=== PATIENT | male | born 1965 | race Caucasian/White ===

== ENCOUNTER 2016-10-22 21:45 | Inpatient (IN) | payer OTHER ==
[~2016-10-22] VITALS: Ht 177.8 cm; Wt 54.7 kg
--- NOTE | 2016-10-22 21:48 | NUR ---
PER SISTER, "HE IS A DIABITIC AND IS MAL NUTRITION AND HAS BOWEL MOVEMENT WITH BLOOD"
--- NOTE | 2016-10-22 21:56 | NUR ---
PT TO ER WITH MULTIPLE COMPLAINTS, PT STATES THAT HE IS AN ALCHOLIC , AND THAT HE HAS BEEN HAVING ABD PAIN FOR ABOUT 2 WEEKS, STATES THAT HE HAS BEEN HAVING BRIGHT RED BLOOD IN HIS STOOL TODAY, ALSO STATES THAT HE TRIPPED AND FELL AND HIT HIS HEAD ON THE FLOOR, PT NOTED WITH ABRASION ABOVE HIS R EYE. DENIES LOC. ALSO STATES THAT HE STOPPED TAKING HIS METFORMIN FOR HIS DIABETES , 3 MONTHS AGO. WANTS DETOX FROM ETOH, DENIES HISTORY OF SEIZURES. LAST DRINK WAS 30 MINUTES AGO, DRINKS BEATRIZ AND BEER.
--- NOTE | 2016-10-22 21:59 | NUR ---
FS 446 AT TRIAGE
--- NOTE | 2016-10-22 22:33 | NUR ---
PER PT CAN GO A WEEK WITHOUT DRINKING AND HAS NO SEIZURES, PT REPORTS " I AM AN ALCOHOLIC" PT REPORTS MULTIPLE CO FROM NAUSEA, DIARRHEA. AND ABD PAIN.
[2016-10-22 22:42] LABS: ABSOLUTE BASOPHIL COUNT 0 /CUMM (0.0-0.2); ABSOLUTE EOSINOPHIL COUNT 0 /CUMM (0.0-0.7); ABSOLUTE GRANULOCYTE CT 3.8 /CUMM (1.4-6.5); ABSOLUTE LYMPH COUNT 1.5 /CUMM (1.2-3.4); ABSOLUTE MONOCYTE COUNT 0.4 /CUMM (0.10-0.60); BASOPHIL % 0.2 % (0.0-2.0); EOSINOPHIL % 0.9 % (0-5); GRANULOCYTE % 66.7 % (42.2-75.2); MEAN CORPUSCULAR HGB 33.5 PG (27.0-31.0); MEAN CORPUSCULAR HGB CONC 33.9 G/DL (33.0-37.0); MEAN PLATELET VOLUME 7.3 FL (7.4-10.4); PLATELET COUNT 298 /CUMM (130-400); RBC DISTRIBUTION WIDTH 13.3 % (11.5-14.5); RED BLOOD CELL CT 3.74 /CUMM (4.70-6.10); WHITE BLOOD CELL COUNT 5.8 /CUMM (4.8-10.8)
[2016-10-22 22:52] LABS: PTT 30 SEC (25-37)
--- NOTE | 2016-10-22 23:26 | ED GENERAL ADULT ---
History of Present Illness General Chief Complaint: Fall Stated Complaint: "JUST HAD A FALL/BLOOD IN BOWEL MOVEMENT/ETOH" Source: patient, family (brother and sister) Exam Limitations: no limitations Triage Note: PT TO ER WITH MULTIPLE COMPLAINTS, PT STATES THAT HE IS AN ALCHOLIC , AND THAT HE HAS BEEN HAVING ABD PAIN FOR ABOUT 2 WEEKS, STATES THAT HE HAS BEEN HAVING BRIGHT RED BLOOD IN HIS STOOL TODAY, ALSO STATES THAT HE TRIPPED AND FELL AND HIT HIS HEAD ON THE FLOOR, PT NOTED WITH ABRASION ABOVE HIS R EYE. DENIES LOC. ALSO STATES THAT HE STOPPED TAKING HIS METFORMIN FOR HIS DIABETES , 3 MONTHS AGO. WANTS DETOX FROM ETOH, DENIES HISTORY OF SEIZURES. LAST DRINK WAS 30 MINUTES AGO, DRINKS BEATRIZ AND BEER. Triage Nurses Notes Reviewed? yes HPI: This patient is a 51-year-old male with a past medical history including diabetes, diabetic neuropathy, alcohol dependence who presented to the emergency department today for multiple complaints. The patient reported that over the last year and a half, he has lost approximately 100 pounds unintentionally. He reported that he used to weigh 230 pounds. The patient reported, "every time I eat, it just comes out as diarrhea." He reported that over the last several months he has been having this diarrhea. The patient reported that today he noticed that he had bright red blood in his stool. He reported that this happened once with a bowel movement today. He reported some mild intermittent abdominal pain which he rates at a 5 out of 10 at its worst and is located in the center of his stomach. It is nonradiating. No provoking or palliative factors. He reported that he chronically feels very tired. He reported he drinks approximately one sixpack a day and is requesting alcohol detox. He denied a history of any alcohol withdrawal seizures. He reported that his last drink was today. The patient reported that he smokes up to a pack of cigarettes daily. He also reported that he has been feeling more depressed over the last several months because he was recently laid off of work. The patient reported that he gets around with a walker because he has very bad diabetic neuropathy. He reported that his feet are numb. He reported that he falls frequently. His last fall was today when he got up out of bed and fell forward hitting his face on a tile floor. He reported that he is having minimal neck pain. He denied any head pain or blurry vision. The patient denied losing consciousness. He denied ever losing consciousness from his falls. The patient reported that he stopped taking his metformin more than 3 months ago, "because I am stubborn." The patient does not check his blood sugar regularly. The patient reported that he does get some intermittent chest pain which he was unable to describe. He denied any fevers, chills, difficulty breathing, jaw pain, arm pain, vomiting, constipation. The patient is currently in the process of moving in with his sister who is currently at the bedside along with his brother. (ARTEM BONNER,ALVINO) Vital Signs & Intake/Output Vital Signs & Intake/Output Vital Signs Date Time Temp Pulse Resp B/P Pulse O2 O2 Flow FiO2 Ox Delivery Rate 10/24 0800 98.7 71 16 118/80 10/24 0800 99 Room Air Room Air 10/24 0800 98.7 71 16 118/80 100 Room Air Room Air 10/24 0600 98.4 70 16 139/83 10/24 0400 98.4 62 18 119/78 10/24 0200 97.0 68 18 138/80 10/24 0000 97.0 67 18 125/79 10/24 0000 97.0 67 18 125/79 92 Room Air 10/23 2200 99.2 66 18 124/77 10/23 2000 99.2 72 18 108/80 10/23 1800 98.9 78 17 117/77 10/23 1600 98.9 85 20 94/68 10/23 1600 98.9 85 20 94/58 98 Room Air Room Air 10/23 1600 98 Room Air Room Air 10/23 1400 99.8 86 17 109/74 ED Intake and Output 10/24 0000 10/23 1200 Intake Total 2254 4088 Output Total 2350 600 Balance -96 3488 Intake, IV 1854 4088 Intake, Oral 400 0 Number 1 0 Bowel Movements Output, Stool 1000 Output, Urine 1350 600 Patient 121 lb Weight Allergies Coded Allergies: No Known Allergies (10/23/16) (RAYMON PEGUERO,TAYLOR Olmos) Past History Travel History Traveled to [place] past 21 day No Medical History Any Pertinent Medical History? see below for history Neurological: NONE EENT: NONE Cardiovascular: NONE Respiratory: NONE Gastrointestinal: NONE Hepatic: NONE Renal: NONE Musculoskeletal: NONE Psychiatric: alcohol dependence Endocrine: diabetes, DIABETIC NEUROPATHY Blood Disorders: NONE Cancer(s): NONE MILL TENDER/Reproductive: NONE Surgical History Surgical History: non-contributory Psychosocial History What is your primary language Guamanian Tobacco Use: Current Daily Use Daily Tobacco Use Amount/Type: => 5 Cigarettes daily ETOH Use: alcoholic Illicit Drug Use: denies illicit drug use Family History Hx Contributory? No (ALVINO MCGILL PA-C) Review of Systems Review of Systems Constitutional: Reports: see HPI. EENTM: Reports: no symptoms. Respiratory: Reports: no symptoms. Cardiovascular: Reports: see HPI. GI: Reports: see HPI. Genitourinary: Reports: no symptoms. Musculoskeletal: Reports: no symptoms. Skin: Reports: no symptoms. Neurological/Psychological: Reports: see HPI. Hematologic/Endocrine: Reports: see HPI. All Other Systems: Reviewed and Negative (ALVINO MCGILL PA-C) Physical Exam Physical Exam General Appearance: no apparent distress, alert, awake, thin Comments: Thin male in no acute distress HEENT: Head normocephalic, no bony deformity/step-offs of the skull, no tenderness to palpation over the scalp, moist mucous membranes PERRLA bilaterally Nose is atraumatic. Neck: Supple, no lymphadenopathy. Full range of motion. Mild midline tenderness to palpation Back: Normal inspection with no bony or muscular deformities. No midline tenderness Cardiovascular: Regular rate and rhythm with no murmurs, rubs, or gallops Respiratory: Chest nontender. No respiratory distress. Breath sounds clear to auscultation bilaterally with no wheezes, rales, or rhonchi Abdomen: Soft, nontender and nondistended. No organomegaly appreciated. Normoactive bowel sounds. No rebound or guarding. No peritoneal signs Rectal examination: No external or internal hemorrhoids noted. No anal fissures appreciated. Bright red blood per rectum with heme positive stool Extremity: No edema, no calf tenderness to palpation, normal and equal pulses. Neuro: Alert oriented x3, cranial nerves II through XII grossly intact. No unilateral weakness Skin: No appreciable rash on exposed skin, skin is warm and dry. Psych: Mood and affect is depressed Core Measures ACS in differential dx? Yes CVA/TIA Diagnosis: No Severe Sepsis Present: No Septic Shock Present: No (ALVINO MCGILL PA-C) Progress Differential Diagnoses I considered the following diagnoses in my evaluation of the patient: [Alcohol intoxication, alcohol withdrawal, drug intoxication, drug overdose, drug withdrawal, generalized anxiety disorder, major depressive disorder, intracranial hemorrhage, skull fracture, facial fracture, cervical spine injury, seizure disorder, ACS, viral syndrome, malignancy, hyperglycemia, diabetic ketoacidosis, perforated viscus, gastroenteritis, diverticulitis, peptic ulcer disease, GERD] Initial ED EKG: normal axis, normal intervals, nonspecific ST T wave chg, 78 bpm Hand-Off Endorsed To: RAYMON PEGUERO,TAYLOR Olmos Endorsed Time: 48 Pending: CT, labs (ARTEM BONNER,ALVINO) Plan of Care: Orders Procedure Date/time Status Nothing by Mouth 10/25 B Active LACTIC ACID 10/24 1200 Active HEPATITIS PANEL 10/24 1200 Active LACTIC ACID 10/24 0500 Complete ICU LAB BUNDLE 10/24 0500 Complete CBC WITHOUT DIFFERENTIAL 10/24 0500 Complete CORTISOL AM 10/24 0415 Complete PT EVAL MOD COMPLEX 30 MIN 10/24 UNK Complete Gait Training 10/24 UNK Complete Lab Add-on Test 10/24 UNK Active Clear Liquid Diet 10/23 D Active CULTURE,STOOL 10/23 1803 Active OVA AND PARASITE ANTIGENS 10/23 1754 Complete C.DIFFICILE 10/23 1753 Complete MISTAKE 10/23 UNK Active Current Medications Sig/Fay Start time Last Medication Dose Stop Time Status Admin Polyethylene Glycol 1 GAL ONCE ONE 10/24 1700 AC (Golytely Liq 4000 10/24 1701 Ml) Polyethylene Glycol 1 GAL ONCE ONE 10/23 1900 CAN (Golytely Liq 4000 10/23 1901 Ml) Acetaminophen 1,000 MG Q6P PRN 10/23 0600 AC (Ofirmev) N/A 1 UNIT (No Carrier) Lorazepam 0 Q1P PRN 10/23 0415 AC (Ativan) Acetaminophen 650 MG Q6P PRN 10/23 0330 AC (Tylenol) Laboratory Tests 10/24/16 0415: Anion Gap 8, Estimated GFR > 60, Glucose 137 H, Lactic Acid 2.2 H, Calcium 8.7 , Phosphorus 3.5, Magnesium 1.6, Total Bilirubin 0.6, AST 25, ALT 32, Albumin 3.1 L, Cortisol AM Sample 8.7, CBC w Diff NO MAN DIFF REQ, RBC 3.49 L, MCV 98.1 H, MCH 33.3 H, RDW 13.8, MPV 8.3, Gran % 72.2, Lymphocytes % 17.6 L, Monocytes % 8.2, Eosinophils % 1.5, Basophils % 0.5, Absolute Granulocytes 4.5, Absolute Lymphocytes 1.1 L, Absolute Monocytes 0.5, Absolute Eosinophils 0.1, Absolute Basophils 0, PUBS MCHC 33.9 10/23/16 1400: Anion Gap 5, Estimated GFR > 60, Glucose 158 H, Calcium 8.6, Phosphorus 3.1, Magnesium 1.7, Total Bilirubin 0.5, AST 35, ALT 32, Albumin 3.5, CBC w Diff NO MAN DIFF REQ, RBC 3.32 L, MCV 97.7 H, MCH 33.7 H, RDW 13.8, MPV 7.7, Gran % 65.1, Lymphocytes % 23.2, Monocytes % 8.4, Eosinophils % 2.9, Basophils % 0.4, Absolute Granulocytes 3.6, Absolute Lymphocytes 1.3, Absolute Monocytes 0.5, Absolute Eosinophils 0.2, Absolute Basophils 0, PUBS MCHC 34.5 Microbiology 10/24 1030 STOOL: Cryptosporidium Antigen - COMP 10/24 103 STOOL: Giardia Antigen (REENA) - COMP 10/23 1899 STOOL: Stool Culture - RES 10/23 1899 STOOL: Clostridium difficile Toxin A & B - COMP Departure Departure Disposition: STILL A PATIENT Condition: Stable Clinical Impression Primary Impression: Bright red blood per rectum Secondary Impressions: Frequent falls Uncontrolled diabetes mellitus Qualifiers: Diabetes mellitus type: type 2 Diabetes mellitus complication status: with unspecified complications 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 insulin use status Qualified Codes: E11.8 - Type 2 diabetes mellitus with unspecified complications; E11.65 - Type 2 diabetes mellitus with hyperglycemia Referrals: BENSON RAMSAY MD (PCP/Family) Departure Forms: Customer Survey General Discharge Information Admission Note Spoke With: MC LU MD Documentation of Exam: Documentation of any treatments & extenuating circumstances including Concerns Regarding Discharge (functional status, medication knowledge or non-compliance, living conditions, etc.) that warrant an admission rather than observation: [ This patient is a 51-year-old male sent to the emergency department today for evaluation of alcohol detox, frequent falls, uncontrolled diabetes, and bright red blood per rectum. On physical examination, this patient does have bright red blood per rectum with heme positive stool. This patient is thin and malnourished. He currently lives at home alone. Based on this patient's history and current clinical status, he is a poor candidate for outpatient treatment. This patient should be admitted to the hospital for gastroenterology consultation, trend labs, PT consultation, endocrinology consultation, regular blood glucose checks, IV fluids, and close monitoring. Premature discharge could prove medically harmful.] (ALVINO MCGILL PA-C) Departure Comments 10/23/16, 4:11am... discussed with devang radiologist.... ct scan showing "iv related" air is a benign finding. No danger to patient. Incidental. Admission Note Documentation of Exam: Documentation of any treatments & extenuating circumstances including Concerns Regarding Discharge (functional status, medication knowledge or non-compliance, living conditions, etc.) that warrant an admission rather than observation: as above. (TAYLOR ENNIS MD) Critical Care Note Critical Care Note Critical Care Time: non-applicable (ALVINO MCGILL PA-C) Critical Care Note Critical Care Time: 30-74 min (TAYLOR ENNIS MD) living conditions, etc.) that warrant an admission rather than observation: [ This patient is a 51-year-old male sent to the emergency department today for evaluation of alcohol detox, frequent falls, uncontrolled diabetes, and bright red blood per rectum. On physical examination, this patient does have bright red blood per rectum with heme positive stool. This patient is thin and malnourished. He currently lives at home alone. Based on this patient's history and current clinical status, he is a poor candidate for outpatient treatment. This patient should be admitted to the hospital for gastroenterology consultation, trend labs, PT consultation, endocrinology consultation, regular blood glucose checks, IV fluids, and close monitoring. Premature discharge could prove medically harmful.] (ALVNIO MCGILL PA-C) Departure Comments 10/23/16, 4:11am... discussed with devang radiologist.... ct scan showing "iv related" air is a benign finding. No danger to patient. Incidental. Admission Note Documentation of Exam: Documentation of any treatments & extenuating circumstances including Concerns Regarding Discharge (functional status, medication knowledge or non-compliance, living conditions, etc.) that warrant an admission rather than observation: as above. (TAYLOR ENNIS MD) Critical Care Note Critical Care Note Critical Care Time: non-applicable (ALVINO MCGILL PA-C) Critical Care Note Critical Care Time: 30-74 min (RAYMON PEGUERO,TAYLOR Olmos)
[2016-10-23] VITALS (11 sets, daily range): BP systolic 89–124; BP diastolic 50–80
--- NOTE | 2016-10-23 00:16 | NUR ---
TO CT AT THIS TIME.
--- NOTE | 2016-10-23 01:00 | CT SCAN REPORT ---
CT HEAD WITHOUT IV CONTRAST CT CERVICAL SPINE WITHOUT IV CONTRAST CT MAXILLOFACIAL WITHOUT IV CONTRAST INDICATION: Fall. COMPARISON: None available. TECHNIQUE: Multidetector CT acquisitions of the head, maxillofacial region, and cervical spine were obtained without IV contrast. Multiplanar reformats were acquired and utilized for image interpretation. FINDINGS: HEAD: There is no intracranial hemorrhage, hydrocephalus, extra-axial surface collection, midline shift, or other herniation pattern. Condon to white matter differentiation is diffusely maintained without evidence of an evolved acute territorial infarct. The basilar cisterns are preserved. There is mild anterior right frontal scalp swelling. No acute osseous abnormality. The paranasal sinuses and the mastoid air cells are well-aerated. Small amount of gas within the left paravertebral soft tissues at C1, within the left dorsal epidural space at C2, and just below the left skull base and within the left gis specialist space that is most likely intravenous gas from intravenous line placement. MAXILLOFACIAL: The mandible, maxilla, pterygoid plates, nasal bones, zygomatic arches, paranasal sinus castro, and bony orbits are intact. No acute osseous abnormality within the maxillofacial region. The paranasal sinuses and mastoid air cells remain well-aerated. No significant soft tissue findings. CERVICAL SPINE: There is anatomic alignment of the vertebral bodies and posterior elements. Moderate to severe disc volume loss with endplate osteophytes at C5-C6. There is no acute fracture and there is no acute subluxation. The craniocervical and atlantoaxial articulations are normal. There is no prevertebral soft tissue swelling. No significant soft tissue abnormality within the neck. The visualized lung apices are clear. IMPRESSION: 1. No acute intracranial abnormality. There is mild anterior right frontal scalp swelling. No fracture. 2. No acute osseous abnormality within the cervical spine. Moderate to severe spondylosis at C5-C6. 3. No acute osseous abnormality within the maxillofacial region. 4. Small amount of gas within the left paravertebral soft tissues at C1, within the left dorsal epidural space at C2, and just below the left skull base and within the left gis specialist space that is most likely intravenous gas from intravenous line placement.
--- NOTE | 2016-10-23 01:14 | CT SCAN REPORT ---
EXAMINATION: CT ABDOMEN AND PELVIS WITH CONTRAST CLINICAL INFORMATION: Rectal bleeding/abdominal pain COMPARISON: None available. TECHNIQUE: Multidetector volumetric imaging was performed of the abdomen and pelvis before and after the IV administration of 95 mL of Omnipaque 300 intravenous contrast. Sagittal and coronal reformatted images were obtained on the technologist's workstation. FINDINGS: The lung bases are clear. A 4 mm subpleural nodule at the lateral right lung base is of doubtful clinical significance. The liver, spleen, adrenal glands, gallbladder, and pancreas are normal. The kidneys exhibit symmetric nephrograms without evidence of hydronephrosis or nephrolithiasis. No focal renal lesions. The large and small bowel are normal in caliber without evidence of mechanical obstruction. No focal inflammatory changes adjacent to the large or the small bowel though assessment is limited by generalized anasarca. There is a partially imaged 0.8 cm round radiodensity along the anterior margin of the anus on image 90 of series 2 that could reflect a fecalith, calcification, or foreign body in this location that can be correlated with direct visual inspection. The appendix is not clearly identified. There is no free air and there is no intra-abdominal free fluid. No mesenteric or retroperitoneal adenopathy. Bladder is markedly distended. No pelvic adenopathy. No free fluid within the pelvis. There are no acute osseous abnormalities. Generalized anasarca. IMPRESSION: - Assessment for an acute bowel process is limited by closely opposed structures and generalized anasarca with no definite acute findings appreciated. If rectal bleeding persists, consider follow-up with colonoscopy. - There is a partially imaged 0.8 cm round radiodensity along the anterior margin of the anus on image 90 of series 2 that could reflect a fecalith, calcification, or foreign body in this location that can be correlated with direct visual inspection. - Generalized anasarca. - Significant bladder distention.
--- NOTE | 2016-10-23 01:58 | NUR ---
AWAKE ALERT MENTATING WELL. NO DIZZYNESS. GAIT STEADY.
--- NOTE | 2016-10-23 02:17 | NUR ---
OK WITH MD TO EAT, PT TO BR NO DIARRHEA NOTED NO ACTIVE BLEEDING.
--- NOTE | 2016-10-23 02:27 | NUR ---
HOUSESTAFF AT BEDSIDE. DR Patricia PARADA AT BEDSIDE.
--- NOTE | 2016-10-23 02:39 | NUR ---
LACTIC ACID NOW RESULTED FROM 2229
--- NOTE | 2016-10-23 02:50 | NUR ---
REPEAT LACTIC SENT GOLD AND LAV ALSO DRAWN HOUSESTAFF IS NOT SURE WHAT TO ORDER, WILL THINK ABOUT IT AND PLACE ADD ON,. REMAINS AWAKE ALERT NO DIZZYNESS NOTED. NO ACTIVE BLEEDING.
--- NOTE | 2016-10-23 03:11 | History & Physical ---
BONITA PEGUERO,[facility] [place] 10/23/16 0311: General Information and HPI MD Statement: I have seen and personally examined DL NGUYỄN and documented this H&P. The patient is a 51 year old M who presented with a patient stated chief complaint of bloody diarrhea. Source of Information: patient, family Exam Limitations: no limitations History of Present Illness: Mr. Nguyễn is a 51 y/o M with PMHx of alcohol abuse, T2DM and peripheral neuropathy who presents with bloody diarrhea and two syncopal episodes. Patient reports that he has been having diarrhea for the past two months with some relief from Imodium and notes four bowel movements on the day of current presentation. He also endorses associated discomfort in his lower abdomen. On the day of current presentation, patient got up to use the bathroom after dinner when he felt weak and his legs felt "wobbly". He subsequently passed out and found himself on the floor. He got up and went to the bathroom and subsequently noted blood in his stool. He passed out a second time after using the bathroom. Of note, patient has been having recurrent falls for the past few months and had to move in with his sister for safety. He also notes nocturia and urgency for the past few months but denies dysuria. Patient was diagnosed with T2DM about a year ago and started on metformin, which he has not been compliant with. He has also lost > 100 pounds over the past year despite no changes in his appetite. He reports that an extensive work-up including HIV test has been negative and attributes his weight loss to his newly diagnosed diabetes. Patient's brother reports that patient has been drinking heavily and eats very little when he drinks. Patient admits to drinking about 6 beers and half a pint of alpa and smoking 1/2 packs of cigarettes per day. He reports depression but denies suicidal or homicidal ideation. He denies cough, chest pain, palpitations, shortness of breath, nausea or vomiting. He has never had a colonoscopy. Allergies/Medications Allergies: Coded Allergies: No Known Allergies (10/23/16) Past History Travel History Traveled to [place] past 21 day No Medical History Neurological: peripheral neuropathy EENT: NONE Cardiovascular: NONE Respiratory: NONE Gastrointestinal: NONE Hepatic: NONE Renal: NONE Musculoskeletal: NONE Psychiatric: alcohol dependence Endocrine: diabetes Blood Disorders: NONE Cancer(s): NONE DEAN OF MEN/Reproductive: NONE Surgical History Surgical History: non-contributory Past Family/Social History Psychosocial History Where do you live? Home Who Do You Live With? sister Primary Language: [place] Citizen Smoking Status: Current Everyday Smoker (1/2 PPD) ETOH Use: alcoholic Illicit Drug Use: denies illicit drug use Review of Systems Review of Systems Constitutional: Reports: weakness, unexplained weight loss. Denies: chills, fever. EENTM: Reports: no symptoms. Cardiovascular: Denies: chest pain, palpitations. Respiratory: Denies: cough, short of breath. GI: Reports: abdominal pain, diarrhea, bloody stool, changes in stool. Denies: constipation, nausea, vomiting. Genitourinary: Reports: nocturia, urgency. Denies: dysuria. Musculoskeletal: Reports: no symptoms. Skin: Reports: no symptoms. Neurological/Psychological: Reports: ataxia, depressed, other (peripheral neuropathy). Hematologic/Endocrine: Reports: no symptoms. Immunologic/Allergic: Reports: no symptoms. Denies: HIV/AIDS. All Other Systems: Reviewed and Negative Colonoscopy Testing Status: Test never done Exam & Diagnostic Data Last 24 Hrs of Vital Signs/I&O Vital Signs Date Time Temp Pulse Resp B/P Pulse O2 O2 Flow FiO2 Ox Delivery Rate 10/23 0800 99.4 96 17 98/50 10/23 0800 98 Room Air Room Air 10/23 0800 99.4 96 17 98/50 98 Room Air Room Air 10/23 0600 98.3 84 10 107/72 10/23 0600 98.3 84 10 107/72 10/23 0600 98 Room Air 10/23 0515 98.3 83 15 94/63 98 Room Air 10/23 0439 96.9 88 20 88/52 98 10/23 0252 89 20 87/55 97 10/23 0237 97.9 82 20 89/57 10/23 0156 89/57 10/22 2151 97.0 96 18 97/66 96 Room Air Intake & Output 10/23 1600 10/23 0800 10/23 0000 Intake Total 4088 Output Total 600 Balance 3488 Intake, IV 4088 Intake, Oral 0 Number 0 Bowel Movements Output, Urine 600 Patient 54.703 kg 54.703 kg 58.967 kg Weight Physical Exam General Appearance Alert, Oriented X3, No Acute Distress, Cachectic Skin No Rashes HEENT Laceration Noted on Right Forehead Neck Supple, No LAD Cardiovascular Regular Rate, Normal S1, Normal S2 Lungs Clear to Auscultation Abdomen Soft, No Tenderness, Nondistended, Positive Bowel Sounds Neurological Normal Speech, Strength at 5/5 X4 Ext, Cranial Nerves 3-12 NL, No Gross Focal Deficits Noted Extremities No Clubbing, No Cyanosis, No Edema Rectal Positive for Blood Last 24 Hrs of Labs/Brad: Laboratory Tests 10/23/16 0440: Anion Gap 15, Estimated GFR > 60, Glucose 141 H, Calcium 7.9 L, Phosphorus 2.7 , Magnesium 1.8, Total Bilirubin 0.4, Direct Bilirubin 0.3, AST 26, ALT 30, Alkaline Phosphatase 52, Total Protein 5.7 L, Albumin 3.3 L, Vitamin B12 477, TSH 0.823, Free T4 1.17, HIV 1&2 Ab Western Blot NONREACTIVE 10/23/16 0417: TSH Cancelled, Free T4 Cancelled 10/23/16 0250: Lactic Acid 4.4 H 10/22/16 2340: Urine Opiates Screen < 100.00, Methadone Screen < 40, Barbiturate Screen < 60, Ur Phencyclidine Scrn < 6.00, Amphetamines Screen < 100, U Benzodiazepines Scrn < 85, Urine Cocaine Screen < 50, Urine Cannabis Screen < 5.00, Urine Color YEL, Urine Clarity CLEAR, Urine pH 6.0, Ur Specific [place] <= 1.005, Urine Protein NEG, Urine Ketones NEG, Urine Nitrite NEG, Urine Bilirubin NEG, Urine Urobilinogen 0.2, Ur Leukocyte Esterase NEG, Ur Microscopic EXAM NOT REQUIRED, Urine Hemoglobin NEG, Urine Glucose >=1000 H 10/22/16 2230: Lactic Acid 4.0 H 10/22/16 2230: Anion Gap 17 H, Estimated GFR > 60, BUN/Creatinine Ratio 16.7, Glucose 404 H, Calcium 9.3, Total Bilirubin 0.6, Direct Bilirubin 0.4, AST 19, ALT 31, Alkaline Phosphatase 65, Troponin I < 0.01, Total Protein 7.0, Albumin 4.3, Globulin 2.7, Albumin/Globulin Ratio 1.6, Amylase 87, Lipase 204, PT 10.0, INR 0.95, APTT 30, CBC w Diff NO MAN DIFF REQ, RBC 3.74 L, MCV 99.0 H, MCH 33.5 H, RDW 13.3, MPV 7.3 L, Gran % 66.7, Lymphocytes % 25.5, Monocytes % 6.7, Eosinophils % 0.9, Basophils % 0.2, Absolute Granulocytes 3.8, Absolute Lymphocytes 1.5, Absolute Monocytes 0.4, Absolute Eosinophils 0, Absolute Basophils 0, PUBS MCHC 33.9, Serum Alcohol 291.0, Acetone Level NEGATIVE Microbiology 10/23 0600 UPPER RESP: Surveillance Culture - RECD Diagnostic Data EKG Results NSR HR [address] HEAD W/O IV CONTRAST: 1. No acute intracranial abnormality. There is mild anterior right frontal scalp swelling. No fracture. CT CERVICAL SPINE W/O IV CONTRAST: No acute osseous abnormality within the cervical spine. Moderate to severe spondylosis at C5-C6. Small amount of gas within the left paravertebral soft tissues at C1, within the left dorsal epidural space at C2, and just below the left skull base and within the left gas pumping station helper space that is most likely intravenous gas from intravenous line placement. CT MAXILLOFACIAL W/O IV CONTRAST: No acute osseous abnormality within the maxillofacial region. Assessment/Plan Assessment: 51 y/o M with PMHx of alcohol abuse, T2DM and peripheral neuropathy who presents with bloody diarrhea and two syncopal episodes. #BRBPR: Presents with bloody diarrhea and two syncopal episodes. Hypotensive in the ED with BP 80/50s despite aggressive fluid resuscitation with NS boluses and elevated lactic acid of 4. Despite hypotension, H/H only borderline low at 12.5/ 37. * Admit to ICU for close hemodynamic monitoring in the setting of hypotension. * GI consult requested. Appreciate their recs. * Type and crossmatch. * Patient ate a sandwich around 4 AM in the ED. Keep NPO afterwards. * Aggressive IVF hydration with NS @ 100 cc/hr. * Protonix 40 mg IV QD started. * Check H/H in 6 hours. #Syncope and recurrent falls: Likely secondary to orthostatic hypotension in the setting of volume contraction 2/2 chronic diarrhea and suspected GI bleed, although peripheral neuropathy and alcohol use are possible contributory factors. Differential also includes arrhythmia and neurocardiogenic syncope. * Continous cardiac monitoring to rule out arrhythmia. * OT/PT eval. * Check vitamin B12 level. #Chronic diarrhea and weight loss: Patient has lost >100 pounds in the past year and reports that extensive work-up including HIV test has been negative. Diarrhea has been ongoing for 2 months. Of unclear etiology. It is possible that metformin could be contributing to the diarrhea. Potential etiologies include infectious, malabsorption, endocrine, malignancy and metabolic secondary to alcohol use. * HIV test ordered. * Check thyroid function tests. * Consider more extensive work-up once patient is medically stable. #Anion gap metabolic acidosis: Anion gap elevated at 17 on initial presentation. Differential includes starvation ketoacidosis in the setting of weight loss, lactic acidosis likely secondary to hypotension and alcoholic ketoacidosis. * Continue to trend lactic acid and BMP. * Aggressive IVF hydration with NS @ 100 cc/hr. #Alcohol abuse: Heavy alcohol use. Drinks 6 beers and half a pint of alpa daily. Serum alcohol level markedly elevated at 291 on admission. * [facility] protocol to monitor for signs/symptoms of alcohol withdrawal. * Ativan PRN per [facility] protocol. * Banana bag with 200 mg of thiamine, MVI and 1 mg of folic acid started. * Administer vitamin B12 1000 mcg IM. #T2DM: Was diagnosed one year ago and started on metformin 1000 mg PO BID but has been noncompliant with medication. * Check HbA1c. * Accu-checks and Novolin Q6H SSI while patient is NPO. #Depression: No suicidal or homicidal ideation at present. * Psych consult placed. Appreciate their recs. Diet: NPO Fluids: NS @ 100 cc/hr Pain: Tylenol 650 mg PO Q6H PRN for mild pain (scale 1-3) DVT PPx: CODE: FULL As Ranked By This Provider Problem List: 1. Bright red blood per rectum 2. Frequent falls 3. 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 T2DM (type 2 diabetes mellitus) 5. Weight loss, unintentional 6. Chronic diarrhea 7. Depression 8. Alcohol abuse 9. Syncope 10. Lactic acidosis 11. Increased anion gap metabolic acidosis Core Measures/Miscellaneous Acute Coronary Syndrome ACS Diagnosis: No Cerebrovascular Accident CVA/TIA Diagnosis: No Congestive Heart Failure CHF Diagnosis: No Venous Thromboembolism VTE Risk Factors: Acute medical illness, Age > 40, Smoking VTE Prophylaxis Ordered Inpt: Mechanical (ALPS/TEDS) No Mech VTE prophylaxis d/t: No contraindications No VTE Pharm Prophylaxis d/t: Active bleeding VTE Diagnosis: No VTE Type: NONE VTE Confirmed by (Test): NONE Severe Sepsis Severe Sepsis Present: No Septic Shock Septic Shock Present: No Miscellaneous Documentation Attending Case Discussed With: MC LU MD Primary Care Physician: BENSON RAMSAY MD Patient sees these Specialists N/A Level of Patient Care: Critical Care (CRI) [facility] 10/23/16 0350: Resident Review Statement Resident Statement: examined this patient, discussed with internet researcher, agreed with internet researcher Other Findings: Patient is a 51-year-old gentleman with past medical history significant for diabetes, treated with diabetic neuropathy, significant weight loss for the past year( from 230 pounds to 130 pounds)presented to the ED with chief complaints of diarrhea for 1 month and syncopal episode yesterday. Patient mentioned that he was diagnosed with diabetes type 1 year ago and was started on metformin, he lost significant weight in the past year without any change in his appetite. He has been worked up for HIV and hepatitis and all tests came negative. About 2 months he's been having loose watery stools without any nausea or vomiting reported some lower abdominal discomfort. He is not very compliant with his medications at home. Yesterday he started having bright red blood per rectum with stools, he passed out twice without any alarming symptoms, both episodes happened on standing up. His symptoms were concerning and he was brought to the ER for further assessment. In the ED patient was found to be hypotensive blood pressure was 87/55, with elevated blood sugar levels 446, he received 10 units of IV insulin twice and his blood sugar levels came down to 192. He received 3 L boluses of normal saline and getting the fourth liter in the ER. Patient has a history of significant alcohol abuse drinks 6 [place] with half pint of alpa a day for a long time now smokes 10-11 cigarettes a day. He seems depressed, denies any suicidal or homicidal ideation. Vitals on admission temperature 90.7, pulse 89, respiratory rate 20, blood pressure 87/55 on room air On examination feneral Appearance: Alert, No Acute Distress, seems thin and cachectic Skin: Grossly normal HEENT: WADE Neck: Supple, No JVD Cardiovascular normal S1 and S2 without any murmurs Lungs: bilateral basal crackles Abdomen: Normal Bowel Sounds, Soft, No Tenderness Neurological: Normal Speech, Strength at 5/5 X4 Ext, Cranial Nerves 3-12 NL, Reflexes 2+ Extremities: No extremity edema Pertinent labs on admission: H&H: 12.5/37.0 with MCV of 99 sodium 134 BUN/creatine tenths as you 0.6 elevated lactic acid: 4, normal urinalysis. Initial fingerstick sugar sticks 446. Urine toxicology normal. Normal head CT scan CT abdomen and pelvis revealed: There is a partially imaged 0.8 cm round radiodensity along the anterior margin of the anus on image 90 of series 2 that could reflect a fecalith, calcification, or foreign body in this location that can be correlated with direct visual inspection.Generalized anasarca.Significant bladder distention. Assessment and plan 1. Acute Bright red blood per rectum with hypotension: * Will keep the patient in observation in ICU for now * Orthostats and negative, patient already received 4 L of normal saline will continue with 100 mL per our for now. * Keep the patient nothing by mouth * IV Protonix * GI consult in the morning * Watch for any hemodynamic instability. 2.History of alcohol abuse: * We'll put the patient on Ativan as per [facility] protocol * Will give 200 of IM thiamine once * Continue with by mouth thiamine, folate and vitamin B12 * Psych consult in the morning. 3. History of type 2 diabetes mellitus: * NPO insulin sliding scale. * Check hemoglobin A1c 4. Significant weight loss(possible underlying malignancy/other pathology): * Will check HIV, hepatitis panel, thyroid function tests 5. DVT prophylaxis Alps 6. Patient is full code MC LU 10/23/16 0634: Attending MD Review Statement Attending Statement Attending MD Statement: examined this patient, discuss w/resident/PA/CORPORATE TRAFFIC MANAGER, agreed w/resident/PA/CORPORATE TRAFFIC MANAGER, discussed with family, reviewed EMR data (avail), reviewed images, amended to note Attending Assessment/Plan: Cc: Bloody diarrhea PMH: DM noncompliant, alcoholism, peripheral neuropathy Patient has multiple complaints primarily brought in ER today with bloody stool, and fall 2 times, patient was unable to get up, he had syncopal episodes. He had been having multiple falls since last few weeks. Extensive alcohol history. No diagnosis of cirrhosis. He also has uncontrolled diabetes noncompliant with this medication, significant waist loss in the last 1 year, chronic diarrhea since last 2 months, peripheral neuropathy, depression. Denies any chest pain, abdominal pain, cough shortness of breath, denies any suicidal or homicidal ideation. Vitals: Afebrile, BP 97/66 in ER dropped to 87/55, saturating well on room air. On examination: A O 3, no agitation, mildly anxious, neck supple, no lymphadenopathy, bruises on for head on Right side, cold extremities, peripheral pulses intact, no focal neurological deficit, CVS: S1-S2, RRR. RS: Clear air entry bilaterally. Abdomen: Soft, NT, ND bowel sounds present. Rectal examination done in ER positive for blood. Obvious inflammation or rashes on the skin. Labs: Hemoglobin 12.5, glucose 404, anion gap 17, INR 0.95, troponin less than 0.01, lipase 204, alcohol 291, lactate 4.0. Imaging: CT CERV SPINE WO IV CONTRAST; CT HEAD WO IV CONTRAST; CT MAXILLOFACIAL W/O CON : No acute intracranial abnormality. There is mild anterior right frontal scalp swelling. No fracture. No acute osseous abnormality within the cervical spine. Moderate to severe spondylosis at C5-C6. No acute osseous abnormality within the maxillofacial region. Small amount of gas within the left paravertebral soft tissues at C1 (???), within the left dorsal epidural space at C2, and just below the left skull base and within the left gas pumping station helper space that is most likely intravenous gas from intravenous line placement. CT ABD & PELVIS W IV CONTRAST: Assessment for an acute bowel process is limited by closely opposed structures and generalized anasarca with no definite acute findings appreciated. If rectal bleeding persists, consider follow-up with colonoscopy. There is a partially imaged 0.8 cm round radiodensity along the anterior margin of the anus on image 90 of series 2 that could reflect a fecalith, calcification, or foreign body in this location that can be correlated with direct visual inspection. Generalized anasarca. Significant bladder distention. A and P #1 GI bleed: Patient was mildly hypotensive in ER , more concern of increased lactate even after hydration. Admit to in ICU for hypotension in the setting of GI bleed. Type and crossmatch, GI consult, nothing by mouth, IV Protonix, continue IV hydration with 75 200 mL per hour, repeat hemoglobin and hematocrit in 6 hours. #2 alcohol abuse: Extensive alcohol history, continue scheduled and when necessary Ativan according to [facility] protocol, replete thiamine and folic acid, significant history of depression consult psych #3 uncontrolled diabetes: Check hemoglobin A1c, start NPO sliding scale insulin #4 anion gap Metabolic acidosis: Starvation ketosis, alcoholism and lactic acidosis, continue hydration #5 fall and syncope: Patient has high alcohol level which may be contributing but patient mentions syncopal episodes his loses consciousness and falls down when unaware of the episode. Probably orthostatic hypotension given his volume contraction, continue hydration, youth nutritional monitor, OT PT evaluation. #6 chronic diarrhea and weight loss : ? Metformin ? Unclear etiology #7 peripheral neuropathy : Check vitamin B12 level, #8 Alps for DVT prophylaxis, adequate pain control #[address] mentions ? fecalith in rectum, ER note does not mention any such examination findings on rectal exam. May repeat rectal exam in a.m.
--- NOTE | 2016-10-23 03:15 | NUR ---
CRITICAL TEST RESULTS [id number] DL NGUYỄN 51 M TESTS AND RESULTS: LACTIC 4.4 Results received and read back by: RAZ RUDOLPH Results received date and time: 10/23/16 0506 The following provider was notified of the results, and read the results back: DR CASEY[AUNDER Notified date and time: 10/23/16 at 0315
--- NOTE | 2016-10-23 03:18 | NUR ---
DR BUTT IN FRONT OF THIS RN AND INFORMED HER OF THE PTS LACTIC 4.4 RESULTS, RESIDENT HAILEY PAGED AND INFORMED AND RESIDENT RESPONDED WITH "OK I WILL LET HOWARD KNOW".....
--- NOTE | 2016-10-23 03:36 | NUR ---
PT'S RM ASSIGNMENT 108 BED 1
--- NOTE | 2016-10-23 04:09 | NUR ---
PT NOW NPO, HOUSESTAFF AWARE PT HAD 2 BOXED LUNCHES AND DIET PEPSI.
--- NOTE | 2016-10-23 04:14 | NUR ---
VOIDING WITHOUT DIFF, AMBULATORY TO BR AD GORDON NO DIZZYNESS NO OVERT BLEEDING NOTED.
--- NOTE | 2016-10-23 04:39 | NUR ---
LABS REDRAWN AND SENT.
--- NOTE | 2016-10-23 04:41 | NUR ---
PER REQUEST OF CALLED WITH MOST RECENT BP. PT REPORTS IN BR X 1 WITH SMALL AMT OF DIAHHEA, PER PT THIS HAPPENS AFTER EATING.
--- NOTE | 2016-10-23 05:05 | NUR ---
REPORT TO [facility].
--- NOTE | 2016-10-23 06:35 | Admission Certification ---
Admission Certification Certification Statement - As attending physician, I certify that at the time of - admission, based on clinical presentation, severity of - symptoms, need for further diagnostic testing and - therapeutic interventions, and risk of adverse outcomes - without in-hospital treatment, in my clinical assessment, - this patient requires an acute hospital stay for a minimum - of two nights or longer. I have also considered psychsocial - factors such as support system, advanced age, financial - issues, cognitive issues, and failed out-patient treatments, - past re-admission history, safety of patient, and lack of - compliance as applicable. Specific rationale supporting this admission is: Recurrent falls, GI bleed, alcohol detox
--- NOTE | 2016-10-23 08:00 | NUR ---
ADMIT ACCEPTANCE: REC'D REPORT FROM LORNE GONZALES IN ER. ARRIVED IN ICU VIA STRETCHER @9810. DX: GIB & ETOH WD. H/H 12.. PMHX: DM, NEUROPATHY, S/P UMBILICAL HERNIA REPAIR. PT IS ANOXIC STATED HE LOST 100LBS FOR THE PAST YEAR. 4AM LABS DRAWN PRIOR TO ICU ADMIT. AMBULATED TO THE BED W/OUT ANY INCIDENT. HOOKED UP ON THE MONITOR, SR W/HR IN 80'S, SBP 90'S & CORRELATING TO BOTH CUFFS. ON RA POX 98%, LS CLEAR DESPITE RECEIVING 4L IVF IN THE ER. ACCUCHECK 171 SEE EMAR FOR SS COVERAGE. PT REMAINS NPO FOR POSSIBLE COLOSCOPY. PT HAD DIARRHEA IN THE ER & WAS GUACIC+VE. HAD A BRIEF & REMOVED IT & HAD SMEAR STOOL W/BRIGHT BLOOD. PERICARE GIVEN. NO ACTIVE BLEED CA. PLACED ANOTHER BRIEF PLACED. ABD SOFT SL DISTENDED. AMBULATED X2 TO TOILET VOIDED WELL IN THE URINAL SEE I/O. HUNG IVF NS @100ML/HR. PT IS A/OX3 SL TREMORS IN THE HANDS WHEN RAISED UP. OTHERWISE NO OTHER SYMPTOMS. NO ATIVAN GIVEN. NO C/O PAIN VOICED. SETTLED BACK TO BED WHEN ADMIT ASSESSMENT/HX DONE. [id number] REPORT GIVEN TO LORNE MOREIRA.
--- NOTE | 2016-10-23 09:15 | PN- Resident CRCU ---
Subjective HPI/CRCU Issues: patient was seen and examined. He is laying on bed looks relaxed and comfortable. No acute events but reported since admission. Patient looks thin. He is not currently on any distress and reports no complaints Objective Vital Signs & I&O Last 8 Hrs of Vitals and I&O: Intake & Output 10/23 1600 Intake Total Output Total Balance Patient 54.703 kg Weight Exam General Appearance: no apparent distress, alert, awake, comfortable, thin Head: atraumatic, normal appearance Respiratory: normal breath sounds, chest non-tender, no respiratory distress, quiet respiration, lungs clear Cardiovascular: regular rate/rhythm, no lower extremity edema bilaterally Gastrointestinal: normal bowel sounds, soft, mild tenderness in the umbilical area Extremities: normal inspection, no edema (LE BL) Skin: pallor Current Medications: Current Medications Sig/Fay Start time Last Medication Dose Route Stop Time Status Admin Acetaminophen 1,000 MG Q6P PRN 10/23 0600 N/A 1 UNIT IV Acetaminophen 650 MG Q6P PRN 10/23 0330 AC PO Cyanocobalamin 1,000 MCG DAILY 10/23 1000 CAN PO Cyanocobalamin 1,000 MCG Q30D 10/23 0900 AC 10/23 IM 1401 Cyanocobalamin/ 1 BAG DAILY 10/23 1000 CAN Thiamine/Pyridoxine IV Dextrose/Water 1,000 ML Folic Acid 1 MG DAILY 10/23 1000 CAN PO Insulin Human Regular 0 Q6 10/23 0600 AC 10/23 SC 1200 Insulin Human Regular 10 UNITS ONCE ONE 10/23 0030 DC IV 10/23 0031 Insulin Human Regular 10 UNITS ONCE ONE 10/22 2300 DC 10/23 IV 10/22 2301 0020 Lorazepam 0 Q1P PRN 10/23 0415 IV Multivitamins 1 DICK DAILY 10/23 1000 AC 10/23 Folic Acid 1 MG IV 1000 Thiamine HCl 200 MG Dextrose/Water 1,000 ML Nicotine 14 MG DAILY 10/23 1102 AC 10/23 TOP 1406 Pantoprazole Sodium 0 .STK-MED ONE 10/23 0451 DC IV Pantoprazole Sodium 40 MG DAILY 10/23 0415 AC 10/23 IV 0452 Sodium Chloride 1,000 ML Q10H 10/23 0415 AC 10/23 IV 0555 Sodium Chloride 1,000 ML BOLUS ONE 10/23 0300 DC 10/23 IV 10/23 0359 0406 Sodium Chloride 1,000 ML BOLUS ONE 10/23 0215 DC 10/23 IV 10/23 0314 0252 Sodium Chloride 1,000 ML BOLUS ONE 10/22 2345 DC 10/23 IV 10/23 0044 0010 Sodium Chloride 1,000 ML BOLUS ONE 10/22 2230 DC 10/22 IV 10/22 2329 2237 Thiamine HCl 100 MG DAILY 10/23 1000 CAN PO Thiamine HCl 200 MG ONCE ONE 10/23 0600 CAN Sodium Chloride 100 ML IV 10/23 0659 Thiamine HCl 200 MG ONCE ONE 10/23 0415 CAN IM 10/23 0416 Impression/Plan Impression/Problem List Impression: Assessment: 51 y/o M with PMHx of alcohol abuse, T2DM and peripheral neuropathy who presents with bloody diarrhea and two syncopal episodes. #Bleeding per rectum Presents with bloody diarrhea and two syncopal episodes. Hypotensive in the ED with BP 80/50s despite aggressive fluid resuscitation with NS boluses and elevated lactic acid of 4. Despite hypotension, H/H only borderline low at 12.5/37. * ICU for close hemodynamic monitoring in the setting of hypotension at presentation. * Type and crossmatch. * Patient will be on IV fluid * Protonix 40 mg IV QD started. * Check H/H every 6 * Patient will be on clear liquids for now and then for a [employer] prep tomorrow , to be prepared for endoscopic exam. #Syncope and recurrent falls: Likely secondary to orthostatic hypotension in the setting of volume contraction 2/2 chronic diarrhea and suspected GI bleed, although peripheral neuropathy and alcohol use are possible contributory factors. Differential also includes arrhythmia and neurocardiogenic syncope. * Continous cardiac monitoring to rule out arrhythmia. * Follow-up CBC to rule out active bleeding and anemia * OT/PT eval. #Chronic diarrhea and weight loss: Patient has lost >100 pounds in the past year and reports that extensive work-up including HIV test has been negative. Diarrhea has been ongoing for 2 months. Of unclear etiology. It is possible that metformin could be contributing to the diarrhea. Potential etiologies include infectious, endocrine, malignancy and metabolic secondary to alcohol use. * HIV test pending. * Thyroid function tests is within normal limits * More workup will be done once patient is stable #Alcohol abuse: Heavy alcohol use. Drinks 6 beers and half a pint of alpa daily. Serum alcohol level markedly elevated at 291 on admission. * [facility] protocol to monitor for signs/symptoms of alcohol withdrawal. * Ativan PRN per [facility] protocol. * Banana bag with 200 mg of thiamine, MVI and 1 mg of folic acid was given. * Administered vitamin B12 1000 mcg IM. #T2DM: Was diagnosed one year ago and started on metformin 1000 mg PO BID but has been noncompliant with medication. * Check HbA1c is pending. * Accu-checks and Novolin Q6H SSI while patient is NPO. #Depression: No suicidal or homicidal ideation at present. * Psych consult placed. Appreciate their recs. Diet: Clear liquid, will start GoLYTELY around 7 PM for possible endoscopy and/ or colonoscopy tomorrow Fluids: NS @ 100 cc/hr Pain: Tylenol 650 mg PO Q6H PRN for mild pain (scale 1-3) DVT PPx: ALPS CODE: FULL Problem List: 1. Lactic acidosis 2. Alcohol abuse 3. Syncope 4. Chronic diarrhea 5. Depression 6. Weight loss, unintentional 7. Uncontrolled diabetes mellitus 8. Bright red blood per rectum Pain Ratin Tomorrow's Labs & Rationales: CBC, ICU bundle, lactic acid Plan DVT/Prophylaxis: mechanical
[2016-10-23 10:20] LABS: ABSOLUTE BASOPHIL COUNT 0 /CUMM (0.0-0.2); ABSOLUTE EOSINOPHIL COUNT 0.1 /CUMM (0.0-0.7); ABSOLUTE LYMPH COUNT 1.3 /CUMM (1.2-3.4); ABSOLUTE MONOCYTE COUNT 0.3 /CUMM (0.10-0.60); MEAN CORPUSCULAR HGB 33.7 PG (27.0-31.0); RBC DISTRIBUTION WIDTH 13.4 % (11.5-14.5)
[2016-10-23 10:28] LABS: ABSOLUTE GRANULOCYTE CT 4.4 /CUMM (1.4-6.5); BASOPHIL % 0.4 % (0.0-2.0); GRANULOCYTE % 71.7 % (42.2-75.2); MEAN CORPUSCULAR HGB CONC 34.2 G/DL (33.0-37.0); MEAN CORPUSCULAR VOLUME 98.6 FL (80.0-94.0); MEAN PLATELET VOLUME 7.8 FL (7.4-10.4); PLATELET COUNT 254 /CUMM (130-400); RED BLOOD CELL CT 3.12 /CUMM (4.70-6.10); WHITE BLOOD CELL COUNT 6.1 /CUMM (4.8-10.8)
[2016-10-23 10:29] LABS: HEMATOCRIT 30.8 % (42-52)
--- NOTE | 2016-10-23 10:30 | PN- Att Addend ---
Attending Addendum Attending Brief Note Patient seen and examined. History of physical reviewed. He is alert and 3. His blood pressure has improved. No further episodes of rectal bleeding reported by nursing staff. He has had no episodes of diarrhea since admission. Denies chest pain or shortness of breath. Denies dizziness. He reports loose stools over the past 12 days. He reports a stools only with meals. Denies abdominal pain. Denies nausea vomiting. He has not sought medical attention for this prior to hospitalization. He reports one episode of bloody stools yesterday prior to admission. Denies straining when having his bowel movements. He has not had a colonoscopy in the past. Denies family history of malignancy. Vital Signs Date Time Temp Pulse Resp B/P Pulse O2 O2 Flow FiO2 Ox Delivery Rate 10/23 799 99.4 96 17 98/50 10/23 0800 98 Room Air Room Air 10/23 08 99.4 96 17 98/50 98 Room Air Room Air 10/23 0600 98.3 84 10 107/72 10/23 0600 98.3 84 10 107/72 10/23 0600 98 Room Air 10/23 0515 98.3 83 15 94/63 98 Room Air 10/23 0439 96.9 88 20 88/52 98 10/23 0252 89 20 87/55 97 10/23 0237 97.9 82 20 89/57 10/23 0156 89/57 10/22 2151 97.0 96 18 97/66 96 Room Air Gen. appearance: Cachectic, not in acute distress Heart: S1-S2 regular Lungs: Fair entry bilaterally, clear to auscultation Abdomen: Soft, nontender with normal bowel sounds Extremities: No pedal edema Skin: Intact with no rashes Neurologic: Alert and oriented 3 Laboratory Tests 10/23/16 0820: Sodium Pending, Potassium Pending, Chloride Pending, Carbon Dioxide Pending, Anion Gap Pending, BUN Pending, Creatinine Pending, Glucose Pending, Lactic Acid Pending, Calcium Pending, Phosphorus Pending, Magnesium Pending, Total Bilirubin Pending, AST Pending, ALT Pending, Albumin Pending, CBC w Diff NO MAN DIFF REQ, RBC 3.12 L, MCV 98.6 H, MCH 33.7 H, RDW 13.4, MPV 7.8, Gran % 71.7, Lymphocytes % 20.6, Monocytes % 5.3, Eosinophils % 2.0, Basophils % 0.4, Absolute Granulocytes 4.4, Absolute Lymphocytes 1.3, Absolute Monocytes 0.3, Absolute Eosinophils 0.1, Absolute Basophils 0, PUBS MCHC 34.2 10/23/16 0500: Sodium Cancelled, Potassium Cancelled, Chloride Cancelled, Carbon Dioxide Cancelled, Anion Gap Cancelled, BUN Cancelled, Creatinine Cancelled, Glucose Cancelled, Calcium Cancelled, Phosphorus Cancelled, Magnesium Cancelled, Total Bilirubin Cancelled, AST Cancelled, ALT Cancelled, Albumin Cancelled 10/23/16 0447: Hemoglobin A1c Cancelled 10/23/16 0440: Hemoglobin A1c Pending 10/23/16 0440: Anion Gap 15, Estimated GFR > 60, Glucose 141 H, Calcium 7.9 L, Phosphorus 2.7 , Magnesium 1.8, Total Bilirubin 0.4, Direct Bilirubin 0.3, AST 26, ALT 30, Alkaline Phosphatase 52, Total Protein 5.7 L, Albumin 3.3 L, Vitamin B12 Pending, TSH 0.823, Free T4 1.17, HIV 1&2 Ab Western Blot NONREACTIVE 10/23/16 0417: TSH Cancelled, Free T4 Cancelled 10/23/16 0250: Lactic Acid 4.4 H 10/22/16 2340: Urine Opiates Screen < 100.00, Methadone Screen < 40, Barbiturate Screen < 60, Ur Phencyclidine Scrn < 6.00, Amphetamines Screen < 100, U Benzodiazepines Scrn < 85, Urine Cocaine Screen < 50, Urine Cannabis Screen < 5.00, Urine Color YEL, Urine Clarity CLEAR, Urine pH 6.0, Ur Specific [place] <= 1.005, Urine Protein NEG, Urine Ketones NEG, Urine Nitrite NEG, Urine Bilirubin NEG, Urine Urobilinogen 0.2, Ur Leukocyte Esterase NEG, Ur Microscopic EXAM NOT REQUIRED, Urine Hemoglobin NEG, Urine Glucose >=1000 H 10/22/160: Lactic Acid 4.0 H 10/22/16 223: Anion Gap 17 H, Estimated GFR > 60, BUN/Creatinine Ratio 16.7, Glucose 404 H, Calcium 9.3, Total Bilirubin 0.6, Direct Bilirubin 0.4, AST 19, ALT 31, Alkaline Phosphatase 65, Troponin I < 0.01, Total Protein 7.0, Albumin 4.3, Globulin 2.7, Albumin/Globulin Ratio 1.6, Amylase 87, Lipase 204, PT 10.0, INR 0.95, APTT 30, CBC w Diff NO MAN DIFF REQ, RBC 3.74 L, MCV 99.0 H, MCH 33.5 H, RDW 13.3, MPV 7.3 L, Gran % 66.7, Lymphocytes % 25.5, Monocytes % 6.7, Eosinophils % 0.9, Basophils % 0.2, Absolute Granulocytes 3.8, Absolute Lymphocytes 1.5, Absolute Monocytes 0.4, Absolute Eosinophils 0, Absolute Basophils 0, PUBS MCHC 33.9, Serum Alcohol 291.0, Acetone Level NEGATIVE Microbiology 10/23 0600 UPPER RESP: Surveillance Culture - RECD Problems: 1. Syncope 2. Hypotension; likely secondary to volume depletion 3. Diarrhea 4. Rectal bleed 5. Unintentional weight loss Plan: -Blood pressure has improved and patient' is current hemodynamically stable. -Check orthostatic vitals. If negative patient may be downgraded to the general medical floor. -Continue hydration with normal saline at 1 25 mL an hour for the next 1 L then decrease to 100 mL an hour. -Recommend echocardiogram to rule out cardiogenic component to his hypotension. Repeat EKG today. -Awaiting GI evaluation for his diarrhea and episode of bloody stools yesterday. -Follow-up CBC levels this morning. Repeat in 12 hrs. -His weight loss is being worked up by his primary care provider as an outpatient. He will require colonoscopy as part of age-appropriate malignancy screening.
--- NOTE | 2016-10-23 13:30 | Cons- Gastroenterology ---
General Information and HPI Consulting Request Date of Consult: 10/23/16 Requested By: MC LU MD Reason for Consult: Lower GI bleed Source of Information: patient, old records Exam Limitations: no limitations History of Present Illness: Patient is a 51-year-old gentleman with known long-standing alcohol excess. This is displaced at approximately 6:30 PM last night when he stood up from the kitchen table he remembers being assisted off the floor. Shortly after that he went to the bathroom and had a bloody bowel movement. He subsequently passed out one more time in the bathroom. After the second episode of syncope he had further bloody bowel movement. She was brought into [facility]. Not had any subsequent bowel movements. During all of this he did not have any nausea vomiting epigastric discomfort abdominal bloating abdominal pain and rectal pain. JUDITH chills rigors. Patient states that he has had excessive alcohol intake most of his adult life. Includes daily at least a sixpack of beer with some additional spirits. In addition he's had significant weight loss over the last 12 months unintentionally. Approximately 5 foot 10 and last year weight 220 pounds and has been gradually losing weight and is currently approximately 140 pounds. He has also had anorexia over the last 2-3 months. Allergies/Medications Allergies: Coded Allergies: No Known Allergies (10/23/16) Current Medications: Current Medications Sig/Fay Start time Last Medication Dose Route Stop Time Status Admin Acetaminophen 1,000 MG Q6P PRN 10/23 0600 AC N/A 1 UNIT IV Acetaminophen 650 MG Q6P PRN 10/23 0330 AC PO Cyanocobalamin 1,000 MCG DAILY 10/23 1000 CAN PO Cyanocobalamin 1,000 MCG Q30D 10/23 0900 AC IM Cyanocobalamin/ 1 BAG DAILY 10/23 1000 CAN Thiamine/Pyridoxine IV Dextrose/Water 1,000 ML Folic Acid 1 MG DAILY 10/23 1000 CAN PO Insulin Human Regular 0 Q6 10/23 0600 AC 10/23 SC 0556 Insulin Human Regular 10 UNITS ONCE ONE 10/23 0030 DC IV 10/23 0031 Insulin Human Regular 10 UNITS ONCE ONE 10/22 2300 DC 10/23 IV 10/22 2301 0020 Lorazepam 0 Q1P PRN 10/23 0415 AC IV Multivitamins 1 DICK DAILY 10/23 1000 AC Folic Acid 1 MG IV Thiamine HCl 200 MG Dextrose/Water 1,000 ML Nicotine 14 MG DAILY 10/23 1102 AC TOP Pantoprazole Sodium 0 .STK-MED ONE 10/23 0451 DC IV Pantoprazole Sodium 40 MG DAILY 10/23 0415 AC 10/23 IV 0452 Sodium Chloride 1,000 ML Q10H 10/23 0415 AC 10/23 IV 0555 Sodium Chloride 1,000 ML BOLUS ONE 10/23 0300 DC 10/23 IV 10/23 0359 0406 Sodium Chloride 1,000 ML BOLUS ONE 10/23 0215 DC 10/23 IV 10/23 0314 0252 Sodium Chloride 1,000 ML BOLUS ONE 10/22 2345 DC 10/23 IV 10/23 0044 0010 Sodium Chloride 1,000 ML BOLUS ONE 10/22 2230 DC 10/22 IV 10/22 2329 2237 Thiamine HCl 100 MG DAILY 10/23 1000 CAN PO Thiamine HCl 200 MG ONCE ONE 10/23 0600 CAN Sodium Chloride 100 ML IV 10/23 0659 Thiamine HCl 200 MG ONCE ONE 10/23 0415 CAN IM 10/23 0416 Past History Travel History Traveled to [place] past 21 day No Medical History Blood Transfusion Hx: No Neurological: peripheral neuropathy EENT: NONE Cardiovascular: NONE Respiratory: NONE Gastrointestinal: NONE Hepatic: NONE Renal: NONE Musculoskeletal: NONE Psychiatric: alcohol dependence Endocrine: diabetes Blood Disorders: NONE Cancer(s): NONE 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 Home Who Do You Live With? sister Services at Home: None Primary Language: Singaporean Smoking Status: Current Everyday Smoker (1/2 PPD) ETOH Use: alcoholic Illicit Drug Use: denies illicit drug use Review of Systems Review of Systems: No anxiety of dictations chest pain shortness of breath abdominal pain diarrhea. Disturbances no headache Exam & Diagnostic Data Vital Signs and I&O Patient was seen in his ICU room. He was lying comfortably in bed. There was a ruse over his he did not have palmar erythema or spider angiomata Dupuytren's contracture asterixis. JVP is not elevated. Abdomen was scaphoid soft nondistended nontender revealed brown stool guaiac positive. Respiratory exam revealed good air entry both lung guzman no wheezing. Heart sounds S1-S2 Vital Signs Date Time Temp Pulse Resp B/P Pulse O2 O2 Flow FiO2 Ox Delivery Rate 10/23 0800 99.4 96 17 98/50 10/23 0800 98 Room Air Room Air 10/23 0800 99.4 96 17 98/50 98 Room Air Room Air 10/23 0600 98.3 84 10 107/72 10/23 0600 98.3 84 10 107/72 10/23 0600 98 Room Air 10/23 0515 98.3 83 15 94/63 98 Room Air 10/23 0439 96.9 88 20 88/52 98 10/23 0252 89 20 87/55 97 10/23 0237 97.9 82 20 89/57 10/23 0156 89/57 10/22 2151 97.0 96 18 97/66 96 Room Air Intake & Output 10/23 1600 10/23 0400 10/22 1600 10/22 0400 10/21 1600 10/21 0400 Intake Total 3088 1000 Output Total 400 200 Balance 2688 800 Intake, IV 3088 1000 Intake, Oral 0 Number 0 Bowel Movements Output, Urine 400 200 Patient 121 lb 130 lb Weight Assessment/Plan Assessment/Recommendations: In summary we have a 51-year-old gentleman with significant weight loss and known alcohol abuse presenting with syncope and anemia. 1. Patient has never had a endoscopic exam. Of painless bright red blood per rectum most consistent with that it has spontaneously improved and is also consistent with a diverticular bleed. Additional possibilities are gastroenteritis or other forms of colitis. That he has not had increased bowel frequency prior to the bleeding episode last night, and subsequently has not had frequent bowel movements argues against this. Please keep on clear liquids for now and then for a [employer] prep tomorrow 2. EtOH intake. He has had significant alcohol intake most of his adult life. Despite that his physical exam and symptoms are remarkably free of alcohol associated pathology. Not have stigmata of chronic liver disease. Evaluation showed normal liver function tests, and normal platelets. Yearly patient needs to decrease his alcohol intake but this will be addressed separately from the GI bleed. 3. Patient does had an excessive amount of unintentional weight loss in the last 12 months.'s not clear that his alcohol consumption in the last 12 months has been much more than he does however note is that his appetite is significantly less. 2 poor setting after the colonoscopy and will be integrated into any plan for alcohol rehabilitation. Consult Acknowledgment - Thank you for your consult request.
[2016-10-23 15:05] LABS: ABSOLUTE BASOPHIL COUNT 0 /CUMM (0.0-0.2); ABSOLUTE EOSINOPHIL COUNT 0.2 /CUMM (0.0-0.7); ABSOLUTE GRANULOCYTE CT 3.6 /CUMM (1.4-6.5); ABSOLUTE LYMPH COUNT 1.3 /CUMM (1.2-3.4); ABSOLUTE MONOCYTE COUNT 0.5 /CUMM (0.10-0.60); BASOPHIL % 0.4 % (0.0-2.0); EOSINOPHIL % 2.9 % (0-5); GRANULOCYTE % 65.1 % (42.2-75.2); HEMATOCRIT 32.4 % (42-52); MEAN CORPUSCULAR HGB 33.7 PG (27.0-31.0); MEAN CORPUSCULAR HGB CONC 34.5 G/DL (33.0-37.0); MEAN CORPUSCULAR VOLUME 97.7 FL (80.0-94.0); MEAN PLATELET VOLUME 7.7 FL (7.4-10.4); PLATELET COUNT 268 /CUMM (130-400); RBC DISTRIBUTION WIDTH 13.8 % (11.5-14.5); RED BLOOD CELL CT 3.32 /CUMM (4.70-6.10); WHITE BLOOD CELL COUNT 5.5 /CUMM (4.8-10.8)
--- NOTE | 2016-10-23 19:42 | Cons- Psychiatry ---
Psychiatric Consult Date of Consult: 10/23/16 Reason for Consult: Patient seen and evaluated. Discussed w/ ICU team. Rec: remeron 7.5mg orally at night time for sleep/depression; AE including sedation, dizziness and weight gain discussed x2 days; then can increase to 15mg at night time if no excess sedation. Agree melatonin 5mg at night time for insomnia. Outpatient substance use program rec - case management or SW consult to arrange. Patient agreeable. Not suicidal, no need for sitter, or inpatient psychiatric care. full consult to follow. 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
--- NOTE | 2016-10-23 21:28 | PN- Psychiatry ---
Assessment/Plan Impression: 51 y/o man w/ hx significant alcohol use d/o, DM, peripheral neuropathy, admitted w/ bloody diarrhea and 2x syncopal episodes. significant weight loss (~ 100lb) in the last year as well, chronic diarrhea. Consult called for evaluation of depression. Reviewed medical chart and ICU progress - labs look reasonable, anemia present; ICU monitoring H/H. GI consult reviewed, relevant imaging and notes reviewed. Patient is pleasant, well related, stated that he is always hungry and that everything goes through me. Stated that his sleep is impaired, that he tosses and turns at night time. In the day time he watches TV, doesn't do much; sometimes walks outside. 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 Stated that he is also , has a 22 and 26 year old children. Has siblings whom he is close with. Minimizing alcohol use - says he can stop whenever and that several weeks ago he had a two week period of sobriety when he was with his sister. His siblings were present for part of eval and agreed that he stated he didn't drink for that period, but agreed that he was under estimating his alcohol use. stated that he drinks a 6 pack of beer and 1/2 pint of liquor daily. Denies any past episodes of shakiness, seizures or other withdrawal sx. Denies any other drug use (apart from 1/2 pack cig per day). He stated he first started drinking around age 17. No tx hx. Denies any past psychiatric treatment, any past suicide attempts, any outpatient or inpatient psychiatric tx - did see marriage counselor prior to his divorce. Denies any thoughts of wanting to . Not in any significant distress, not flat, no psychomotor slowing or other neurovegetative signs of severe depression. Mood is somewhat down but reactive. MSE: cachectic man, eating with good appetite, interacting appropriately w/ his family and myself. No psychomotor slowing or agitation. good eye contact. Speech wnl. Thought process coherent and linear. Thought content neg for any thoughts of wanting to harm himself, anyone else; no delusions or other major thought abnormalities elicited, apart from minimizing alcohol use and impact on health. No hallucinations and no evidence of internal preoccupation. Insight fair, judgment fair. Dx: unspecified depressive d/o vs. adjustment d/o; alcohol use d/o A: 51 y/o man w/ significant weight loss, medical problems, alcohol use d/o, some depressed mood and withdrawal, insomnia and changes in appetite, some lack of interest/reduced motivation. Has some sx of depression but is not acutely suicidal danger to self/others and does not need higher level of psychiatric tx. Has risks associated w/ alcohol use and depressive sx, significant weight loss, which should be mitigated w/ Abstinence, tx of depression, education, alcohol rehab/outpatient program and further medical w/up. Rec: Remeron 7.5mg orally at night time for depressive sx, will also assist in weight gain, sleep. AE including dizziness, increased appetite, and weight gain discussed. x 2 days then increase to 15mg orally if not excessively sedated melatonin 5mg - for insomnia, agree w/primary team. - Would benefit from tx for depressive sx and for alcohol use - he agreed - rec case management or SW consult to discuss his options for outpatient tx prior to discharge. - no indication for further psychiatric intervention at this time; not suicidal, not severely depressed, psychotic or manic. - if unable to tolerate remeron or becomes more depressed/withdrawn, reconsult PRN thank you. Suggestion: see above Subjective Subjective: see above
--- NOTE | 2016-10-23 21:41 | NUR ---
PT A/0 X 3. STANDS TO VOID STEADY ON FEET. TAKING PO W/O N/V. DEMONSTRATES USE OF NURSE CALL LIGHT.
--- NOTE | 2016-10-23 23:55 | NUR ---
ACCUCHECK <50 1 AMP DEXTROSE IVP GIVEN PT DIAPHORETIC, DIZZY RAPIDLY RESPONDED TO DEXTROSE WITH DECREASE IN VERTIGO DR MESA NOTIFIED. REPEAT ACCUCHECK 184, ASYMPTOMACTIC AT THIS TIME.
[2016-10-24] VITALS (10 sets, daily range): BP systolic 97–139; BP diastolic 60–83
[2016-10-24 05:39] LABS: ABSOLUTE BASOPHIL COUNT 0 /CUMM (0.0-0.2); ABSOLUTE EOSINOPHIL COUNT 0.1 /CUMM (0.0-0.7); ABSOLUTE GRANULOCYTE CT 4.5 /CUMM (1.4-6.5); ABSOLUTE LYMPH COUNT 1.1 /CUMM (1.2-3.4); ABSOLUTE MONOCYTE COUNT 0.5 /CUMM (0.10-0.60); BASOPHIL % 0.5 % (0.0-2.0); EOSINOPHIL % 1.5 % (0-5); GRANULOCYTE % 72.2 % (42.2-75.2); HEMATOCRIT 34.3 % (42-52); MEAN CORPUSCULAR HGB 33.3 PG (27.0-31.0); MEAN CORPUSCULAR HGB CONC 33.9 G/DL (33.0-37.0); MEAN CORPUSCULAR VOLUME 98.1 FL (80.0-94.0); MEAN PLATELET VOLUME 8.3 FL (7.4-10.4); PLATELET COUNT 259 /CUMM (130-400); RBC DISTRIBUTION WIDTH 13.8 % (11.5-14.5); RED BLOOD CELL CT 3.49 /CUMM (4.70-6.10); WHITE BLOOD CELL COUNT 6.3 /CUMM (4.8-10.8)
--- NOTE | 2016-10-24 11:11 | PN- Att Addend ---
Attending Addendum Attending Brief Note Patient seen and examined. Resting comfortably not in any acute distress. Yesterday he was found to be significantly orthostatic despite volume replacement. Patient however reports no chest pain, shortness of breath or palpitations. Denies any dizziness. He continues to have frequent loose bowel movements. Stools are guaiac negative. His hemoglobin level has been stable. Psychiatry and gastroenterology evaluation appreciated. Vital Signs Date Time Temp Pulse Resp B/P Pulse O2 O2 Flow FiO2 Ox Delivery Rate 10/24 0800 98.7 71 16 118/80 10/24 0800 99 Room Air Room Air 10/24 0800 98.7 71 16 118/80 100 Room Air Room Air 10/24 0600 98.4 70 16 139/83 10/24 0400 98.4 62 18 119/78 10/24 0200 97.0 68 18 138/80 10/24 0000 97.0 67 18 125/79 10/24 0000 97.0 67 18 125/79 92 Room Air 10/23 2200 99.2 66 18 124/77 10/23 2000 99.2 72 18 108/80 10/23 1800 98.9 78 17 117/77 10/23 1600 98.9 85 20 94/68 10/23 1600 98.9 85 20 94/58 98 Room Air Room Air 10/23 1600 98 Room Air Room Air 10/23 1400 99.8 86 17 109/74 10/23 1200 99.8 98 24 90/50 10/23 1200 94 Room Air Room Air Gen. appearance: Not in acute distress Heart: S1-S2 regular Lungs: Good entry bilaterally, clear to auscultation Abdomen: Soft, nontender with normal bowel sounds Extremities: No pedal edema Skin: Intact with no rashes Laboratory Tests 10/24/16 0415: Anion Gap 8, Estimated GFR > 60, Glucose 137 H, Lactic Acid 2.2 H, Calcium 8.7 , Phosphorus 3.5, Magnesium 1.6, Total Bilirubin 0.6, AST 25, ALT 32, Albumin 3.1 L, Cortisol AM Sample 8.7, CBC w Diff NO MAN DIFF REQ, RBC 3.49 L, MCV 98.1 H, MCH 33.3 H, RDW 13.8, MPV 8.3, Gran % 72.2, Lymphocytes % 17.6 L, Monocytes % 8.2, Eosinophils % 1.5, Basophils % 0.5, Absolute Granulocytes 4.5, Absolute Lymphocytes 1.1 L, Absolute Monocytes 0.5, Absolute Eosinophils 0.1, Absolute Basophils 0, PUBS MCHC 33.9 10/23/16 1400: Anion Gap 5, Estimated GFR > 60, Glucose 158 H, Calcium 8.6, Phosphorus 3.1, Magnesium 1.7, Total Bilirubin 0.5, AST 35, ALT 32, Albumin 3.5, CBC w Diff NO MAN DIFF REQ, RBC 3.32 L, MCV 97.7 H, MCH 33.7 H, RDW 13.8, MPV 7.7, Gran % 65.1, Lymphocytes % 23.2, Monocytes % 8.4, Eosinophils % 2.9, Basophils % 0.4, Absolute Granulocytes 3.6, Absolute Lymphocytes 1.3, Absolute Monocytes 0.5, Absolute Eosinophils 0.2, Absolute Basophils 0, PUBS MCHC 34.5 Microbiology 10/24 1030 STOOL: Cryptosporidium Antigen - RECD 10/24 1030 STOOL: Giardia Antigen (REENA) - RECD 10/23 1899 STOOL: Stool Culture - RES 10/23 1899 STOOL: Clostridium difficile Toxin A & B - RECD Problems: 1. Syncope 2. Hypotension; still with orthostatic blood pressure changes 3. Ongoing diarrhea 4. Episode of rectal bleed 5. Unintentional weight loss 6. Probable depression Plan: -Continue volume repletion with normal saline at 100 mL an hour. -We'll check random cortisol level to rule out adrenal dysfunction -Follow-up echocardiogram. -Patient is to receive bowel prep currently GI recommendation for possible colonoscopy tomorrow. -Follow-up with the GI service regarding starting patient on Imodium if his stool workup was negative for Clostridium difficile and bacteria -Begin patient on Remeron as recommended by the psychiatric service for insomnia. - Dbas consultation. -Downgraded to the general medical service. -Case discussed with ICU residents and nursing staff
--- NOTE | 2016-10-24 14:10 | PN- Gastroenterology ---
Assessment/Plan Assessment/Recommendations: Relatively uneventful night. No gross bleeding. Continues to have diarrhea particularly after any oral intake. No chest pain shortness of breath abdominal pain. Subjective Subjective: No chest pain shortness of breath palpitations. No abdominal pain. No confusion. Objective Vital Signs and I&Os Vital Signs Date Time Temp Pulse Resp B/P Pulse O2 O2 Flow FiO2 Ox Delivery Rate 10/24 799 98.7 71 16 118/80 10/24 0800 99 Room Air Room Air 10/24 0800 98.7 71 16 118/80 100 Room Air Room Air 10/24 0600 98.4 70 16 139/83 10/24 0400 98.4 62 18 119/78 10/24 0200 97.0 68 18 138/80 10/24 0000 97.0 67 18 125/79 10/24 0000 97.0 67 18 125/79 92 Room Air 10/23 2200 99.2 66 18 124/77 10/23 2000 99.2 72 18 108/80 10/23 1800 98.9 78 17 117/77 10/23 1600 98.9 85 20 94/68 10/23 1600 98.9 85 20 94/58 98 Room Air Room Air 10/23 1600 98 Room Air Room Air Intake & Output 10/24 1600 10/24 0400 10/23 1600 10/23 0400 10/22 1600 10/22 0400 Intake Total 1610 1400 3942 1000 Output Total 1800 1600 1150 200 Balance -190 -200 2792 800 Intake, IV 1250 1000 3942 1000 Intake, Oral 360 400 0 Number 1 0 Bowel Movements Output, Stool 1000 Output, Urine 3662 217 1685 200 Patient 121 lb 130 lb Weight Alert and orientated. No asterixis. Abdomen soft nontender nondistended no clinical ascites. No peripheral edema. Heart sounds S1-S2. Normal air entry. In summary we have a 51-year-old gentleman with significant weight loss and known alcohol abuse presenting with syncope and anemia. 1. No further gross bleeding. Relatively uneventful night. Patient is having diarrhea optically after taking any by mouth intake. Hematocrit stable. Plan for GoLYTELY prep today and colonoscopy tomorrow. Please check for C. difficile and stool. 2. EtOH intake. AST ALT and T bili normal and stable from yesterday. No evidence of alcoholic hepatitis. Results Pertinent Lab Results: Laboratory Tests 01/29 01/28 0415 1400 Chemistry Sodium (137 - 145 mmol/L) 137 139 Potassium (3.5 - 5.1 mmol/L) 3.9 4.0 Chloride (98 - 107 mmol/L) 102 105 Carbon Dioxide (22 - 30 mmol/L) 27 29 Anion Gap (5 - 16) 8 5 BUN (9 - 20 mg/dL) 9 8 L Creatinine (0.7 - 1.2 mg/dL) 0.5 L 0.6 L Estimated GFR (>60 ml/min) > 60 > 60 Glucose (65 - 99 mg/dL) 137 H 158 H Lactic Acid (0.7 - 2.1 mmol/L) 2.2 H Calcium (8.4 - 10.2 mg/dL) 8.7 8.6 Phosphorus (2.5 - 4.5 mg/dL) 3.5 3.1 Magnesium (1.6 - 2.3 mg/dL) 1.6 1.7 Total Bilirubin (0.2 - 1.3 mg/dL) 0.6 0.5 AST (17 - 59 U/L) 25 35 ALT (21 - 72 U/L) 32 32 Albumin (3.5 - 5.0 g/dL) 3.1 L 3.5 Cortisol AM Sample (4.46 - 22.7 ug/dL) 8.7 Hematology CBC w Diff NO MAN DIFF REQ NO MAN DIFF REQ WBC (4.8 - 10.8 /CUMM) 6.3 5.5 RBC (4.70 - 6.10 /CUMM) 3.49 L 3.32 L Hgb (14.0 - 18.0 G/DL) 11.6 L 11.2 L Hct (42 - 52 %) 34.3 L 32.4 L MCV (80.0 - 94.0 FL) 98.1 H 97.7 H MCH (27.0 - 31.0 PG) 33.3 H 33.7 H RDW (11.5 - 14.5 %) 13.8 13.8 Plt Count (130 - 400 /CUMM) 259 268 MPV (7.4 - 10.4 FL) 8.3 7.7 Gran % (42.2 - 75.2 %) 72.2 65.1 Lymphocytes % (20.5 - 51.1 %) 17.6 L 23.2 Monocytes % (1.7 - 9.3 %) 8.2 8.4 Eosinophils % (0 - 5 %) 1.5 2.9 Basophils % (0.0 - 2.0 %) 0.5 0.4 Absolute Granulocytes (1.4 - 6.5 /CUMM) 4.5 3.6 Absolute Lymphocytes (1.2 - 3.4 /CUMM) 1.1 L 1.3 Absolute Monocytes (0.10 - 0.60 /CUMM) 0.5 0.5 Absolute Eosinophils (0.0 - 0.7 /CUMM) 0.1 0.2 Absolute Basophils (0.0 - 0.2 /CUMM) 0 0 PUBS MCHC (33.0 - 37.0 G/DL) 33.9 34.5 10/23 10/23 10/23 0820 0500 0447 Chemistry Sodium (137 - 145 mmol/L) 142 Cancelled Potassium (3.5 - 5.1 mmol/L) 3.6 Cancelled Chloride (98 - 107 mmol/L) 108 H Cancelled Carbon Dioxide (22 - 30 mmol/L) 22 Cancelled Anion Gap (5 - 16) 13 Cancelled BUN (9 - 20 mg/dL) 6 L Cancelled Creatinine (0.7 - 1.2 mg/dL) 0.5 L Cancelled Estimated GFR (>60 ml/min) > 60 Glucose (65 - 99 mg/dL) 103 H Cancelled Hemoglobin A1c Cancelled Lactic Acid (0.7 - 2.1 mmol/L) 3.5 H Calcium (8.4 - 10.2 mg/dL) 8.2 L Cancelled Phosphorus (2.5 - 4.5 mg/dL) 2.6 Cancelled Magnesium (1.6 - 2.3 mg/dL) 1.6 Cancelled Total Bilirubin (0.2 - 1.3 mg/dL) 0.3 Cancelled AST (17 - 59 U/L) 24 Cancelled ALT (21 - 72 U/L) 29 Cancelled Albumin (3.5 - 5.0 g/dL) 3.2 L Cancelled Hematology CBC w Diff NO MAN DIFF REQ WBC (4.8 - 10.8 /CUMM) 6.1 RBC (4.70 - 6.10 /CUMM) 3.12 L Hgb (14.0 - 18.0 G/DL) 10.5 L Hct (42 - 52 %) 30.8 L MCV (80.0 - 94.0 FL) 98.6 H MCH (27.0 - 31.0 PG) 33.7 H RDW (11.5 - 14.5 %) 13.4 Plt Count (130 - 400 /CUMM) 254 MPV (7.4 - 10.4 FL) 7.8 Gran % (42.2 - 75.2 %) 71.7 Lymphocytes % (20.5 - 51.1 %) 20.6 Monocytes % (1.7 - 9.3 %) 5.3 Eosinophils % (0 - 5 %) 2.0 Basophils % (0.0 - 2.0 %) 0.4 Absolute Granulocytes (1.4 - 6.5 /CUMM) 4.4 Absolute Lymphocytes (1.2 - 3.4 /CUMM) 1.3 Absolute Monocytes (0.10 - 0.60 /CUMM) 0.3 Absolute Eosinophils (0.0 - 0.7 /CUMM) 0.1 Absolute Basophils (0.0 - 0.2 /CUMM) 0 PUBS MCHC (33.0 - 37.0 G/DL) 34.2 10/23 10/23 10/23 10/23 0440 0440 0417 0250 Chemistry Sodium (137 - 145 mmol/L) 143 Potassium (3.5 - 5.1 mmol/L) 3.9 Chloride (98 - 107 mmol/L) 107 Carbon Dioxide (22 - 30 mmol/L) 21 L Anion Gap (5 - 16) 15 BUN (9 - 20 mg/dL) 7 L Creatinine (0.7 - 1.2 mg/dL) 0.5 L Estimated GFR (>60 ml/min) > 60 Glucose (65 - 99 mg/dL) 141 H Hemoglobin A1c (<5.7) 10.7 H Lactic Acid (0.7 - 2.1 mmol/L) 4.4 H Calcium (8.4 - 10.2 mg/dL) 7.9 L Phosphorus (2.5 - 4.5 mg/dL) 2.7 Magnesium (1.6 - 2.3 mg/dL) 1.8 Total Bilirubin (0.2 - 1.3 mg/dL) 0.4 Direct Bilirubin (< 0.4 mg/dL) 0.3 AST (17 - 59 U/L) 26 ALT (21 - 72 U/L) 30 Alkaline Phosphatase (< 127 U/L) 52 Total Protein (6.3 - 8.2 g/dL) 5.7 L Albumin (3.5 - 5.0 g/dL) 3.3 L Vitamin B12 (239 - 931 pg/mL) 477 TSH (0.270 - 4.200 uIU/mL) 0.823 Cancelled Free T4 (0.64 - 1.79 ng/dL) 1.17 Cancelled Serology HIV 1&2 Ab Western Blot (NONREACTIVE) NONREACTIVE 10/22 10/22 2340 2230 Chemistry Lactic Acid (0.7 - 2.1 mmol/L) 4.0 H Toxicology Urine Opiates Screen (>2000 NG/ML) < 100.00 Methadone Screen (>300 NG/ML) < 40 Barbiturate Screen (>200 NG/ML) < 60 Ur Phencyclidine Scrn (>25 NG/ML) < 6.00 Amphetamines Screen (>1000 NG/ML) < 100 U Benzodiazepines Scrn (>200 NG/ML) < 85 Urine Cocaine Screen (>300 NG/ML) < 50 Urine Cannabis Screen (>50 NG/ML) < 5.00 Urines Urine Color (YEL,AMB,STR) YEL Urine Clarity (CLEAR) CLEAR Urine pH (5.0 - 8.0) 6.0 Ur Specific [place] (1.001 - 1.035) <= 1.005 Urine Protein (NEG,<30 MG/DL) NEG Urine Ketones (NEG) NEG Urine Nitrite (NEG) NEG Urine Bilirubin (NEG) NEG Urine Urobilinogen (0.1 - 1.0 EU/dl) 0.2 Ur Leukocyte Esterase (NEG) NEG Ur Microscopic EXAM NOT REQUIRED Urine Hemoglobin (NEG) NEG Urine Glucose (N MG/DL) >=1000 H 10/22 2229 Chemistry Sodium (137 - 145 mmol/L) 134 L Potassium (3.5 - 5.1 mmol/L) 4.7 Chloride (98 - 107 mmol/L) 92 L Carbon Dioxide (22 - 30 mmol/L) 25 Anion Gap (5 - 16) 17 H BUN (9 - 20 mg/dL) 10 Creatinine (0.7 - 1.2 mg/dL) 0.6 L Estimated GFR (>60 ml/min) > 60 BUN/Creatinine Ratio (7 - 25 %) 16.7 Glucose (65 - 99 mg/dL) 404 H Calcium (8.4 - 10.2 mg/dL) 9.3 Total Bilirubin (0.2 - 1.3 mg/dL) 0.6 Direct Bilirubin (< 0.4 mg/dL) 0.4 AST (17 - 59 U/L) 19 ALT (21 - 72 U/L) 31 Alkaline Phosphatase (< 127 U/L) 65 Troponin I (<0.11 ng/ml) < 0.01 Total Protein (6.3 - 8.2 g/dL) 7.0 Albumin (3.5 - 5.0 g/dL) 4.3 Globulin (1.9 - 4.2 gm/dL) 2.7 Albumin/Globulin Ratio (1.1 - 2.2 %) 1.6 Amylase (30 - 110 U/L) 87 Lipase (23 - 300 U/L) 204 Coagulation PT (9.4 - 12.5 SEC) 10.0 INR (0.90 - 1.17) 0.95 APTT (25 - 37 SEC) 30 Hematology CBC w Diff NO MAN DIFF REQ WBC (4.8 - 10.8 /CUMM) 5.8 RBC (4.70 - 6.10 /CUMM) 3.74 L Hgb (14.0 - 18.0 G/DL) 12.5 L Hct (42 - 52 %) 37.0 L MCV (80.0 - 94.0 FL) 99.0 H MCH (27.0 - 31.0 PG) 33.5 H RDW (11.5 - 14.5 %) 13.3 Plt Count (130 - 400 /CUMM) 298 MPV (7.4 - 10.4 FL) 7.3 L Gran % (42.2 - 75.2 %) 66.7 Lymphocytes % (20.5 - 51.1 %) 25.5 Monocytes % (1.7 - 9.3 %) 6.7 Eosinophils % (0 - 5 %) 0.9 Basophils % (0.0 - 2.0 %) 0.2 Absolute Granulocytes (1.4 - 6.5 /CUMM) 3.8 Absolute Lymphocytes (1.2 - 3.4 /CUMM) 1.5 Absolute Monocytes (0.10 - 0.60 /CUMM) 0.4 Absolute Eosinophils (0.0 - 0.7 /CUMM) 0 Absolute Basophils (0.0 - 0.2 /CUMM) 0 PUBS MCHC (33.0 - 37.0 G/DL) 33.9 Toxicology Serum Alcohol (<10 MG/DL) 291.0 Acetone Level (NEGATIVE) NEGATIVE
--- NOTE | 2016-10-24 18:08 | NUR ---
PT ASYMPTOMATIC WITH BP 80/40 HR 97 FSG READING LESS THAN 50. PT A/O X3, PT AWAKE. NO S/SX HYPOGLYCEMIA. THIS EVENT OCCURENCE AT 1740. AWARE AND AMP OF D50 GIVFEN INADDITION TO 500 ML BOLUS OF NS. AT 15 CHECK POST AMP FSG READING OF 177 AND BP READING OF 84/60. WILL MONITOR
--- NOTE | 2016-10-24 20:46 | PN- Resident CRCU ---
Subjective HPI/CRCU Issues: Patient ICU for: Hypotension Patient's blood pressure was between 87 and 125 systolic overnight. Heart rate between 62 and 102. MAXIMUM TEMPERATURE 99.8. He had an episode of hypoglycemia this AM. Given amp of dextrose and repeat blood sugar was 182. Patient was orthostatic on measurement this AM. Blood pressure lying 108/80 Blood pressure sitting 92/64 Blood pressure standing 86/62 He remains off pressors but is getting aggressive hydration. Pt denies any chest pain, abdominal pain, swelling in lower extremities, shortness of breath, fever, headache, nausea, vomiting. He does endorse diarrhea despite clear liquid diet. Objective Vital Signs & I&O Last 8 Hrs of Vitals and I&O: Intake & Output 10/24 1600 Intake Total 1370 Output Total 825 Balance 545 Intake, IV 770 Intake, Oral 600 Number 2 Bowel Movements Output, Urine 825 Exam General Appearance: well developed/nourished, no apparent distress, alert, awake Head: atraumatic, normal appearance Ears, Nose, Throat: normal pharynx Neck: supple Respiratory: normal breath sounds, chest non-tender Cardiovascular: regular rate/rhythm Gastrointestinal: normal bowel sounds, soft Extremities: normal inspection Cranial Nerves: normal hearing Nutrition Nutrition: P.O. diet Current Medications: Current Medications Sig/Fay Start time Last Medication Dose Route Stop Time Status Admin Acetaminophen 1,000 MG Q6P PRN 10/23 06 N/A 1 UNIT IV Acetaminophen 650 MG Q6P PRN 10/23 0330 AC PO Cyanocobalamin 1,000 MCG Q30D 10/23 0900 AC 10/23 IM 1401 Dextrose 25 GM ONCE ONE 10/24 1800 DC 10/24 IV 10/24 1801 1800 Dextrose 25 GM ONCE ONE 10/23 2330 DC 10/23 IV 10/23 2331 2328 Insulin Human Regular 0 Q6 10/23 0600 AC 10/24 SC 1434 Lorazepam 1 MG Q6 10/24 1800 AC 10/24 PO 1723 Lorazepam 0 Q1P PRN 10/23 0415 AC IV Melatonin 5 MG AT BEDTIME 10/230 AC 10/23 PO 2119 Mirtazapine 7.5 MG AT BEDTIME 10/23 2200 AC 10/23 PO 211 Multivitamins 1 DICK DAILY 10/23 1000 AC 10/24 Folic Acid 1 MG IV 1031 Thiamine HCl 200 MG Dextrose/Water 1,000 ML Nicotine 14 MG DAILY 10/23 1102 AC 10/24 TOP 1032 Pantoprazole Sodium 40 MG DAILY 10/23 0415 AC 10/24 IV 1031 Polyethylene Glycol 1 GAL ONCE ONE 10/24 1700 DC 10/24 PO 10/24 1701 1846 Sodium Chloride 500 ML BOLUS ONE 10/24 1830 DC 10/24 IV 10/24 1929 1903 Sodium Chloride 500 ML BOLUS ONE 10/24 1800 DC 10/24 IV 10/24 1859 1800 Sodium Chloride 1,000 ML Q8H 10/23 2045 AC 10/24 IV 0544 Impression/Plan Impression/Problem List Impression: 51 y/o M with PMHx of alcohol abuse, T2DM and peripheral neuropathy who presents with bloody diarrhea and two syncopal episodes. #Bleeding per rectum Presents with bloody diarrhea and two syncopal episodes. Hypotensive in the ED with BP 80/50s despite aggressive fluid resuscitation with NS boluses and elevated lactic acid of 4. Despite hypotension, H/H only borderline low at 11.6. Patient did not have any repeat episodes of bright red blood per rectum this AM. However he did have diarrhea * Aggressive hydration as tolerated * Protonix 40 mg IV QD started. * Check H/H every 12 * Patient will be on clear liquids during day * GoLYTELY prep tomorrow, to be prepared for endoscopic exam. * Nothing by mouth at midnight #Syncope and recurrent falls: Likely secondary to orthostatic hypotension in the setting of volume contraction 2/2 chronic diarrhea and suspected GI bleed, although peripheral neuropathy and alcohol use are possible contributory factors. * Follow-up CBC to rule out active bleeding and anemia * OT/PT eval. #Chronic diarrhea and weight loss: Patient has lost >100 pounds in the past year and reports that extensive work-up including HIV test has been negative. Diarrhea has been ongoing for 2 months. Of unclear etiology. It is possible that metformin could be contributing to the diarrhea. Potential etiologies include infectious, endocrine, malignancy and metabolic secondary to alcohol use. * Negative HIV * Follow-up hepatitis panel * Patient going for scope tomorrow * Guaiac all stool * Negative a.m. cortisol * Thyroid function tests is within normal limits #Alcohol abuse: Heavy alcohol use. Drinks 6 beers and half a pint of alpa daily. Serum alcohol level markedly elevated at 291 on admission. * [facility] protocol to monitor for signs/symptoms of alcohol withdrawal. * Ativan PRN per [facility] protocol. * Banana bag with 200 mg of thiamine, MVI and 1 mg of folic acid was given. * Administered vitamin B12 1000 mcg IM. #T2DM: Was diagnosed one year ago and started on metformin 1000 mg PO BID but has been noncompliant with medication. Of note, patient has been hypoglycemic 2 in the past 24 hours he required 2 times amp of D50. * Check HbA1c is pending. * Accu-checks and Novolin Q6H SSI while patient is NPO. #Depression: No suicidal or homicidal ideation at present. * Psych consult placed. Appreciate their recs. Diet: Clear liquid, will start GoLYTELY around 7 PM for possible endoscopy and/ or colonoscopy tomorrow Fluids: NS @ 100 cc/hr Pain: Tylenol 650 mg PO Q6H PRN for mild pain (scale 1-3) Problem List: 1. Frequent falls 2. Bright red blood per rectum 3. Uncontrolled diabetes mellitus 4. T2DM (type 2 diabetes mellitus) 5. Weight loss, unintentional 6. Chronic diarrhea 7. Depression 8. Alcohol abuse 9. Syncope 10. Lactic acidosis 11. Increased anion gap metabolic acidosis Pain Ratin Pain Location: none Tomorrow's Labs & Rationales: icu cbc Plan DVT/Prophylaxis: mechanical
[2016-10-25] VITALS (9 sets, daily range): BP systolic 94–131; BP diastolic 59–93
--- NOTE | 2016-10-25 01:05 | NUR ---
2330 ACCUCHECK 68. AWARE. RECHECK IN 30 MINS. 0000 IVF CHANGED TO D5NS AT 125 ML/H. ACCUCHECK 70. ACCOCHECK 89. NSR 70'S, MANUAL BP 110/70. SATURATION 96% ON RA, LUNGS SOUND CLEAR. NPO MAINTAINED, FOR COLONOSCOPY IN AM. VOIDING USING THE URINAL. ATIVAN PO GIVEN PT COOPERATIVE. DENEIS PAIN AT THIS TIME.
[2016-10-25 05:33] LABS: ABSOLUTE BASOPHIL COUNT 0 /CUMM (0.0-0.2); ABSOLUTE EOSINOPHIL COUNT 0.1 /CUMM (0.0-0.7); ABSOLUTE GRANULOCYTE CT 2.5 /CUMM (1.4-6.5); ABSOLUTE LYMPH COUNT 1.3 /CUMM (1.2-3.4); ABSOLUTE MONOCYTE COUNT 0.3 /CUMM (0.10-0.60); BASOPHIL % 0.3 % (0.0-2.0); EOSINOPHIL % 3.4 % (0-5); GRANULOCYTE % 58.6 % (42.2-75.2); HEMATOCRIT 31.6 % (42-52); MEAN CORPUSCULAR HGB 33.5 PG (27.0-31.0); MEAN CORPUSCULAR HGB CONC 34.3 G/DL (33.0-37.0); MEAN CORPUSCULAR VOLUME 97.6 FL (80.0-94.0); MEAN PLATELET VOLUME 7.9 FL (7.4-10.4); PLATELET COUNT 252 /CUMM (130-400); RBC DISTRIBUTION WIDTH 13.3 % (11.5-14.5); RED BLOOD CELL CT 3.24 /CUMM (4.70-6.10); WHITE BLOOD CELL COUNT 4.2 /CUMM (4.8-10.8)
--- NOTE | 2016-10-25 07:59 | PN- Resident CRCU ---
[facility] PEGU[facility] 0759: Subjective HPI/CRCU Issues: She was seen and examined. He is laying on bed looks relaxed and comfortable. No acute overnight events were reported by the patient or his nurse. Patient was on clear fluid since Tuesday, he was nothing by mouth starting midnight and finished all the [employer]. Patient scheduled for colonoscopy at 2 PM today. Patient reported some numbness on his toes that's been going for long time however he never addressed that as an outpatient. He denies any symptoms suggestive of anemia Objective Vital Signs & I&O Last 8 Hrs of Vitals and I&O: Intake & Output 10/25 1600 10/25 0800 10/25 0000 Intake Total 1500 3090 Output Total 1100 3400 Balance 400 -310 Intake, IV 1000 1770 Intake, Oral 500 1320 Output, Stool 1400 Output, Urine 1100 2000 Laboratory Tests 10/25 0430 Chemistry Sodium (137 - 145 mmol/L) 139 Potassium (3.5 - 5.1 mmol/L) 3.6 Chloride (98 - 107 mmol/L) 105 Carbon Dioxide (22 - 30 mmol/L) 29 Anion Gap (5 - 16) 4 L BUN (9 - 20 mg/dL) 5 L Creatinine (0.7 - 1.2 mg/dL) 0.5 L Estimated GFR (>60 ml/min) > 60 Glucose (65 - 99 mg/dL) 84 Calcium (8.4 - 10.2 mg/dL) 8.5 Phosphorus (2.5 - 4.5 mg/dL) 2.9 Magnesium (1.6 - 2.3 mg/dL) 1.5 L Total Bilirubin (0.2 - 1.3 mg/dL) 0.7 AST (17 - 59 U/L) 15 L ALT (21 - 72 U/L) 27 Albumin (3.5 - 5.0 g/dL) 2.6 L Hematology CBC w Diff NO MAN DIFF REQ WBC (4.8 - 10.8 /CUMM) 4.2 L RBC (4.70 - 6.10 /CUMM) 3.24 L Hgb (14.0 - 18.0 G/DL) 10.9 L Hct (42 - 52 %) 31.6 L MCV (80.0 - 94.0 FL) 97.6 H MCH (27.0 - 31.0 PG) 33.5 H RDW (11.5 - 14.5 %) 13.3 Plt Count (130 - 400 /CUMM) 252 MPV (7.4 - 10.4 FL) 7.9 Gran % (42.2 - 75.2 %) 58.6 Lymphocytes % (20.5 - 51.1 %) 29.8 Monocytes % (1.7 - 9.3 %) 7.9 Eosinophils % (0 - 5 %) 3.4 Basophils % (0.0 - 2.0 %) 0.3 Absolute Granulocytes (1.4 - 6.5 /CUMM) 2.5 Absolute Lymphocytes (1.2 - 3.4 /CUMM) 1.3 Absolute Monocytes (0.10 - 0.60 /CUMM) 0.3 Absolute Eosinophils (0.0 - 0.7 /CUMM) 0.1 Absolute Basophils (0.0 - 0.2 /CUMM) 0 PUBS MCHC (33.0 - 37.0 G/DL) 34.3 Exam General Appearance: well developed/nourished, no apparent distress, alert, awake , comfortable Head: atraumatic, normal appearance Respiratory: normal breath sounds, chest non-tender, no respiratory distress, quiet respiration, lungs clear Cardiovascular: regular rate/rhythm Gastrointestinal: soft, non-tender, increased bowel sounds Extremities: no edema (on lower extremity bilaterally) Current Medications: Current Medications Sig/Fay Start time Last Medication Dose Route Stop Time Status Admin Acetaminophen 1,000 MG Q6P PRN 10/23 0600 AC N/A 1 UNIT IV Acetaminophen 650 MG Q6P PRN 10/23 0330 AC PO Cyanocobalamin 1,000 MCG Q30D 10/23 0900 AC 10/23 IM 1401 Dextrose 25 GM ONCE ONE 10/24 1800 DC 10/24 IV 10/24 1801 1800 Dextrose/Sodium 1,000 ML Q8H 10/24 2345 AC 10/25 Chloride IV 0835 Gabapentin 100 MG Q8 10/25 1421 AC PO Insulin Human Regular 0 Q6 10/23 0600 AC 10/24 SC 1434 Lorazepam 1 MG Q6 10/24 1800 AC 10/25 PO 1112 Lorazepam 0 Q1P PRN 10/23 0415 AC IV Magnesium Oxide 400 MG ONE ONE 10/25 0800 CAN PO 10/25 0801 Magnesium Oxide 400 MG ONE ONE 10/25 0615 CAN PO 10/25 0616 Magnesium Sulfate 1 GM ONCE ONE 10/25 0615 DC 10/25 Dextrose/Water 100 ML IV 10/25 1014 1018 Melatonin 5 MG AT BEDTIME 10/23 2200 AC 10/24 PO 2145 Mirtazapine 7.5 MG AT BEDTIME 10/23 2200 AC 10/24 PO 2145 Multivitamins 1 DICK DAILY 10/23 1000 AC 10/25 Folic Acid 1 MG IV 1016 Thiamine HCl 200 MG Dextrose/Water 1,000 ML Nicotine 14 MG DAILY 10/23 1102 AC 10/25 TOP 1017 Pantoprazole Sodium 40 MG DAILY 10/23 0415 AC 10/25 IV 1017 Polyethylene Glycol 1 GAL ONCE ONE 10/24 1700 DC 10/24 PO 10/24 1701 1846 Potassium Chloride 40 MEQ ONCE ONE 10/25 0615 CAN PO 10/25 0616 Potassium Chloride 10 MEQ Q1H 10/25 0615 DC 10/25 IV 10/25 0716 0827 Sodium Chloride 500 ML BOLUS ONE 10/24 1830 DC 10/24 IV 10/24 1929 1903 Sodium Chloride 500 ML BOLUS ONE 10/24 1800 DC 10/24 IV 10/24 1859 1800 Sodium Chloride 1,000 ML Q8H 10/23 2045 DC 10/24 IV 2145 Impression/Plan Impression/Problem List Impression: Assessment: 51 y/o M with PMHx of alcohol abuse, T2DM and peripheral neuropathy who presents with bloody diarrhea and two syncopal episodes. #Bleeding per rectum Presents with bloody diarrhea and two syncopal episodes. Hypotensive in the ED with BP 80/50s despite aggressive fluid resuscitation with NS boluses and elevated lactic acid of 4. Since yesterday his blood pressure and H&H is stable. We had a type and crossmatch just in case he needed a blood transfusion. * Patient will be on IV fluid * We'll continue Protonix 40 mg IV QD * CBC daily * We'll send patient for colonoscopy today #Syncope and recurrent falls: Likely secondary to orthostatic hypotension in the setting of volume contraction 2/2 chronic diarrhea and suspected GI bleed, although peripheral neuropathy and alcohol use are possible contributory factors. Differential also includes arrhythmia and neurocardiogenic syncope. * Continous cardiac monitoring to rule out arrhythmia. * Follow-up CBC to rule out active bleeding and anemia * OT/PT eval. * We'll start patient on gabapentin 100 mg 3 times a day, we will advise him to follow up as an outpatient with his primary care doctor #Chronic diarrhea and weight loss: Patient has lost >100 pounds in the past year and reports that extensive work-up including HIV test has been negative. Diarrhea has been ongoing for 2 months. Of unclear etiology. It is possible that metformin could be contributing to the diarrhea. Potential etiologies include infectious, endocrine, malignancy and metabolic secondary to alcohol use. * HIV and hepatitis A, B, and C are all negative * Thyroid function tests is within normal limits * More workup will be done once patient is stable #Alcohol abuse: Heavy alcohol use. Drinks 6 beers and half a pint of alpa daily. Serum alcohol level markedly elevated at 291 on admission. * [facility] protocol to monitor for signs/symptoms of alcohol withdrawal. * Ativan PRN per [facility] protocol. * Banana bag with 200 mg of thiamine, MVI and 1 mg of folic acid was given. * Administered vitamin B12 1000 mcg IM. #T2DM: Was diagnosed one year ago and started on metformin 1000 mg PO BID but has been noncompliant with medication. * Check HbA1c is pending. * Accu-checks and Novolin Q6H SSI while patient is NPO. #Depression: No suicidal or homicidal ideation at present. * Psych consult placed. Appreciate their recs. Diet: Nothing by mouth only drinking GoLYTELY until he is back from the colonoscopy Pain: Tylenol 650 mg PO Q6H PRN for mild pain (scale 1-3) DVT PPx: ALPS CODE: FULL Problem List: 1. Bright red blood per rectum Pain Ratin Tomorrow's Labs & Rationales: CBC and BEP Plan DVT/Prophylaxis: gorge STEPHENSON MD,HELEN 10/25/16 1313: Attending MD Review Statement Attending Sign Off Attending Cosign Statement: I have: examined this patient, reviewed [facility] EMR data, personally reviewd images, discussd w/resident/PA/C[employer]F, discussed mgmt plan w/pt, agreed w/resident/ PA/C[employer] ME[employer] CHEF, amended to note. Other Findings: Patient seen and examined, currently denies any complaints. Patient is admitted with syncope and found to have a lower GI bleed. Patient is scheduled for colonoscopy today. Vital Signs Date Time Temp Pulse Resp B/P Pulse O2 O2 Flow FiO2 Ox Delivery Rate 10/25 0800 98.1 86 20 98/60 10/25 0800 98 Room Air Room Air 10/25 0800 98.1 86 20 98/60 97 Room Air Room Air 10/25 0600 75 18 102/67 10/25 0400 99.0 78 20 118/70 10/25 0400 96 Room Air 10/25 0200 77 20 94/59 10/25 0000 99.3 76 18 110/70 10/25 0000 96 Room Air 10/25 0000 99.3 76 18 110/70 96 Room Air 10/24 2000 98.1 71 16 104/68 10/24 1600 98.9 83 20 100/60 10/24 1600 98.9 83 20 97/68 99 Room Air 10/24 1400 99.5 80 12 112/74 on exam; aox3, nad. heent; there is a rash on his forehead which is likely secondary to fall. cv; s1,s2, rrr. resp; clear. abd; soft, nt, bs+ ext; no edema. Laboratory Tests 10/25 0430 Chemistry Sodium (137 - 145 mmol/L) 139 Potassium (3.5 - 5.1 mmol/L) 3.6 Chloride (98 - 107 mmol/L) 105 Carbon Dioxide (22 - 30 mmol/L) 29 Anion Gap (5 - 16) 4 L BUN (9 - 20 mg/dL) 5 L Creatinine (0.7 - 1.2 mg/dL) 0.5 L Estimated GFR (>60 ml/min) > 60 Glucose (65 - 99 mg/dL) 84 Calcium (8.4 - 10.2 mg/dL) 8.5 Phosphorus (2.5 - 4.5 mg/dL) 2.9 Magnesium (1.6 - 2.3 mg/dL) 1.5 L Total Bilirubin (0.2 - 1.3 mg/dL) 0.7 AST (17 - 59 U/L) 15 L ALT (21 - 72 U/L) 27 Albumin (3.5 - 5.0 g/dL) 2.6 L Hematology CBC w Diff NO MAN DIFF REQ WBC (4.8 - 10.8 /CUMM) 4.2 L RBC (4.70 - 6.10 /CUMM) 3.24 L Hgb (14.0 - 18.0 G/DL) 10.9 L Hct (42 - 52 %) 31.6 L MCV (80.0 - 94.0 FL) 97.6 H MCH (27.0 - 31.0 PG) 33.5 H RDW (11.5 - 14.5 %) 13.3 Plt Count (130 - 400 /CUMM) 252 MPV (7.4 - 10.4 FL) 7.9 Gran % (42.2 - 75.2 %) 58.6 Lymphocytes % (20.5 - 51.1 %) 29.8 Monocytes % (1.7 - 9.3 %) 7.9 Eosinophils % (0 - 5 %) 3.4 Basophils % (0.0 - 2.0 %) 0.3 Absolute Granulocytes (1.4 - 6.5 /CUMM) 2.5 Absolute Lymphocytes (1.2 - 3.4 /CUMM) 1.3 Absolute Monocytes (0.10 - 0.60 /CUMM) 0.3 Absolute Eosinophils (0.0 - 0.7 /CUMM) 0.1 Absolute Basophils (0.0 - 0.2 /CUMM) 0 PUBS MCHC (33.0 - 37.0 G/DL) 34.3 A/P; 51-year-old male with past medical history significant for alcohol use, type 2 diabetes with peripheral neuropathy who was admitted with bloody diarrhea , lower GI bleed as well as 2 syncopal episodes. Echocardiogram results reviewed and does not reveal any significant abnormality. H&H remained stable, patient did not require any RBC transfusion. Patient is scheduled for colonoscopy this afternoon. Patient was also depressed therefore psych consult was obtained. Remeron has been added. Currently patient on IV PPI. If colonoscopy results do not show any significant amount of bleed or active bleed then patient's diet will be advanced. Can add gabapentin for his peripheral neuropathy. If remained stable and likely can be discharged home tomorrow. Please make sure that patient is ambulating.
--- NOTE | 2016-10-25 08:16 | ECHOCARDIOGRAM REPORT ---
DELMADL Age: 51 : 1965 Gender: M Exam Date: 10/24/2016 11:41 Exam Location: [facility] Ht (in): 70 Wt (lb): 120 BSA: 1.62 BP: 139 / 83 Ordering Physician: DL ROJAS MD Referring Physician: DL ROJAS MD Technologist: Ese Baeza SIDNEY Room Number: [id number] Indications: PRESYNCOPE/SYNCOPE Rhythm: Sinus Technical Quality: good FINDINGS Left Ventricle Normal left ventricular size, wall thickness and systolic function with no obvious regional wall motion abnormalities. Normal left ventricular diastolic filling pattern for age. The ejection fraction is visually estimated at 55%. Right Ventricle The right ventricle is mildly enlarged with normal function. Right Atrium The right atrium is normal in size. Left Atrium The left atrium is normal in size. The interatrial septum is intact. Mitral Valve The mitral valve is normal in structure and function. There is mild mitral regurgitation. Aortic Valve Structurally normal aortic valve without significant sclerosis or stenosis. There is trace aortic regurgitation. Tricuspid Valve The tricuspid valve is normal in structure and function. There is mild tricuspid regurgitation. Pulmonary artery systolic pressure is normal. Pulmonic Valve Structurally normal pulmonic valve. There is no pulmonic regurgitation. Pericardium Normal pericardium without effusion. Left pleural effusion. Great Vessels Normal aortic root dimension. The aortic arch and great vessels are well seen and are normal. CONCLUSIONS 1. Normal EF of 55%. 2. Mild right ventricular enlargement. 3. Mild mitral regurgitation. 4. Mild tricuspid regurgitation. 5. Trace aotic regurgitation. 6. Small left pleural effusion. Jabier Gutiérrez M.D. (Electronically Signed) Final Date: 25 October 2016 08:16 MEASUREMENTS (Male / Female) Normal Values 2D ECHO LV Diastolic Diameter PLAX 4.2 cm 4.2 - 5.9 / 3.9 - 5.3 cm LV Systolic Diameter PLAX 3.0 cm 2.1 - 4.0 cm LV Fractional Shortening PLAX 28.6 % 25 - 46 % LV Ejection Fraction 2D Teich 55.5 % IVS Diastolic Thickness 1.1 cm LVPW Diastolic Thickness 1.1 cm LV Relative Wall Thickness 0.5 RV Internal Dim ED PLAX 3.5 cm 1.9 - 3.8 cm LVOT Diameter 2.1 cm Aortic Root Diameter 3.4 cm LA Systolic Diameter LX 3.7 cm 3.0 - 4.0 / 2.7 - 3.8 cm LA Volume 32.0 cm 18 - 58 / 22 - 52 cm Ascending Aorta Diameter 3.7 cm DOPPLER AV Peak Velocity 84.7 cm/s AV Peak Gradient 2.9 mmHg AV Mean Velocity 63.8 cm/s AV Mean Gradient 2.0 mmHg AV Velocity Time Integral 17.7 cm LVOT Peak Velocity 75.9 cm/s LVOT Peak Gradient 2.3 mmHg LVOT Mean Velocity 50.2 cm/s LVOT Mean Gradient 1.0 mmHg LVOT Velocity Time Integral 14.9 cm LVOT Stroke Volume 51.6 cm AV Area Cont Eq vti 2.9 cm AV Area Cont Eq pk 3.1 cm MV Peak Velocity 80.1 cm/s MV Peak Gradient 2.6 mmHg MV Mean Velocity 49.8 cm/s MV Mean Gradient 1.0 mmHg Mitral E Point Velocity 75.0 cm/s Mitral A Point Velocity 45.9 cm/s Mitral E to A Ratio 1.6 MV PHT Velocity 82.5 cm/s MV Deceleration Lassen 396.0 cm/s MV Pressure Half Time 62.5 ms MV Area PHT 3.5 cm MV Deceleration Time 211.0 ms TR Peak Velocity 217.0 cm/s TR Peak Gradient 18.8 mmHg Right Atrial Pressure 5.0 mmHg Pulmonary Artery Systolic Pressu 23.8 mmHg Right Ventricular Systolic Press 23.8 mmHg PV Peak Velocity 75.3 cm/s PV Peak Gradient 2.3 mmHg PV Mean Velocity 61.2 cm/s PV Mean Gradient 2.0 mmHg PV Velocity Time Integral 16.7 cm LV E' Lateral Velocity 13.4 cm/s Mitral E to LV E' Lateral Ratio 5.6 LV E' Septal Velocity 8.1 cm/s Mitral E to LV E' Septal Ratio 9.3
--- NOTE | 2016-10-25 14:34 | Proc Note Colonoscopy ---
Colonoscopy Procedure Medical History: unchanged (see meditech consult) Mental Status: alert/oriented Heart/Lung Eval Prior to Sedation: within normal limits Candidate for Sedation? Yes Date of Last Colonoscopy: No prior colonoscopy. Procedure Date: 10/25/16 Procedure Type: colonoscopy w/biopsy Senior Software Systems Engineer: Bo Granados MD ASA Classification: III Indications: Rectal bleeding. Instrument (Colonoscope): single channel Meds Received: MAC Patient's Tolerance: good Complications: none Extent Reached: cecum Prep: good Procedure: After getting written informed consent the patient was placed in the left lateral decubitus position with pulse oximetry, cardiac monitoring, and supplemental oxygen was given. IV sedation was given until the desired effect was achieved. A rectal exam was performed which small external hemorrhoids. A high definition variable stiffness Olympus colonoscope was then inserted into the anus and advanced to the cecum with little difficulty. Retroflexed views were obtained and photodocumentation was obtained. Close inspection of the colonic mucosa was performed on insertion and withdrawal of the colonoscope with a withdrawal time that was adequate in length to closely inspect all folds and castro of the colon. Findings: There was a 2 mm sessile polyp at the hepatic flexure and a 4 mm sessile polyp at the hepatic flexure. Both of the polyps were removed with multiple bites of cold biopsy forceps and were sent to pathology for further evaluation. There were mild, patchy erythematous changes in the ascending colon and cecum and the mucosa was friable, but there were no deep ulcers or masses appreciated. Biopsies were obtained from the right colon with cold biopsy forceps and were sent to pathology for further evaluation. The remainder of the colonic mucosa was grossly normal in appearance. There were no large polyps, masses, ulcers, AVMs, or diverticula appreciated. Retroflexed views in the rectum revealed small internal hemorrhoids. In spite of changing the patient's position numerous attempts to intubate the terminal ileum were unsuccessful. There was no active bleeding appreciated. Impression: 1. Nonspecific right-sided colitis status post biopsies. 2. 2 diminutive hepatic flexure colon polyps status post biopsies. 3. Small internal and external hemorrhoids. 4. No active bleeding appreciated. Recommendations: 1. Advance diet as tolerated. 2. Review his CAT scan with radiology to determine if the mesenteric vessels were adequately assessed and if they were not would then recommend obtaining a CT angiogram or MRA to evaluate for possible mesenteric ischemia considering the isolated right-sided inflammation and weight loss. 3. He should follow up the pathology results with me as an outpatient. 4. He should repeat a colonoscopy in 3-5 years time based on the results to pathology. Followup Colonscopy Screen In: pending biopsy result(s)
--- NOTE | 2016-10-25 18:00 | NUR ---
VSS. PT ON RA, SATS> 95%. PT HAD COLONOSCOPY. RESUMED DIET AND NOVOLOG SLIDING SCALE. PT DOWNGRADED TO GENERAL MEDICINE.
[2016-10-26] VITALS (7 sets, daily range): BP systolic 71–110; BP diastolic 41–64
--- NOTE | 2016-10-26 02:41 | NUR ---
NURSE NOTE (LATE ENTRY): PT ARRIVED TO FLOOR AROUND 2119 BY TRANSPORT FROM ICU. PT ORIENTED TO 3, ON RA. IVF RUNNING AT TIME. CALL HANSON IN REACH, BED LOWEST POSITION. PT REFUSED BED ALARM, ALPS ON. VITALS STABLE, NO COMPLAINTS AT THIS TIME. PT STATED WILL CALL IF NEEDED. WILL MONITOR.
--- NOTE | 2016-10-26 06:06 | NUR ---
NURSE NOTE: PATIENT BLOOD SUGAR 332, BAKER BISCUIT PAGED AT THIS TIME
--- NOTE | 2016-10-26 07:31 | Transfer of Care Summary ---
Hospital Course Course Hospital Course: Mr. Sullivan is a 51 y/o M with PMHx of alcohol abuse, T2DM and peripheral neuropathy who presents with bloody diarrhea and two syncopal episodes. Patient was diagnosed with T2DM about a year ago and started on metformin, which he has not been compliant with. He has also lost > 100 pounds over the past year despite no changes in his appetite. He reports that an extensive work-up including HIV test has been negative and attributes his weight loss to his newly diagnosed diabetes. Patient drinks 6 beers and half a pint of alpa and smoking 1/2 packs of cigarettes per day. He reports depression but denies suicidal ideation. He denies chest pain, nausea, shortness of breath, abdominal tenderness, fever, chills, recent travel or sick contact. He has never had a colonoscopy. Issue that was addressed since admission 1.Bright Red Blood Per Rectum: Presents with bloody diarrhea and two syncopal episodes. Pt was hypotensive in the ED with BP 80/50s despite aggressive fluid resuscitation with NS boluses and elevated lactic acid of 4. Despite hypotension, H/H only borderline low at 12.5/ 37. We had a type and crossmatch just in case he needed a blood transfusion. Patient was placed on IV fluids,Protonix and was sent for colonoscopy which showed the following; 1. Nonspecific right-sided colitis status post biopsies. 2. 2 diminutive hepatic flexure colon polyps status post biopsies. 3. Small internal and external hemorrhoids. 4. No active bleeding appreciated. #Recommendation for next team to do * Advance diet as tolerated. * Review his CAT scan with radiology to determine if the mesenteric vessels were adequately assessed and if they were not would then recommend obtaining a CT angiogram or MRA to evaluate for possible mesenteric ischemia considering the isolated right-sided inflammation and weight loss. * He should follow up the pathology results as an outpatient. * He should repeat a colonoscopy in 3-5 years time based on the results to pathology. 2.Syncope and recurrent falls: Likely secondary to orthostatic hypotension in the setting of volume contraction 2/2 chronic diarrhea and suspected GI bleed, although peripheral neuropathy and alcohol use are possible contributory factors. Differential also includes arrhythmia and neurocardiogenic syncope. #Recommendation for next team to do * Continous cardiac monitoring to rule out arrhythmia. * Follow-up CBC to rule out active bleeding and anemia * OT/PT eval. * We have started patient on gabapentin 100 mg 3 times a day. Advance the dose as necessary and asked the patient to follow-up with his primary care doctor to address this issue in more detail. 3.Chronic diarrhea and weight loss: Patient has lost >100 pounds in the past year and reports that extensive work- up including HIV test has been negative. Diarrhea has been ongoing for 2 months. Of unclear etiology. It is possible that metformin could be contributing to the diarrhea. Potential etiologies include infectious, endocrine, malignancy and metabolic secondary to alcohol use. * HIV and hepatitis A, B, and C are all negative * Thyroid function tests is within normal limits * Out-Patient GI follow up after discharge * Anoscopy pathology results follow-up as an outpatient. 4.Alcohol abuse: Heavy alcohol use. Drinks 6 beers and half a pint of alpa daily. Serum alcohol level elevated at 291 on admission. #Recommendation for next team to do * [facility] protocol to monitor for signs/symptoms of alcohol withdrawal. * Ativan PRN per [facility] protocol. * Cont' MVI, folic acid, and B12 4.T2DM: Was diagnosed one year ago and started on metformin 1000 mg PO BID but has been noncompliant with medication. #Recommendation for next team to do * Check HbA1c is pending. * Accu-checks and insuline SS * On diabetic diet 5.Depression: No suicidal or homicidal ideation was present. 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
--- NOTE | 2016-10-26 08:51 | PN- Housestaff ---
REGINA PEGUERO,VERONICA 10/26/16 0851: Subjective Follow-up For: Bleed status post colonoscopy with polyps removed ED which dependence Subjective: Patient today woke up from sleep and I saw him this morning. Denied any complaints. Status post colonoscopy on 10/25/2016 with multiple polyps removed. Denied any bowel movement since then. Reports no change in color of stools or blood in vomitus. Denies chest pain, abdominal pain, nausea, vomiting, diarrhea, difficulty in breathing, fatigue Review of Systems Constitutional: Reports: see HPI. Objective Last 24 Hrs of Vital Signs/I&O Vital Signs Date Time Temp Pulse Resp B/P Pulse O2 O2 Flow FiO2 Ox Delivery Rate 10/26 0806 99.6 98 20 100/62 98 Room Air 10/26 0033 97.7 96 20 110/64 99 Room Air 10/25 2121 96.4 103 20 100/68 100 Room Air 10/25 1600 98.0 72 10 110/74 10/25 1600 97.0 98 20 110/74 99 Room Air 10/25 1200 99.2 95 12 106/72 10/25 1000 99.2 75 18 131/93 Intake & Output 10/26 1600 10/26 0800 10/26 0000 Intake Total 480 490 Output Total 125 400 Balance 355 90 Intake, IV 250 Intake, Oral 480 240 Number 1 2 Bowel Movements Output, Urine 125 400 Physical Exam General Appearance: Alert, Oriented X3, Cooperative, No Acute Distress Skin: wound present on the forehead on the right side HEENT: Atraumatic, PERRLA Cardiovascular: Regular Rate, Normal S1, Normal S2, No Murmurs Lungs: Clear to Auscultation Abdomen: Normal Bowel Sounds, Soft, No Tenderness Extremities: No Clubbing, No Cyanosis, No Edema Current Medications: Current Medications Sig/Fay Start time Last Medication Dose Route Stop Time Status Admin Acetaminophen 1,000 MG Q6P PRN 10/23 0600 AC N/A 1 UNIT IV Acetaminophen 650 MG Q6P PRN 10/23 0330 AC PO Chlorhexidine 1 GM .STK-MED ONE 10/25 1504 DC Gluconate TOP 10/25 1505 Cyanocobalamin 1,000 MCG Q30D 10/23 0900 AC 10/23 IM 1401 Dextrose/Sodium 1,000 ML Q8H 10/24 2345 DC 10/25 Chloride IV 0835 Gabapentin 100 MG Q8 10/25 1421 AC 10/26 PO 0513 Insulin Aspart 0 TIDAC 10/26 0800 DC SC Insulin Aspart 0 TIDAC 10/25 1900 AC 10/25 SC 1903 Insulin Human Regular 0 TIDAC/HS 10/25 2100 CAN SC Insulin Human Regular 0 Q6 10/23 0600 DC 10/24 SC 1434 Lorazepam 1 MG Q6 10/24 1800 AC 10/26 PO 0513 Lorazepam 0 Q1P PRN 10/23 0415 AC 10/26 IV 0721 Magnesium Sulfate 1 GM ONCE ONE 10/25 0615 DC 10/25 Dextrose/Water 100 ML IV 10/25 1014 1018 Melatonin 5 MG AT BEDTIME 10/23 2200 AC 10/25 PO 7 Mirtazapine 7.5 MG AT BEDTIME 10/23 2200 AC 10/25 PO 2127 Multivitamins 1 DICK DAILY 10/23 1000 AC 10/25 Folic Acid 1 MG IV 1016 Thiamine HCl 200 MG Dextrose/Water 1,000 ML Nicotine 14 MG DAILY 10/23 1102 AC 10/25 TOP 1017 Pantoprazole Sodium 40 MG DAILY 10/23 0415 AC 10/25 IV 1017 Assessment/Plan Assessment: 51 y/o M with PMHx of alcohol abuse, T2DM and peripheral neuropathy who presents with bloody diarrhea and two syncopal episodes, status post colonoscopy yesterday which showed nonspecific right-sided colitis status post biopsies on 10/25/2016. There was a concern for mesenteric ischemic colitis. As per house staff in ICU images were reviewed by welding machine operator submerged arc who did not think there was evidence of ischemic colitis in radiology. Today he is feeling fine. Denies any complaints. Background on his alcohol abuse histoy. Patient has been a chronic alcoholic for 24 years. Has history of binge drinking. Has been in the hospital for the similar problem last 2. Has never been to a rehabilitation facility. Assessment and plan 1. GI bleed presented with hypotension: Most likely due to colitis secondary to hypotension. As of infection noted at this time with all studies negative so far. Colonoscopy yesterday demonstrated colitis with multiple polyps. Has not had a bowel movement since scope done as per patient. Per GI recommendation he is to have a repeat colonoscopy in 3-5 years and follow-up with Dr. Granados as an outpatient. His H&H appears to be grossly stable. 2. EtOH intake and patient has been chronic alcoholic over the last 22 years -no stigmata of liver disease. -Liver enzymes has been normal. - farmworker livestock consult obtained who has given information about outpatient rehabilitation. 3. Unintentional weight loss: Patient has lost 140 pounds over the last 1 year with complaints of anorexia for the last 3-4 months. - could be secondary to depression, but Should be evaluated for questionable cancer - Pathology reports pending. - CAT scan of the abdomen and pelvis did not show as patient of malignancy - Will refer him to follow-up as an outpatient for further workup. 4. Anxiety/depression: Was seen by psychiatry during this admission. - Recommended to increase mirtazapine to 15 mg at bedtime if symptoms worsens - Currently patient on 7.5 mg at bedtime. - Mode appears to be stable today. Denies suicidal ideation or homicidal ideation 5. Diabetes mellitus - not on home medications. -Last for the metformin about 5 months ago. -Hemoglobin A1c was 10.7 - He is currently on NovoLog sliding scale. -We can discharge him on 1000 twice a day and will need a repeat hemoglobin A1c in 3 months. - His A1c consistently about 10 he should be on insulin. DVT prophylaxis with Alps secondary to GI bleed Full CODE STATUS Problem List: 1. Bright red blood per rectum 2. Uncontrolled diabetes mellitus 3. Depression 4. Alcohol abuse Pain Ratin Pain Location: No pain Pain Goal: Remain pain free Pain Plan: Tylenol Tomorrow's Labs & Rationales: Not need SEEMA PEGUERO,HELEN 10/26/16 1138: Attending MD Review Statement Attending Statement Attending MD Statement: examined this patient, discuss w/resident/PA/BUILDING CONSTRUCTION TEACHER, agreed w/resident/PA/BUILDING CONSTRUCTION TEACHER, reviewed EMR data (avail), discussed with nursing, reviewed images, amended to note Attending Assessment/Plan: Patient seen and examined, feels overall better. Patient had a colonoscopy done yesterday and it showed an area of colitis. Pathology results are pending. Afterwards patient's diet has been advanced. Currently he is in a regular diet. His Ativan is also being tapered. Vital Signs Date Time Temp Pulse Resp B/P Pulse O2 O2 Flow FiO2 Ox Delivery Rate 10/26 0806 99.6 98 20 100/62 98 Room Air 10/26 0033 97.7 96 20 110/64 99 Room Air 10/251 96.4 103 20 100/68 100 Room Air 10/25 1600 98.0 72 10 110/74 10/25 1600 97.0 98 20 110/74 99 Room Air 10/25 1200 99.2 95 12 106/72 on exam; aox3, nad. cv; s1, s2, rrr. resp; clear. abd; soft, nt, bs+ ext; no edema. no labs. A/P; 51-year-old male with past medical history significant for alcohol use, type 2 diabetes with peripheral neuropathy who was admitted with bloody diarrhea , lower GI bleed as well as 2 syncopal episodes. Status post colonoscopy which showed Nonspecific right-sided colitis status post biopsies. 2 diminutive hepatic flexure colon polyps status post biopsies. Small internal and external hemorrhoids. No active bleeding appreciated. Since then patient has been started on regular diet. He claims that he has diarrhea. Please check stool for C. difficile. Will follow-up on the pathology results. We will continue to taper his scheduled Ativan. Continue multi vitamin, folate and thiamine. Remeron was added per psychiatry. DVt px: ALPS. Patient will follow up with out patient alcohol rehab.
--- NOTE | 2016-10-26 22:04 | Discharge Summary ---
Visit Information Visit Dates Admission Date: 10/22/16 Discharge Date: 10/29/16 Hospital Course Course Attending Physician: HELEN STEPHENSON MD Primary Care Physician: SOBIA PEGUERO,BENSON Downey Hospital Course: Mr. Sullivan is a 51 y/o M with PMHx of alcohol abuse, T2DM and peripheral neuropathy who presents with bloody diarrhea and two syncopal episodes. Patient reports that he has been having diarrhea for the past two months with some relief from Imodium and notes four bowel movements on the day of current presentation. He also endorses associated discomfort in his lower abdomen. On the day of current presentation, patient got up to use the bathroom after dinner when he felt weak and his legs felt "wobbly". He subsequently passed out and found himself on the floor. Patient was diagnosed with T2DM about a year ago and started on metformin, which he has not been compliant with. He has also lost > 100 pounds over the past year despite no changes in his appetite. Vitals and admission blood pressure 97/67, respiration 18, pulse rate 96, temperature 97.0, oxygen saturation 96% on room air. Labs and admission: W BC 5.0, hemoglobin 12.5, hematocrit 37.0, platelets 299, sodium 134, potassium 4.7, BUN 10, creatinine 0.6, troponins less than 0.01, amylase 87, lipase 204, total bilirubin 0.[address] studies on admission CT HEAD W/O IV CONTRAST: 1. No acute intracranial abnormality. There is mild anterior right frontal scalp swelling. No fracture. CT CERVICAL SPINE W/O IV CONTRAST: No acute osseous abnormality within the cervical spine. Moderate to severe spondylosis at C5-C6. Small amount of gas within the left paravertebral soft tissues at C1, within the left dorsal epidural space at C2, and just below the left skull base and within the left catapult and arresting gear officer space that is most likely intravenous gas from intravenous line placement. CT MAXILLOFACIAL W/O IV CONTRAST: No acute osseous abnormality within the maxillofacial region. Hospital course 1. Lower GI bleed: Patient was admitted to ICU for hemodynamic instability and monitoring. He was aggressively fluid resuscitated. Patient was kept nothing by mouth. Was seen by waiter/waitress buffet who recommended obtaining a colonoscopy. CAT scan of the abdomen and pelvis with IV contrast was obtained on admission. There was a concern for ischemic colitis. The images were personally reviewed by the waiter/waitress buffet who did not think there was evidence of ischemic colitis in radiology report.Colonoscopy was done on 2016 which showed nonspecific right-sided colitis biopsies were obtained. Pathology reports were negative. He remained stable postprocedure. Did not have evidence right bleeding per rectum after the procedure. Per GI recommendation he have to follow-up with GI for repeat colonoscopy in 3-5 years. His H&H was stable upon discharge. He did not receive blood transfusions during this hospitilization. 2. EtOH dependence: Patient has been a chronic alcoholic over the last 22 years. He was started on banana bag and later changed to PO vitamin, thiamin, folic acid. Lab studies showed no stigmata for liver disease. LFT's appeared to be normal. He was placed on scheduled and when necessary Ativan per [facility] protocol. He had a smooth withdrawal during the hospital stay. Was seen by adoption social worker and given information for outpatient rehabilitation. 3. Unintentional weight loss: Patient has lost 140 pounds over the last 1 year with complaints of anorexia over the last 3-4 months. Even though this could be attributed to his mood disorder, he should be evaluated for malignancy as an outpatient. We will refer to follow-up with his primary care physician for further workup of weight loss. 4. Anxiety/depression: His mood remained overall well during the hospital stay. At times he attributed that he is depressed, denied suicidal or homicidal ideations. Was seen by psychiatrist during this admission recommended to start him on mirtazapine 7.5 mg which could help his depression as well as improve his appetite. Patient tolerated the medication well. His dose can be increased to 15 mg if necessary which can be done as an outpatient. 5. Diabetes mellitus: Was recently diagnosed with diabetes mellitus and has been noncompliant with his medications. Last metformin taken was about 5 months ago. Hemoglobin A1c checked during this admission was 10.7. He was continued on NovoLog sliding scale during the hospital stay. We started him on 1000 g of metformin twice a day and recommended a repeat hemoglobin A1c in 3 months. 6. Diarrhea 3 days prior to discharge, patient reported loose stools, C. diff was checked which came back positive. He wa started on metronidazole 500 TID with plans to complete the antibiotics for today of 12-4 days. Patient will follow up with outpatient GI and PCP upon discharge. DVT prophylaxis with Alps second to GI bleed Allergies: Coded Allergies: No Known Allergies (10/23/16) Disposition Summary Disposition Principal Diagnosis: 1. Lower GI bleed s/p colonoscopy and biopsy 2. ETOH dependence/withdrawal 3. Unintentional weight loss 4. Anxiety/ Depression 5. DM Additional Diagnosis: Peripheral neuropathy Discharge Disposition: home or self care Discharge Instructions General Discharge Information Code Status: Full Code Patient's Diet: Diabetic diet Patient's Activity: As tolerated Follow-Up Instructions/Appts: 1. Follow up with PCP in a week upon discharge for intentional weight loss and further work up 2. Follow up with Dr. Granadso for disucssion of pathology report and schedule a date for repeat procedure 3. Follow up with psychiatry Medications at Discharge Discharge Medications: Continue taking these medications: Metformin HCl (Glucophage) 1,000 MG TABLET 1 Tablet ORAL TWICE DAILY Days = 30 Comments: NOT GIVEN IN HOSPITAL Multivitamin (Multi-Day Vitamins) 1 EACH TABLET 1 Tablet ORAL DAILY Days = 90 Comments: Last Taken: 10/29/16 Time: 930AM Start taking the following new medications: Gabapentin (Gabapentin) 100 MG CAPSULE 100 Milligram ORAL EVERY 8 HOURS Days = 30 No Refills Comments: Last Taken: 10/29/16 Time: 640AM Mirtazapine (Remeron) 15 MG TABLET 7.5 Milligram ORAL AT BEDTIME Days = 30 No Refills Comments: Last Taken: 10/28/16 Time: 2130PM Thiamine HCl (Vitamin B-1) 100 MG TABLET 100 Milligram ORAL DAILY Days = 30 No Refills Comments: Last Taken: 10/29/16 Time: 930AM Folic Acid (Folic Acid) 1 MG TABLET 1 Milligram ORAL DAILY Days = 30 No Refills Comments: Last Taken: 10/29/16 Time: 930AM Metronidazole (Flagyl) 500 MG TABLET 1 Tablet ORAL THREE TIMES DAILY Days = 8 No Refills Comments: Last Taken: 10/29/16 Time: 930AM Potassium Chloride (Potassium Chloride) 20 MEQ TAB.ER.PRT 1 Tablet ORAL DAILY Days = 5 No Refills Comments: Last Taken: 10/29/16 Time: 930AM Copies To: SOBIA PEGUERO,BENSON Downey
--- NOTE | 2016-10-26 22:04 | Patient Discharge Instructions ---
Acute Coronary Syndrome Inclusion Criteria At DC or during hospital stay patient has or had the following: ACS DIAGNOSIS No Discharge Core Measures Meds if any: Prescribed or Continued at Discharge Meds if any: NOT Prescribed or Continued at Discharge Congestive Heart Failure Inclusion Criteria At DC or during hospital stay patient has or had the following: CHF DIAGNOSIS No Discharge Core Measures Meds if any: Prescribed or Continued at Discharge Meds if any: NOT Prescribed or Continued at Discharge Cerebrovascular accident Inclusion Criteria At DC or during hospital stay patient has or had the following: CVA/TIA Diagnosis No Discharge Core Measures Meds if any: Prescribed or Continued at Discharge Meds if any: NOT Prescribed or Continued at Discharge Venous thromboembolism Inclusion Criteria VTE Diagnosis No VTE Type NONE VTE Confirmed by (Test) NONE Discharge Core Measures - Per Current guidelines, there needs to be overlap - treatment for the first 5 days of Warfarin therapy. - If discharged on Warfarin prior to 5 days of - overlap therapy, the patient will need to be - assessed for post discharge needs including - *Post discharge parental anticoagulation - *Warfarin and/or parental anticoagulation education - *Follow up date to check INR post discharge At least 5 days overlap therapy as Inpatient No Meds if any: Prescribed or Continued at Discharge Note: Overlap Therapy is Warfarin and Anticoagulant Meds if any: NOT Prescribed or Continued at Discharge
[2016-10-27] VITALS: BP 102/60
[2016-10-27 08:10] VITALS: BP 100/61
--- NOTE | 2016-10-27 09:50 | PN- Housestaff ---
MICHAEL LAYNE 10/27/16 0949: Subjective Follow-up For: Diarrhea Lower GI bleed Subjective: Patient is seen and examined this morning. He is still unsteady on his feet. He reported foul smelling diarrhea. His stool C. diff came back positive. Does not report of any abdominal pain, no nauea/vomiting. He is transfered to isolation room. Review of Systems Constitutional: Reports: see HPI. Objective Last 24 Hrs of Vital Signs/I&O Vital Signs Date Time Temp Pulse Resp B/P Pulse O2 O2 Flow FiO2 Ox Delivery Rate 10/27 0810 98.5 94 20 100/61 98 Room Air 10/27 0000 98.0 100 20 102/60 10/26 2238 98.0 100 20 102/60 97 10/26 1655 79 84/60 98 Room Air 10/26 1628 97.3 106 20 71/41 100 10/26 1600 97.3 79 20 84/60 Intake & Output 10/27 1600 10/27 0800 10/27 0000 Intake Total 820 360 850 Output Total 850 300 600 Balance -30 60 250 Intake, IV 20 250 Intake, Oral 800 360 600 Number 5 1 1 Bowel Movements Output, Urine 850 300 600 Physical Exam General Appearance: Alert, Oriented X3, Cooperative, No Acute Distress Skin: No Rashes, No Breakdown HEENT: Atraumatic Neck: Supple Cardiovascular: Normal S1, Normal S2 Lungs: Clear to Auscultation, Normal Air Movement Current Medications: Current Medications Sig/Fay Start time Last Medication Dose Route Stop Time Status Admin Acetaminophen 1,000 MG Q6P PRN 10/23 0600 AC N/A 1 UNIT IV Acetaminophen 650 MG Q6P PRN 10/23 0330 AC PO Cyanocobalamin 1,000 MCG Q30D 10/23 0900 AC 10/23 IM 1401 Folic Acid 1 MG DAILY 10/26 1006 AC 10/27 PO 0748 Gabapentin 100 MG Q8 10/25 1421 AC 10/27 PO 1416 Insulin Aspart 0 TIDAC 10/25 1900 AC 10/27 SC 0841 Lorazepam 0.5 MG 1800,0600 10/27 1800 AC PO 11/02 1759 Lorazepam 1 MG 1800,0600 10/26 1800 DC 10/27 PO 0534 Lorazepam 0 Q1P PRN 10/23 0415 AC 10/26 IV 0721 Melatonin 5 MG AT BEDTIME 10/23 2200 AC 10/26 PO 2140 Metronidazole 500 MG TID 10/27 1345 AC PO Mirtazapine 7.5 MG AT BEDTIME 10/23 2200 AC 10/26 PO 2140 Multivitamins 1 TAB DAILY 10/26 1006 AC 10/27 PO 0748 Nicotine 14 MG DAILY 10/23 1102 AC 10/27 TOP 0748 Thiamine HCl 100 MG DAILY 10/26 1006 AC 10/27 PO 0748 Last 24 Hrs of Lab/Brad Results Last 24 Hrs of Labs/Mics: Microbiology 10/27 0855 STOOL: Clostridium difficile Toxin A & B - COMP CLOSTRIDIUM DIFFICILE Assessment/Plan Assessment: Patient is 51 y/o M with PMHx of alcohol abuse, T2DM and peripheral neuropathy who presents with bloody diarrhea and two syncopal episodes, status post colonoscopy yesterday which showed nonspecific right-sided colitis status post biopsies on 10/25/2016. There was a concern for mesenteric ischemic colitis. As per house staff in ICU images were reviewed by boat assembler who did not think there was evidence of ischemic colitis in radiology. Patient continued to have diarrhea. His stll C diff came back positive Assessment and plan 1. GI bleed and diarrhea now resolved most likely due to colitis secondary to hypotension. Patient continued to report diarrhea. His stool C. diff was checked which came back psitive for C diff. Will start n metronidazole 500 mg TID for total f 7 days. No abdminal pain, will continu to monitor EtOH intake Patient has been chronic alcoholic over the last 22 years no stigmata of liver disease. Liver enzymes normal. heating and ventilating worker consult obtained who has given information about outpatient rehabilitation. Ativan tapered to 0.5 BID today Unintentional weight loss: Patient has lost 140 pounds over the last 1 year with complaints of anorexia for the last 3-4 months. could be secondary to depression, but Should be evaluated for questionable cancer Pathology reports pending. CAT scan of the abdomen and pelvis did not show as patient of malignancy Will refer him to follow-up as an outpatient for further workup. Anxiety/depression: Was seen by psychiatry during this admission. - Recommended to increase mirtazapine to 15 mg at bedtime if symptoms worsens - Currently patient on 7.5 mg at bedtime. - Mode appears to be stable today. Denies suicidal ideation or homicidal ideation Diabetes mellitus - not on home medications. -Hemoglobin A1c was 10.7 - He is currently on NovoLog sliding scale. -We can discharge him on Metoprolol 1000 twice a day and will need a repeat hemoglobin A1c in 3 months. - If his A1c consistently about 10 he should be on insulin. DVT prophylaxis with Alps secondary to GI bleed Full CODE STATUS Problem List: 1. Bright red blood per rectum 2. Chronic diarrhea Pain Ratin Pain Location: generalizd Pain Goal: Pain 4 or less Pain Plan: tylenol Tomorrow's Labs & Rationales: none HELEN STEPHENSON MD 10/27/16 1208: Attending MD Review Statement Attending Statement Attending MD Statement: examined this patient, discuss w/resident/PA/GLOBAL RECRUITER, agreed w/resident/PA/GLOBAL RECRUITER, reviewed EMR data (avail), discussed with nursing, discussed with case mgmt, amended to note Attending Assessment/Plan: Patient seen and examined, still complains of diarrhea after every time he eats. He denies any bright red blood per rectum. His CIWA scores are running low therefore his Ativan has been tapered. Vital Signs Date Time Temp Pulse Resp B/P Pulse O2 O2 Flow FiO2 Ox Delivery Rate 10/27 0810 98.5 94 20 100/61 98 Room Air 10/27 0000 98.0 100 20 102/60 10/26 2238 98.0 100 20 102/60 97 10/26 1655 79 84/60 98 Room Air 10/26 1628 97.3 106 20 71/41 100 10/26 1600 97.3 79 20 84/60 on exam; aox3, nad. cv; s1,s2, rrr. resp; clear. abd; soft, nt, bs+ ext; no edema. no labs. A/P; 51-year-old male with past medical history significant for alcohol use, type 2 diabetes with peripheral neuropathy who was admitted with bloody diarrhea , lower GI bleed as well as 2 syncopal episodes. Colonoscopy showed localized area of colitis. Pathology results are pending. We'll send the stool for C. difficile again. I will discuss with GI about starting imodium prn. Will taper the Ativan on daily basis. Patient to follow-up with outpatient alcohol rehabilitation. Continue other current meds. If stable, possible discharge in am.
--- NOTE | 2016-10-27 14:07 | NUR ---
NURSING NOTE: STOOL SAMPLE FROM TODAY; C DIFF +. PT MOVED TO PRIVATE ROOM ENTERIC PRECAUTIONS IN PLACE. REGULATORY LEAD MICHAEL MADE AWARE
[2016-10-27 15:44] VITALS: BP 90/58
[2016-10-27 23:40] VITALS: BP 93/56
--- NOTE | 2016-10-28 08:09 | PN- Housestaff ---
MICHAEL LAYNE 10/28/16 0808: Subjective Follow-up For: C diff diarrhea GI bleed Subjective: Patient seen and examined. Review of Systems Constitutional: Reports: see HPI. Objective Last 24 Hrs of Vital Signs/I&O Vital Signs Date Time Temp Pulse Resp B/P Pulse O2 O2 Flow FiO2 Ox Delivery Rate 10/28 1342 98.2 90 18 98/66 98 Room Air 10/28 1016 89 100/60 10/28 0853 98.9 88 18 88/56 99 Room Air 10/27 2340 98.2 101 18 93/56 93 Room Air 10/27 1544 97.8 91 18 90/58 99 Intake & Output 10/28 1600 10/28 0800 10/28 0000 Intake Total 480 480 Output Total Balance 480 480 Intake, Oral 480 480 Number 1 2 1 Bowel Movements Physical Exam General Appearance: Alert, Oriented X3, Cooperative Skin: No Rashes, No Breakdown Cardiovascular: Regular Rate, Normal S1, Normal S2 Lungs: Clear to Auscultation, Normal Air Movement Abdomen: Normal Bowel Sounds, Soft, No Tenderness Extremities: No Edema Current Medications: Current Medications Sig/Fay Start time Last Medication Dose Route Stop Time Status Admin Acetaminophen 1,000 MG Q6P PRN 10/23 0600 AC N/A 1 UNIT IV Acetaminophen 650 MG Q6P PRN 10/23 0330 AC PO Cyanocobalamin 1,000 MCG Q30D 10/23 0900 AC 10/23 IM 1401 Folic Acid 1 MG DAILY 10/26 1006 AC 10/28 PO 1013 Gabapentin 100 MG Q8 10/25 1421 AC 10/28 PO 1412 Insulin Aspart 0 TIDAC 10/25 1900 AC 10/27 SC 1800 Lorazepam 0.5 MG 1800,0600 10/27 1800 AC 10/28 PO 11/02 1759 0626 Lorazepam 0 Q1P PRN 10/23 0415 AC 10/26 IV 0721 Melatonin 5 MG AT BEDTIME 10/23 2200 AC 10/27 PO 2145 Metronidazole 500 MG TID 10/27 2200 AC 10/28 PO 1013 Metronidazole 500 MG TID 10/27 1345 DC 10/27 PO 1643 Mirtazapine 7.5 MG AT BEDTIME 10/23 2200 AC 10/27 PO 2145 Multivitamins 1 TAB DAILY 10/26 1006 AC 10/28 PO 1013 Nicotine 14 MG DAILY 10/23 1102 10/28 TOP 1013 Sodium Chloride 1,000 ML Q13H 10/28 0945 AC 10/28 IV 1010 Sodium Chloride 500 ML BOLUS ONE 10/28 0845 DC 10/28 IV 10/28 0944 0856 Thiamine HCl 100 MG DAILY 10/26 1006 AC 10/28 PO 1013 Last 24 Hrs of Lab/Brad Results Last 24 Hrs of Labs/Mics: Laboratory Tests 10/28/16 0705: CBC w Diff NO MAN DIFF REQ, RBC 3.15 L, MCV 98.3 H, MCH 33.8 H, RDW 13.3, MPV 7.9, Gran % 77.6 H, Lymphocytes % 11.5 L, Monocytes % 8.9, Eosinophils % 1.9, Basophils % 0.1, Absolute Granulocytes 6.7 H, Absolute Lymphocytes 1.0 L, Absolute Monocytes 0.8 H, Absolute Eosinophils 0.2, Absolute Basophils 0, PUBS MCHC 34.4 Assessment/Plan Assessment: Patient is 51 y/o M with PMHx of alcohol abuse, T2DM and peripheral neuropathy who presents with bloody diarrhea and two syncopal episodes, status post colonoscopy yesterday which showed nonspecific right-sided colitis status post biopsies on 10/25/2016. There was a concern for mesenteric ischemic colitis. As per house staff in ICU images were reviewed by foley artist who did not think there was evidence of ischemic colitis in radiology. Patient continued to have diarrhea. His stll C diff came back positive Assessment and plan 1. GI bleed and diarrhea now resolved most likely due to colitis secondary to hypotension. Patient continued to report diarrhea. His stool C. diff was checked which came back psitive for C diff. Will continue on metronidazole 500 mg TID for total f 7 days. No abdminal pain, will continu to monitor EtOH intake Patient has been chronic alcoholic over the last 22 years no stigmata of liver disease. Liver enzymes normal. outside maintenance worker consult obtained who has given information about outpatient rehabilitation. Ativan tapered to 0.5 once today Unintentional weight loss: Patient has lost 140 pounds over the last 1 year with complaints of anorexia for the last 3-4 months. could be secondary to depression, but Should be evaluated for questionable cancer Pathology reports pending. CAT scan of the abdomen and pelvis did not show as patient of malignancy Will refer him to follow-up as an outpatient for further workup. Anxiety/depression: Was seen by psychiatry during this admission. - Recommended to increase mirtazapine to 15 mg at bedtime if symptoms worsens - Currently patient on 7.5 mg at bedtime. - Mode appears to be stable today. Denies suicidal ideation or homicidal ideation Diabetes mellitus - not on home medications. -Hemoglobin A1c was 10.7 - He is currently on NovoLog sliding scale. -We can discharge him on [id number] twice a day and will need a repeat hemoglobin A1c in 3 months. - If his A1c consistently about 10 he should be on insulin. Hypotension Patient was hypotensive today to BP of 80/40, she was given 500 cc of bolus, last EF 55%, He is started on maintaiance fluids 75 cc/hr DVT prophylaxis with Alps secondary to GI bleed Full CODE STATUS Problem List: 1. Chronic diarrhea 2. Bright red blood per rectum Pain Ratin Pain Location: none Pain Goal: Pain 4 or less Pain Plan: tylenol prn for pain Tomorrow's Labs & Rationales: none HELEN STEPHENSON MD 10/28/16 1125: Attending MD Review Statement Attending Statement Attending MD Statement: examined this patient, discuss w/resident/PA/VAN HELPER, agreed w/resident/PA/VAN HELPER, reviewed EMR data (avail), discussed with nursing, discussed with case mgmt, amended to note Attending Assessment/Plan: Patient seen and examined, not feeling well this morning. Feeling very tired. His blood pressure was also low and he had 7 BMs yesterday. Vital Signs Date Time Temp Pulse Resp B/P Pulse O2 O2 Flow FiO2 Ox Delivery Rate 10/28 1016 89 100/60 10/28 0853 98.9 88 18 88/56 99 Room Air 10/27 2340 98.2 101 18 93/56 93 Room Air 10/27 1544 97.8 91 18 90/58 99 On exam; was sleeping, woke up, NAD. cv; s1,s2, rrr. resp; clear. abd; soft, nt, bs+ ext; no edema. Laboratory Tests 10/28 704 Hematology CBC w Diff NO MAN DIFF REQ WBC (4.8 - 10.8 /CUMM) 8.6 RBC (4.70 - 6.10 /CUMM) 3.15 L Hgb (14.0 - 18.0 G/DL) 10.7 L Hct (42 - 52 %) 31.0 L MCV (80.0 - 94.0 FL) 98.3 H MCH (27.0 - 31.0 PG) 33.8 H RDW (11.5 - 14.5 %) 13.3 Plt Count (130 - 400 /CUMM) 258 MPV (7.4 - 10.4 FL) 7.9 Gran % (42.2 - 75.2 %) 77.6 H Lymphocytes % (20.5 - 51.1 %) 11.5 L Monocytes % (1.7 - 9.3 %) 8.9 Eosinophils % (0 - 5 %) 1.9 Basophils % (0.0 - 2.0 %) 0.1 Absolute Granulocytes (1.4 - 6.5 /CUMM) 6.7 H Absolute Lymphocytes (1.2 - 3.4 /CUMM) 1.0 L Absolute Monocytes (0.10 - 0.60 /CUMM) 0.8 H Absolute Eosinophils (0.0 - 0.7 /CUMM) 0.2 Absolute Basophils (0.0 - 0.2 /CUMM) 0 PUBS MCHC (33.0 - 37.0 G/DL) 34.4 A/P: 51-year-old male with past medical history significant for alcohol use, type 2 diabetes with peripheral neuropathy who was admitted with bloody diarrhea , lower GI bleed as well as 2 syncopal episodes. Patient had colonoscopy and pathology results are still pending. Patient was having diarrhea therefore C. difficile was checked yesterday and it came out positive. Patient has been started on Flagyl. He was hypotensive this morning therefore was given IV fluids. We encouraged him to walk with physical therapy. If patient's blood pressure improves and diarrhea improves then likely be discharged. Otherwise he will stay for another 24 hours and will be discharged hopefully tomorrow. Continue all other current medications.
[2016-10-28 08:13] LABS: ABSOLUTE BASOPHIL COUNT 0 /CUMM (0.0-0.2); ABSOLUTE EOSINOPHIL COUNT 0.2 /CUMM (0.0-0.7); ABSOLUTE MONOCYTE COUNT 0.8 /CUMM (0.10-0.60)
[2016-10-28 08:38] LABS: ABSOLUTE GRANULOCYTE CT 6.7 /CUMM (1.4-6.5); BASOPHIL % 0.1 % (0.0-2.0); EOSINOPHIL % 1.9 % (0-5); GRANULOCYTE % 77.6 % (42.2-75.2); MEAN CORPUSCULAR HGB 33.8 PG (27.0-31.0); MEAN CORPUSCULAR HGB CONC 34.4 G/DL (33.0-37.0); MEAN CORPUSCULAR VOLUME 98.3 FL (80.0-94.0); MEAN PLATELET VOLUME 7.9 FL (7.4-10.4); PLATELET COUNT 258 /CUMM (130-400); RBC DISTRIBUTION WIDTH 13.3 % (11.5-14.5); RED BLOOD CELL CT 3.15 /CUMM (4.70-6.10)
[2016-10-28 08:43] LABS: WHITE BLOOD CELL COUNT 8.6 /CUMM (4.8-10.8)
--- NOTE | 2016-10-28 08:43 | NUR ---
BP 88/56 MANUALLY; PATIENT SLEEPING AT THIS TIME BUT IS EASILY AROUSABLE; DR AVERY NOTIFIED AND IN ROOM TO ASSESS PATIENT; AWAITING FURTHER ORDERS;
[2016-10-28 08:53] VITALS: BP 88/56
--- NOTE | 2016-10-28 08:58 | NUR ---
500 ML NS BOLUS INFUSING PER ORDER
[2016-10-28 10:16] VITALS: BP 100/60
--- NOTE | 2016-10-28 12:21 | NUR ---
OCCUPATIONAL THERAPY NOTE: ATTEMPTED TO SEE PT IN AM, PER CONVERSATION WITH RN PT HYPOTENSIVE 80/50 IS IN PROCESS TO RECEIVE IV FLUIDS. OT CX TODAY, WILL F/U TOMORROW IF APPROPRIATE.
--- NOTE | 2016-10-28 12:36 | NUR ---
SIZEWISE MATTRESS IN PLACE
[2016-10-28 13:42] VITALS: BP 98/66
[2016-10-28 15:59] VITALS: BP 105/61
[2016-10-29 00:01] VITALS: BP 102/60
--- NOTE | 2016-10-29 07:28 | PN- Housestaff ---
MICHAEL LAYNE 10/29/16 0728: Subjective Follow-up For: Lower GI bleed C. diff diarrhea Subjective: Patient seen and examined. feels well. Was eating his breakfast. Reports of no new sx. ROS negative Had 3 bowel movements last night. BP is improved today. Afebrile, no abdominal pain. Review of Systems Constitutional: Reports: see HPI. Objective Last 24 Hrs of Vital Signs/I&O Vital Signs Date Time Temp Pulse Resp B/P Pulse O2 O2 Flow FiO2 Ox Delivery Rate 10/29 08 98.9 81 18 97/59 99 Room Air 10/29 0001 98.3 80 20 102/60 98 Room Air 10/28 1559 97.7 88 19 105/61 100 10/28 1342 98.2 90 18 98/66 98 Room Air Intake & Output 10/29 1600 10/29 0800 10/29 0000 Intake Total 800 600 950 Output Total 1 300 Balance 799 600 650 Intake, IV 300 600 600 Intake, Oral 500 350 Number 1 4 2 Bowel Movements Output, Urine 1 300 Physical Exam General Appearance: Alert, Oriented X3, Cooperative, No Acute Distress Skin: No Rashes, No Breakdown HEENT: Atraumatic Neck: Supple Cardiovascular: Regular Rate, Normal S1, Normal S2 Lungs: Normal Air Movement Current Medications: Current Medications Sig/Fay Start time Last Medication Dose Route Stop Time Status Admin Acetaminophen 1,000 MG Q6P PRN 10/23 0600 DCD N/A 1 UNIT IV Acetaminophen 650 MG Q6P PRN 10/23 0330 DCD PO Cyanocobalamin 1,000 MCG Q30D 10/23 0900 DCD 10/23 IM 1401 Folic Acid 1 MG DAILY 10/26 1006 DCD 10/29 PO 0928 Gabapentin 100 MG Q8 10/25 1421 DCD 10/29 PO 0643 Insulin Aspart 0 TIDAC 10/25 1900 DCD 10/29 SC 0928 Lorazepam 0.5 MG 1800,0600 10/27 1800 DC 10/29 PO 11/02 1759 0643 Lorazepam 0 Q1P PRN 10/23 0415 DCD 10/26 IV 0721 Melatonin 5 MG AT BEDTIME 10/23 2200 DCD 10/28 PO 2132 Metronidazole 500 MG TID 10/27 2200 DCD 10/29 PO 0928 Mirtazapine 7.5 MG AT BEDTIME 10/23 2200 DCD 10/28 PO 2132 Multivitamins 1 TAB DAILY 10/26 1006 DCD 10/29 PO 0928 Nicotine 14 MG DAILY 10/23 1102 DCD 10/29 TOP 0928 Potassium Chloride 20 MEQ ONCE ONE 10/29 0930 DC 10/29 PO 10/29 0931 0928 Sodium Chloride 1,000 ML Q13H 10/28 0945 DCD 10/28 IV 2350 Thiamine HCl 100 MG DAILY 10/26 1006 DCD 10/29 PO 0928 Assessment/Plan Assessment: Patient is 51 y/o M with PMHx of alcohol abuse, T2DM and peripheral neuropathy who presents with bloody diarrhea and two syncopal episodes, status post colonoscopy yesterday which showed nonspecific right-sided colitis status post biopsies on 10/25/2016. There was a concern for mesenteric ischemic colitis. As per house staff in ICU images were reviewed by seismic survey assistant who did not think there was evidence of ischemic colitis in radiology. Patient continued to have diarrhea. His stll C diff came back positive Assessment and plan 1. GI bleed and diarrhea now resolved most likely due to colitis secondary to hypotension. Patient continued to report diarrhea. His stool C. diff was checked which came back psitive for C diff. Will continue on metronidazole 500 mg TID for total of 10 days. No abdminal pain, will continu to monitor EtOH intake Patient has been chronic alcoholic over the last 22 years no stigmata of liver disease. Liver enzymes normal. contact worker lithography consult obtained who has given information about outpatient rehabilitation. Ativan tapere finished Unintentional weight loss: Patient has lost 140 pounds over the last 1 year with complaints of anorexia for the last 3-4 months. Could be secondary to depression, but Should be evaluated for questionable cancer Pathology reports pending. CAT scan of the abdomen and pelvis did not show as patient of malignancy Will refer him to follow-up as an outpatient for further workup. Anxiety/depression: Was seen by psychiatry during this admission. - Recommended to increase mirtazapine to 15 mg at bedtime if symptoms worsens - Currently patient on 7.5 mg at bedtime. - Mode appears to be stable today. Denies suicidal ideation or homicidal ideation Diabetes mellitus - not on home medications. -Hemoglobin A1c was 10.7 - He is currently on NovoLog sliding scale. -We can discharge him on [id number] twice a day and will need a repeat hemoglobin A1c in 3 months. - If his A1c consistently about 10 he should be on insulin. Hypotension Patient was hypotensive today to BP of 80/40, she was given 500 cc of bolus, last EF 55%, He is started on maintaiance fluids 75 cc/hr DVT prophylaxis with Alps secondary to GI bleed Full CODE STATUS Problem List: 1. Chronic diarrhea Pain Ratin Pain Location: none Pain Goal: Pain 4 or less Pain Plan: tylenol prn for pain Tomorrow's Labs & Rationales: none HELEN STEPHENSON MD 10/29/16 1032: Attending MD Review Statement Attending Statement Attending MD Statement: examined this patient, discuss w/resident/PA/CURB BUILDER, agreed w/resident/PA/CURB BUILDER, reviewed EMR data (avail), discussed with nursing, discussed with case mgmt, amended to note Attending Assessment/Plan: Patient seen and examined, feeling slightly better than yesterday. Has lipid more energy. Still having diarrhea. He is on metronidazole for positive C. difficile. I encouraged him to get up and try to take a walk. His potassium will be repleted. He has outpatient plan for alcohol rehabilitation. His biopsy results are back and they are negative. There is no evidence of any invasive carcinoma or any histopathologic changes. Patient is medically stable for discharge home today.
[2016-10-29 08:19] VITALS: BP 97/59
[2016-10-29] MEDS ORDERED: FLAGYL500 MG PO (09:18)
[2016-10-29] MEDS ORDERED: POTASSIUM CHLO20 ME2 PO (09:18)
[2016-10-29] MEDS ORDERED: GLUCOPHAGE1000 M1 PO (09:24)
[2016-10-29] MEDS ORDERED: MULTI-DAY VITA1 EACH PO (09:25)
[2016-10-29] MEDS ORDERED: VITAMIN B-1100 MG PO (10:50)
[2016-10-29] MEDS ORDERED: FOLIC ACID1 M1 PO (10:50)
[2016-10-29] MEDS ORDERED: REMERON15 M2 PO (10:50)
[2016-10-29] MEDS ORDERED: GABAPENTIN100 M2 PO (10:50)
--- NOTE | 2016-10-29 13:13 | NUR ---
PER PATIENT BEST NUMBER FOR MARK BUSTOS TO CONTACT HIM BY IS [phone]; PER MARK BUSTOS SHE WILL CONTACT HIM AT THIS NUMBER REGARDING OUTPATIENT FOLLOW UP;
--- NOTE | 2016-11-02 10:27 | NUR ---
Late Entry: Aware of patients discharge on 10/29/16. Patient had been admitted on 10/22/16 with a GI Bleed in the setting of an alcohol abuse disorder. I was never in receipt of a formal referral, but was consulted by the attending physician immediately before discharge. I was able to speak with the patient on the phone after discharge and he was agreeable to an intake at our IOP. Intake was scheduled for yesterday morning at 9:30am, and per the IOP this am, he kept his appointment!
== END 2016-10-29 13:11 | DRG 372 ==
LOC: ENRESERVDT → ENRESERVTM → ERH 21:45 → ENPENDDIS 23:05 → ERHI 23:05 → CRI 23:05 → EDBEDREQTM 10-23 03:30 → EDBEDREQ 10-23 03:30 → CRI 10-23 05:21 → 2NB 10-25 21:03
PROVIDERS: Dermatology; Internal Medicine; Internal Medicine Cardiovascular Disease; Physician Assistant; Student in an Organized Health Care Education/Training Program; ADMIT Internal Medicine
PROC: 0DBE8ZX Excision of Large Intestine, Via Natural or Artificial Opening Endoscopic, Diagnostic (ICD-10-PCS; principal; 2016-10-25)
PROC: 0DBK8ZX Excision of Ascending Colon, Via Natural or Artificial Opening Endoscopic, Diagnostic (ICD-10-PCS; principal; 2016-10-25)
DX: A04.7 Enterocolitis due to Clostridium difficile (principal); R64 Cachexia; E11.42 Type 2 diabetes mellitus with diabetic polyneuropathy; E87.2 Acidosis; Z68.1 Body mass index [BMI] 19.9 or less, adult; K52.9 Noninfective gastroenteritis and colitis, unspecified; F17.210 Nicotine dependence, cigarettes, uncomplicated; F10.20 Alcohol dependence, uncomplicated; I95.1 Orthostatic hypotension; Z79.84 Long term (current) use of oral hypoglycemic drugs; F32.9 Major depressive disorder, single episode, unspecified; E11.65 Type 2 diabetes mellitus with hyperglycemia; R21 Rash and other nonspecific skin eruption; D12.2 Benign neoplasm of ascending colon; K64.8 Other hemorrhoids; K64.4 Residual hemorrhoidal skin tags; F41.9 Anxiety disorder, unspecified
CPT/HCPCS: 2NBP; 2NBSP; CCU; ERO; 36415; 74177; 80307; 81003; 82436; 87045; 87328; 87329; 87389; 88305; 93005; 93010; 93306; 96361; 96374; 96376; 97110-GO; 97116-GO; 97162-GP; 97165-GO; 97530-GO; 99291; G0480; J0131; J1815; J3420; J3490; J7040; J7042; J7060

== ENCOUNTER 2016-11-17 15:25 | Emergency (ER) | payer OTHER ==
[~2016-11-17] VITALS: Ht 177.8 cm; Wt 46.3 kg
[~2016-11-17 15:25] MED LIST: FLAGYL500 MG PO; FOLIC ACID1 M1 PO; GABAPENTIN100 M2 PO; GLUCOPHAGE1000 M1 PO; MULTI-DAY VITA1 EACH PO; POTASSIUM CHLO20 ME2 PO; REMERON15 M2 PO; VITAMIN B-1100 MG PO
--- NOTE | 2016-11-17 16:24 | ED GENERAL ADULT ---
History of Present Illness General Chief Complaint: Dizziness Stated Complaint: DIZZINESS Source: patient Exam Limitations: no limitations Vital Signs & Intake/Output Vital Signs & Intake/Output Vital Signs Date Time Temp Pulse Resp B/P Pulse O2 O2 Flow FiO2 Ox Delivery Rate 11/17 1926 96 14 102/69 100 Room Air 11/17 1852 95 14 99/68 100 Room Air 11/17 1735 100 11/17 1717 96.2 82 20 108/73 100 Room Air 11/17 1700 87 14 103/68 100 Room Air 11/17 1530 99.0 104 20 86/57 97 Room Air Allergies Coded Allergies: No Known Allergies (11/17/16) Reconcile Medications Folic Acid 1 MG TABLET 1 MG PO DAILY supplement Gabapentin 100 MG CAPSULE 100 MG PO Q8 mood disorder Metformin HCl (Glucophage) 1,000 MG TABLET 1 TAB PO BID DIABETES (Reported) Metronidazole (Flagyl) 500 MG TABLET 1 TAB PO TID DIARRHEA Mirtazapine (Remeron) 15 MG TABLET 7.5 MG PO AT BEDTIME mood disorder Multivitamin (Multi-Day Vitamins) 1 EACH TABLET 1 TAB PO DAILY SUPPLEMENT ( Reported) Potassium Chloride 20 MEQ TAB.ER.PRT 1 TAB PO DAILY HYPOKALEMIA Thiamine HCl (Vitamin B-1) 100 MG TABLET 100 MG PO DAILY etoh dependence Triage Note: TRIAGE: PT TO ER C/C INTERMITTENT DIZZINESS X COUPLE DAYS. WAS SEEN AT [facility] TODAY AND WAS ADVISED TO COME TO ER FOR EVAL. PER REPORT FROM [facility] PT HAS HAD 20 LB WEIGHT LOSS IN 1 MONTH AND ALSO HAS DIARRHEA. PT STATES "EVERYTHING I EAT JUST GOES RIGHT THROUGH ME". Triage Nurses Notes Reviewed? yes HPI: 51 year old man with past medical history of NIDDM, alcohol abuse, Depression, sent in for evaluation by his PCP for evaluation of lightheadedness, frequent falls, hyperglycemia, persistent diarrhea, and hyperglycemia. Records indicate that patient has had an unintentional weight loss of 140 pounds in the past year. Patient was recently admitted from 10/22/16 - 10/29/16 for evaluation of bloody diarrhea and syncope. Colonoscopy performed at this time obtained several biopsies with negative pathologies. Multiple imaging studyies including CT Head/ Cspine/Maxillofacial were negative for any acute intracranial pathology. Currently patient complaints of persistent lightheadedness, dizzyness, frequent falls with minor trauma, persistent diarrhea, and decreased appetite. He was sent in for evaluation by Dr. Tapia in order to obtain a CT of the chest to rule out any occult parenchymal mass and lymphadenopathy. (MAITE TOLBERT MD) Past History Travel History Traveled to [place] past 21 day No Medical History Any Pertinent Medical History? see below for history Neurological: peripheral neuropathy EENT: NONE Cardiovascular: syncope Respiratory: NONE Gastrointestinal: umbilical hernia Hepatic: NONE Renal: NONE Musculoskeletal: NONE Psychiatric: alcohol dependence Endocrine: diabetes Blood Disorders: NONE Cancer(s): NONE KEEPER HEAD/Reproductive: NONE History of MRSA: No History of VRE: No History of CDIFF: Yes Surgical History Surgical History: hernia repair-umbilical Psychosocial History Who do you live with Patient/Self Services at Home None What is your primary language Andorran Tobacco Use: Current Daily Use Daily Tobacco Use Amount/Type: =< 4 Cigarettes daily ETOH Use: SOBER SINCE 08/2016 Illicit Drug Use: denies illicit drug use Family History Hx Contributory? No (MAITE TOLBERT MD) Review of Systems Review of Systems Constitutional: Reports: see HPI. (MAITE TOLBERT MD) Physical Exam Physical Exam General Appearance: no apparent distress, alert, awake, anxious Comments: General - thin cachetic middle aged man in no acute distress HEENT - NCAT, PERRLA, EOMI, moist mucous membranes, anicteric sclera CVS - S1, S2 w/o m/g/r Resp - CTA bilaterally GI - Soft, nontender, non distended, no masses, normal bowel sounds Neuro - Awake and alert, Oriented to person/place/time, CN II - XII grossly intact Ext - normal pulses, no cyanosis/clubbing/edema Core Measures ACS in differential dx? No CVA/TIA Diagnosis: No Severe Sepsis Present: No Septic Shock Present: No (MAITE TOLBERT MD) Progress Differential Diagnoses I considered the following diagnoses in my evaluation of the patient: malignancy Plan of Care: Orders Procedure Date/time Status Regular Diet 11/17 D Active URINE LYTES, SPOT 11/17 1855 Active URINALYSIS 11/17 185 Active Add-on Test (ER Only) 11/17 1826 Active SERUM OSMOLALITY 11/17 1715 Active MAGNESIUM 11/17 1602 Active COMPREHENSIVE METABOLIC PANEL 11/17 160 Active CBC WITHOUT DIFFERENTIAL 11/17 160 Complete Laboratory Tests 11/17/16 1715: Anion Gap 8, Estimated GFR > 60, BUN/Creatinine Ratio 17.0, Glucose 308 H, Serum Osmolality Pending, Calcium 9.5, Magnesium 1.5 L, Total Bilirubin 0.4, AST 28, ALT 56, Alkaline Phosphatase 73, Total Protein 6.2 L, Albumin 3.5, Globulin 2.7, Albumin/Globulin Ratio 1.3 11/17/16 1636: CBC w Diff NO MAN DIFF REQ, RBC 3.77 L, MCV 95.5 H, MCH 32.7 H, RDW 12.9, MPV 8.4, Gran % 67.2, Lymphocytes % 21.5, Monocytes % 5.8, Eosinophils % 5.0, Basophils % 0.5, Absolute Granulocytes 4.7, Absolute Lymphocytes 1.5, Absolute Monocytes 0.4, Absolute Eosinophils 0.3, Absolute Basophils 0, PUBS MCHC 34.2 Initial ED EKG: none Comments: Patient was sent in by his PCP to obtain a CT scan of his chest and for evaluation of his multiple medical complaints. Given his history of present illness it is highly likely that he has an undiagnosed malignancy given his cachetic appearance. CT Chest with IV contrast (DIDI PEGUERO,MAITE) Diagnostic Imaging: Viewed by Me: CT Scan. Discussed w/RAD: CT Scan. Radiology Impression: PATIENT: DL NGUYỄN PRESENT AGE: 51 PATIENT ACCOUNT NO: [id number] : 64 LOCATION: [facility] ORDERING PHYSICIAN: MAITE TOLBERT MD SERVICE DATE: 11/17/16 EXAM TYPE: CAT - CT CHEST W IV CONTRAST EXAMINATION: CT CHEST WITH CONTRAST CLINICAL INFORMATION: Weight loss and cachexia. Evaluate for malignancy. COMPARISON: None. TECHNIQUE: Multidetector volumetric CT imaging of the chest was obtained after the administration of 94 mL of Optiray 320 intravenous contrast without immediate adverse reactions. Axial MIP volume rendering provided. Sagittal and coronal reformatted images were obtained. DLP: 192 mGy-cm FINDINGS: FINE UNHAIRER: Customer Development Representative image of the chest demonstrates adequate pulmonary expansion. LUNGS: No focal airspace consolidation is identified. There are no suspicious pulmonary nodules or masses. The central airways are patent, without endobronchial obstructing lesions. MEDIASTINUM: Normal heart size, without significant pericardial effusion. Normal three-vessel branching of the aortic arch. No significant mediastinal or hilar adenopathy. The thyroid gland appears unremarkable. PLEURA: No pleural effusions or pneumothoraces. AXILLA: No significant axillary adenopathy. UPPER ABDOMEN: No acute findings within the upper abdomen. OSSEOUS STRUCTURES: No acute osseous abnormality. Normal alignment of the imaged thoracic spine. Mild multilevel degenerative changes of the midthoracic spine. No acute vertebral compression deformities. No visible destructive osseous lesions. IMPRESSION: No evidence of pulmonary malignancy. No suspicious pulmonary nodules or masses are identified. There is no significant thoracic adenopathy. DICTATED BY: HOPE GILL MD DATE/TIME DICTATED:11/17/161921 MACHINE TOOL TECHNICIAN INSTRUCTOR:MARKOS DATE/TIME TRANSCRIBED:11/17/161921 CONFIDENTIAL, DO NOT COPY WITHOUT APPROPRIATE AUTHORIZATION. <Electronically signed in Other Vendor System> SIGNED BY: HOPE GILL MD 11/17/161928 (VARGHESE PEGUERO,OSCAR Bryant) Departure Departure Condition: Stable Referrals: LALA TAPIA MD (PCP/Family) Departure Forms: Customer Survey General Discharge Information (DIDI PEGUERO,MAITE) Departure Disposition: HOME OR SELF CARE Clinical Impression Primary Impression: Weight loss Secondary Impressions: Fatigue Additional Instructions: DR. TAPIA WILL GET THE RESULTS OF THE BLOOD WORK THAT WE DO NOT HAVE BACK YET. FOLLOW UP WITH GASTROENTEROLOGY WELL DR. TAPIA. RETURN NEEDED. Resident Co-Sign Statement Statement: ED Attending supervision documentation- [X] I saw and evaluated the patient. I have also reviewed all the pertinent lab results and diagnostic results. I agree with the findings and the plan of care as documented in the Resident's documentation. [X] I have reviewed the ED Record and agree with the Resident's documentation. [] Additions or exceptions (if any) to the Resident's note and plan are summarized below: [I have personally seen and examined this patient. Patient was recently admitted for extreme weight loss unintentionally. Patient had a workup including colonoscopy with 2 negative biopsies. Patient was instructed to follow-up with his primary care physician for further workup. Patient saw his primary care physician today to complete the workup and his primary care physician sent him to the emergency room for evaluation. Patient states that whenever he eats he immediately has diarrhea. Patient has not noticed any blood in the stool. Patient denies any chest pain or orthopnea. Patient denies abdominal pain. His CAT scan of his chest is negative. CAT scan of his head and his abdomen and pelvis were reviewed from his last admission. There is a question of multiple myeloma given his low anion gap. A SPEP was sent and will be followed up by his primary care physician.] (VARGHESE PEGUERO,OSCAR Bryant) Critical Care Note Critical Care Note Critical Care Time: non-applicable (DIDI PEGUERO,MAITE)
[2016-11-17 16:49] LABS: ABSOLUTE BASOPHIL COUNT 0 /CUMM (0.0-0.2); ABSOLUTE EOSINOPHIL COUNT 0.3 /CUMM (0.0-0.7); ABSOLUTE GRANULOCYTE CT 4.7 /CUMM (1.4-6.5); ABSOLUTE LYMPH COUNT 1.5 /CUMM (1.2-3.4); ABSOLUTE MONOCYTE COUNT 0.4 /CUMM (0.10-0.60); BASOPHIL % 0.5 % (0.0-2.0); GRANULOCYTE % 67.2 % (42.2-75.2); MEAN CORPUSCULAR HGB 32.7 PG (27.0-31.0); MEAN CORPUSCULAR HGB CONC 34.2 G/DL (33.0-37.0); MEAN CORPUSCULAR VOLUME 95.5 FL (80.0-94.0); MEAN PLATELET VOLUME 8.4 FL (7.4-10.4); PLATELET COUNT 479 /CUMM (130-400); RBC DISTRIBUTION WIDTH 12.9 % (11.5-14.5); RED BLOOD CELL CT 3.77 /CUMM (4.70-6.10); WHITE BLOOD CELL COUNT 6.9 /CUMM (4.8-10.8)
[2016-11-17 19:26] VITALS: BP 102/69
--- NOTE | 2016-11-17 19:29 | CT SCAN REPORT ---
EXAMINATION: CT CHEST WITH CONTRAST CLINICAL INFORMATION: Weight loss and cachexia. Evaluate for malignancy. COMPARISON: None. TECHNIQUE: Multidetector volumetric CT imaging of the chest was obtained after the administration of 94 mL of Optiray 320 intravenous contrast without immediate adverse reactions. Axial MIP volume rendering provided. Sagittal and coronal reformatted images were obtained. DLP: 192 mGy-cm FINDINGS: WAX BLENDER: Field Service Engineer image of the chest demonstrates adequate pulmonary expansion. LUNGS: No focal airspace consolidation is identified. There are no suspicious pulmonary nodules or masses. The central airways are patent, without endobronchial obstructing lesions. MEDIASTINUM: Normal heart size, without significant pericardial effusion. Normal three-vessel branching of the aortic arch. No significant mediastinal or hilar adenopathy. The thyroid gland appears unremarkable. PLEURA: No pleural effusions or pneumothoraces. AXILLA: No significant axillary adenopathy. UPPER ABDOMEN: No acute findings within the upper abdomen. OSSEOUS STRUCTURES: No acute osseous abnormality. Normal alignment of the imaged thoracic spine. Mild multilevel degenerative changes of the midthoracic spine. No acute vertebral compression deformities. No visible destructive osseous lesions. IMPRESSION: No evidence of pulmonary malignancy. No suspicious pulmonary nodules or masses are identified. There is no significant thoracic adenopathy.
== END 2016-11-17 20:37 ==
LOC: ERH 15:25
PROVIDERS: Internal Medicine Interventional Cardiology
DX: R63.4 Abnormal weight loss (principal); R53.83 Other fatigue; E11.9 Type 2 diabetes mellitus without complications; F10.10 Alcohol abuse, uncomplicated; R19.7 Diarrhea, unspecified
CPT/HCPCS: 84133; 84300; 82570

== ENCOUNTER 2017-01-31 06:04 | Inpatient (IN) | payer OTHER ==
[~2017-01-31] VITALS: Ht 175.3 cm; Wt 58.3 kg
--- NOTE | 2017-01-31 06:10 | NUR ---
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 DENIES ANY PAIN AT THIS TIME. SLIGHT ACTIVE BLEEDING NOTED. ADMITS TO DAILY ETOH USE.
--- NOTE | 2017-01-31 06:14 | NUR ---
PATIENT TO ROOM 10 BY WHEELCHAIR, AWAITING MD ROY.
--- NOTE | 2017-01-31 06:16 | ED MVC/FALL/TRAUMA COMPLAINT ---
History of Present Illness General Chief Complaint: Fall Stated Complaint: LAC TO RIGHT EYEBROW S/P FALL\\\\\\ Source: patient Exam Limitations: no limitations Vital Signs & Intake/Output Vital Signs & Intake/Output Vital Signs Date Time Temp Pulse Resp B/P B/P Pulse O2 O2 Flow FiO2 Mean Ox Delivery Rate 02/07 0800 Room Air 02/07 0753 99.0 85 18 110/60 98 Room Air 02/07 0041 98.4 79 16 98/64 100 Room Air 02/06 1557 98.7 90 16 91/61 99 Room Air ED Intake and Output 02/07 0000 02/06 1200 Intake Total 2240 1240 Output Total 1200 700 Balance 1040 540 Intake, IV 1500 1000 Intake, Oral 740 240 Number 4 2 Bowel Movements Output, Urine 1200 700 Allergies Coded Allergies: No Known Allergies (01/31/17) Reconcile Medications Gabapentin 100 MG CAPSULE 100 MG PO Q8 mood disorder Metformin HCl (Glucophage) 1,000 MG TABLET 1 TAB PO BID DIABETES (Reported) Mirtazapine (Remeron) 15 MG TABLET 7.5 MG PO AT BEDTIME mood disorder Multivitamin (Multi-Day Vitamins) 1 EACH TABLET 1 TAB PO DAILY SUPPLEMENT ( Reported) Triage Nurses Notes Reviewed? yes Onset: Abrupt Duration: minute(s): Timing: single episode today Severity: moderate Injuries/Fall Location: head Method of Injury: fall Loss of Consciousness: no loss of consciousness Modifying Factors: Worsens With: palpation. Associated Symptoms: RIGHT EYEBROW LACERATION HPI: 51-year-old gentleman history of diabetes, peripheral neuropathy, chronic gi infection "all my food goes right through me," and chronic dizziness presents after a fall. He states that he woke up and had his usual dizziness. He fell. He hit his head and suffered a laceration above his right eyebrow. He may have passed out briefly. He had no chest pain shortness of breath or palpitations. He is otherwise well. He feels well now. The bleeding was self resolved. (RAYMON PEGUERO,TAYLOR Olmos) Past History Travel History Traveled to [place] past 21 day No Medical History Any Pertinent Medical History? see below for history Neurological: peripheral neuropathy EENT: NONE Cardiovascular: syncope Respiratory: NONE Gastrointestinal: umbilical hernia Hepatic: NONE Renal: NONE Musculoskeletal: NONE Psychiatric: alcohol dependence Endocrine: diabetes Blood Disorders: NONE Cancer(s): NONE SYRUPER/Reproductive: NONE History of MRSA: No History of VRE: No History of CDIFF: Yes Surgical History Surgical History: hernia repair-umbilical Psychosocial History Who do you live with Patient/Self Services at Home None What is your primary language Swedish Tobacco Use: Refused to answer Family History Hx Contributory? No (RAYMON PEGUERO,TAYLOR Olmos) Review of Systems Review of Systems Constitutional: Reports: no symptoms. Eyes: Reports: no symptoms. Ears, Nose, Throat, Mouth: Reports: no symptoms. Respiratory: Reports: no symptoms. Cardiovascular: Reports: no symptoms. Gastrointestinal/Abdominal: Reports: no symptoms. Genitourinary: Reports: no symptoms. Musculoskeletal: Reports: no symptoms. Skin: Reports: no symptoms. Neurological/Psychological: Reports: no symptoms. All Other Systems: Reviewed and Negative (TAYLOR HAILE MD) Physical Exam Physical Exam General Appearance: well developed/nourished, mild distress Head: 3 CM LACERATION ALONG THE RIGHT EYEBROW. nO FOCAL BONY TENDERNESS Eyes: Bilateral: normal appearance, PERRL, EOMI. Ears, Nose, Throat, Mouth: hearing grossly normal, moist mucous membrane Neck: normal inspection, supple, full range of motion, normal alignment Respiratory: normal breath sounds, chest non-tender, no respiratory distress, quiet respiration, lungs clear Cardiovascular: regular rate/rhythm Gastrointestinal: normal bowel sounds, soft, non-tender, no organomegaly Back: normal inspection, normal range of motion Extremities: normal range of motion Neurologic/Psych: no motor/sensory deficits, awake, alert, oriented x 3 Skin: intact, normal color, warm/dry Core Measures ACS in differential dx? No Severe Sepsis Present: No Septic Shock Present: No (RAYMON PEGUERO,TAYLOR Olmos) Progress Differential Diagnosis: ICH, FACIAL BONE TRAUMA VERSUS LACERATION VERSUS OTHER. Plan of Care: Orders Procedure Date/time Status MAGNESIUM 02/07 06 Active CBC WITHOUT DIFFERENTIAL 02/07 0600 Active BASIC ELECTROLYTES PLUS BUN&CR 02/07 0600 Active Lab Add-on Test 02/06 1803 Active MAGNESIUM 02/06 0610 Complete Current Medications Sig/Fay Start time Last Medication Dose Stop Time Status Admin Insulin Detemir 10 UNITS DAILY 02/07 1000 AC (Levemir) Melatonin 5 MG AT BEDTIME 02/06 2200 AC 02/06 (Melatonin) 2211 Cholestyramine Resin 1 PAC DAILY 02/06 1838 CAN (Questran Light(W/ Nutrasweet)Pack) Cholestyramine Resin 1 PAC DAILY 02/06 1801 AC 02/06 (Questran Light(W/ 1958 Nutrasweet)Pack) Fludrocortisone 100 MCG DAILY 02/05 1236 AC 02/06 Acetate 0858 (Florinef 100 Mcg Tab) Loperamide HCl 2 MG Q6P PRN 02/03 1930 AC 02/06 (Imodium) 2240 Sodium Chloride 1,000 ML Q8H 02/03 1915 AC 02/07 (Normal Saline 0.9%) 0451 Insulin Aspart 0 TIDAC 02/03 1700 AC 02/06 (NovoLOG) 1251 Ergocalciferol 50,000 IU QTHURS 02/03 1000 AC 02/03 (Drisdol) 1123 Mirtazapine 7.5 MG AT BEDTIME 02/02 2230 AC 02/06 (Remeron) 2211 Multivitamins 1 TAB DAILY 02/01 1000 AC 02/06 (Theragran Vitamins) 0857 Naloxone HCl 0.4 MG DAILY NEEDED PRN 02/01 0630 AC (Narcan) Enoxaparin Sodium 40 MG DAILY 01/31 1011 AC 02/06 (Lovenox) 0857 Laboratory Tests 02/07/17 0630: Sodium Pending, Potassium Pending, Chloride Pending, Carbon Dioxide Pending, Anion Gap Pending, BUN Pending, Creatinine Pending, BUN/Creatinine Ratio Pending , Magnesium Pending, CBC w Diff Pending, WBC Pending, RBC Pending, Hgb Pending, Hct Pending, MCV Pending, MCH Pending, RDW Pending, Plt Count Pending, MPV Pending, PUBS MCHC Pending 01/31/2017 7:25:21 AM Patient signed out to me by Dr. Haile. Pending imaging, lab studies. d/w case management and hospitalist for admission. Will require close glucose monitoring and GI consultation. (PRIYA PEGUERO,SHAYNA) Diagnostic Imaging: Viewed by Me: CT Scan. Discussed w/RAD: CT Scan. Hand-Off Endorsed To: SHAYNA MASTERS MD (RAYMON PEGUERO,TAYLOR Olmos) Diagnostic Imaging: Viewed by Me: CT Scan. Discussed w/RAD: CT Scan. Radiology Impression: PATIENT: DL NGUYỄN PRESENT AGE: 51 PATIENT ACCOUNT NO: [id number] : 64 LOCATION: [facility] ORDERING PHYSICIAN: TAYLOR HAILE MD SERVICE DATE: 01/31/17 EXAM TYPE: CAT - CT HEAD WO IV CONTRAST; CT MAXILLOFACIAL W/O CON EXAMINATION: CT HEAD WITHOUT CONTRAST. CT MAXILLOFACIAL WITHOUT CONTRAST CLINICAL INFORMATION: Status post fall. Right eyebrow injury. COMPARISON: CT head and maxillofacial dated . TECHNIQUE: Multidetector volumetric CT imaging of the head and facial bones is acquired without intravenous contrast administration. Postprocessing is performed at a dedicated workstation. Multiplanar reformatted images are submitted. DLP: 1199.68 mGy-cm. FINDINGS: CT head: No evidence of intracranial hemorrhage, midline shift, mass effect, acute territorial infarction or extra- axial fluid collection. Condon to white matter differentiation is well-preserved. No evidence of hydrocephalus. The osseous calvarium is intact. Visualized paranasal sinuses and mastoid air cells are well-aerated. No significant calvarial soft tissue swelling or hematoma. CT maxillofacial: The mandible, maxilla, pterygoid plates, nasal bones, zygomatic arches, paranasal sinus castro and bony orbits are intact. Right periorbital soft tissue swelling is noted over the anterolateral aspect. The globes are intact. Retrobulbar fat, extraocular muscles and optic nerves are unremarkable. IMPRESSION: 1. No acute intracranial abnormality. 2. Right periorbital soft tissue swelling. 3. No evidence of fracture of the maxillofacial bones or the osseous calvarium. DICTATED BY: RACHEL KENYON MD DATE/TIME DICTATED:01/31/17754 MARKETING REPORTING ANALYST: MARKOS DATE/TIME TRANSCRIBED:01/31/17754 CONFIDENTIAL, DO NOT COPY WITHOUT APPROPRIATE AUTHORIZATION. <Electronically signed in Other Vendor System> SIGNED BY: RACHEL KENYON MD 01/31/17818 CXR Impression: PATIENT: DL NGUYỄN PRESENT AGE: 51 PATIENT ACCOUNT NO: [id number] : 64 LOCATION: [facility] ORDERING PHYSICIAN: TAYLOR HAILE MD SERVICE DATE: 01/31/17 EXAM TYPE: RAD - XRY- PORTABLE CHEST XRAY EXAMINATION: XR PORTABLE CHEST CLINICAL INFORMATION: Syncope COMPARISON: Chest CT 11/17/2016 TECHNIQUE: Portable frontal view of the chest was obtained. FINDINGS: No focal consolidation, pulmonary edema, or pleural effusion. No pneumothorax. Normal cardiomediastinal silhouette. IMPRESSION: Unremarkable examination. DICTATED BY: BROOK STOUT MD DATE/TIME DICTATED :01/31/17739 MARKETING REPORTING ANALYST:MARKOS DATE/TIME TRANSCRIBED:01/31/17739 CONFIDENTIAL, DO NOT COPY WITHOUT APPROPRIATE AUTHORIZATION. < Electronically signed in Other Vendor System> SIGNED BY: BROOK STOUT MD 01/31/17 0745 Initial ED EKG: NSR, mild diffuse st elevation Prior EKG: unchanged (SHAYNA MASTERS MD) Departure Departure Condition: Stable Referrals: LALA TAPIA MD (PCP/Family) Departure Forms: Customer Survey General Discharge Information Comments 01/31/17, 7am... pt with bp in 80's... will check labs, give normal saline bolus, re-evaluate... pt signed out to dr. masters. (TAYLOR HAILE MD) Departure Disposition: STILL A PATIENT Clinical Impression Primary Impression: Syncope and collapse Secondary Impressions: Dehydration, Head injury, Hyponatremia, Laceration of right eyebrow Admission Note Spoke With: MARC HULL MD Documentation of Exam: Documentation of any treatments & extenuating circumstances including Concerns Regarding Discharge (functional status, medication knowledge or non-compliance, living conditions, etc.) that warrant an admission rather than observation: [ TELE EKG, SERIAL EKG/TROPONIN, CLOSE GLUCOSE MONITORING, CONSIDER INHOUSE GI CONSULT] (SHAYNA MASTERS MD) Procedures Laceration/Wound Repair Laceration/Wound Repair: Wound Location: head Wound's Depth, Shape: linear Wound Length (cm): 3 Wound Explored: clean Irrigated w/ Saline (ccs): 200 Betadine Prep? Yes Anesthesia: 1% lidocaine Volume Anesthetic (ccs): 3 Wound Repaired With: sutures Suture Size/Type: 4:0, nylon Number of Sutures: 6 Layer Closure? No Date of Last Tetanus: 01/31/17 Tetanus Status: up to date (TAYLOR HAILE MD) Wound Length (cm): 3 Wound Explored: clean Irrigated w/ Saline (ccs): 200 Betadine Prep? Yes Anesthesia: 1% lidocaine Volume Anesthetic (ccs): 3 Wound Repaired With: sutures Suture Size/Type: 4:0, nylon Number of Sutures: 6 Layer Closure? No Date of Last Tetanus: 01/31/17 Tetanus Status: up to date (RAYMON PEGUERO,TAYLOR Olmos)
--- NOTE | 2017-01-31 06:25 | NUR ---
PATIENT EVALUATED BY MD ENNIS. LAC TRAY BEING SET UP BY ALEXANDRIA HERRERA.
--- NOTE | 2017-01-31 06:50 | NUR ---
PATIENT BP:84/40 MANUALLY. MD ENNIS AWARE AND INFORMING PATIENT THAT HE WILL BE ORDERING LABS. SUTURES PLACED BY .
--- NOTE | 2017-01-31 07:13 | NUR ---
PT MEDICATED WITH TETANUS SHOT PER EMAR BLOOD OBTAINED AND SENT TO LAB -[facility]
--- NOTE | 2017-01-31 07:29 | NUR ---
CXR DONE. IV EST. NS INFUSING.
[2017-01-31 07:35] LABS: ABSOLUTE BASOPHIL COUNT 0 /CUMM (0.0-0.2); ABSOLUTE EOSINOPHIL COUNT 0.1 /CUMM (0.0-0.7); ABSOLUTE LYMPH COUNT 1.4 /CUMM (1.2-3.4); ABSOLUTE MONOCYTE COUNT 0.4 /CUMM (0.10-0.60); BASOPHIL % 0.1 % (0.0-2.0); EOSINOPHIL % 1.6 % (0-5); GRANULOCYTE % 77.9 % (42.2-75.2); HEMATOCRIT 34.3 % (42-52); MEAN CORPUSCULAR HGB 31.3 PG (27.0-31.0); MEAN CORPUSCULAR HGB CONC 33.7 G/DL (33.0-37.0); MEAN CORPUSCULAR VOLUME 92.9 FL (80.0-94.0); MEAN PLATELET VOLUME 9.7 FL (7.4-10.4); PLATELET COUNT 191 /CUMM (130-400)
--- NOTE | 2017-01-31 07:41 | NUR ---
PT TO CAT SCAN.
--- NOTE | 2017-01-31 07:45 | RADIOLOGY REPORT ---
EXAMINATION: XR PORTABLE CHEST CLINICAL INFORMATION: Syncope COMPARISON: Chest CT 11/17/2016 TECHNIQUE: Portable frontal view of the chest was obtained. FINDINGS: No focal consolidation, pulmonary edema, or pleural effusion. No pneumothorax. Normal cardiomediastinal silhouette. IMPRESSION: Unremarkable examination.
--- NOTE | 2017-01-31 07:55 | NUR ---
BACK FROM CAT SCAN.
--- NOTE | 2017-01-31 08:19 | CT SCAN REPORT ---
EXAMINATION: CT HEAD WITHOUT CONTRAST. CT MAXILLOFACIAL WITHOUT CONTRAST CLINICAL INFORMATION: Status post fall. Right eyebrow injury. COMPARISON: CT head and maxillofacial dated 10/22/16. TECHNIQUE: Multidetector volumetric CT imaging of the head and facial bones is acquired without intravenous contrast administration. Postprocessing is performed at a dedicated workstation. Multiplanar reformatted images are submitted. DLP: 1199.68 mGy-cm. FINDINGS: CT head: No evidence of intracranial hemorrhage, midline shift, mass effect, acute territorial infarction or extra-axial fluid collection. Condon to white matter differentiation is well-preserved. No evidence of hydrocephalus. The osseous calvarium is intact. Visualized paranasal sinuses and mastoid air cells are well-aerated. No significant calvarial soft tissue swelling or hematoma. CT maxillofacial: The mandible, maxilla, pterygoid plates, nasal bones, zygomatic arches, paranasal sinus castro and bony orbits are intact. Right periorbital soft tissue swelling is noted over the anterolateral aspect. The globes are intact. Retrobulbar fat, extraocular muscles and optic nerves are unremarkable. IMPRESSION: 1. No acute intracranial abnormality. 2. Right periorbital soft tissue swelling. 3. No evidence of fracture of the maxillofacial bones or the osseous calvarium.
--- NOTE | 2017-01-31 10:23 | NUR ---
HOUSESTAFF IN FOR EVAL.
--- NOTE | 2017-01-31 11:06 | NUR ---
AWAITING BED ASSIGNMENT ON TELE Informed waiting has been performed.
--- NOTE | 2017-01-31 11:32 | NUR ---
pt admitted to room 189-1
--- NOTE | 2017-01-31 11:39 | History & Physical ---
SAMRA CHILDS 01/31/17 1120: General Information and HPI MD Statement: I have seen and personally examined DL FAM and documented this H&P. The patient is a 51 year old M who presented with a patient stated chief complaint of [syncope/fall]. Source of Information: patient, family, old records Exam Limitations: no limitations History of Present Illness: Mr. Fam is a 51 YO male current active smoker, past alcoholism (quit in September 2016), no illicit drug abuse with past medical history of type 2 diabetes mellitus with peripheral neuropathy, chronic diarrhea, previous multiple falls with syncopal episodes, depression came in with chief complain of an episode of mechanical fall nurses aide on the day of admission around 4:30 AM (01/31/2017), after feeling lightheaded and dizzy when he woke up to use the restroom. Patient reports that he has been having diarrhea for past year or so and owrsening for last few months with some relief from Imodium and endorses anywhere from 4 to more than 10 bowel movements/day.He was found to have C difficile positive on last admission in Sep 2016 and was treated with metronidazole. At this admission, he reports that,he got up early in the morning around 4:30 AM to use the bathroom, when he felt weak and his legs felt wobbly, he felt lightheaded and dizzy, and while he was on the commode he fell forward and hit his right eyebrow and passed out for unknown period of time (probably minutes) and noted that he was bleeding when he was aware of surroundings again. He lives with his sister, and he made his siste aware within 15-20 minutes of the event, so the assumption is that he was not on the floor for more than a few minutes. He denied any seizure-like activity, any tongue bite, loss of bowel or bladder control, any chest pain, nausea, vomiting, any recent cold or cough congestion. However he did report that on and off he feels like his heart is racing and after the episode he did feel mild ringing in the ears, he was lightheaded and dizzy prior to the episode, and he felt hot and cold flashes after the episode. Patient was diagnosed with type 2 diabetes mellitus a year ago and was started on metformin thousand twice a day. The patient does not take his medications. He was also started on mirtazapine on last admission September 2016 for depression. He endorses a history of losing more than ??100 pounds ( was 200ish 2 years ago) over the past year despite no changes in his appetite, however he does have this chronic diarrhea which was being worked up by GI, he was found to be positive for c difficile and was treated with metronidazole in sep 2016. He has had a colonoscopy in September 2016 with biopsy negative for any carcinoma. He has a history of chronic alcoholism and drank half pint of alpa since he was 16 years old however he claims to have quit drinking completely since September 2016 after his last admission. His last drink was also in September 2016. He was also started on gabapentin for peripheral neuropathy however after taking the medication he felt for the more lightheaded and dizzy therefore the medication was discontinued by PCP. He endorses depression however denied any suicidal or homicidal ideation, does not take mirtazapine which was prescribed. Due to recurrent falls, he moved in with his sister in June 2016. Allergies/Medications Allergies: Coded Allergies: No Known Allergies (01/31/17) Home Med list Gabapentin 100 MG CAPSULE 100 MG PO Q8 mood disorder Metformin HCl (Glucophage) 1,000 MG TABLET 1 TAB PO BID DIABETES (Reported) Mirtazapine (Remeron) 15 MG TABLET 7.5 MG PO AT BEDTIME mood disorder Multivitamin (Multi-Day Vitamins) 1 EACH TABLET 1 TAB PO DAILY SUPPLEMENT ( Reported) Compliance With Home Meds: POOR Past History Travel History Traveled to [place] past 21 day No Medical History Neurological: peripheral neuropathy EENT: NONE Cardiovascular: syncope Respiratory: NONE Gastrointestinal: umbilical hernia Hepatic: NONE Renal: NONE Musculoskeletal: NONE Psychiatric: alcohol dependence Endocrine: diabetes Blood Disorders: NONE Cancer(s): NONE HUMAN RESOURCES DEPARTMENT SUPERVISOR/Reproductive: NONE History of MRSA: No History of VRE: No History of CDIFF: Yes Tetanus Vaccine: 01/31/17 Tetanus Status: up to date Surgical History Surgical History: hernia repair-umbilical Past Family/Social History Psychosocial History Where do you live? Home Who Do You Live With? sister Services at Home: None Primary Language: Montserratian Smoking Status: Current Everyday Smoker ETOH Use: heavy use quit in sep 2016 Illicit Drug Use: denies illicit drug use Living Will? no Power of Daycare Director/HCP? no Functional Ability ADLs Independent: dressing, eating, toileting, bathing. Ambulation: cane, walker IADLs Independent: shopping, housework, finances, food prep, telephone, transportation , medication admin. 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 Review of Systems Review of Systems Constitutional: Reports: see HPI. EENTM: Reports: see HPI. Cardiovascular: Denies: chest pain, edema, orthopena, palpitations. Respiratory: Denies: cough, hemoptysis, orthopnea, short of breath, sputum production. GI: Reports: diarrhea. Genitourinary: Reports: no symptoms. Musculoskeletal: Reports: no symptoms. Skin: Denies: cysts, change in skin color, change in hair/nails, dryness. Neurological/Psychological: Reports: depressed, numbness, paresthesia, tingling. Denies: anxiety, cognitive dysfunction, confusion, dementia, headache, pre-existing deficit, petit mal seizures, tremors, tonic-clonic seizures. Hematologic/Endocrine: Reports: no symptoms. Immunologic/Allergic: Reports: no symptoms. All Other Systems: Reviewed and Negative Exam & Diagnostic Data Last 24 Hrs of Vital Signs/I&O Vital Signs Date Time Temp Pulse Resp B/P B/P Pulse O2 O2 Flow FiO2 Mean Ox Delivery Rate 01/31 1017 79 20 101/68 100 Room Air 01/31 0907 75 20 93/63 100 Room Air / 0826 98.1 70 20 98/60 97 Room Air /08 0755 70 20 91/60 100 Room Air /08 0650 98.0 76 18 84/40 100 Room Air / 0647 100 Room Air Intake & Output 01/31 1600 /08 0800 05/08 0000 Intake Total 1000 Output Total Balance 1000 Intake, IV 1000 Patient 64.41 kg Weight Weight Reported by Patient Measurement Method Physical Exam General Appearance Alert, Oriented X3, Cooperative, No Acute Distress Skin No Rashes Skin Temp/Moisture Exam: Cool/Dry HEENT Atraumatic, PERRLA, EOMI Neck Supple, No JVD, No thryomegaly Lymphatic no lad Cardiovascular Normal S1, Normal S2, No Murmurs Lungs Clear to Auscultation, Normal Air Movement Abdomen Normal Bowel Sounds, Soft, No Tenderness Neurological Normal Speech, Normal Tone, Sensation Intact, Cranial Nerves 3-12 NL, Reflexes 2+, strength reduced in distal musculature b/l lower leg 4/5 Extremities No Clubbing, No Cyanosis, No Edema, Normal Pulses Vascular Normal Pulses Last 24 Hrs of Labs/Brad: Laboratory Tests 01/31/17 0712: Anion Gap 9, Estimated GFR > 60, BUN/Creatinine Ratio 15.0, Glucose 448 H, Calcium 9.0, Phosphorus 4.2, Magnesium 2.0, Total Bilirubin 0.7, AST 58, ALT 116 H, Alkaline Phosphatase 146 H, Troponin I < 0.01, Total Protein 6.1 L, Albumin 3.4 L, Globulin 2.7, Albumin/Globulin Ratio 1.3, CBC w Diff NO MAN DIFF REQ, RBC 3.70 L, MCV 92.9, MCH 31.3 H, RDW 13.0, MPV 9.7, Gran % 77.9 H, Lymphocytes % 15.7 L, Monocytes % 4.7, Eosinophils % 1.6, Basophils % 0.1, Absolute Granulocytes 7.0 H, Absolute Lymphocytes 1.4, Absolute Monocytes 0.4, Absolute Eosinophils 0.1, Absolute Basophils 0, PUBS MCHC 33.7 Diagnostic Data EKG Results nsr CXR Results SERVICE DATE: 01/31/17 EXAM TYPE: CAT - CT HEAD WO IV CONTRAST; CT MAXILLOFACIAL W/O CON IMPRESSION: 1. No acute intracranial abnormality. 2. Right periorbital soft tissue swelling. 3. No evidence of fracture of the maxillofacial bones or the osseous calvarium. Assessment/Plan Assessment: Mr. Fam is a 51 YO male current active smoker, past alcoholism (quit in September 2016), no illicit drug abuse with past medical history of type 2 diabetes mellitus with peripheral neuropathy, chronic diarrhea, previous multiple falls with syncopal episodes, depression came in with chief complain of an episode of mechanical fall nurses aide on the day of admission around 4:30 AM (01/31/2017), after feeling lightheaded and dizzy when he woke up to use the restroom, with chronic diarrhea. Vitals on presentation temperature of 98.1, pulse of 70, respiratory rate of 20, blood pressure of 98/60, he was saturating 97% on room air. Relevant labs, no white count, H/H stable, platelets of 191 and (baseline). Sodium low at 127, corrected sodium for hyperglycemia noted to be 135. BUN and creatinine 9/0.6. AST 58, ALT 116, alkaline phosphatase 146, mildly elevated, initial serum troponin negative less than 0.01. Total protein of 6.1 and albumin of 3.4 borderline low. EKG showed normal sinus rhythm, mild diffuse ST elevation. patient initial low blood pressure improved after 2 L of normal saline bolus at the emergency department. He was sutured at the ER on the right eyebrow where he suffered the laceration after the fall. Urine toxicology essentially negative, serum alcohol less than 10.0. C. difficile toxin was sent along with stool culture and sensitivity to be followed. Problem List alongwith assesment and plan : #1 syncope status post mechanical fall with a right eyebrow laceration. * continue to monitor vitals every shift, check orthostatic vital signs , continue cardiac telemetry monitoring, NO previous history of arrhythmias, the patient has had chronic diarrhea as, therefore the lightheadedness and dizziness could also be secondary to dehydration. Continue IV fluid supplementation. Previous echo in September 2016 EF noted to be 55-60%. Can be judicious with hydration. Bilateral lower extremity distal limb weakness noted, neurology consult for further investigation. #2 Chronic diarrhea. * Mr fam had chronic diarrhea for last 1-2 years, has had significant weight loss, used to weigh 210 pounds in 2014 and early part of 2015. DR wilson had seen the patient previously, a colonoscopy was done with biopsy which was negative for any carcinoma.She was positive for C diff on previus admission and was treated with metronidazole. * Send C. difficile for stool along with stool cultures. Continue judicious hydration. Continue to monitor electrolytes especially magnesium and potassium and replete as necessary. * If C. difficile is negative, can consider Imodium for symptomatic treatment of diarrhea. * Will start patient on by mouth vancomycin empirically as the patient has significant history of C. difficile diarrhea on previous admission. #3 malnutrition * Significant weight loss noted in last 1-1/2-2 years, so far no obvious count discovered other than chronic malabsorption, continue mirtazapine to improve appetite, continue to motivate by mouth supplementation. Consider nutrition consult. Will check vitamin D levels. Previously B12 and folate were found to be within normal limit. #4 diabetes mellitus hyperglycemia with normal anion gap. * Continue to monitor fingersticks, patient has been noncompliant, was started on metformin thousand milligrams twice a day on previous admission in September 2016 however patient endorses not to be compliant and not taking his medication. * He was also started on gabapentin which was DC'd due to worsening dizziness and lightheadedness. * Continue NovoLog sliding scale along with thyroid at at bedtime fingerstick monitoring. * The patient's insulin requirement was calculated to be 12 units daily. We'll start him on low-dose long-acting Levemir 10 units at bedtime. #5 lactic acidosis * PAtient initially came in with hypotension, however does not have a white count, does not have any fever. Will continue to trend the lactic acid until normalizes. * The only possible source of lactic acidosis could be infective diarrhea. * Other possibility could be ischemia colitis however patient does not complain of any abdominal pain. * We will continue IV hydration, check C. difficile, check stool culture and sensitivity, continue by mouth vancomycin for now. #6 hyponatremia. * Corrected sodium for hyperglycemia found to be 135 which is close to his baseline. * Continue to monitor. * Continue hydration. * Continue better sugar control. Full code. Consistent carbohydrate diet. Pain pathway DVT prophylaxis with Lovenox. As Ranked By This Provider Problem List: 1. Alcohol abuse 2. Depression 3. Hyponatremia 4. Laceration of right eyebrow Core Measures/Miscellaneous Acute Coronary Syndrome ACS Diagnosis: No Cerebrovascular Accident CVA/TIA Diagnosis: No Congestive Heart Failure CHF Diagnosis: No Venous Thromboembolism VTE Risk Factors: Age > 40 No [facility] VTE prophylaxis d/t: No contraindications No VTE Pharm Prophylaxis d/t: No contraindications VTE Diagnosis: No VTE Type: NONE VTE Confirmed by (Test): NONE Severe Sepsis Severe Sepsis Present: No Septic Shock Septic Shock Present: No Miscellaneous Documentation Attending Case Discussed With: LAQUITA CALVO Primary Care Physician: LALA TAPIA MD Patient sees these Specialists gi Level of Patient Care: Telemetry Resident Review Statement Resident Statement: ADMITTED BY RESIDENT LAQUITA CALVO 02/01/17 1437: Attending MD Review Statement Attending Statement Attending MD Statement: examined this patient, discuss w/resident/PA/CERTIFIED RETINAL ANGIOGRAPHER, agreed w/resident/PA/CERTIFIED RETINAL ANGIOGRAPHER, reviewed EMR data (avail), discussed with nursing Attending Assessment/Plan: Agree with the above assessment and plan. Please see my separate attending note for more details.
--- NOTE | 2017-01-31 11:40 | NUR ---
MEDICATED WITH SC INSULIN. PROVIDED LUNCH.
--- NOTE | 2017-01-31 12:04 | NUR ---
REPORT TO SUMI PRADHAN ON [facility].
--- NOTE | 2017-01-31 12:27 | NUR ---
PT TRANSPORTED TO FLOOR VIA STRETCHER WITH THIS RN AND TRANSPORT ON MONITOR. ALL PAPERWORK AND BELONGINGS SENT. CLINICAL STATUS UNCHANGED.
[2017-01-31 12:50] VITALS: BP 65/46
--- NOTE | 2017-01-31 12:58 | NUR ---
RECEIVED PT TO RM 189-1. REPORT FROM ANDREY PRADHAN IN ER. PT BP NOTED AT ADMISSION TO BE 65/46 VIA AUTO CUFF. REPORTED TO PREVIOUSLY BE 91/60. PT STATES FEELS DIZZY AT TIMES. PLACED IN [place] WHILE AWAITING CALL BACK FROM DR CHILDS. NAZ ORDERED 1L NS W/O. PT NSR ON MONITOR. SCHEDULED TROP AND EKG OBTAINED AT THIS TIME. ALL OTHER VITALS STABLE. WILL CONTINUE TO MONITOR BP STATUS AND UPDATE MD.
[2017-01-31 13:06] VITALS: BP 80/53
[2017-01-31 13:14] VITALS: BP 76/54
[2017-01-31 15:30] VITALS: BP 100/58
--- NOTE | 2017-01-31 18:15 | Admission Certification ---
Admission Certification Certification Statement - As attending physician, I certify that at the time of - admission, based on clinical presentation, severity of - symptoms, need for further diagnostic testing and - therapeutic interventions, and risk of adverse outcomes - without in-hospital treatment, in my clinical assessment, - this patient requires an acute hospital stay for a minimum - of two nights or longer. I have also considered psychsocial - factors such as support system, advanced age, financial - issues, cognitive issues, and failed out-patient treatments, - past re-admission history, safety of patient, and lack of - compliance as applicable. Specific rationale supporting this admission is: diarrhea and syncopal episode with hypotension.
--- NOTE | 2017-01-31 18:20 | PN- Att Addend ---
Attending MD Review Statement Attending Statement Attending MD Statement: examined this patient, discuss w/resident/PA/CHAR FILTER OPERATOR, agreed w/resident/PA/CHAR FILTER OPERATOR, reviewed EMR data (avail), discussed w/nursing Attending Assessment/Plan: Laboratory Tests 01/31/17 1430: Lactic Acid 3.5 H 01/31/17 1310: Troponin I < 0.01 01/31/17 0712: Anion Gap 9, Estimated GFR > 60, BUN/Creatinine Ratio 15.0, Glucose 448 H, Calcium 9.0, Phosphorus 4.2, Magnesium 2.0, Total Bilirubin 0.7, AST 58, ALT 116 H, Alkaline Phosphatase 146 H, Troponin I < 0.01, Total Protein 6.1 L, Albumin 3.4 L, Globulin 2.7, Albumin/Globulin Ratio 1.3, 25-OH Vitamin D Total 9.0 L, CBC w Diff NO MAN DIFF REQ, RBC 3.70 L, MCV 92.9, MCH 31.3 H, RDW 13.0 , MPV 9.7, Gran % 77.9 H, Lymphocytes % 15.7 L, Monocytes % 4.7, Eosinophils % 1.6, Basophils % 0.1, Absolute Granulocytes 7.0 H, Absolute Lymphocytes 1.4, Absolute Monocytes 0.4, Absolute Eosinophils 0.1, Absolute Basophils 0, PUBS MCHC 33.7, Serum Alcohol < 10.0 Vital Signs Date Time Temp Pulse Resp B/P B/P Pulse O2 O2 Flow FiO2 Mean Ox Delivery Rate 01/31 1530 96.2 86 16 100/58 99 Room Air 01/31 1314 76/54 /08 1306 80/53 /08 1250 98.0 85 18 65/46 100 Room Air /08 1139 92 20 91/60 100 Room Air /08 1017 79 20 101/68 100 Room Air /08 0907 75 20 93/63 100 Room Air /08 0826 98.1 70 20 98/60 97 Room Air /08 0755 70 20 91/60 100 Room Air 05/08 0650 98.0 76 18 84/40 100 Room Air /08 0647 100 Room Air Patient seen and examined at bedside. Discussed with patient the care plan. 51-year-old male with past medical history of smoking -currently smokes 5 cigarettes a day, EtOH abuse-quit in September 2016, diabetes mellitus type 2 noncompliant with medications who presented with chief complaint of mechanical falls as well as chronic diarrhea and syncopal episode. Patient went to the restroom and fell while getting up and got laceration over the eye which required stitches to be put in the ER. Patient was also found to be hypotensive in the emergency room and also gave history of weight loss of about 60 pounds in one year. His last A1c was more than 10 on prior admission. His lactic acid done this admission as high at 3.5. Given the patient's diarrhea and previous history of C. difficile in October of this year we will treat him as presumed C. difficile infection and will start him on by mouth vancomycin given the severity of the infection and we'll also send stool for ova and parasite. We will continue with aggressive fluid hydration given his hypertension and continue to monitor his vitals closely. We will also start him on low-dose Levemir 10 units daily at bedtime for his diabetes given that his blood sugars are very high.
[2017-01-31 18:42] VITALS: BP 96/60
[2017-02-01] VITALS (7 sets, daily range): BP systolic 92–118; BP diastolic 54–80
--- NOTE | 2017-02-01 01:00 | NUR ---
PT'S BP 92/54, ORTHOSTATICS TAKEN, ORTHOS POSITIVE. PER DR CALZADA GIVE 1 BOLUS NS IV.
--- NOTE | 2017-02-01 06:30 | NUR ---
AT 0600 PT FOUND TO BE UNRESPONSIVE IN BED. UNRESPONSIVE TO VERBAL STIMULI, UNRESPONSIVE TO PAINFUL STIMULI. RAPID RESPONSE CALLED. BS <50, OTHER VSS. SEE RAPID RESPONSE SHEET.
--- NOTE | 2017-02-01 06:55 | Event Note ---
Event Note Event Note: Rapid response was called at 5 AM, patient is unresponsive, vital signs blood pressure 112/60, HR 58, saturating 99% on room air, blood sugar less than 50. Patient examination pupils are pinpoint and nonreactive to light bilateral, cardiac S1-S2 no added sounds, chest clear, abdomen positive bowel sounds no tenderness, no lower limb edema. Patient received 4 doses of Narcan and 25 mg dextrose. Patient opened his eyes and start to respond to simple commands, within 15 minutes he was fully alert, orientedx3 and denied any pain, shortness of breath, palpitation, dizziness. CT head was ordered, EKG, troponin, CBC, BMP. We'll continue to follow.
--- NOTE | 2017-02-01 07:33 | CT SCAN REPORT ---
EXAMINATION: CT HEAD WITHOUT CONTRAST CLINICAL INFORMATION: Unresponsive COMPARISON: 01/31/2017 TECHNIQUE: Contiguous axial imaging was performed from the skull base to vertex without intravenous administration of contrast. DLP: 633.45 mGy-cm FINDINGS: There is no evidence of acute intracranial hemorrhage or territorial infarction. No abnormal mass effect or midline shift is seen. Condon to white matter differentiation is well preserved. No extra-axial fluid collections are identified. The ventricles are normal in size. Mild volume loss is noted. The osseous structures and soft tissues are normal. The mastoid air cells and visualized portions of the paranasal sinuses are well aerated. IMPRESSION: No acute intracranial pathology.
--- NOTE | 2017-02-01 08:43 | NUR ---
REPORT FROM PREVIOUS NURSE. PT DOWN AT CT SCAN FOR RAPID RESPONSE THIS AM. PT ARRIVED BACK TO FLOOR. COMPLAINING OF BEING COLD. UNABLE TO OBTAIN ORAL TEMP BY MST. RECTAL TEMP 94.0. DR KENYON MADE AWARE. PT TO BE TRANSFERRED TO ICU FOR DAVID HUGGER AND TO MONITOR BP CLOSER. REPORT TO JULIO PRADHAN.
--- NOTE | 2017-02-01 09:54 | PN- Housestaff ---
Subjective Follow-up For: syncope C.Diff Subjective: Pt is seen and examined at bedside. He does not appear in any distres,howver, he complains of feeling cold. O/N event of somnolence and unresponsiveness to sternal rub requiring 4 rounds of Narcan admisnistration is noted. Review of Systems Constitutional: Reports: no symptoms. Objective Last 24 Hrs of Vital Signs/I&O Vital Signs Date Time Temp Pulse Resp B/P B/P Pulse O2 O2 Flow FiO2 Mean Ox Delivery Rate 02/02 0000 98.3 98 18 100/50 95 Room Air 02/01 2000 98.3 76 18 118/70 96 Room Air 02/01 1600 96 Room Air 02/01 1600 97.3 82 20 110/80 96 Room Air 02/01 1200 96 Room Air 02/01 0830 92.6 82 16 94/62 95 Room Air 02/01 0823 94.0 76 16 98/62 99 Room Air 02/01 0800 95 Room Air 02/01 0623 98 Room Air 02/01 0600 98.0 70 14 112/60 98 Room Air 02/01 0400 92/58 Intake & Output 02/02 0800 05 0000 02/01 1600 Intake Total 1480 1164 Output Total 1350 950 Balance 130 214 Intake, IV 1000 714 Intake, Oral 480 450 Number 3 2 Bowel Movements Output, Urine 1350 950 Physical Exam General Appearance: Alert, Oriented X3, Cooperative Assessment/Plan Assessment: This is is a 51 YO male current active smoker, past alcoholism (quit in September 2016), no illicit drug abuse with past medical history of type 2 diabetes mellitus with peripheral neuropathy, chronic diarrhea, previous multiple falls with syncopal episodes, depression came in with chief complain of 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 Vitals on presentation temperature of 98.1, pulse of 70, respiratory rate of 20, blood pressure of 98/60, he was saturating 97% on room air. Relevant labs, no white count, H/H stable, platelets of 191 and (baseline). Sodium low at 127, corrected sodium for hyperglycemia noted to be 135. BUN and creatinine 9/0.6. AST 58, ALT 116, alkaline phosphatase 146, mildly elevated, initial serum troponin negative less than 0.01. Total protein of 6.1 and albumin of 3.4 borderline low. EKG showed normal sinus rhythm, mild diffuse ST elevation. patient initial low blood pressure improved after 2 L of normal saline bolus at the emergency department. He was sutured at the ER on the right eyebrow where he suffered the laceration after the fall. Urine toxicology essentially negative, serum alcohol less than 10.0. C. difficile toxin was sent along with stool culture and sensitivity to be followed. Assesment and Plan #Hypothermia Morning temp found to be 94.0, confirmed rectally. Pt was symptomatic with chills.Possibly 2/2 to sepsis. In the setting of hypothermia nad low SBP despite , decision is made to transfer to ICU for bear hugger treatment. #Hypokalemia Unknown etiology, pt did present with metabolic acidosis which can cause hyperkalemia and not hypokalemia. K+ Replenished. Will trend BEP at 12pm noon. #1 syncope status post mechanical fall * continue to monitor vitals every shift, check orthostatic vital signs , continue cardiac telemetry monitoring, NO previous history of arrhythmias, the patient has had chronic diarrhea as, therefore the lightheadedness and dizziness could also be secondary to dehydration. Continue IV fluid supplementation. Previous echo in September 2016 EF noted to be 55-60%. #2 Chronic diarrhea. * Hx of last 1-2 years, has had significant weight loss, used to weigh 210 pounds in 2014 and early part of 2015. GI was following the patient (Dr wilson ), a colonoscopy was done with biopsy which was negative for any carcinoma. Pt was positive for C diff on previus admission and was treated with metronidazole. * Will start patient on by mouth vancomycin empirically (will treat this has recurrence) as the patient has significant history of C. difficile diarrhea on previous admission and has strong clinical suspicion of active C diff. #3 malnutrition * Significant weight loss noted in last 1-1/2-2 years, so far no obvious count discovered other than chronic malabsorption, continue mirtazapine to improve appetite, continue to motivate by mouth supplementation. Consider nutrition consult. Will f/u vitamin D levels. Previously B12 and folate were found to be within normal limit. #4 diabetes mellitus hyperglycemia with normal anion gap. * Continue to monitor fingersticks, patient has been noncompliant, was started on metformin thousand milligrams twice a day on previous admission in September 2016 however patient endorses not to be compliant and not taking his medication. * He was also started on gabapentin which was DC'd due to worsening dizziness and lightheadedness. * Continue NovoLog sliding scale along with thyroid at at bedtime fingerstick monitoring. * The patient's insulin requirement was calculated to be 12 units daily. We'll start him on low-dose long-acting Levemir 10 units at bedtime. #5 lactic acidosis * PAtient initially came in with hypotension, however does not have a white count, does not have any fever. Will continue to trend the lactic acid until normalizes. * The only possible source of lactic acidosis could be infective diarrhea. * Other possibility could be ischemia colitis however patient does not complain of any abdominal pain. * We will continue IV hydration, check C. difficile, check stool culture and sensitivity, continue by mouth vancomycin for now. #6 hyponatremia. * Corrected sodium for hyperglycemia found to be 135 which is close to his baseline. * Continue to monitor. * Continue hydration. * Continue better sugar control. Problem List: 1. Hypokalemia 2. Hypothermia Pain Ratin Pain Location: NONE Pain Goal: Remain pain free Pain Plan: PER PAIN PTHWY Tomorrow's Labs & Rationales: none-transferred to ICU
--- NOTE | 2017-02-01 10:56 | Cons- Infect Disease ---
General Information and HPI Consulting Request Date of Consult: 02/01/17 Requested By: MARC HULL MD Reason for Consult: Rule out C. difficile Source of Information: patient, old records History of Present Illness: This is a 51-year-old man with a history of heavy alcohol abuse, diabetes, with peripheral neuropathy, with an over 100 pound weight loss over the past year and chronic diarrhea for at least the past 6 months, hospitalized over 3 months prior to admission after several syncopal episodes with the acute onset of bloody stools and a 2 month history of diarrhea, with no history of antibiotic use, and for which he was on Imodium, with an initial C. difficile negative and a colonoscopy revealing nonspecific right-sided colitis, with biopsies revealing multiple tubular adenomas, found to have a positive C. difficile on repeat testing, treated with a ten-day course of Flagyl, with no reported improvement, admitted on January 31 after a syncopal episode following an episode of lightheadedness and dizziness, resulting in a laceration above his right eyebrow , and with continued diarrhea despite Imodium with no complaints of nausea, vomiting or abdominal pain. On admission he was afebrile, with a blood pressure of 84/40. Laboratory data revealed a white blood cell count of 9000, glucose 448, BUN/creatinine 9 and 0.6, sodium 127, alkaline phosphatase 146, AST/ALT 58 and 116, lactic acid 3.5, alcohol level less than 10. Chest x-ray negative. CT of the head and maxillofacial area revealed right periorbital soft tissue swelling. He was begun empirically on po Vancomycin for presumed C. difficile. This morning he was noted to be unresponsive, with a blood sugar less than 50, and a rapid response was called. A repeat CT of the head was negative. Upon return from CT he was noted to be hypothermic, with a temperature of 94, and he was transferred to the ICU. At present he is awake and able to provide a history. He feels cold but offers no other complaints at this time. Allergies/Medications Allergies: Coded Allergies: No Known Allergies (01/31/17) Home Med List: Gabapentin 100 MG CAPSULE 100 MG PO Q8 mood disorder Metformin HCl (Glucophage) 1,000 MG TABLET 1 TAB PO BID DIABETES (Reported) Mirtazapine (Remeron) 15 MG TABLET 7.5 MG PO AT BEDTIME mood disorder Multivitamin (Multi-Day Vitamins) 1 EACH TABLET 1 TAB PO DAILY SUPPLEMENT ( Reported) Past History Travel History Traveled to [place] past 21 day No Medical History Neurological: peripheral neuropathy EENT: NONE Cardiovascular: syncope Respiratory: NONE Gastrointestinal: umbilical hernia, CDIFF 10/12 Hepatic: NONE Renal: NONE Musculoskeletal: NONE Psychiatric: alcohol dependence Endocrine: diabetes Blood Disorders: NONE Cancer(s): NONE CARDIOLOGY ASSOCIATE/Reproductive: NONE History of MRSA: No History of VRE: No History of CDIFF: Yes Isolation History: Special Contact (Enteric) Tetanus Vaccine: 01/31/17 Tetanus Status: up to date Surgical History Surgical History: hernia repair-umbilical Psychosocial History Where Do You Live? Home Who Do You Live With? sister Services at Home: None Primary Language: Wallisian Smoking Status: Current Everyday Smoker ETOH Use: heavy use quit in sep 2016 Illicit Drug Use: denies illicit drug use Living Will? no Power of Campaign Advisor/HCP? no Functional Ability ADLs Independent: dressing, eating, toileting, bathing. Ambulation: cane, walker IADLs Independent: shopping, housework, finances, food prep, telephone, transportation , medication admin. 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 Review of Systems Review of Systems Constitutional: Reports: unexplained weight loss. Cardiovascular: Denies: chest pain. Respiratory: Denies: cough, short of breath. GI: Denies: abdominal pain, nausea, bloody stool, vomiting. All Other Systems: Reviewed and Negative Exam & Diagnostic Data Last 24 Hrs of Vital Signs/I&O Vital Signs Date Time Temp Pulse Resp B/P B/P Pulse O2 O2 Flow FiO2 Mean Ox Delivery Rate 02/01 823 94.0 76 16 98/62 99 Room Air 02/01 0623 98 Room Air 02/01 0600 98.0 70 14 112/60 98 Room Air 02/01 0400 92/58 02/01 0102 98.6 85 16 92/54 98 Room Air 01/31 1842 87 96/60 01/31 1530 96.2 86 16 100/58 99 Room Air 01/31 1314 76/54 01/31 1306 80/53 01/31 1250 98.0 85 18 65/46 100 Room Air 01/31 1139 92 20 91/60 100 Room Air Intake & Output 02/01 1600 02/01 0800 02/01 0000 Intake Total 1240 600 Output Total 300 400 450 Balance -300 840 150 Intake, IV 1000 Intake, Oral 240 600 Number 3 2 Bowel Movements Output, Urine 300 400 450 Physical Exam Other Physical Findings: He is awake and alert in no acute distress. Temperature 94.0. Skin reveals no rash. HEENT exam right periorbital laceration sutured, with no inflammation. Neck is supple with no adenopathy. Lungs are clear. Heart regular rhythm with no murmur. Abdomen is mildly distended, mildly tender to palpation diffusely, with no guarding or rebound, with positive bowel sounds. Back no CVA tenderness. Extremities no cyanosis, clubbing or edema. Neuro is without focality. Last 24 Hours of Lab Results: Laboratory Tests 02/01 01/31 01/31 01/31 01/31 0630 2034 193 1935 1430 Chemistry Sodium (137 - 145 mmol/L) 136 L Potassium (3.5 - 5.1 mmol/L) 2.9 *L Chloride (98 - 107 mmol/L) 104 Carbon Dioxide (22 - 30 mmol/L) 25 Anion Gap (5 - 16) 7 BUN (9 - 20 mg/dL) 7 L Creatinine (0.7 - 1.2 mg/dL) 0.5 L Estimated GFR (>60 ml/min) > 60 BUN/Creatinine Ratio (7 - 25 %) 14.0 Lactic Acid (0.7 - 2.1 mmol/L) 2.1 3.5 H Phosphorus (2.5 - 4.5 mg/dL) 2.9 Magnesium (1.6 - 2.3 mg/dL) 1.8 Troponin I (<0.11 ng/ml) < 0.01 Toxicology Urine Opiates Screen (>2000 NG/ML) < 100.00 Methadone Screen (>300 NG/ML) < 40 Barbiturate Screen (>200 NG/ML) < 60 Ur Phencyclidine Scrn (>25 NG/ML) < 6.00 Amphetamines Screen (>1000 NG/ML) < 100 U Benzodiazepines Scrn (>200 NG/ML) < 85 Urine Cocaine Screen (>300 NG/ML) < 50 Urine Cannabis Screen (>50 NG/ML) < 5.00 01/31 1310 Chemistry Troponin I (<0.11 ng/ml) < 0.01 Last 24 Hours of Brad Results: Stool C. difficile January 31 pending Diagnostic Data Recent Imaging Findings: Chest x-ray January 31, personally reviewed, negative CT of the head and maxillofacial area January 31 reveals right periorbital soft tissue swelling with no evidence of fracture CT of the head February 01 negative Assessment/Plan Assessment/Plan Impression: This is a 51-year-old man with a history of diabetes and alcohol abuse, hospitalized 3 months prior to admission after a syncopal episode with chronic diarrhea and weight loss and more acute onset of bloody stools, with colonoscopy revealing right-sided colitis and with a C. difficile test positive, after the initial test was negative, with no prior antibiotics reported, treated with a ten-day course of Flagyl, with no improvement, readmitted on January 31 after another syncopal episode with the complaint of persistent diarrhea (on Imodium), found initially to be afebrile but hypotensive, found this morning to be unresponsive and hypothermic, for which he was transferred to the ICU. His persistent diarrhea may be secondary to a relapse of C. difficile, though with no history of antibiotic use prior to his initial episode and with no apparent response to Flagyl the possibility that the C. difficile represents colonization and not true infection must be considered. His significant weight loss is of concern and suggests another, underlying process. His hypotension appears to be chronic and was noted on his previous hospitalization, even at the time of discharge and may represent autonomic dysfunction. Hypotension in the setting of C. difficile suggests severe/complicated disease, which is typically treated with a combination of high-dose oral Vancomycin and IV Flagyl; however, given that his hypotension appears to be chronic, do not feel this parameter is useful in determining the level of infection. His hypothermic, however, could suggest infection or, again, an autonomic dysfunction. Suggestion: 1. Follow-up stool for C. difficile 2. Would pursue CT of the abdomen and pelvis with IV contrast 3. Consider GI reevaluation 4. Further evaluation of his hypotension per Medicine 5. Continue Vancomycin 125 mg po pending above Consult Acknowledgment - Thank you for your consult request.
--- NOTE | 2017-02-01 13:19 | PN- Att Addend ---
Attending Addendum Attending Brief Note Patient seen and examined, he denies any complaints. This morning he was hypothermic therefore transferred to ICU and now he is requiring warming blanket. Vital Signs Date Time Temp Pulse Resp B/P B/P Pulse O2 O2 Flow FiO2 Mean Ox Delivery Rate 02/01 823 94.0 76 16 98/62 99 Room Air 02/01 0623 98 Room Air 02/01 0600 98.0 70 14 112/60 98 Room Air 02/01 0400 92/58 02/01 0102 98.6 85 16 92/54 98 Room Air 01/31 1842 87 96/60 01/31 1530 96.2 86 16 100/58 99 Room Air 01/31 1314 76/54 on exam; aox3, nad. cv; s1,s2, rrr resp; clear abd; soft, nt, bs+ ext; no edema. Laboratory Tests 02/0130 2034 1935 1935 1430 Chemistry Sodium (137 - 145 mmol/L) 136 L Potassium (3.5 - 5.1 mmol/L) 2.9 *L Chloride (98 - 107 mmol/L) 104 Carbon Dioxide (22 - 30 mmol/L) 25 Anion Gap (5 - 16) 7 BUN (9 - 20 mg/dL) 7 L Creatinine (0.7 - 1.2 mg/dL) 0.5 L Estimated GFR (>60 ml/min) > 60 BUN/Creatinine Ratio (7 - 25 %) 14.0 Lactic Acid (0.7 - 2.1 mmol/L) 2.1 3.5 H Phosphorus (2.5 - 4.5 mg/dL) 2.9 Magnesium (1.6 - 2.3 mg/dL) 1.8 Troponin I (<0.11 ng/ml) < 0.01 Toxicology Urine Opiates Screen (>2000 NG/ML) < 100.00 Methadone Screen (>300 NG/ML) < 40 Barbiturate Screen (>200 NG/ML) < 60 Ur Phencyclidine Scrn (>25 NG/ML) < 6.00 Amphetamines Screen (>1000 NG/ML) < 100 U Benzodiazepines Scrn (>200 NG/ML) < 85 Urine Cocaine Screen (>300 NG/ML) < 50 Urine Cannabis Screen (>50 NG/ML) < 5.00 A/P; 51-year-old male with past medical history significant for diabetes, chronic alcoholism, chronic diarrhea who was admitted with a syncopal episode and a presumed C. difficile colitis. This morning patient was slightly hypotensive and significantly hypothermic therefore transferred to ICU. Patient also had high lactate levels which has improved to normal. Patient also was found to be significantly hypokalemic. Patient will be kept von Bare Hugger until temperature improves. Follow-up on stool for C. difficile studies. Please get a CT abdomen and pelvis as recommended by infectious disease. Pending C. difficile results, CT abdomen and pelvis findings, we will consider getting a GI consult. Continue empiric oral vancomycin. Continue IV fluids. DVT px; Lovenox.
--- NOTE | 2017-02-01 14:29 | Cons- Neurology ---
General Information and HPI Consulting Request Date of Consult: 02/01/17 Requested By: MARC HULL MD Source of Information: patient, old records Exam Limitations: no limitations History of Present Illness: 51-year-old male presents to Hospital after a fall at home. He recalls that he was dizzy and next found himself on the floor of the bathroom. He was bleeding from the right periorbital region. He had a subsequent unresponsive spell in hospital. His immediate past history is marked by persistent diarrhea and significant weight loss over 100 pounds. There was no abdominal upset. He had been found in the past to have C. difficile and was treated He has a history of recurrent falls Allergies/Medications Allergies: Coded Allergies: No Known Allergies (01/31/17) Home Med List: Gabapentin 100 MG CAPSULE 100 MG PO Q8 mood disorder Metformin HCl (Glucophage) 1,000 MG TABLET 1 TAB PO BID DIABETES (Reported) Mirtazapine (Remeron) 15 MG TABLET 7.5 MG PO AT BEDTIME mood disorder Multivitamin (Multi-Day Vitamins) 1 EACH TABLET 1 TAB PO DAILY SUPPLEMENT ( Reported) Current Medications: Current Medications Sig/Fay Start time Last Medication Dose Route Stop Time Status Admin Acetaminophen 650 MG Q6P PRN 01/31 1930 DC PO Dextrose 25 GM .STK-MED ONE 02/01 0607 DC IV 02/01 0608 Enoxaparin Sodium 40 MG DAILY 01/31 1011 AC 02/01 SC 1018 Insulin Aspart 0 TIDAC 01/31 1200 AC 01/31 SC 1722 Insulin Detemir 10 UNITS QPM 01/31 2200 AC 01/31 SC 2151 Mirtazapine 7.5 MG AT BEDTIME 01/31 2200 AC 05/08 PO 2150 Multivitamins 1 TAB DAILY 02/01 1000 AC 02/01 PO 1018 Naloxone HCl 0.4 MG ONCE ONE 02/01 0630 DC 02/01 IV 02/01 0631 0630 Naloxone HCl 0.4 MG ONCE ONE 02/01 0630 DC 02/01 IV 02/01 0631 0630 Naloxone HCl 0.4 MG ONCE ONE 02/01 0630 DC 02/01 IV 02/01 0631 0630 Naloxone HCl 0.4 MG DAILY NEEDED PRN 02/01 0630 AC IV Naloxone HCl 0.4 MG ONCE ONE 02/01 0615 DC 02/01 IV 02/01 0616 0615 Oxycodone HCl 5 MG Q6H 01/31 1930 DC 02/01 PO 0037 Oxycodone/ 2 TAB Q6P PRN 01/31 1930 DC Acetaminophen PO Patient Medication 1 UNIT ONE NR 01/31 1500 DC Teaching ED 01/31 2100 Potassium Chloride 10 MEQ Q1H 02/01 830 DC 02/01 IV 02/01 0931 1134 Potassium Chloride 40 MEQ Q8H 02/01 830 AC 02/01 Sodium Chloride 1,000 ML IV 1000 Potassium Chloride 40 MEQ ONCE ONE 02/02 0830 DC 02/01 PO 02/02 0831 1019 Sodium Chloride 1,000 ML BOLUS ONE 02/01 0115 DC 02/01 IV 02/01 0214 0106 Sodium Chloride 1,000 ML BOLUS ONE 01/31 1415 DC 01/31 IV 01/31 1514 1405 Vancomycin HCl 125 MG Q6 01/31 1447 AC 02/01 PO 1156 Review of Systems Review of Systems: Intermittent headaches, no diplopia, occasional vertigo, no difficulty swallowing or with speech, no chest pain, no shortness of breath, no abdominal pain, no incontinence, no swelling, diffuse weakness, other systems reviewed and negative Past History Travel History Traveled to [place] past 21 day No Medical History Neurological: peripheral neuropathy EENT: NONE Cardiovascular: syncope Respiratory: NONE Gastrointestinal: umbilical hernia, CDIFF 10/12 Hepatic: NONE Renal: NONE Musculoskeletal: NONE Psychiatric: alcohol dependence Endocrine: diabetes Blood Disorders: NONE Cancer(s): NONE 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 Home Who Do You Live With? sister Services at Home: None Primary Language: Tanzanian Smoking Status: Current Everyday Smoker ETOH Use: heavy use quit in sep 2016 Illicit Drug Use: denies illicit drug use Living Will? no Power of Mill Washer/HCP? no Functional Ability ADLs Independent: dressing, eating, toileting, bathing. Ambulation: cane, walker IADLs Independent: shopping, housework, finances, food prep, telephone, transportation , medication admin. 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 Exam & Diagnostic Data Vital Signs and I&O Vital Signs Date Time Temp Pulse Resp B/P B/P Pulse O2 O2 Flow FiO2 Mean Ox Delivery Rate 05/09 0823 94.0 76 16 98/62 99 Room Air 02/01 0623 98 Room Air 02/01 0600 98.0 70 14 112/60 98 Room Air 02/01 0400 92/58 / 0102 98.6 85 16 92/54 98 Room Air 01/31 1842 87 96/60 /08 1530 96.2 86 16 100/58 99 Room Air Intake & Output 02/01 1600 02/01 0800 02/01 0000 Intake Total 1240 600 Output Total 300 400 450 Balance -300 840 150 Intake, IV 1000 Intake, Oral 240 600 Number 3 2 Bowel Movements Output, Urine 300 400 450 Both parents had cardiac disease Alert and oriented' Language functions fund of knowledge attention span intact No dysarthria Heart sounds normal No carotid bruit Distal pulses intact Extraocular movements full, pupils equal and reactive, fundi not adequately visualized, no facial weakness, palate tongue and shoulders intact, hearing grossly intact Normal tone in upper and lower extremities, proximal weakness both upper extremities, proximal and distal weakness both lower extremities Mild sensory loss distally in upper extremities and lower extremities Deep tendon reflexes 1+ bilateral Coordinative functions upper extremities intact Gait deferred since patient walks with assistive device Last 48 Hours of Lab Results: Laboratory Tests 02/01 02/01 01/31 01/31 01/31 0630 0624 2034 1934 193 Chemistry Sodium (137 - 145 mmol/L) 136 L Potassium (3.5 - 5.1 mmol/L) 2.9 *L Chloride (98 - 107 mmol/L) 104 Carbon Dioxide (22 - 30 mmol/L) 25 Anion Gap (5 - 16) 7 BUN (9 - 20 mg/dL) 7 L Creatinine (0.7 - 1.2 mg/dL) 0.5 L Estimated GFR (>60 ml/min) > 60 BUN/Creatinine Ratio (7 - 25 %) 14.0 Lactic Acid (0.7 - 2.1 mmol/L) 2.1 Phosphorus (2.5 - 4.5 mg/dL) 2.9 Magnesium (1.6 - 2.3 mg/dL) 1.8 Troponin I (<0.11 ng/ml) Pending Cancelled < 0.01 Toxicology Urine Opiates Screen (>2000 NG/ML) < 100.00 Methadone Screen (>300 NG/ML) < 40 Barbiturate Screen (>200 NG/ML) < 60 Ur Phencyclidine Scrn (>25 NG/ML) < 6.00 Amphetamines Screen (>1000 NG/ML) < 100 U Benzodiazepines Scrn (>200 NG/ML) < 85 Urine Cocaine Screen (>300 NG/ML) < 50 Urine Cannabis Screen (>50 NG/ML) < 5.00 01/31 01/31 01/31 1430 1310 0712 Chemistry Sodium (137 - 145 mmol/L) 127 L Potassium (3.5 - 5.1 mmol/L) 4.4 Chloride (98 - 107 mmol/L) 92 L Carbon Dioxide (22 - 30 mmol/L) 26 Anion Gap (5 - 16) 9 BUN (9 - 20 mg/dL) 9 Creatinine (0.7 - 1.2 mg/dL) 0.6 L Estimated GFR (>60 ml/min) > 60 BUN/Creatinine Ratio (7 - 25 %) 15.0 Glucose (65 - 99 mg/dL) 448 H Lactic Acid (0.7 - 2.1 mmol/L) 3.5 H Calcium (8.4 - 10.2 mg/dL) 9.0 Phosphorus (2.5 - 4.5 mg/dL) 4.2 Magnesium (1.6 - 2.3 mg/dL) 2.0 Total Bilirubin (0.2 - 1.3 mg/dL) 0.7 AST (17 - 59 U/L) 58 ALT (21 - 72 U/L) 116 H Alkaline Phosphatase (< 127 U/L) 146 H Troponin I (<0.11 ng/ml) < 0.01 < 0.01 Total Protein (6.3 - 8.2 g/dL) 6.1 L Albumin (3.5 - 5.0 g/dL) 3.4 L Globulin (1.9 - 4.2 gm/dL) 2.7 Albumin/Globulin Ratio (1.1 - 2.2 %) 1.3 25-OH Vitamin D Total (30 - 100 ng/ml) 9.0 L Hematology CBC w Diff NO MAN DIFF REQ WBC (4.8 - 10.8 /CUMM) 9.0 RBC (4.70 - 6.10 /CUMM) 3.70 L Hgb (14.0 - 18.0 G/DL) 11.6 L Hct (42 - 52 %) 34.3 L MCV (80.0 - 94.0 FL) 92.9 MCH (27.0 - 31.0 PG) 31.3 H RDW (11.5 - 14.5 %) 13.0 Plt Count (130 - 400 /CUMM) 191 MPV (7.4 - 10.4 FL) 9.7 Gran % (42.2 - 75.2 %) 77.9 H Lymphocytes % (20.5 - 51.1 %) 15.7 L Monocytes % (1.7 - 9.3 %) 4.7 Eosinophils % (0 - 5 %) 1.6 Basophils % (0.0 - 2.0 %) 0.1 Absolute Granulocytes (1.4 - 6.5 /CUMM) 7.0 H Absolute Lymphocytes (1.2 - 3.4 /CUMM) 1.4 Absolute Monocytes (0.10 - 0.60 /CUMM) 0.4 Absolute Eosinophils (0.0 - 0.7 /CUMM) 0.1 Absolute Basophils (0.0 - 0.2 /CUMM) 0 PUBS MCHC (33.0 - 37.0 G/DL) 33.7 Toxicology Serum Alcohol (<10 MG/DL) < 10.0 Imaging/Other Studies: CT brain:IMPRESSION: No acute intracranial pathology. Assessment/Plan Assessment: Diffuse weakness secondary to underlying systemic disease Syncopal episodes likely related to hypotension Recommendations: HIV antibodies evaluation for possible malabsorption Vitamin levels including B12 CK level; cortisol level Consult Acknowledgment - Thank you for your consult request.
[2017-02-01 14:42] LABS: ABSOLUTE BASOPHIL COUNT 0 /CUMM (0.0-0.2); ABSOLUTE EOSINOPHIL COUNT 0.1 /CUMM (0.0-0.7); ABSOLUTE GRANULOCYTE CT 5.8 /CUMM (1.4-6.5); ABSOLUTE LYMPH COUNT 1.1 /CUMM (1.2-3.4); ABSOLUTE MONOCYTE COUNT 0.4 /CUMM (0.10-0.60); BASOPHIL % 0.3 % (0.0-2.0); WHITE BLOOD CELL COUNT 7.4 /CUMM (4.8-10.8)
[2017-02-01 14:50] LABS: EOSINOPHIL % 0.8 % (0-5); GRANULOCYTE % 78.8 % (42.2-75.2); HEMATOCRIT 30.9 % (42-52); MEAN CORPUSCULAR HGB 31.6 PG (27.0-31.0); MEAN CORPUSCULAR HGB CONC 34.2 G/DL (33.0-37.0); MEAN CORPUSCULAR VOLUME 92.4 FL (80.0-94.0); MEAN PLATELET VOLUME 8.2 FL (7.4-10.4); RBC DISTRIBUTION WIDTH 13.5 % (11.5-14.5); RED BLOOD CELL CT 3.35 /CUMM (4.70-6.10)
[2017-02-01 14:56] LABS: PLATELET COUNT 322 /CUMM (130-400)
--- NOTE | 2017-02-01 15:08 | CT SCAN REPORT ---
EXAMINATION: CT ABDOMEN AND PELVIS WITH CONTRAST CLINICAL INFORMATION: Hypotension, hypothermia, complicated C. difficile. C. difficile colitis. COMPARISON: CT scan of the chest dated 11/17/2016 CT scan of the abdomen and pelvis dated 10/22/2016 TECHNIQUE: Multidetector CT volumetric acquisition of the abdomen and pelvis was performed after the administration of 93 mL of intravenous Optiray 320. The data set was reformatted in the sagittal and coronal planes and reviewed on an independent workstation. DLP: 269.30 mGy-cm. FINDINGS: LOWER CHEST: Scattered areas of atelectasis are seen in the lung bases bilaterally. LIVER, GALLBLADDER, BILIARY TREE: Liver normal size and attenuation. No focal cystic or solid mass or intra-or extrahepatic ductal dilatation. Hepatic and portal veins patent. Gallbladder partially distended and within normal limits. PANCREAS: Diffusely mildly atrophic and somewhat suboptimally assessed due to mass effect by a gas distended stomach. No ductal dilatation, mass, or surrounding stranding. SPLEEN: Small in size size and otherwise unremarkable in appearance. Splenic vein patent. ADRENAL GLANDS AND KIDNEYS: Adrenal glands normal. Kidneys bilaterally symmetric in size and function. No focal mass, hydronephrosis, nephrolithiasis or perinephric stranding. URETERS AND BLADDER: Ureters decompressed and poorly visualized. Bladder well distended and within normal limits. PELVIC ORGANS: Unremarkable. GASTROINTESTINAL TRACT: There is marked fluid and gas distention of the stomach with a large air-fluid level seen. Findings may be related to gastroparesis. Similar findings were noted on previous CT scan. Small bowel loops are unremarkable. Large bowel loops are mildly distended and fluid-filled. No definite colonic wall thickening or hyperenhancement is seen for radiologic confirmation of C. Difficile colitis. No evidence of bowel obstruction or perforation is seen. The appendix is not discretely visualized. The previously seen small rounded calcific density adjacent to the anus is again visualized, unchanged. LYMPHOVASCULAR STRUCTURES: Abdominal aorta normal in caliber. Mild atherosclerotic calcifications of the aorta are seen. No periaortic collections. No abdominal or pelvic adenopathy or free fluid collection. BONES: Multilevel mild vertebral spurring is seen in the thoracolumbar spine. No suspicious bone findings. IMPRESSION: 1. Nonspecific mild fluid distention of the colon is seen without abnormal bowel wall thickening or hyperenhancement seen. 2. No evidence of bowel obstruction or perforation. 3. Prominent gaseous and fluid distention of the stomach. This is a nonspecific finding. Please correlate clinically for potential gastroparesis.
--- NOTE | 2017-02-01 16:00 | NUR ---
ASSUMED CARE OF PATIENT. PATIENT ALERT AND ORIENTED, WASTED IN APPEARANCE AND KIKECTIC. ABLE TO STAND TO VOID WITH ONE PERSON ASSIST. LUNGS CLEAR WITH ADEQUATE AIR MOVEMENT, MONITOR NSR, HEART SOUNDS REGULAR. PATIENT DIAGNOSED WITH CDIFF, AND IS INCONTINENT OF LOOSE YELLOW STOOL. PATIENT STATES HE HAS NO SENSATION THAT HE IS DEFECATING. CONTACT ISOLATION MAINTAINED. PATIENT DOES HAVE SENSATION OF NEED TO URINATE. PULSES INTACT. BLOOD SUGAR LESS THAN 50, 1 AMP DEXTROSE GIVEN. PATIENT WAS ASYMPTOMATIC.
--- NOTE | 2017-02-01 21:25 | Cons- Gastroenterology ---
General Information and HPI Consulting Request Date of Consult: 02/01/17 Requested By: MARC HULL MD Reason for Consult: Chronic diarrhea, weight loss Source of Information: patient, old records History of Present Illness: 51-year-old male with several months (approximately 7) of diarrhea, day and night. Worse with eating, described as watery and loose, without blood or mucus. He reports a 130 pound weight loss. He is admitted with syncope. He has had chills but no fever or sweats. He denies nausea, vomiting, abdominal pain, indigestion, skin lesion or rash, kidney disease, heart disease, edema. He has tingling in his feet secondary to neuropathy. There was no antecedent travel. There is no family history of GI diseases such as inflammatory bowel disease or celiac disease. He is heterosexual. 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 He is at alcohol user, and still smokes cigarettes. There is no history of drug use. He has been in the midst of outpatient evaluation by Dr. Granados. Allergies/Medications Allergies: Coded Allergies: No Known Allergies (01/31/17) Home Med List: Cholestyramine/Aspartame (Cholestyramine Light Packet) 4 GRAM POWD.PACK 1 PAC PO DAILY PRN DIARRHEA Cholestyramine/Aspartame (Cholestyramine Light Packet) 4 GRAM POWD.PACK 1 PAC PO DAILY DIARRHEA Diphenoxylate HCl/Atropine (Diphenoxylate-Atrop 2.5-0.025) 2.5 MG-0.025 MG TABLET 2.5 MG PO TID PRN DIARRHEA Ergocalciferol (Vitamin D2) (Vitamin D2) 50,000 UNIT CAPSULE 50,000 IU PO QTHURS LOW VITAMIN D Fludrocortisone Acetate 0.1 MG TABLET 100 MCG PO DAILY ORTHOSTATIC HYPOTENSION Gabapentin 100 MG CAPSULE 100 MG PO Q8 mood disorder Hydrocortisone Sod Succinate (Solu-Cortef) 100 MG VIAL 25 MG IV BID ADRENAL Insulin Aspart (Novolog) 100 UNIT/ML VIAL 0 UNITS SC TIDAC diabetes Less than 80 mg/dl ---- Initiate hypoglycemia protocol Less than 150 mg/dl---- 0 units 151-200 mg/dl 2 units 201-250 mg/dl 3 units 251-300 mg/dl 4 units 301-350 mg/dl 5 units 351-400 mg/dl 6 unit More than 400 mg/dl-------- 7 units Insulin Detemir (Levemir) 100 UNIT/ML VIAL 6 UNITS SC DAILY DIABETES Loperamide HCl (Loperamide) 2 MG CAPSULE 2 MG PO Q6 FOR CHRONIC DIARRHEA scheduled, not prn Melatonin 5 MG TABLET 5 MG PO AT BEDTIME SLEEP Midodrine HCl 2.5 MG TABLET 10 MG PO 0800,1200,1600 ORTHO STATIC HYPOTENSION Mirtazapine (Remeron) 15 MG TABLET 7.5 MG PO AT BEDTIME mood disorder Multivitamin (Multi-Day Vitamins) 1 EACH TABLET 1 TAB PO DAILY SUPPLEMENT ( Reported) Current Medications: Current Medications Sig/Fay Start time Last Medication Dose Route Stop Time Status Admin Acetaminophen 650 MG Q6P PRN 01/31 1930 DC PO Dextrose 25 GM ONCE ONE 02/01 1615 DC 02/01 IV 02/01 161 1615 Dextrose 25 GM .STK-MED ONE 02/01 607 DC IV 02/01 0608 Enoxaparin Sodium 40 MG DAILY 01/31 1011 AC 02/01 SC 1018 Insulin Aspart 0 TIDAC 01/31 1200 AC 01/31 SC 1722 Insulin Detemir 10 UNITS QPM 01/31 220 AC 01/31 SC 2151 Mirtazapine 7.5 MG AT BEDTIME 01/31 2200 AC 01/31 PO 2150 Multivitamins 1 TAB DAILY 02/01 1000 AC 02/01 PO 1018 Naloxone HCl 0.4 MG ONCE ONE 02/01 630 DC 02/01 IV 02/01 631 0630 Naloxone HCl 0.4 MG ONCE ONE 02/01 630 DC 02/01 IV 02/01 631 0630 Naloxone HCl 0.4 MG ONCE ONE 02/01 630 DC 02/01 IV 02/01 631 0630 Naloxone HCl 0.4 MG DAILY NEEDED PRN 02/01 630 AC IV Naloxone HCl 0.4 MG ONCE ONE 02/01 615 DC 02/01 IV 02/02 616 0615 Oxycodone HCl 5 MG Q6H 01/31 1930 DC 02/01 PO 0037 Oxycodone/ 2 TAB Q6P PRN 01/31 1930 DC Acetaminophen PO Potassium Chloride 10 MEQ Q1H 02/01 830 DC 02/01 IV 02/01 0931 1134 Potassium Chloride 40 MEQ Q8H 02/02 0830 AC 02/01 Sodium Chloride 1,000 ML IV 195 Potassium Chloride 40 MEQ ONCE ONE 02/02 0830 DC 02/01 PO 02/02 0831 1019 Sodium Chloride 1,000 ML BOLUS ONE 02/01 0115 DC 02/01 IV 02/01 0214 0106 Vancomycin HCl 125 MG Q6 01/31 1447 DC 02/01 PO 1156 Past History Travel History Traveled to [place] past 21 day No Medical History Neurological: peripheral neuropathy EENT: NONE Cardiovascular: syncope Respiratory: NONE Gastrointestinal: umbilical hernia, CDIFF 10/12 Hepatic: NONE Renal: NONE Musculoskeletal: NONE Psychiatric: alcohol dependence Endocrine: diabetes Blood Disorders: NONE Cancer(s): NONE BUN ICER/Reproductive: NONE Surgical History Surgical History: hernia repair-umbilical Psychosocial History Where Do You Live? Home Who Do You Live With? sister Services at Home: None Primary Language: [place] Verde[place] Smoking Status: Current Everyday Smoker ETOH Use: heavy use quit in sep 2016 Illicit Drug Use: denies illicit drug use Living Will? no Power of [employer] Mechanic/HCP? no Functional Ability ADLs Independent: dressing, eating, toileting, bathing. Ambulation: cane, walker IADLs Independent: shopping, housework, finances, food prep, telephone, transportation , medication admin. 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 Review of Systems Review of Systems Constitutional: Reports: chills, malaise, weakness, unexplained weight loss. Denies: fever. EENTM: Denies: icterus, epistaxis. Cardiovascular: Reports: syncope. Denies: chest pain, edema. Respiratory: Denies: cough, short of breath. GI: Reports: see HPI. Genitourinary: Denies: dysuria, hematuria. Musculoskeletal: Denies: muscle stiffness, neck pain. Skin: Denies: jaundice, lesions. Neurological/Psychological: Reports: tingling. Denies: cognitive dysfunction, headache. Hematologic/Endocrine: Denies: bruising, bleeding, polyuria. Immunologic/Allergic: Denies: HIV/AIDS. Exam & Diagnostic Data Vital Signs and I&O Vital Signs Date Time Temp Pulse Resp B/P B/P Pulse O2 O2 Flow FiO2 Mean Ox Delivery Rate 02/01 1600 96 Room Air 02/01 1600 97.3 82 20 110/80 96 Room Air 02/01 1200 96 Room Air 02/01 0830 92.6 82 16 94/62 95 Room Air 02/01 0823 94.0 76 16 98/62 99 Room Air 02/01 0800 95 Room Air 02/01 0623 98 Room Air 02/01 600 98.0 70 14 112/60 98 Room Air 02/01 0400 92/58 02/01 0102 98.6 85 16 92/54 98 Room Air Intake & Output 02/01 0400 01/31 0400 01/30 040 Intake Total 2404 600 3400 Output Total 1350 450 Balance 8919 362 4228 Intake, IV 1714 3000 Intake, Oral 690 600 400 Number 5 2 3 Bowel Movements Output, Urine 1350 450 Patient 96 lb 15.98 oz Weight Weight Reported by Patient Measurement Method Physical Exam: Well-developed malnourished white male. There is evidence of muscle mass such as thenar/hyperthenar and bitemporal. Skin is with normal turgor. There is no rash, lesion or jaundice. There is no adenopathy. There is a laceration adjacent to the right eyebrow, and periorbital hematoma. Sclera are anicteric. No oropharyngeal lesion. Tongue normal. No thyromegaly or neck mass. Heart regular rhythm. Lungs clear bilaterally. Abdomen is soft and nondistended with normal bowel sounds, and no tenderness, mass or organomegaly. Extremities without clubbing, cyanosis or edema. Pulses are normal. Results Pertinent Lab Results: Laboratory Tests 02/01 02/01 1530 1530 Toxicology Urine Opiates Screen (>2000 NG/ML) 153.00 Methadone Screen (>300 NG/ML) < 40 Barbiturate Screen (>200 NG/ML) < 60 Ur Phencyclidine Scrn (>25 NG/ML) < 6.00 Amphetamines Screen (>1000 NG/ML) < 100 U Benzodiazepines Scrn (>200 NG/ML) < 85 Urine Cocaine Screen (>300 NG/ML) < 50 Urine Cannabis Screen (>50 NG/ML) < 5.00 Urines Urine Color (YEL,AMB,STR) YEL Urine Clarity (CLEAR) CLEAR Urine pH (5.0 - 8.0) 6.0 Ur Specific [place] (1.001 - 1.035) <= 1.005 Urine Protein (NEG,<30 MG/DL) NEG Urine Ketones (NEG) NEG Urine Nitrite (NEG) NEG Urine Bilirubin (NEG) NEG Urine Urobilinogen (0.1 - 1.0 EU/dl) 0.2 Ur Leukocyte Esterase (NEG) NEG Ur Microscopic EXAM NOT REQUIRED Urine Hemoglobin (NEG) NEG Urine Osmolality (300 - 1000 MOSM/KG) 351 Ur Random Creatinine (mg/dL) 21.8 Ur Random Sodium (30 - 90 mmol/L) 86 Ur Random Potassium (mmol/L) 17.3 Fraction Sodium Excret (<1% %) 1.5 H Urine Glucose (N MG/DL) 500 H 02/01 02/01 05 1420 0630 0624 Chemistry Sodium (137 - 145 mmol/L) 132 L 136 L Potassium (3.5 - 5.1 mmol/L) 4.1 2.9 *L Chloride (98 - 107 mmol/L) 100 104 Carbon Dioxide (22 - 30 mmol/L) 25 25 Anion Gap (5 - 16) 7 7 BUN (9 - 20 mg/dL) 6 L 7 L Creatinine (0.7 - 1.2 mg/dL) 0.5 L 0.5 L Estimated GFR (>60 ml/min) > 60 > 60 BUN/Creatinine Ratio (7 - 25 %) 12.0 14.0 Serum Osmolality (285 - 295 MOSM/KG) 282 L Phosphorus (2.5 - 4.5 mg/dL) 2.9 Magnesium (1.6 - 2.3 mg/dL) 1.8 Creatine Kinase (55 - 170 U/L) 121 Troponin I (<0.11 ng/ml) < 0.01 Cancelled Vitamin B12 (239 - 931 pg/mL) 918 Folate (2.76 - 20.0 ng/mL) 11.0 Cortisol PM Sample (1.7 - 14.1) 12.9 Hematology CBC w Diff NO MAN DIFF REQ WBC (4.8 - 10.8 /CUMM) 7.4 RBC (4.70 - 6.10 /CUMM) 3.35 L Hgb (14.0 - 18.0 G/DL) 10.6 L Hct (42 - 52 %) 30.9 L MCV (80.0 - 94.0 FL) 92.4 MCH (27.0 - 31.0 PG) 31.6 H RDW (11.5 - 14.5 %) 13.5 Plt Count (130 - 400 /CUMM) 322 MPV (7.4 - 10.4 FL) 8.2 Gran % (42.2 - 75.2 %) 78.8 H Lymphocytes % (20.5 - 51.1 %) 15.0 L Monocytes % (1.7 - 9.3 %) 5.1 Eosinophils % (0 - 5 %) 0.8 Basophils % (0.0 - 2.0 %) 0.3 Absolute Granulocytes (1.4 - 6.5 /CUMM) 5.8 Absolute Lymphocytes (1.2 - 3.4 /CUMM) 1.1 L Absolute Monocytes (0.10 - 0.60 /CUMM) 0.4 Absolute Eosinophils (0.0 - 0.7 /CUMM) 0.1 Absolute Basophils (0.0 - 0.2 /CUMM) 0 PUBS MCHC (33.0 - 37.0 G/DL) 34.2 01/31 01/31 01/31 01/31 01/31 2035 1935 1935 1430 1310 Chemistry Lactic Acid (0.7 - 2.1 mmol/L) 2.1 3.5 H Troponin I (<0.11 ng/ml) < 0.01 < 0.01 Toxicology Urine Opiates Screen (>2000 NG/ML) < 100.00 Methadone Screen (>300 NG/ML) < 40 Barbiturate Screen (>200 NG/ML) < 60 Ur Phencyclidine Scrn (>25 NG/ML) < 6.00 Amphetamines Screen (>1000 NG/ML) < 100 U Benzodiazepines Scrn (>200 NG/ML) < 85 Urine Cocaine Screen (>300 NG/ML) < 50 Urine Cannabis Screen (>50 NG/ML) < 5.00 01/31 0712 Chemistry Sodium (137 - 145 mmol/L) 127 L Potassium (3.5 - 5.1 mmol/L) 4.4 Chloride (98 - 107 mmol/L) 92 L Carbon Dioxide (22 - 30 mmol/L) 26 Anion Gap (5 - 16) 9 BUN (9 - 20 mg/dL) 9 Creatinine (0.7 - 1.2 mg/dL) 0.6 L Estimated GFR (>60 ml/min) > 60 BUN/Creatinine Ratio (7 - 25 %) 15.0 Glucose (65 - 99 mg/dL) 448 H Calcium (8.4 - 10.2 mg/dL) 9.0 Phosphorus (2.5 - 4.5 mg/dL) 4.2 Magnesium (1.6 - 2.3 mg/dL) 2.0 Total Bilirubin (0.2 - 1.3 mg/dL) 0.7 AST (17 - 59 U/L) 58 ALT (21 - 72 U/L) 116 H Alkaline Phosphatase (< 127 U/L) 146 H Troponin I (<0.11 ng/ml) < 0.01 Total Protein (6.3 - 8.2 g/dL) 6.1 L Albumin (3.5 - 5.0 g/dL) 3.4 L Globulin (1.9 - 4.2 gm/dL) 2.7 Albumin/Globulin Ratio (1.1 - 2.2 %) 1.3 25-OH Vitamin D Total (30 - 100 ng/ml) 9.0 L Hematology CBC w Diff NO MAN DIFF REQ WBC (4.8 - 10.8 /CUMM) 9.0 RBC (4.70 - 6.10 /CUMM) 3.70 L Hgb (14.0 - 18.0 G/DL) 11.6 L Hct (42 - 52 %) 34.3 L MCV (80.0 - 94.0 FL) 92.9 MCH (27.0 - 31.0 PG) 31.3 H RDW (11.5 - 14.5 %) 13.0 Plt Count (130 - 400 /CUMM) 191 MPV (7.4 - 10.4 FL) 9.7 Gran % (42.2 - 75.2 %) 77.9 H Lymphocytes % (20.5 - 51.1 %) 15.7 L Monocytes % (1.7 - 9.3 %) 4.7 Eosinophils % (0 - 5 %) 1.6 Basophils % (0.0 - 2.0 %) 0.1 Absolute Granulocytes (1.4 - 6.5 /CUMM) 7.0 H Absolute Lymphocytes (1.2 - 3.4 /CUMM) 1.4 Absolute Monocytes (0.10 - 0.60 /CUMM) 0.4 Absolute Eosinophils (0.0 - 0.7 /CUMM) 0.1 Absolute Basophils (0.0 - 0.2 /CUMM) 0 PUBS MCHC (33.0 - 37.0 G/DL) 33.7 Toxicology Serum Alcohol (<10 MG/DL) < 10.0 Imaging/Other Studies: Stool for C. difficile toxin negative CT scan of the abdomen and pelvis unrevealing Assessment/Plan Assessment/Recommendations: Chronic diarrhea, significant weight loss, evidence of malnutrition. This may represent a primary GI disease or, very likely, a systemic illness. Outpatient evaluation heretofore negative for colitis, bacterial infection including vibrio , ova and parasites, Giardia, cryptosporidia, chronic pancreatitis, celiac disease. Differential diagnosis remains large and includes malabsorption, autonomic neuropathy, gastrointestinal amyloidosis, neuroendocrine tumor, etc. Recommendations * Check stool for C. difficile PCR, ova and parasites, Yersinia * Check INR * EGD/enteroscopy with biopsies, including for Congo Red stain * Further evaluation as per Dr. Granados, will resume the patient's care tomorrow Consult Acknowledgment - Thank you for your consult request.
[2017-02-02] VITALS: BP 100/50
[2017-02-02 04:00] VITALS: BP 116/78
[2017-02-02 05:08] LABS: ABSOLUTE BASOPHIL COUNT 0 /CUMM (0.0-0.2); ABSOLUTE EOSINOPHIL COUNT 0.2 /CUMM (0.0-0.7); ABSOLUTE GRANULOCYTE CT 4.1 /CUMM (1.4-6.5); ABSOLUTE LYMPH COUNT 1.2 /CUMM (1.2-3.4); ABSOLUTE MONOCYTE COUNT 0.4 /CUMM (0.10-0.60); BASOPHIL % 0.3 % (0.0-2.0); EOSINOPHIL % 3.4 % (0-5); GRANULOCYTE % 68.7 % (42.2-75.2); HEMATOCRIT 29.1 % (42-52); MEAN CORPUSCULAR HGB 31.5 PG (27.0-31.0); MEAN CORPUSCULAR HGB CONC 33.8 G/DL (33.0-37.0); MEAN CORPUSCULAR VOLUME 93.3 FL (80.0-94.0); MEAN PLATELET VOLUME 8.4 FL (7.4-10.4); PLATELET COUNT 290 /CUMM (130-400); RBC DISTRIBUTION WIDTH 13.5 % (11.5-14.5); RED BLOOD CELL CT 3.12 /CUMM (4.70-6.10); WHITE BLOOD CELL COUNT 5.9 /CUMM (4.8-10.8)
[2017-02-02 05:14] LABS: PT 11.4 SEC (9.4-12.5)
--- NOTE | 2017-02-02 07:02 | PN- Resident CRCU ---
See Addendum Subjective HPI/CRCU Issues: Patient transferred to the ICU yesterday morning due to hypothermia (rectal temp close to 94 degrees). Patient initiated on a bear hugger at that time and responded well. Patient was seen and examined at bedside this AM and offered no complaints. He reports he slept well and denies chest pain or shortness of breath. He does admit to occasional dizziness only on position changes. He also has had 2 bowel movements since midnight, noted to be loose but without blood. 24 Hour Events: Patient is currently NPO pending EGD today. Vitla signs in the last 24 hours: T 92.6 increased to 98.3 this AM with Tmax at 100.5 around midnight at which time he had blood and urine cultures drawn. HR 72-98, RR 16-20, BP 87-119/62-78, O2 95-96% on room air. Objective Vital Signs & I&O Last 8 Hrs of Vitals and I&O: Intake & Output 02/02 1600 Intake Total Output Total Balance Patient 96 lb Weight Exam General Appearance: no apparent distress, alert, awake, comfortable, thin Head: normal appearance, Right eyebrow laceration s/p closure with slight brusing Ears, Nose, Throat: normal pharynx, hearing grossly normal Neck: normal inspection, supple Respiratory: normal breath sounds, chest non-tender Cardiovascular: regular rate/rhythm Gastrointestinal: Slightly distended, no tenderness to palpation x 4 quadrants, normal bowel sounds x 4. Extremities: normal inspection, normal capillary refill Cranial Nerves: normal hearing, normal speech, PERRL Skin: normal color, warm/dry Nutrition Nutrition: NPO Current Medications: Current Medications Sig/Fay Start time Last Medication Dose Route Stop Time Status Admin Dextrose 25 GM ONCE ONE 02/01 1615 DC 02/01 IV 02/01 1616 1615 Dextrose/Sodium 1,000 ML Q10H 02/02 0830 AC 02/02 Chloride IV 0840 Enoxaparin Sodium 40 MG DAILY 01/31 1011 AC 02/02 SC 0955 Insulin Aspart 0 TIDAC 01/31 1200 AC 01/31 SC 1722 Insulin Detemir 10 UNITS QPM 01/31 220 AC 01/31 SC 215 Mirtazapine 7.5 MG AT BEDTIME 01/31 220 AC 02/01 PO 211 Multivitamins 1 TAB DAILY 02/01 1000 AC 02/02 PO 0955 Naloxone HCl 0.4 MG DAILY NEEDED PRN 02/01 0630 AC IV Potassium Chloride 40 MEQ Q8H 02/02 0030 DC 02/02 Dextrose/Sodium 1,000 ML IV 0109 Chloride Potassium Chloride 40 MEQ Q8H 02/01 0830 DC 02/01 Sodium Chloride 1,000 ML IV 1955 Vancomycin HCl 125 MG Q6 01/31 1447 DC 02/01 PO 1156 CXR Findings: IMPRESSION: Unremarkable examination. CT Scan Findings: Head CT: IMPRESSION: No acute intracranial pathology. Abd/pelvis CT: IMPRESSION: 1. Nonspecific mild fluid distention of the colon is seen without abnormal bowel wall thickening or hyperenhancement seen. 2. No evidence of bowel obstruction or perforation. 3. Prominent gaseous and fluid distention of the stomach. This is a nonspecific finding. Please correlate clinically for potential gastroparesis. Maxillofacial CT: IMPRESSION: 1. No acute intracranial abnormality. 2. Right periorbital soft tissue swelling. 3. No evidence of fracture of the maxillofacial bones or the osseous calvarium. Impression/Plan Impression/Problem List Impression: Mr. Sullivan is a pleasant 51 year old male with PMH cigarette abuse, alcoholism (quit September 2016), type 2 diabetes mellitus, peripheral neuropathy, chronic diarrhea with over 100 pound weight loss in the last year and history of clostridium difficile infection on prior admission who presents with chief complaint of fall with trauma to his head after experiencing weakness/dizziness along with chronic diarrhea. Vital signs in the ED: T 98.1, HR 70, RR 20, blood pressure of 98/60, O2 sat 97% on room air. Significant labs included: WBC 9, H&H 11.6/34, Plt 191, 127 (corrected was 135 for hyperglycemia), BUN/cre 9/0.6, AST 55, ALT 116, trop <0.01, albumin 3.4. EKG showed normal sinus rhythm, mild diffuse ST elevation. Patient is currently in the ICU and the following is the management: 1. Chronic diarrhea with significant weight loss * First c. diff sent found to be negative (oral vancomycin discontinued), second cdiff pending, follow up results * Consider sending CDiff PCR if second testing negative * Pancultured, follow up results * ID following, appreciate recommendations * Follow off antibiotics * HIV nonreactive, cortisol and TSH WNL * GI consult placed and appreciated * Prior colonoscopy negative for carcinoma * Patient NPO for EGD with Dr. Granados today, follow up biopsy results (including congo red stain and whipples) * F/U ova and parasite/Yersinia 2. Syncope vs mechanical fall * There is noted dizziness prior to fall resulting in right forehead abraison * Patient likely dehydrated secondary to chronic diarrhea and weak secondary to possbile malabsorptive process * Continue IVF for now * Vital signs Q shift * No evidence of arrhythmias on telemetry monitoring * Previous echo in Sep 2016 showed EF 55-60% * Patient stable for tranfer to the general medicine floor as per attending Dr. Greenfield 3. Malnutrition * Continue mirtazapine for appetite stimulation * Continue to encourse appropriate PO intake * Follow up with GI in regards to chronic diarrhea workup * Nutrition consult 4. Diabetes mellitus with hyperglycemia and normal anion gap on admission * Accuchecks TIDAC * Changed to low dose NSS today * Of note, patient has been noncompliant: was started on metformin thousand milligrams twice a day on previous admission in September 2016 however patient endorses that he has not been taking this * Continue levemir 10 U SC QPM 6. Lactic acidosis on admission * Lactic acid now within normal limits, watching patient off antibiotics * No known source of infection at this point in time, though patient is again having a c.diff sent and infectious diarrhea still considered; ischemic colitis on differential * Follow up pancultures * IVF to continue * Monitor CBC for leukocytosis 7. Hyponatremia * Corrected Na 135 which is close to normal * Follow BEP daily and optimize glucose control 8. Hyperkalemia * Stefan previously hypokalemic to 2.9 on 02/01/17 and is s/p repletion * K today slightly elevated to 5.2 * Fluids with KCL discontinued and will place patient on D51/2NS while NPO FULL CODE DVTP: SC Lovenox Diet: NPO pending EGD Problem List: 1. Hypothermia 2. Syncope and collapse 3. Chronic diarrhea 4. Weight loss 5. Fatigue 6. Laceration of right eyebrow 7. Dehydration 8. Lactic acidosis 9. Hyponatremia 10. Hypokalemia Pain Ratin Tomorrow's Labs & Rationales: CBC (monitor dropping H&H) ICU bundle (hyponatremia, hyperkalemia) Plan DVT/Prophylaxis: pharmacological
[2017-02-02 08:00] VITALS: BP 104/70
--- NOTE | 2017-02-02 11:06 | PN- Infect Dx ---
Subjective Subjective: MAXIMUM TEMPERATURE 100.5. He offers no complaints, with no nausea, vomiting or abdominal pain. He continues to have diarrhea, with 8 stools reported yesterday and 2 overnight. Objective Last 24 Hrs of Vital Signs/I&O Vital Signs Date Time Temp Pulse Resp B/P B/P Pulse O2 O2 Flow FiO2 Mean Ox Delivery Rate 02/03 800 99 Room Air Room Air 02/02 0800 98.9 86 20 104/70 99 Room Air Room Air 02/02 0400 98.3 96 18 116/78 96 Room Air 02/02 0000 98.3 98 18 100/50 95 Room Air 02/01 2000 98.3 76 18 118/70 96 Room Air 02/01 1600 96 Room Air 02/01 1600 97.3 82 20 110/80 96 Room Air 02/01 1200 96 Room Air Intake & Output 02/02 1600 02/02 0800 05 0000 Intake Total 1000 1480 Output Total 1800 1350 Balance -800 130 Intake, IV 1000 1000 Intake, Oral 0 480 Number 2 3 Bowel Movements Output, Urine 1800 1350 Patient 96 lb Weight Physical Exam Other Physical Findings: He appears comfortable in no acute distress Lungs are clear Heart regular rhythm with no murmur Abdomen is mildly distended, nontender, with positive bowel sounds Extremities no cyanosis, clubbing or edema Results Last 24 Hours of Lab Results: Laboratory Tests 02/02 02/01 0445 1530 Chemistry Sodium (137 - 145 mmol/L) 132 L Potassium (3.5 - 5.1 mmol/L) 5.2 H Chloride (98 - 107 mmol/L) 103 Carbon Dioxide (22 - 30 mmol/L) 25 Anion Gap (5 - 16) 5 BUN (9 - 20 mg/dL) 4 L Creatinine (0.7 - 1.2 mg/dL) 0.5 L Estimated GFR (>60 ml/min) > 60 Glucose (65 - 99 mg/dL) 167 H Calcium (8.4 - 10.2 mg/dL) 8.5 Phosphorus (2.5 - 4.5 mg/dL) 2.9 Magnesium (1.6 - 2.3 mg/dL) 1.8 Total Bilirubin (0.2 - 1.3 mg/dL) 0.4 AST (17 - 59 U/L) 40 ALT (21 - 72 U/L) 77 H Albumin (3.5 - 5.0 g/dL) 2.6 L TSH (0.270 - 4.200 uIU/mL) 1.100 Coagulation PT (9.4 - 12.5 SEC) 11.4 INR (0.90 - 1.17) 1.09 Hematology CBC w Diff NO MAN DIFF REQ WBC (4.8 - 10.8 /CUMM) 5.9 RBC (4.70 - 6.10 /CUMM) 3.12 L Hgb (14.0 - 18.0 G/DL) 9.8 L Hct (42 - 52 %) 29.1 L MCV (80.0 - 94.0 FL) 93.3 MCH (27.0 - 31.0 PG) 31.5 H RDW (11.5 - 14.5 %) 13.5 Plt Count (130 - 400 /CUMM) 290 MPV (7.4 - 10.4 FL) 8.4 Gran % (42.2 - 75.2 %) 68.7 Lymphocytes % (20.5 - 51.1 %) 20.6 Monocytes % (1.7 - 9.3 %) 7.0 Eosinophils % (0 - 5 %) 3.4 Basophils % (0.0 - 2.0 %) 0.3 Absolute Granulocytes (1.4 - 6.5 /CUMM) 4.1 Absolute Lymphocytes (1.2 - 3.4 /CUMM) 1.2 Absolute Monocytes (0.10 - 0.60 /CUMM) 0.4 Absolute Eosinophils (0.0 - 0.7 /CUMM) 0.2 Absolute Basophils (0.0 - 0.2 /CUMM) 0 PUBS MCHC (33.0 - 37.0 G/DL) 33.8 Serology HIV 1&2 Ab Western Blot (NONREACTIVE) NONREACTIVE Urines Urine Color (YEL,AMB,STR) YEL Urine Clarity (CLEAR) CLEAR Urine pH (5.0 - 8.0) 6.0 Ur Specific [place] (1.001 - 1.035) <= 1.005 Urine Protein (NEG,<30 MG/DL) NEG Urine Ketones (NEG) NEG Urine Nitrite (NEG) NEG Urine Bilirubin (NEG) NEG Urine Urobilinogen (0.1 - 1.0 EU/dl) 0.2 Ur Leukocyte Esterase (NEG) NEG Ur Microscopic EXAM NOT REQUIRED Urine Hemoglobin (NEG) NEG Urine Glucose (N MG/DL) 500 H 0509 05 1530 1420 Chemistry Sodium (137 - 145 mmol/L) 132 L Potassium (3.5 - 5.1 mmol/L) 4.1 Chloride (98 - 107 mmol/L) 100 Carbon Dioxide (22 - 30 mmol/L) 25 Anion Gap (5 - 16) 7 BUN (9 - 20 mg/dL) 6 L Creatinine (0.7 - 1.2 mg/dL) 0.5 L Estimated GFR (>60 ml/min) > 60 BUN/Creatinine Ratio (7 - 25 %) 12.0 Serum Osmolality (285 - 295 MOSM/KG) 282 L Creatine Kinase (55 - 170 U/L) 121 Vitamin B12 (239 - 931 pg/mL) 918 Folate (2.76 - 20.0 ng/mL) 11.0 Cortisol PM Sample (1.7 - 14.1) 12.9 Hematology CBC w Diff NO MAN DIFF REQ WBC (4.8 - 10.8 /CUMM) 7.4 RBC (4.70 - 6.10 /CUMM) 3.35 L Hgb (14.0 - 18.0 G/DL) 10.6 L Hct (42 - 52 %) 30.9 L MCV (80.0 - 94.0 FL) 92.4 MCH (27.0 - 31.0 PG) 31.6 H RDW (11.5 - 14.5 %) 13.5 Plt Count (130 - 400 /CUMM) 322 MPV (7.4 - 10.4 FL) 8.2 Gran % (42.2 - 75.2 %) 78.8 H Lymphocytes % (20.5 - 51.1 %) 15.0 L Monocytes % (1.7 - 9.3 %) 5.1 Eosinophils % (0 - 5 %) 0.8 Basophils % (0.0 - 2.0 %) 0.3 Absolute Granulocytes (1.4 - 6.5 /CUMM) 5.8 Absolute Lymphocytes (1.2 - 3.4 /CUMM) 1.1 L Absolute Monocytes (0.10 - 0.60 /CUMM) 0.4 Absolute Eosinophils (0.0 - 0.7 /CUMM) 0.1 Absolute Basophils (0.0 - 0.2 /CUMM) 0 PUBS MCHC (33.0 - 37.0 G/DL) 34.2 Toxicology Urine Opiates Screen (>2000 NG/ML) 153.00 Methadone Screen (>300 NG/ML) < 40 Barbiturate Screen (>200 NG/ML) < 60 Ur Phencyclidine Scrn (>25 NG/ML) < 6.00 Amphetamines Screen (>1000 NG/ML) < 100 U Benzodiazepines Scrn (>200 NG/ML) < 85 Urine Cocaine Screen (>300 NG/ML) < 50 Urine Cannabis Screen (>50 NG/ML) < 5.00 Urines Urine Osmolality (300 - 1000 MOSM/KG) 351 Ur Random Creatinine (mg/dL) 21.8 Ur Random Sodium (30 - 90 mmol/L) 86 Ur Random Potassium (mmol/L) 17.3 Fraction Sodium Excret (<1% %) 1.5 H Last 24 Hours of Brad Results: Blood cultures 2 February 01 negative Stool C. difficile January 31 negative Recent Imaging Studies: CT of the abdomen and pelvis with IV contrast February 01 reveals marked fluid and gas distention of the stomach with a large air-fluid level seen, similar to his previous CT scan findings, and felt to be consistent with gastroparesis; no definite colonic wall thickening or hyperenhancement and no evidence of bowel obstruction or perforation Assessment/Plan Impression: Stable off antibiotics with hypothermia resolved, and actually with a low-grade fever overnight, with white blood cell count remaining normal. His C. difficile toxin test was negative and the CT scan did not reveal any evidence for colitis; therefore C. difficile seems less likely and the empiric treatment with Vancomycin was discontinued.. The etiology of his chronic diarrhea and weight loss remains unclear and he is scheduled for an upper endoscopy later today. Suggestion: 1. Repeat stool for C. difficile 2. Send stool for PCR for C. difficile if above test is negative and diarrhea persists 3. Await upper endoscopy later today 4. Continue to follow off antibiotics pending above
--- NOTE | 2017-02-02 12:20 | Proc Note Endoscopy ---
Endoscopy Procedure Medical History: unchanged (see meditech consult) Mental Status: alert/oriented Heart/Lung Eval Prior to Sedation: within normal limits Candidate for Sedation? Yes Procedure Date: 02/02/17 Procedure Type: EGD w/biopsy Cold Storage Worker: Bo Granados MD ASA Classification: III Indications: Unexplained weight loss. Anemia. Instrument: diagnostic gastroscope Meds Received: MAC Patient's Tolerance: good Complications: none Extent Reached: second part of duodenum Procedure: After getting written informed consent the patient was placed in the left lateral decubitus position with pulse oximetry, cardiac monitoring, and supplemental oxygen given. A bite block was inserted and IV sedation was given until the desired effect was achieved. A high definition upper Olympus endoscope was then inserted into the mouth and advanced to the second portion of the duodenum with little difficulty. Retroflexed views and photodocumentation was obtained. Findings: Esophagus: The esophageal mucosa was grossly normal in appearance and there was a normal-appearing Z line at 44 cm from the incisors. There were no esophageal strictures, ulcers, masses or erosions appreciated. Stomach: The gastric mucosa was diffusely atrophic in appearance, but there were no ulcers, erosions, or masses appreciated. Distention was normal, but there was a moderate amount of leftover liquid and solid food and peristalsis appeared decreased. The pylorus was patent and easily traversable by the upper endoscope. Retroflexed views revealed some leftover food, but no significant hiatal hernia. Random biopsies were obtained from the antrum and body of the stomach with cold biopsy forceps and were sent to pathology further evaluation. Duodenum: The duodenal bulb, sweep, and folds were grossly normal in appearance. Random biopsies were obtained from the second portion of the duodenum and were sent to pathology for further evaluation. Impression: 1. Atrophic gastritis and suggestion of gastroparesis status post gastric biopsies. 2. Grossly normal small bowel folds status post random biopsies. Recommendations: 1. His diet should be advanced as tolerated. 2. He should follow up the pathology results with me as an outpatient. 3. Further recommendations will made pending the results of the pathology and his clinical course. CC: REGINA PEGUERO,LALA
--- NOTE | 2017-02-02 13:37 | NUR ---
PT BROUGHT TO THE GI SUITE VIA STRETCHER AT 1130 FOR AN EGD. RETURNED AT 1330 AND TRANSFERRED SELF TO BED W/O INCIDENT. OFFERS NO C/O.
[2017-02-02 16:00] VITALS: BP 110/64
[2017-02-02 18:47] VITALS: BP 112/60
[2017-02-02 22:35] VITALS: BP 82/62
[2017-02-03] VITALS (8 sets, daily range): BP systolic 59–111; BP diastolic 42–66
--- NOTE | 2017-02-03 07:59 | NUR ---
0730 PT BP 76/45 AND ASYMPTOMATIC. PT PUT IN TRENDELENBERG POSITION WITH FEET ELEVATED. 0740 CELL LEAD KRUNAL AWARE AND WILL RECHECK BP IN 20 MIN. 0800 PT BP WITH AUTO PEDI CUFF WAS 75/49. PER MD HECTOR TO BOLUS PT WITH 500ML NS AND RECHECK BP. WILL CONTINUE TO MONITOR PT.
[2017-02-03 08:09] LABS: ABSOLUTE BASOPHIL COUNT 0 /CUMM (0.0-0.2); ABSOLUTE EOSINOPHIL COUNT 0.3 /CUMM (0.0-0.7); ABSOLUTE GRANULOCYTE CT 2.5 /CUMM (1.4-6.5); ABSOLUTE LYMPH COUNT 1.4 /CUMM (1.2-3.4); ABSOLUTE MONOCYTE COUNT 0.4 /CUMM (0.10-0.60); BASOPHIL % 0.7 % (0.0-2.0); EOSINOPHIL % 5.9 % (0-5); GRANULOCYTE % 53.7 % (42.2-75.2); HEMATOCRIT 28.2 % (42-52); MEAN CORPUSCULAR HGB 31.3 PG (27.0-31.0); MEAN CORPUSCULAR HGB CONC 33.8 G/DL (33.0-37.0); MEAN CORPUSCULAR VOLUME 92.7 FL (80.0-94.0); MEAN PLATELET VOLUME 8.3 FL (7.4-10.4); PLATELET COUNT 310 /CUMM (130-400); RBC DISTRIBUTION WIDTH 13.4 % (11.5-14.5); RED BLOOD CELL CT 3.05 /CUMM (4.70-6.10); WHITE BLOOD CELL COUNT 4.7 /CUMM (4.8-10.8)
--- NOTE | 2017-02-03 08:58 | PN- Housestaff ---
CLEMENT PEGUERO,KRUNAL 02/03/17 0857: Subjective Follow-up For: Syncope/fall Diarrhea Subjective: Patient is seen and examined at bedside. Patient was transferred from ICU overnight and downgraded to [facility]. Patient still reports about 3-4 loose bowel movements during overnight, he denies any blood in stool. He also endorses some tingling in his upper and lower extremities which he states is not new(chronic). Overnight event of hypotension with systolic blood pressure of 82 requiring 500 mils of normal saline bolus and an increment of his maintenance fluid. Review of Systems Constitutional: Reports: no symptoms. Objective Last 24 Hrs of Vital Signs/I&O Vital Signs Date Time Temp Pulse Resp B/P B/P Pulse O2 O2 Flow FiO2 Mean Ox Delivery Rate 02/03 0813 99.3 85 20 76/46 98 Room Air 02/03 0000 Room Air 02/02 2235 98.7 97 20 82/62 100 Room Air 02/02 1847 97.1 97 16 112/60 100 Room Air 02/02 1600 97 Room Air Room Air 02/02 1600 96.0 84 18 110/64 97 Room Air Room Air Intake & Output 02/03 1600 02/03 0800 02/03 0000 Intake Total 945 500 Output Total 700 1 Balance 245 499 Intake, IV 725 300 Intake, Oral 220 200 Output, Urine 700 1 Physical Exam General Appearance: Alert, Oriented X3, Cooperative Skin: No Rashes, No Breakdown Cardiovascular: Regular Rate, Normal S1, Normal S2 Lungs: Clear to Auscultation, Normal Air Movement Abdomen: Normal Bowel Sounds, Soft, No Tenderness Neurological: Normal Speech, Sensation Intact Assessment/Plan Assessment: This is is a 51 YO male current active smoker, past alcoholism (quit in September 2016), no illicit drug abuse with past medical history of type 2 diabetes mellitus with peripheral neuropathy, chronic diarrhea, previous multiple falls with syncopal episodes, depression came in with chief complain of an 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 Vitals on presentation temperature of 98.1, pulse of 70, respiratory rate of 20, blood pressure of 98/60, he was saturating 97% on room air. Relevant labs, no white count, H/H stable, platelets of 191 and (baseline). Sodium low at 127, corrected sodium for hyperglycemia noted to be 135. BUN and creatinine 9/0.6. AST 58, ALT 116, alkaline phosphatase 146, mildly elevated, initial serum troponin negative less than 0.01. Total protein of 6.1 and albumin of 3.4 borderline low. EKG showed normal sinus rhythm, mild diffuse ST elevation. patient initial low blood pressure improved after 2 L of normal saline bolus at the emergency department. He was sutured at the ER on the right eyebrow where he suffered the laceration after the fall. Urine toxicology essentially negative, serum alcohol less than 10.0. C. difficile toxin was sent along with stool culture and sensitivity to be followed. Impression/Plan 1.Hypotension Patient BP was WNL earlier yesterday and was downgraded from ICU to gen med. Pt become hypotensive around 10 pm with SBP of 82 requiring 500 mls bolus. Possible etiology includes hypovolemia 2/2 to persistent diarrhea. He is also noted to have significant orthostatic hypotension. Less likely this is from cardiac etiology as no arythmias were noted in telemetry monitoring and patient does not have any underlying cardiac abnmnormalities.It is very possible that patient has autonomic dysfunction (chronic diarrhea and hypotension in a diabetic patient). s/p 500 ML NS bolus X2, Will switch fluid to NS at 125ml/hr, and may consider midrodine if hypotension persitent. 2. Chronic diarrhea with significant weight loss Initial C. difficile stool toxin negative awaiting second one. Still negative and patient continues to have persistent diarrhea we'll send PCR. Stool ova and parasite and Yersinia pending. HIV screen negative, cryptosporidum less likely. For now we'll continue to manage without antibiotics and will continue to follow ID recommendations (appreciated). The hypotensive episodes in the setting of continous loose stool bowels is concernig, We will also consult with ID regarding considering loperamide use. 3. Malnutrition Severe protein calorie malnutrition as evidenced by a very low BMI of 14, and a weight loss of 50% of body weight with an albumin of 2.6. * Continue mirtazapine for appetite stimulation * Continue to encourse appropriate PO intake including Glucerna 3 times a day and monitor scale twice a week per nutrition recommendation (appreciated) * Follow up with GI in regards to chronic diarrhea workup 4. Diabetes mellitus with hyperglycemia and normal anion gap on admission * Accuchecks TIDAC * Changed to very low dose NSS today * Stop Levemir in setting of repeated episodes of hypoglycemia Problem List: 1. Weight loss, unintentional 2. Uncontrolled diabetes mellitus Pain Ratin Pain Location: none Pain Goal: Pain 4 or less Pain Plan: per pain pathway Tomorrow's Labs & Rationales: BEP CBC SEEMA PEGUERO,HELEN 02/03/17 1203: Attending MD Review Statement Attending Statement Attending MD Statement: examined this patient, discuss w/resident/PA/MOTEL FRONT DESK ATTENDANT, agreed w/resident/PA/MOTEL FRONT DESK ATTENDANT, reviewed EMR data (avail), discussed with nursing, discussed with case mgmt, reviewed images, amended to note Attending Assessment/Plan: Patient seen and examined, he had a rapid response earlier today. He became hypoglycemic and hypotensive. After receiving IV fluids as well as an amp of D50, blood sugars came up and blood pressure came up. He was confused secondary to hypoglycemia initially but then later on regained his state of mind. Vital Signs Date Time Temp Pulse Resp B/P B/P Pulse O2 O2 Flow FiO2 Mean Ox Delivery Rate 02/03 1102 111/66 02/03 0920 80/54 02/03 0900 59/42 02/03 0813 99.3 85 20 76/46 98 Room Air 02/03 0000 Room Air 02/02 2235 98.7 97 20 82/62 100 Room Air 02/02 1847 97.1 97 16 112/60 100 Room Air 02/02 1600 97 Room Air Room Air 02/02 1600 96.0 84 18 110/64 97 Room Air Room Air on exam; aox3, nad. cv; s1,s2, rrr resp; clear abd; soft, nt, bs+ ext; no edema. Laboratory Tests 02/03 0736 Chemistry Sodium (137 - 145 mmol/L) 137 Potassium (3.5 - 5.1 mmol/L) 4.0 Chloride (98 - 107 mmol/L) 105 Carbon Dioxide (22 - 30 mmol/L) 26 Anion Gap (5 - 16) 6 BUN (9 - 20 mg/dL) 3 L Creatinine (0.7 - 1.2 mg/dL) 0.5 L Estimated GFR (>60 ml/min) > 60 Glucose (65 - 99 mg/dL) 93 Calcium (8.4 - 10.2 mg/dL) 8.8 Phosphorus (2.5 - 4.5 mg/dL) 3.3 Magnesium (1.6 - 2.3 mg/dL) 1.6 Total Bilirubin (0.2 - 1.3 mg/dL) 0.4 AST (17 - 59 U/L) 50 ALT (21 - 72 U/L) 79 H Albumin (3.5 - 5.0 g/dL) 2.5 L Hematology CBC w Diff NO MAN DIFF REQ WBC (4.8 - 10.8 /CUMM) 4.7 L RBC (4.70 - 6.10 /CUMM) 3.05 L Hgb (14.0 - 18.0 G/DL) 9.5 L Hct (42 - 52 %) 28.2 L MCV (80.0 - 94.0 FL) 92.7 MCH (27.0 - 31.0 PG) 31.3 H RDW (11.5 - 14.5 %) 13.4 Plt Count (130 - 400 /CUMM) 310 MPV (7.4 - 10.4 FL) 8.3 Gran % (42.2 - 75.2 %) 53.7 Lymphocytes % (20.5 - 51.1 %) 30.4 Monocytes % (1.7 - 9.3 %) 9.3 Eosinophils % (0 - 5 %) 5.9 H Basophils % (0.0 - 2.0 %) 0.7 Absolute Granulocytes (1.4 - 6.5 /CUMM) 2.5 Absolute Lymphocytes (1.2 - 3.4 /CUMM) 1.4 Absolute Monocytes (0.10 - 0.60 /CUMM) 0.4 Absolute Eosinophils (0.0 - 0.7 /CUMM) 0.3 Absolute Basophils (0.0 - 0.2 /CUMM) 0 PUBS MCHC (33.0 - 37.0 G/DL) 33.8 A/P; 51-year-old male with past medical history significant for diabetes, chronic alcoholism, chronic diarrhea who was admitted with a syncopal episode, acute and chronic diarrhea. So far stool C. difficile result is negative. Patient continues to get hypoglycemic as well as hypotensive. Partially this could be happening secondary to Levemir as well as the oral hypoglycemics. Patient also has protein calorie malnutrition. At this point we have consulted cardiology who did not recommend starting anything unless the patient has endocrinology evaluation. And apparently consult has been obtained and we will follow their recommendations. Please discuss ID and GI about starting the patient on antidiarrheals if his repeat stool for C. difficile is negative. DVT px; Lovenox.
--- NOTE | 2017-02-03 10:43 | Cons- Cardiology ---
General Information and HPI Consulting Request Date of Consult: 02/03/17 Requested By: HELEN STEPHENSON MD Reason for Consult: Hypotension Source of Information: patient, old records Exam Limitations: poor historian History of Present Illness: History of Present Illness: Mr. 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 Patient reports that he has been having diarrhea for past year or so and owrsening for last few months with some relief from Imodium and endorses anywhere from 4 to more than 10 bowel movements/day.He was found to have C difficile positive on last admission in Sep 2016 and was treated with metronidazole. At this admission, he reports that,he got up early in the morning around 4:30 AM to use the bathroom, when he felt weak and his legs felt wobbly, he felt lightheaded and dizzy, and while he was on the commode he fell forward and hit his right eyebrow and passed out for unknown period of time (probably minutes) and noted that he was bleeding when he was aware of surroundings again. He lives with his sister, and he made his siste aware within 15-20 minutes of the event, so the assumption is that he was not on the floor for more than a few minutes. He denied any seizure-like activity, any tongue bite, loss of bowel or bladder control, any chest pain, nausea, vomiting, any recent cold or cough congestion. However he did report that on and off he feels like his heart is racing and after the episode he did feel mild ringing in the ears, he was lightheaded and dizzy prior to the episode, and he felt hot and cold flashes after the episode. Patient was diagnosed with type 2 diabetes mellitus a year ago and was started on metformin thousand twice a day. The patient does not take his medications. He was also started on mirtazapine on last admission September 2016 for depression. He endorses a history of losing more than ??100 pounds ( was 200ish 2 years ago) over the past year despite no changes in his appetite, however he does have this chronic diarrhea which was being worked up by GI, he was found to be positive for c difficile and was treated with metronidazole in sep 2016. He has had a colonoscopy in September 2016 with biopsy negative for any carcinoma. He has a history of chronic alcoholism and drank half pint of alpa since he was 16 years old however he claims to have quit drinking completely since September 2016 after his last admission. His last drink was also in September 2016. He was also started on gabapentin for peripheral neuropathy however after taking the medication he felt for the more lightheaded and dizzy therefore the medication was discontinued by PCP. He endorses depression however denied any suicidal or homicidal ideation, does not take mirtazapine which was prescribed. Due to recurrent falls, he moved in with his sister in June 2016. The above HPI was obtained by the resident. Mr. Gen hathaway endorses the above history of present illness. He has seen Dr. Robi Pineda from [place] the last visit was about a year ago. He admits that he has not sought medical care. He has been very limited and ambulation because of chronic diarrhea for the past year or so, with resultant weight loss of nearly 100 pounds. He has not sought medical care for this. However he denies any specific cardiac symptoms of chest pains or unusual shortness of breath although his limited activity precludes accurate assessment of cardiovascular status. He has been treated only recently for diabetes. Consultation was called to evaluate cardiac reason for orthostatic hypotension and and hypotension. Allergies/Medications Allergies: Coded Allergies: No Known Allergies (01/31/17) Home Med List: Gabapentin 100 MG CAPSULE 100 MG PO Q8 mood disorder Metformin HCl (Glucophage) 1,000 MG TABLET 1 TAB PO BID DIABETES (Reported) Mirtazapine (Remeron) 15 MG TABLET 7.5 MG PO AT BEDTIME mood disorder Multivitamin (Multi-Day Vitamins) 1 EACH TABLET 1 TAB PO DAILY SUPPLEMENT ( Reported) Current Medications: Current Medications Sig/Fay Start time Last Medication Dose Route Stop Time Status Admin Chlorhexidine 1 GM .STK-MED ONE 02/02 1338 DC Gluconate TOP 02/02 1339 Dextrose/Sodium 1,000 ML Q10H 02/02 0830 DC 02/03 Chloride IV 0300 Enoxaparin Sodium 40 MG DAILY 01/31 1011 AC 02/02 SC 0955 Ergocalciferol 50,000 IU QTHURS 02/03 1000 AC PO Insulin Aspart 0 TIDAC 01/31 1200 AC 02/02 SC 1631 Insulin Detemir 10 UNITS QPM 01/31 2200 AC 02/02 SC 2200 Mirtazapine 7.5 MG AT BEDTIME 02/02 2230 AC 02/02 PO 2200 Mirtazapine 7.5 MG AT BEDTIME 01/31 2200 DC 02/01 PO 2115 Multivitamins 1 TAB DAILY 02/01 1000 AC 02/02 PO 0955 Naloxone HCl 0.4 MG DAILY NEEDED PRN 02/01 0630 AC IV Sodium Chloride 1,000 ML Q8H 02/03 0900 AC 02/03 IV 0920 Sodium Chloride 500 ML BOLUS ONE 02/03 0815 DC 02/03 IV 02/03 0914 0814 Sodium Chloride 500 ML BOLUS ONE 02/02 2300 DC 02/02 IV 02/02 2359 2303 Review of Systems Review of Systems Constitutional: Reports: see HPI. EENTM: Denies: no symptoms. Cardiovascular: Denies: no symptoms. Respiratory: Denies: no symptoms. GI: Reports: see HPI. Genitourinary: Denies: no symptoms. Musculoskeletal: Denies: no symptoms. Skin: Denies: no symptoms. Neurological/Psychological: Reports: see HPI. Hematologic/Endocrine: Denies: no symptoms. Immunologic/Allergic: Denies: no symptoms. 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 Home Who Do You Live With? sister Services at Home: None Primary Language: Cypriot Smoking Status: Current Everyday Smoker ETOH Use: heavy use quit in sep 2016 Illicit Drug Use: denies illicit drug use Living Will? no Power of Supervisor [employer] Former/HCP? no Functional Ability ADLs Independent: dressing, eating, toileting, bathing. Ambulation: cane, walker IADLs Independent: shopping, housework, finances, food prep, telephone, transportation , medication admin. 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 ECHO Results (as available) EF% 55 Report: Normal left radical systolic function. No significant valvular abnormalities noted. Exam & Diagnostic Data Vital Signs and I&O Vital Signs Date Time Temp Pulse Resp B/P B/P Pulse O2 O2 Flow FiO2 Mean Ox Delivery Rate 02/03 0900 59/42 02/03 0813 99.3 85 20 76/46 98 Room Air 02/03 0000 Room Air 02/02 2235 98.7 97 20 82/62 100 Room Air 02/02 1847 97.1 97 16 112/60 100 Room Air 02/02 1600 97 Room Air Room Air 02/02 1600 96.0 84 18 110/64 97 Room Air Room Air Intake & Output 02/03 0802/03 0000 02/02 1600 02/02 0802/02 0000 Intake Total 090 636 6983 1000 1480 Output Total 700 1 1300 1800 1350 Balance 245 499 -60 -800 130 Intake, IV 239 615 2526 1000 1000 Intake, Oral 220 200 100 0 480 Number 2 3 Bowel Movements Output, Urine 700 1 1300 1800 1350 Patient 96 lb Weight Physical Exam: On general exam the patient deployed appeared cachectic Head normocephalic/atraumatic. Right supraorbital suture noted Eyes sclera anicteric conjunctiva showed mild pallor extraocular muscles were normal Neck no jugular venous distention no thyroid masses no palpable nodes Chest lungs were clear bilaterally next and heart regular rhythm with a 1/6 systolic murmur Abdomen soft scaphoid bowel sounds normal no organomegaly nontender Extremities no clubbing cyanosis or edema Neurological no gross motor or sensory deficits Labs/Brad Results: Laboratory Tests 02/03 02/02 0736 0445 Chemistry Sodium (137 - 145 mmol/L) 137 132 L Potassium (3.5 - 5.1 mmol/L) 4.0 5.2 H Chloride (98 - 107 mmol/L) 105 103 Carbon Dioxide (22 - 30 mmol/L) 26 25 Anion Gap (5 - 16) 6 5 BUN (9 - 20 mg/dL) 3 L 4 L Creatinine (0.7 - 1.2 mg/dL) 0.5 L 0.5 L Estimated GFR (>60 ml/min) > 60 > 60 Glucose (65 - 99 mg/dL) 93 167 H Calcium (8.4 - 10.2 mg/dL) 8.8 8.5 Phosphorus (2.5 - 4.5 mg/dL) 3.3 2.9 Magnesium (1.6 - 2.3 mg/dL) 1.6 1.8 Total Bilirubin (0.2 - 1.3 mg/dL) 0.4 0.4 AST (17 - 59 U/L) 50 40 ALT (21 - 72 U/L) 79 H 77 H Albumin (3.5 - 5.0 g/dL) 2.5 L 2.6 L TSH (0.270 - 4.200 uIU/mL) 1.100 Coagulation PT (9.4 - 12.5 SEC) 11.4 INR (0.90 - 1.17) 1.09 Hematology CBC w Diff NO MAN DIFF REQ NO MAN DIFF REQ WBC (4.8 - 10.8 /CUMM) 4.7 L 5.9 RBC (4.70 - 6.10 /CUMM) 3.05 L 3.12 L Hgb (14.0 - 18.0 G/DL) 9.5 L 9.8 L Hct (42 - 52 %) 28.2 L 29.1 L MCV (80.0 - 94.0 FL) 92.7 93.3 MCH (27.0 - 31.0 PG) 31.3 H 31.5 H RDW (11.5 - 14.5 %) 13.4 13.5 Plt Count (130 - 400 /CUMM) 310 290 MPV (7.4 - 10.4 FL) 8.3 8.4 Gran % (42.2 - 75.2 %) 53.7 68.7 Lymphocytes % (20.5 - 51.1 %) 30.4 20.6 Monocytes % (1.7 - 9.3 %) 9.3 7.0 Eosinophils % (0 - 5 %) 5.9 H 3.4 Basophils % (0.0 - 2.0 %) 0.7 0.3 Absolute Granulocytes (1.4 - 6.5 /CUMM) 2.5 4.1 Absolute Lymphocytes (1.2 - 3.4 /CUMM) 1.4 1.2 Absolute Monocytes (0.10 - 0.60 /CUMM) 0.4 0.4 Absolute Eosinophils (0.0 - 0.7 /CUMM) 0.3 0.2 Absolute Basophils (0.0 - 0.2 /CUMM) 0 0 PUBS MCHC (33.0 - 37.0 G/DL) 33.8 33.8 Serology HIV 1&2 Ab Western Blot (NONREACTIVE) NONREACTIVE 02/01 02/01 1530 1530 Toxicology Urine Opiates Screen (>2000 NG/ML) 153.00 Methadone Screen (>300 NG/ML) < 40 Barbiturate Screen (>200 NG/ML) < 60 Ur Phencyclidine Scrn (>25 NG/ML) < 6.00 Amphetamines Screen (>1000 NG/ML) < 100 U Benzodiazepines Scrn (>200 NG/ML) < 85 Urine Cocaine Screen (>300 NG/ML) < 50 Urine Cannabis Screen (>50 NG/ML) < 5.00 Urines Urine Color (YEL,AMB,STR) YEL Urine Clarity (CLEAR) CLEAR Urine pH (5.0 - 8.0) 6.0 Ur Specific [place] (1.001 - 1.035) <= 1.005 Urine Protein (NEG,<30 MG/DL) NEG Urine Ketones (NEG) NEG Urine Nitrite (NEG) NEG Urine Bilirubin (NEG) NEG Urine Urobilinogen (0.1 - 1.0 EU/dl) 0.2 Ur Leukocyte Esterase (NEG) NEG Ur Microscopic EXAM NOT REQUIRED Urine Hemoglobin (NEG) NEG Urine Osmolality (300 - 1000 MOSM/KG) 351 Ur Random Creatinine (mg/dL) 21.8 Ur Random Sodium (30 - 90 mmol/L) 86 Ur Random Potassium (mmol/L) 17.3 Fraction Sodium Excret (<1% %) 1.5 H Urine Glucose (N MG/DL) 500 H 02/01 1420 Chemistry Sodium (137 - 145 mmol/L) 132 L Potassium (3.5 - 5.1 mmol/L) 4.1 Chloride (98 - 107 mmol/L) 100 Carbon Dioxide (22 - 30 mmol/L) 25 Anion Gap (5 - 16) 7 BUN (9 - 20 mg/dL) 6 L Creatinine (0.7 - 1.2 mg/dL) 0.5 L Estimated GFR (>60 ml/min) > 60 BUN/Creatinine Ratio (7 - 25 %) 12.0 Serum Osmolality (285 - 295 MOSM/KG) 282 L Creatine Kinase (55 - 170 U/L) 121 Vitamin B12 (239 - 931 pg/mL) 918 Folate (2.76 - 20.0 ng/mL) 11.0 Cortisol PM Sample (1.7 - 14.1) 12.9 Hematology CBC w Diff NO MAN DIFF REQ WBC (4.8 - 10.8 /CUMM) 7.4 RBC (4.70 - 6.10 /CUMM) 3.35 L Hgb (14.0 - 18.0 G/DL) 10.6 L Hct (42 - 52 %) 30.9 L MCV (80.0 - 94.0 FL) 92.4 MCH (27.0 - 31.0 PG) 31.6 H RDW (11.5 - 14.5 %) 13.5 Plt Count (130 - 400 /CUMM) 322 MPV (7.4 - 10.4 FL) 8.2 Gran % (42.2 - 75.2 %) 78.8 H Lymphocytes % (20.5 - 51.1 %) 15.0 L Monocytes % (1.7 - 9.3 %) 5.1 Eosinophils % (0 - 5 %) 0.8 Basophils % (0.0 - 2.0 %) 0.3 Absolute Granulocytes (1.4 - 6.5 /CUMM) 5.8 Absolute Lymphocytes (1.2 - 3.4 /CUMM) 1.1 L Absolute Monocytes (0.10 - 0.60 /CUMM) 0.4 Absolute Eosinophils (0.0 - 0.7 /CUMM) 0.1 Absolute Basophils (0.0 - 0.2 /CUMM) 0 PUBS MCHC (33.0 - 37.0 G/DL) 34.2 Diagnostic Data EKG Results Sinus within normal limits CXR Results ClearIMPRESSION: Unremarkable examination. Other Results CT scan of the abdomen1. Nonspecific mild fluid distention of the colon is seen without abnormal bowel wall thickening or hyperenhancement seen. 2. No evidence of bowel obstruction or perforation. 3. Prominent gaseous and fluid distention of the stomach. This is a nonspecific finding. Please correlate clinically for potential gastroparesis. CT scan of the headNo acute intracranial pathology. Assessment/Plan Assessment/Plan In summary this 51-year-old gentleman was admitted with the following problems #1. Chronic diarrhea. This has resulted in a weight loss of nearly 100 pounds. He appears cachectic from probable malabsorption. Etiology of diarrhea is being worked up. Enteropathy, malabsorption and occult malignancy is being considered. Suggest up to a labs for HIV. #2. Diabetes mellitus. The onset of treatment for diabetes. Has been rather recent. This. Appears to be quite short to develop neuropathy. Unless he has had diabetes for extended period of time with the went undetected. Suggest endocrinology consult. #3 Cachectic appearance and marked weight loss. PM cortisol level was apparently normal. Endocrinology suggestion still considering regarding Valentín 's disease. Chronic anemia is noted. Malabsorption is being worked up. #4 Hypotension probably orthostatic. There does not appear to be any significant cardiac etiology. The patient has a normal resting electrocardiogram, no evidence of arrhythmia and normal left ventricular and right ventricle systolic function with no valvular abnormalities. I suspect his chronic diarrhea is causing volume depletion although this is not seen in his in any prerenal lab values. Vigorous hydration and perhaps salt tablets might be suggested. Autonomic neuropathy would be a less likely cause considering the duration of his diabetes. But I would defer this to endocrinology. Summary this 51-year-old gentleman has a chronic underlying condition the etiology of which is still undetermined that is caused weight loss and diarrhea. I do not see any cardiac etiology from his EKG echocardiogram or telemetry recording to account for hypotension. Autonomic neuropathy is a possibility and compression stockings is suggested. However chronic volume depletion might be more the underlying etiology. Deferred to endocrinology for the moment. Midodrine may also be considered at a later stage. Consult Acknowledgment - Thank you for your consult request.
--- NOTE | 2017-02-03 11:04 | PN- Infect Dx ---
Subjective Subjective: Afebrile. He complains of continued sweats. He also reports continued diarrhea , with 2 loose bowel movements reported yesterday. He also notes nausea, with no vomiting. Objective Last 24 Hrs of Vital Signs/I&O Vital Signs Date Time Temp Pulse Resp B/P B/P Pulse O2 O2 Flow FiO2 Mean Ox Delivery Rate 02/03 0900 59/42 02/03 0813 99.3 85 20 76/46 98 Room Air 02/03 0000 Room Air 02/02 2235 98.7 97 20 82/62 100 Room Air 02/02 1847 97.1 97 16 112/60 100 Room Air 02/02 1600 97 Room Air Room Air 02/02 1600 96.0 84 18 110/64 97 Room Air Room Air Intake & Output 02/03 1600 02/03 0800 02/03 0000 Intake Total 945 500 Output Total 700 1 Balance 245 499 Intake, IV 725 300 Intake, Oral 220 200 Output, Urine 700 1 Physical Exam Other Physical Findings: He appears comfortable in no acute distress Lungs are clear Heart regular rhythm with no murmur Abdomen is soft, minimally tender to palpation, positive bowel sounds Results Last 24 Hours of Lab Results: Laboratory Tests 02/03 07 Chemistry Sodium (137 - 145 mmol/L) 137 Potassium (3.5 - 5.1 mmol/L) 4.0 Chloride (98 - 107 mmol/L) 105 Carbon Dioxide (22 - 30 mmol/L) 26 Anion Gap (5 - 16) 6 BUN (9 - 20 mg/dL) 3 L Creatinine (0.7 - 1.2 mg/dL) 0.5 L Estimated GFR (>60 ml/min) > 60 Glucose (65 - 99 mg/dL) 93 Calcium (8.4 - 10.2 mg/dL) 8.8 Phosphorus (2.5 - 4.5 mg/dL) 3.3 Magnesium (1.6 - 2.3 mg/dL) 1.6 Total Bilirubin (0.2 - 1.3 mg/dL) 0.4 AST (17 - 59 U/L) 50 ALT (21 - 72 U/L) 79 H Albumin (3.5 - 5.0 g/dL) 2.5 L Hematology CBC w Diff NO MAN DIFF REQ WBC (4.8 - 10.8 /CUMM) 4.7 L RBC (4.70 - 6.10 /CUMM) 3.05 L Hgb (14.0 - 18.0 G/DL) 9.5 L Hct (42 - 52 %) 28.2 L MCV (80.0 - 94.0 FL) 92.7 MCH (27.0 - 31.0 PG) 31.3 H RDW (11.5 - 14.5 %) 13.4 Plt Count (130 - 400 /CUMM) 310 MPV (7.4 - 10.4 FL) 8.3 Gran % (42.2 - 75.2 %) 53.7 Lymphocytes % (20.5 - 51.1 %) 30.4 Monocytes % (1.7 - 9.3 %) 9.3 Eosinophils % (0 - 5 %) 5.9 H Basophils % (0.0 - 2.0 %) 0.7 Absolute Granulocytes (1.4 - 6.5 /CUMM) 2.5 Absolute Lymphocytes (1.2 - 3.4 /CUMM) 1.4 Absolute Monocytes (0.10 - 0.60 /CUMM) 0.4 Absolute Eosinophils (0.0 - 0.7 /CUMM) 0.3 Absolute Basophils (0.0 - 0.2 /CUMM) 0 PUBS MCHC (33.0 - 37.0 G/DL) 33.8 Last 24 Hours of Brad Results: Stool for C. difficile pending Stool for O&P pending Urine culture February 02 negative Blood cultures February 01 negative Stool culture January 31 mixed jovita Assessment/Plan Impression: Stable off antibiotics with temperatures and white blood cell count remaining normal. He underwent upper endoscopy yesterday with findings of atrophic gastritis, with gastric and small bowel biopsies obtained. His diarrhea persists with his initial C. difficile negative and with a repeat C. difficile pending. His CT scan did not reveal any evidence for colitis; nevertheless, given his positive C. difficile on his previous admission and persistent diarrhea, a PCR for C. difficile can be obtained if toxin test is negative. His hypotension persists of unclear etiology. Suggestion: 1. Follow-up stool for C. difficile 2. Send stool for PCR for C. difficile if above test is negative 3. Follow-up biopsies from his recent upper endoscopy 4. Further evaluation of his hypotension per Medicine 5. Continue to follow off antibiotics pending above
--- NOTE | 2017-02-03 11:30 | NUR ---
1038 PT FOUND IN BED DIAPHORETIC AND INCOHERENT. RAPID RESPONSE CALLED. PT BP WAS 59/42 WITH AUTO CUFF, BLOOD SUGAR WAS <50. DOCTORS AT BEDSIDE TO ASSESS PT. AN AMP OF D50 WAS GIVEN AND STAT EKG DONE. PT RECEIVED A 1000ML BOLUS OF NS AND THEN STARTED ON D5NS @ 125ML/HR. 1100-PT BLOOD SUGAR CAME UP TO 230. PT NOW A&O X3, BP 111/66 WITH AUTO CUFF AND PT PLACED BACK ON THE TELE MONITOR. WILL CONTINUE TO MONITOR PT.
--- NOTE | 2017-02-03 11:54 | Event Note ---
Event Note Event Note: Situation: Rapid response was activated as patient was found by nursing staff to be diaphoretic, with altered mental status, and minimially responsive to verbal commands. Brief Assesment: VS: BP 59/42 PE: General: Awake, and alert, but not oriented, very diaphoretic. Remaining physical exam was unremarkable. Labs: Blood glucose <50mg/dl. Assesment and Plan Hypoglycemic encephalopathy as evident by altered mental status,diaphoresis and BG level below 50mg/dl. Rcvd Dextrose amp 25 gram and repeat BG after was 230mg/ dl. Switched fluids from NS to dextrose NS at 125ml/hr. Stopped Levemir and Novolog SSC. Consulted endo and will await reccomendations.
--- NOTE | 2017-02-03 11:58 | NUR ---
PT BLOOD SUGAR IS 66. GAVE PATIENT 240ML OF OJ. DIRECTOR OF VITAL STATISTICS KRUNAL AWARE. WILL CONTINUE TO MONITOR PT.
--- NOTE | 2017-02-03 14:53 | PN- Gastroenterology ---
Assessment/Plan Assessment/Recommendations: Assessment: Mr. Sullivan is a 51 year old male with a history of etoh abuse and a recent hospitalization for c diff colitis who was re-admitted with hypothermia and hypotension and continued diarrhea with weight loss of uncertain etiology. He underwent an EGD yesterday which didn't show any obvious pathology, but path is still pending and that may give an answer (ie. will look for amyloid and whipples disease). If that is negative though further investigation should be sought in an effort to make a diagnosis which can explain his weight loss and diarrhea as his work up to date has been unrevealing. Recommendations: 1. Advance diet as tolerated 2. Use nutritional supplements and would obtain a nutritions consult 3. Follow up pathology results from the EGD 4. As stool studies negative for infectious causes of diarrhea would use imodium as needed 5. Will await small bowel biopsy before determining if celiac serologies should be ordered 6. Would start a 24 hour urine collection to look for 5-HIAA levels to deterine if he may have carcinoid syndrome and would also check a chromogranin A level 7. Follow electrolytes and treat as needed. I will continue to follow this patient and make further recommendations based on his clinical course and results of the biopsies Subjective Subjective: Pt s/p EGD yesterday which showed gastroparesis, but was otherwise unremarkable. he continues to have non-bloody diarrhea without signficant abdominal pain. he had a rapid response for unresponsiveness this morning secondary to hypoglycemia , which responded to IV dextrose. Objective Vital Signs and I&Os Vital Signs Date Time Temp Pulse Resp B/P B/P Pulse O2 O2 Flow FiO2 Mean Ox Delivery Rate 02/03 1102 111/66 02/03 0920 80/54 02/03 0900 59/42 02/03 0813 99.3 85 20 76/46 98 Room Air 02/03 0800 Room Air 02/03 0000 Room Air 02/02 2235 98.7 97 20 82/62 100 Room Air 02/02 1847 97.1 97 16 112/60 100 Room Air 02/02 1600 97 Room Air Room Air 02/02 1600 96.0 84 18 110/64 97 Room Air Room Air Intake & Output 02/03 1600 02/03 0400 02/02 1600 02/02 0400 02/01 1600 02/01 0400 Intake Total 3990 500 2240 1480 2404 600 Output Total 700 1 3100 1350 1350 450 Balance 3290 499 -662 685 1897 150 Intake, IV 2525 300 2140 1000 1714 Intake, Oral 1465 200 100 480 690 600 Number 2 2 3 5 2 Bowel Movements Output, Urine 700 1 3100 1350 1350 450 Patient 96 lb Weight Physical Exam General Appearance: no apparent distress, cachetic Head: evidence of injury Ears, Nose, Throat: normal pharynx, normal ENT inspection Neck: normal inspection, supple Respiratory: normal breath sounds, chest non-tender Cardiovascular: regular rate/rhythm Abdomen: normal bowel sounds, soft, non-tender, no organomegaly Extremities: normal inspection, no edema Skin: intact, normal color, warm/dry Current Medications: Current Medications Sig/Fay Start time Last Medication Dose Route Stop Time Status Admin Dextrose 25 GM ONCE ONE 02/03 1100 DC 02/03 IV 02/03 1101 1123 Dextrose/Sodium 1,000 ML Q8H 02/03 1115 AC 02/03 Chloride IV 1125 Dextrose/Sodium 1,000 ML Q10H 02/02 0830 MT 02/03 Chloride IV 0300 Enoxaparin Sodium 40 MG DAILY 01/31 1011 AC 02/03 SC 1123 Ergocalciferol 50,000 IU QTHURS 02/03 1000 AC 02/03 PO 1123 Insulin Aspart 0 TIDAC 01/31 1200 MT 02/02 SC 1631 Insulin Detemir 10 UNITS QPM 01/31 2200 MT 02/02 SC 2200 Mirtazapine 7.5 MG AT BEDTIME 02/02 2230 AC 02/02 PO 2200 Mirtazapine 7.5 MG AT BEDTIME 01/31 2200 MT 02/01 PO 2115 Multivitamins 1 TAB DAILY 02/01 1000 AC 02/03 PO 1123 Naloxone HCl 0.4 MG DAILY NEEDED PRN 02/01 0630 AC IV Patient Medication 1 ED ONE ONE 02/03 1400 DC Teaching ED 02/03 1401 Sodium Chloride 1,000 ML BOLUS ONE 02/03 1100 DC 02/03 IV 02/03 1159 1123 Sodium Chloride 1,000 ML Q8H 02/03 0900 DC 02/03 IV 0920 Sodium Chloride 500 ML BOLUS ONE 02/03 0815 DC 02/03 IV 02/03 0914 0814 Sodium Chloride 500 ML BOLUS ONE 02/02 2300 DC 02/02 IV 02/02 7098 2963 Results Pertinent Lab Results: Laboratory Tests 02/03 02/02 8104 4427 Chemistry Sodium (137 - 145 mmol/L) 137 132 L Potassium (3.5 - 5.1 mmol/L) 4.0 5.2 H Chloride (98 - 107 mmol/L) 105 103 Carbon Dioxide (22 - 30 mmol/L) 26 25 Anion Gap (5 - 16) 6 5 BUN (9 - 20 mg/dL) 3 L 4 L Creatinine (0.7 - 1.2 mg/dL) 0.5 L 0.5 L Estimated GFR (>60 ml/min) > 60 > 60 Glucose (65 - 99 mg/dL) 93 167 H Calcium (8.4 - 10.2 mg/dL) 8.8 8.5 Phosphorus (2.5 - 4.5 mg/dL) 3.3 2.9 Magnesium (1.6 - 2.3 mg/dL) 1.6 1.8 Total Bilirubin (0.2 - 1.3 mg/dL) 0.4 0.4 AST (17 - 59 U/L) 50 40 ALT (21 - 72 U/L) 79 H 77 H Albumin (3.5 - 5.0 g/dL) 2.5 L 2.6 L TSH (0.270 - 4.200 uIU/mL) 1.100 Coagulation PT (9.4 - 12.5 SEC) 11.4 INR (0.90 - 1.17) 1.09 Hematology CBC w Diff NO MAN DIFF REQ NO MAN DIFF REQ WBC (4.8 - 10.8 /CUMM) 4.7 L 5.9 RBC (4.70 - 6.10 /CUMM) 3.05 L 3.12 L Hgb (14.0 - 18.0 G/DL) 9.5 L 9.8 L Hct (42 - 52 %) 28.2 L 29.1 L MCV (80.0 - 94.0 FL) 92.7 93.3 MCH (27.0 - 31.0 PG) 31.3 H 31.5 H RDW (11.5 - 14.5 %) 13.4 13.5 Plt Count (130 - 400 /CUMM) 310 290 MPV (7.4 - 10.4 FL) 8.3 8.4 Gran % (42.2 - 75.2 %) 53.7 68.7 Lymphocytes % (20.5 - 51.1 %) 30.4 20.6 Monocytes % (1.7 - 9.3 %) 9.3 7.0 Eosinophils % (0 - 5 %) 5.9 H 3.4 Basophils % (0.0 - 2.0 %) 0.7 0.3 Absolute Granulocytes (1.4 - 6.5 /CUMM) 2.5 4.1 Absolute Lymphocytes (1.2 - 3.4 /CUMM) 1.4 1.2 Absolute Monocytes (0.10 - 0.60 /CUMM) 0.4 0.4 Absolute Eosinophils (0.0 - 0.7 /CUMM) 0.3 0.2 Absolute Basophils (0.0 - 0.2 /CUMM) 0 0 PUBS MCHC (33.0 - 37.0 G/DL) 33.8 33.8 Serology HIV 1&2 Ab Western Blot (NONREACTIVE) NONREACTIVE 02/01 02/01 1530 1530 Toxicology Urine Opiates Screen (>2000 NG/ML) 153.00 Methadone Screen (>300 NG/ML) < 40 Barbiturate Screen (>200 NG/ML) < 60 Ur Phencyclidine Scrn (>25 NG/ML) < 6.00 Amphetamines Screen (>1000 NG/ML) < 100 U Benzodiazepines Scrn (>200 NG/ML) < 85 Urine Cocaine Screen (>300 NG/ML) < 50 Urine Cannabis Screen (>50 NG/ML) < 5.00 Urines Urine Color (YEL,AMB,STR) YEL Urine Clarity (CLEAR) CLEAR Urine pH (5.0 - 8.0) 6.0 Ur Specific [place] (1.001 - 1.035) <= 1.005 Urine Protein (NEG,<30 MG/DL) NEG Urine Ketones (NEG) NEG Urine Nitrite (NEG) NEG Urine Bilirubin (NEG) NEG Urine Urobilinogen (0.1 - 1.0 EU/dl) 0.2 Ur Leukocyte Esterase (NEG) NEG Ur Microscopic EXAM NOT REQUIRED Urine Hemoglobin (NEG) NEG Urine Osmolality (300 - 1000 MOSM/KG) 351 Ur Random Creatinine (mg/dL) 21.8 Ur Random Sodium (30 - 90 mmol/L) 86 Ur Random Potassium (mmol/L) 17.3 Fraction Sodium Excret (<1% %) 1.5 H Urine Glucose (N MG/DL) 500 H 02/01 02/01 02/01 1420 0630 0624 Chemistry Sodium (137 - 145 mmol/L) 132 L 136 L Potassium (3.5 - 5.1 mmol/L) 4.1 2.9 *L Chloride (98 - 107 mmol/L) 100 104 Carbon Dioxide (22 - 30 mmol/L) 25 25 Anion Gap (5 - 16) 7 7 BUN (9 - 20 mg/dL) 6 L 7 L Creatinine (0.7 - 1.2 mg/dL) 0.5 L 0.5 L Estimated GFR (>60 ml/min) > 60 > 60 BUN/Creatinine Ratio (7 - 25 %) 12.0 14.0 Serum Osmolality (285 - 295 MOSM/KG) 282 L Phosphorus (2.5 - 4.5 mg/dL) 2.9 Magnesium (1.6 - 2.3 mg/dL) 1.8 Creatine Kinase (55 - 170 U/L) 121 Troponin I (<0.11 ng/ml) < 0.01 Cancelled Vitamin B12 (239 - 931 pg/mL) 918 Folate (2.76 - 20.0 ng/mL) 11.0 Cortisol PM Sample (1.7 - 14.1) 12.9 Hematology CBC w Diff NO MAN DIFF REQ WBC (4.8 - 10.8 /CUMM) 7.4 RBC (4.70 - 6.10 /CUMM) 3.35 L Hgb (14.0 - 18.0 G/DL) 10.6 L Hct (42 - 52 %) 30.9 L MCV (80.0 - 94.0 FL) 92.4 MCH (27.0 - 31.0 PG) 31.6 H RDW (11.5 - 14.5 %) 13.5 Plt Count (130 - 400 /CUMM) 322 MPV (7.4 - 10.4 FL) 8.2 Gran % (42.2 - 75.2 %) 78.8 H Lymphocytes % (20.5 - 51.1 %) 15.0 L Monocytes % (1.7 - 9.3 %) 5.1 Eosinophils % (0 - 5 %) 0.8 Basophils % (0.0 - 2.0 %) 0.3 Absolute Granulocytes (1.4 - 6.5 /CUMM) 5.8 Absolute Lymphocytes (1.2 - 3.4 /CUMM) 1.1 L Absolute Monocytes (0.10 - 0.60 /CUMM) 0.4 Absolute Eosinophils (0.0 - 0.7 /CUMM) 0.1 Absolute Basophils (0.0 - 0.2 /CUMM) 0 PUBS MCHC (33.0 - 37.0 G/DL) 34.2 01/31 Chemistry Lactic Acid (0.7 - 2.1 mmol/L) 2.1 Troponin I (<0.11 ng/ml) < 0.01 Toxicology Urine Opiates Screen (>2000 NG/ML) < 100.00 Methadone Screen (>300 NG/ML) < 40 Barbiturate Screen (>200 NG/ML) < 60 Ur Phencyclidine Scrn (>25 NG/ML) < 6.00 Amphetamines Screen (>1000 NG/ML) < 100 U Benzodiazepines Scrn (>200 NG/ML) < 85 Urine Cocaine Screen (>300 NG/ML) < 50 Urine Cannabis Screen (>50 NG/ML) < 5.00 > C. DIFFICILE TOXIN A & B EIA Final 02/03/17-1307 NEGATIVE FOR CLOSTRIDIUM DIFFICILE TOXINS A & B BY EIA > GIARDIA ANTIGEN Final 02/03/17 GIARDIA ANTIGEN NEGATIVE:IF TRAVEL OR OTHER RISK, CALL MICRO [phone] FOR O&P > CRYPTOSPORIDIUM ANTIGEN Final 02/03/17 CRYPTOSPORIDIUM ANTIGEN NEGATIVE:IF TRAVEL OR OTHER RISK, CALL MICRO [phone] FOR O&P
--- NOTE | 2017-02-03 16:10 | Cons- Endocrinology ---
See Addendum General Information and HPI Consulting Request Date of Consult: 02/03/17 Requested By: medical team Reason for Consult: evaluation and management of hypoglycemia Source of Information: patient, old records Exam Limitations: no limitations History of Present Illness: 51 Y/O male with past hx of alcoholism (quit in September 2016), diabetes mellitus type 2 with peripheral neuropathy on metformin 1000 mg twice a day, chronic diarrhea with more than 100 pounds weight loss, multiple falls with syncopal episodes, was admitted to hospital after an episode of mechanical fall, feeling lightheaded and dizzy when he woke up to use the restroom. In hospital, he was put on Levemir 10 units daily at bedtime and Novolog coverage before meals when his FSG is more than 150. Patient had an episode of hypoglycemia this morning with glucose level in the 50s and SBP in the 60s. He was put on D5NS at 125 ml/hour. Allergies/Medications Allergies: Coded Allergies: No Known Allergies (01/31/17) Home Med List: Gabapentin 100 MG CAPSULE 100 MG PO Q8 mood disorder Metformin HCl (Glucophage) 1,000 MG TABLET 1 TAB PO BID DIABETES (Reported) Mirtazapine (Remeron) 15 MG TABLET 7.5 MG PO AT BEDTIME mood disorder Multivitamin (Multi-Day Vitamins) 1 EACH TABLET 1 TAB PO DAILY SUPPLEMENT ( Reported) Review of Systems Review of Systems Constitutional: Reports: see HPI, malaise, weakness, unexplained weight loss. Cardiovascular: Denies: chest pain. Respiratory: Denies: short of breath. GI: Reports: diarrhea. Musculoskeletal: Denies: muscle pain. Neurological/Psychological: Reports: see HPI. 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 Home Who Do You Live With? sister Services at Home: None Primary Language: Liberian Smoking Status: Current Everyday Smoker ETOH Use: heavy use quit in sep 2016 Illicit Drug Use: denies illicit drug use Living Will? no Power of Regulatory Scientist/HCP? no Functional Ability ADLs Independent: dressing, eating, toileting, bathing. Ambulation: cane, walker IADLs Independent: shopping, housework, finances, food prep, telephone, transportation , medication admin. 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 ECHO Results (as available) EF% 55 Exam & Diagnostic Data Last 24 Hrs of Vital Signs/I&O Vital Signs Date Time Temp Pulse Resp B/P B/P Pulse O2 O2 Flow FiO2 Mean Ox Delivery Rate 02/03 1924 110 99/51 02/03 1716 86/60 02/03 1558 96.5 83 20 82/52 99 Room Air 02/03 1520 82/50 02/03 1102 111/66 02/03 0920 80/54 02/03 0900 59/42 02/03 0813 99.3 85 20 76/46 98 Room Air 02/03 0800 Room Air 02/03 0000 Room Air 02/02 2235 98.7 97 20 82/62 100 Room Air Intake & Output 02/03 1600 02/03 0800 02/03 0000 Intake Total 3045 945 500 Output Total 700 1 Balance 3045 245 499 Intake, IV 1800 725 300 Intake, Oral 1245 220 200 Number 2 Bowel Movements Output, Urine 700 1 Physical Exam General Appearance: cachetic Neck: normal inspection Respiratory: lungs clear Cardiovascular: regular rate/rhythm Gastrointestinal: soft Extremities: no edema Assessment/Plan Assessment/Plan 51 Y/O male with past hx of alcoholism (quit in September 2016), diabetes mellitus type 2 with peripheral neuropathy on metformin 1000 mg twice a day, chronic diarrhea with more than 100 pounds weight loss, multiple falls with syncopal episodes, was admitted to hospital after an episode of mechanical fall, feeling lightheaded and dizzy. He had an episode of hypoglycemia along with hypotension today. 1. stop Levemir; 2. continue D5NS at 125 ml/hour; dextrose in IVF can be discontinued after FSG is > 150 x 2 times. 3. monitor FSGs. 4. start Novolog coverage before meals FSG < 200, no coverage; 200-250, 2 units 251-300, 3 units 301-350, 4 units 351-400, 5 units >400, 6 units. 5. check am cortisol, ACTH, TSH, free T4, thyroid antibody panel, and am testosterone in the morning. 6. check HbA1c. 7. metformin will be discontinued due to hx of chronic diarrhea. will follow Consult Acknowledgment - Thank you for your consult request.
[2017-02-04] VITALS: BP 96/61
--- NOTE | 2017-02-04 06:14 | NUR ---
AT 0200, PT INC BM LARGE AMOUNTS, SEEDY AND LIQUID PEREZ IN COLOR. ALSO NOTED WAS PINK COLORED OUTPUT, UNKNOWN IF URINE OR DIARRHEA. GIUIAC POSITIVE. MD MAK PAGED AND INFORMED. NO FURTHER INTERVENTIONS ORDERED AT THIS TIME. PT IS AT BASELINE, DIZZY UPON STANDING AND WEAK.
[2017-02-04 08:11] LABS: ABSOLUTE BASOPHIL COUNT 0 /CUMM (0.0-0.2); ABSOLUTE EOSINOPHIL COUNT 0.3 /CUMM (0.0-0.7); ABSOLUTE GRANULOCYTE CT 3.4 /CUMM (1.4-6.5); ABSOLUTE LYMPH COUNT 1.3 /CUMM (1.2-3.4); ABSOLUTE MONOCYTE COUNT 0.5 /CUMM (0.10-0.60); BASOPHIL % 0.6 % (0.0-2.0); EOSINOPHIL % 5.4 % (0-5); GRANULOCYTE % 62.2 % (42.2-75.2); HEMATOCRIT 27.8 % (42-52); MEAN CORPUSCULAR HGB 31.8 PG (27.0-31.0); MEAN CORPUSCULAR HGB CONC 33.9 G/DL (33.0-37.0); MEAN CORPUSCULAR VOLUME 93.8 FL (80.0-94.0); MEAN PLATELET VOLUME 8.2 FL (7.4-10.4); PLATELET COUNT 307 /CUMM (130-400); RBC DISTRIBUTION WIDTH 13.4 % (11.5-14.5); RED BLOOD CELL CT 2.96 /CUMM (4.70-6.10); WHITE BLOOD CELL COUNT 5.4 /CUMM (4.8-10.8)
[2017-02-04 08:36] VITALS: BP 73/50
--- NOTE | 2017-02-04 09:21 | PN- Diabetes ---
Assessment/Plan Assessment: 51 Y/O male with past hx of alcoholism (quit in September 2016), diabetes mellitus type 2 with peripheral neuropathy on metformin 1000 mg twice a day, chronic diarrhea with more than 100 pounds weight loss, multiple falls with syncopal episodes, was admitted to hospital after an episode of mechanical fall, feeling lightheaded and dizzy. He had an episode of hypoglycemia along with hypotension on 02/03/2017. Levemir was discontinued. He was on D5NS at 125 ml/hour for several hours; dextrose in IVF was discontinued last night. He is on NS at 125 ml/hour and his BP has been improving. Repeat Am cortisol 8.6, ACTH pending, TSH 1.48, free T4 1.26 and am testosterone 654. HbA1c is still pending. He has severe vitamin D deficiency and has been on vitamin D2 50,000 units once a week. Currently he is on Novolog coverage before meals only when his FSG is > 200. His FSGs were 66, 100, 159, 171, 233, 110 and 81. Plan: continue the current Novolog coverage before meals for now; monitor FSGs. will follow. Subjective Subjective: He still has diarrhea. Objective Last 24 Hrs of Vital Signs/I&O Vital Signs Date Time Temp Pulse Resp B/P B/P Pulse O2 O2 Flow FiO2 Mean Ox Delivery Rate 02/04 0836 989.1 112 20 73/50 99 02/04 0000 98.2 97 20 96/61 96 Room Air 02/03 1924 110 99/51 02/03 1716 86/60 02/03 1558 96.5 83 20 82/52 99 Room Air 02/03 1520 82/50 02/03 1102 111/66 Intake & Output 02/04 1600 02/04 0800 02/04 0000 Intake Total 1480 1475 Output Total 700 575 Balance 780 900 Intake, IV 1000 875 Intake, Oral 480 600 Number 3 2 Bowel Movements Output, Urine 700 575 Findings Pertinent Lab/Brad Results: Laboratory Tests 02/04 0643 Chemistry Sodium (137 - 145 mmol/L) 136 L Potassium (3.5 - 5.1 mmol/L) 4.2 Chloride (98 - 107 mmol/L) 107 Carbon Dioxide (22 - 30 mmol/L) 24 Anion Gap (5 - 16) 5 BUN (9 - 20 mg/dL) 6 L Creatinine (0.7 - 1.2 mg/dL) 0.5 L Estimated GFR (>60 ml/min) > 60 BUN/Creatinine Ratio (7 - 25 %) 12.0 Hemoglobin A1c (4.2 - 5.8 %) Pending TSH (0.270 - 4.200 uIU/mL) 1.480 Free T4 (0.64 - 1.79 ng/dL) 1.26 Total Testosterone (71.8 - 623 ng/dL) 654.0 H Cortisol AM Sample (4.46 - 22.7 ug/dL) 8.6 Hematology CBC w Diff NO MAN DIFF REQ WBC (4.8 - 10.8 /CUMM) 5.4 RBC (4.70 - 6.10 /CUMM) 2.96 L Hgb (14.0 - 18.0 G/DL) 9.4 L Hct (42 - 52 %) 27.8 L MCV (80.0 - 94.0 FL) 93.8 MCH (27.0 - 31.0 PG) 31.8 H RDW (11.5 - 14.5 %) 13.4 Plt Count (130 - 400 /CUMM) 307 MPV (7.4 - 10.4 FL) 8.2 Gran % (42.2 - 75.2 %) 62.2 Lymphocytes % (20.5 - 51.1 %) 23.5 Monocytes % (1.7 - 9.3 %) 8.3 Eosinophils % (0 - 5 %) 5.4 H Basophils % (0.0 - 2.0 %) 0.6 Absolute Granulocytes (1.4 - 6.5 /CUMM) 3.4 Absolute Lymphocytes (1.2 - 3.4 /CUMM) 1.3 Absolute Monocytes (0.10 - 0.60 /CUMM) 0.5 Absolute Eosinophils (0.0 - 0.7 /CUMM) 0.3 Absolute Basophils (0.0 - 0.2 /CUMM) 0 PUBS MCHC (33.0 - 37.0 G/DL) 33.9
--- NOTE | 2017-02-04 09:58 | PN- Housestaff ---
CLEMNET PEGUERO,KRUNAL 02/04/17 0958: Subjective Follow-up For: FALL CHRONIC DIARRHEA Subjective: Seen and examined at [facility]. Reports feeling better wirh improvement in diarrhea episodes Review of Systems Constitutional: Reports: no symptoms. Objective Last 24 Hrs of Vital Signs/I&O Vital Signs Date Time Temp Pulse Resp B/P B/P Pulse O2 O2 Flow FiO2 Mean Ox Delivery Rate 02/04 1643 98.6 79 16 99/60 95 02/04 1149 88/54 02/04 0836 989.1 112 20 73/50 99 02/04 0000 98.2 97 20 96/61 96 Room Air Intake & Output 02/04 1600 02/04 0800 02/04 0000 Intake Total 1000 1480 1475 Output Total 600 700 575 Balance 400 780 900 Intake, IV 1000 1000 875 Intake, Oral 480 600 Number 3 2 Bowel Movements Output, Urine 600 700 575 Physical Exam General Appearance: Alert, Oriented X3, Cooperative, cachetic Skin: No Significant Lesion Cardiovascular: Regular Rate, Normal S1, Normal S2, No Murmurs Lungs: Clear to Auscultation, Normal Air Movement Abdomen: Normal Bowel Sounds, Soft, No Tenderness Neurological: Normal Speech, Normal Tone, Sensation Intact, Cranial Nerves 3-12 NL, Reflexes 2+ Extremities: No Edema, No Tenderness/Swelling Vascular: Normal Pulses, Pulses Symmetrical Assessment/Plan Assessment: This is is a 51 YO male current active smoker, past alcoholism (quit in September 2016), no illicit drug abuse with past medical history of type 2 diabetes mellitus with peripheral neuropathy, chronic diarrhea, previous multiple falls with syncopal episodes, depression came in with chief complain of an episode of mechanical fall 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 Vitals on presentation temperature of 98.1, pulse of 70, respiratory rate of 20, blood pressure of 98/60, he was saturating 97% on room air. Relevant labs, no white count, H/H stable, platelets of 191 and (baseline). Sodium low at 127, corrected sodium for hyperglycemia noted to be 135. BUN and creatinine 9/0.6. AST 58, ALT 116, alkaline phosphatase 146, mildly elevated, initial serum troponin negative less than 0.01. Total protein of 6.1 and albumin of 3.4 borderline low. EKG showed normal sinus rhythm, mild diffuse ST elevation. patient initial low blood pressure improved after 2 L of normal saline bolus at the emergency department. He was sutured at the ER on the right eyebrow where he suffered the laceration after the fall. Urine toxicology essentially negative, serum alcohol less than 10.0. C. difficile toxin was sent along with stool culture and sensitivity to be followed. Impression/Plan 1.Hypotension Improving with todays SBP averaging above 96. Etiology is still unclear, differentials include autonomic dysfunction and adrenal insufficency. Cosyntropin stimulation test will be done today, if unremarkable will consider midodrine or florinef (per cardiology reccomendations). Will continue NS 125 ml/ hr for now and oleg stockings. 2. Chronic diarrhea with significant weight loss Unclear etiology.Decrease in lose stool 2/2 to loperamide use. Due to previous hx of biopsy c.diff, Stool PCR reordered today (2 stool toxins negative). With non elevated WBC count, absence of fevr/chills, C diff is becoming less likely. Stool ova and parasite and Yersinia negative. HIV screen negative, cryptosporidum less likely. Biopsy of small bowel unremarkable for malignancy. Celiac serology pending, Pancraetic elastase, carcinoid workup (5-HIAA and chromagin), fecal stool fat are all pending. Will continue to follow Gi reccomendation. 3. Malnutrition Severe protein calorie malnutrition as evidenced by a very low BMI of 14, and a weight loss of 50% of body weight with an albumin of 2.6. * Continue mirtazapine for appetite stimulation * Continue to encourse appropriate PO intake including Glucerna 3 times a day and monitor scale twice a week per nutrition recommendation (appreciated) * Follow up with GI in regards to chronic diarrhea workup 4. Diabetes mellitus Better glucose control with no noted hypoglycemic event o/n. Will continue customized low coverage SSC novolog and accucheck tid/hs with no bedtime coverage. Problem List: 1. Severe protein-calorie malnutrition 2. Uncontrolled diabetes mellitus 3. Hypotension Pain Ratin Pain Location: none Pain Goal: Remain pain free Pain Plan: per pain pathway Tomorrow's Labs & Rationales: BEP-Diarrhea HELEN STEPHENSON MD 02/04/17 1140: Attending MD Review Statement Attending Statement Attending MD Statement: examined this patient, discuss w/resident/PA/TERMITE TECHNICIAN, agreed w/resident/PA/TERMITE TECHNICIAN, reviewed EMR data (avail), discussed with nursing, discussed with case mgmt, reviewed images, amended to note Attending Assessment/Plan: Patient seen and examined, feeling slightly better this morning. Yesterday he had an episode of hypoglycemia, hypotension. This morning although blood pressure is still low, it's better than yesterday. Blood sugars are also running in acceptable range. Vital Signs Date Time Temp Pulse Resp B/P B/P Pulse O2 O2 Flow FiO2 Mean Ox Delivery Rate 02/04 0836 989.1 112 20 73/50 99 02/04 0000 98.2 97 20 96/61 96 Room Air 02/03 1924 110 99/51 02/03 1716 86/60 02/03 1558 96.5 83 20 82/52 99 Room Air 02/03 1520 82/50 on exam; aox3, nad. cv; s1,s2, rrr resp; clear abd; sofdt, nt, bs+ ext; no edema Laboratory Tests 02/04 02/04 0643 0600 Chemistry Sodium (137 - 145 mmol/L) 136 L Potassium (3.5 - 5.1 mmol/L) 4.2 Chloride (98 - 107 mmol/L) 107 Carbon Dioxide (22 - 30 mmol/L) 24 Anion Gap (5 - 16) 5 BUN (9 - 20 mg/dL) 6 L Creatinine (0.7 - 1.2 mg/dL) 0.5 L Estimated GFR (>60 ml/min) > 60 BUN/Creatinine Ratio (7 - 25 %) 12.0 Hemoglobin A1c (4.2 - 5.8 %) 12.7 H TSH (0.270 - 4.200 uIU/mL) 1.480 Free T4 (0.64 - 1.79 ng/dL) 1.26 Total Testosterone (71.8 - 623 ng/dL) 654.0 H Cortisol AM Sample (4.46 - 22.7 ug/dL) 8.6 Hematology CBC w Diff NO MAN DIFF REQ WBC (4.8 - 10.8 /CUMM) 5.4 RBC (4.70 - 6.10 /CUMM) 2.96 L Hgb (14.0 - 18.0 G/DL) 9.4 L Hct (42 - 52 %) 27.8 L MCV (80.0 - 94.0 FL) 93.8 MCH (27.0 - 31.0 PG) 31.8 H RDW (11.5 - 14.5 %) 13.4 Plt Count (130 - 400 /CUMM) 307 MPV (7.4 - 10.4 FL) 8.2 Gran % (42.2 - 75.2 %) 62.2 Lymphocytes % (20.5 - 51.1 %) 23.5 Monocytes % (1.7 - 9.3 %) 8.3 Eosinophils % (0 - 5 %) 5.4 H Basophils % (0.0 - 2.0 %) 0.6 Absolute Granulocytes (1.4 - 6.5 /CUMM) 3.4 Absolute Lymphocytes (1.2 - 3.4 /CUMM) 1.3 Absolute Monocytes (0.10 - 0.60 /CUMM) 0.5 Absolute Eosinophils (0.0 - 0.7 /CUMM) 0.3 Absolute Basophils (0.0 - 0.2 /CUMM) 0 PUBS MCHC (33.0 - 37.0 G/DL) 33.9 Immunology IgA Pending Tiss Transglutamin IgG Pending Tiss Transglutamin IgA Pending Anti-Gliadin IgG Ab Pending Anti-Gliadin IgA Ab Pending A/P; 51-year-old male with past medical history significant for diabetes, chronic alcoholism, chronic diarrhea who was admitted with a syncopal episode, acute and chronic diarrhea. So far stool C. difficile result is negative. Patient got hypoglycemic as well as hypotensive. He has severe protein calorie malnutrition. Gastric and small biopsy results came back nonspecific and showed only chronic inflammation. Cortisol level low normal range. Testosterone as well as thyroid numbers are normal. At this point celiac serologies will be ordered. Chromogranin levels are ordered as well as urine 5-HIAA to look for carcinoid syndrome. Patient claims that Imodium helped. As mentioned, currently patient only on sliding scale insulin and blood sugars are running in acceptable range. Nutrition consult was obtained and they recommended the an sure. Patient will be encouraged to ambulate. Will follow-up with cardiology for further recommendations about consistent hypotension. He has been getting hydrated with IV fluids aggressively. DVT px; Lovenox.
[2017-02-04 11:49] VITALS: BP 88/54
--- NOTE | 2017-02-04 12:01 | PN- Infect Dx ---
Subjective Subjective: Afebrile. He continues to complain of diarrhea, with 4 bowel movements reported yesterday and 3 overnight. He notes minimal abdominal discomfort. Objective Last 24 Hrs of Vital Signs/I&O Vital Signs Date Time Temp Pulse Resp B/P B/P Pulse O2 O2 Flow FiO2 Mean Ox Delivery Rate 02/04 1149 88/54 02/04 0836 989.1 112 20 73/50 99 02/04 0000 98.2 97 20 96/61 96 Room Air 02/03 1924 110 99/51 02/03 1716 86/60 02/03 1558 96.5 83 20 82/52 99 Room Air 02/03 1520 82/50 Intake & Output 02/04 1600 02/04 0800 02/04 0000 Intake Total 1480 1475 Output Total 700 575 Balance 780 900 Intake, IV 1000 875 Intake, Oral 480 600 Number 3 2 Bowel Movements Output, Urine 700 575 Physical Exam Other Physical Findings: He appears comfortable in no acute distress. He remains markedly hypotensive. Lungs are clear Abdomen is soft, mildly tender on palpation diffusely, with no guarding or rebound, positive bowel sounds Extremities no cyanosis, clubbing or edema Results Last 24 Hours of Lab Results: Laboratory Tests 02/04 02/04 0643 0600 Chemistry Sodium (137 - 145 mmol/L) 136 L Potassium (3.5 - 5.1 mmol/L) 4.2 Chloride (98 - 107 mmol/L) 107 Carbon Dioxide (22 - 30 mmol/L) 24 Anion Gap (5 - 16) 5 BUN (9 - 20 mg/dL) 6 L Creatinine (0.7 - 1.2 mg/dL) 0.5 L Estimated GFR (>60 ml/min) > 60 BUN/Creatinine Ratio (7 - 25 %) 12.0 Hemoglobin A1c (4.2 - 5.8 %) 12.7 H TSH (0.270 - 4.200 uIU/mL) 1.480 Free T4 (0.64 - 1.79 ng/dL) 1.26 Total Testosterone (71.8 - 623 ng/dL) 654.0 H Cortisol AM Sample (4.46 - 22.7 ug/dL) 8.6 Hematology CBC w Diff NO MAN DIFF REQ WBC (4.8 - 10.8 /CUMM) 5.4 RBC (4.70 - 6.10 /CUMM) 2.96 L Hgb (14.0 - 18.0 G/DL) 9.4 L Hct (42 - 52 %) 27.8 L MCV (80.0 - 94.0 FL) 93.8 MCH (27.0 - 31.0 PG) 31.8 H RDW (11.5 - 14.5 %) 13.4 Plt Count (130 - 400 /CUMM) 307 MPV (7.4 - 10.4 FL) 8.2 Gran % (42.2 - 75.2 %) 62.2 Lymphocytes % (20.5 - 51.1 %) 23.5 Monocytes % (1.7 - 9.3 %) 8.3 Eosinophils % (0 - 5 %) 5.4 H Basophils % (0.0 - 2.0 %) 0.6 Absolute Granulocytes (1.4 - 6.5 /CUMM) 3.4 Absolute Lymphocytes (1.2 - 3.4 /CUMM) 1.3 Absolute Monocytes (0.10 - 0.60 /CUMM) 0.5 Absolute Eosinophils (0.0 - 0.7 /CUMM) 0.3 Absolute Basophils (0.0 - 0.2 /CUMM) 0 PUBS MCHC (33.0 - 37.0 G/DL) 33.9 Immunology IgA Pending Tiss Transglutamin IgG Pending Tiss Transglutamin IgA Pending Anti-Gliadin IgG Ab Pending Anti-Gliadin IgA Ab Pending Small bowel biopsy revealed mild congestion with no evidence of malignancy Gastric antrum biopsy mild to moderate chronic inflammation with no evidence of malignancy Gastric body biopsy mild to moderate chronic inflammation with no evidence of malignancy Last 24 Hours of Brad Results: Stool C. difficile #2 February 02 negative Urine culture February 02 negative Blood cultures February 01 negative Assessment/Plan Impression: Stable off antibiotics with temperatures and white blood cell count remaining normal. He continues to have diarrhea, with the second C. difficile negative, and, with the CT scan negative for any evidence of colitis, do not suspect C. difficile. He underwent upper endoscopy 2 days ago with findings of atrophic gastritis on examination, but with biopsies essentially negative. Suggestion: 1. Send stool for PCR for C. difficile 2. Further evaluation of his diarrhea/weight loss per GI 3. Further evaluation of his hypotension per Medicine 4. Continue to follow off antibiotics pending above
--- NOTE | 2017-02-04 16:03 | PN- Cardiology ---
Subjective Subjective: Still with frequent bowel movements. Still has some dizziness. No chest pain or dyspnea. Objective Vital Signs and I&Os Vital Signs Date Time Temp Pulse Resp B/P B/P Pulse O2 O2 Flow FiO2 Mean Ox Delivery Rate 02/04 1149 88/54 02/04 0836 989.1 112 20 73/50 99 02/04 0000 98.2 97 20 96/61 96 Room Air 02/03 1924 110 99/51 02/03 1716 86/60 02/03 1558 96.5 83 20 82/52 99 Room Air Intake & Output 02/04 1600 02/04 0800 02/04 0000 02/03 1600 02/03 0800 02/03 0000 Intake Total 1000 1480 1475 3045 945 500 Output Total 600 700 575 700 1 Balance 400 467 309 2789 245 499 Intake, IV 1000 2359 228 8991 725 300 Intake, Oral 603 860 5554 220 200 Number 3 2 2 Bowel Movements Output, Urine 600 700 575 700 1 Physical Exam: General: no apparent distress. Alert. Eyes: No obvious scleral icterus. HEENT: No jugular venous distention or abnormal jugular venous pulsations. Cardiovascular: Normal intensity S1/S2. Regular.. Respiratory: Lungs clear to auscultation bilaterally. Abdomen: Soft, nontender with no guarding or rebound tenderness. Musculoskeletal: No clubbing or cyanosis noted Skin: warm Current Medications: Current Medications Sig/Fay Start time Last Medication Dose Route Stop Time Status Admin Cosyntropin 0.25 MG ONE ONE 02/04 1345 DC 02/04 IV 02/04 1346 1457 Dextrose/Sodium 1,000 ML Q8H 02/03 1115 DC 02/03 Chloride IV 1125 Enoxaparin Sodium 40 MG DAILY 01/31 1011 AC 02/04 SC 1028 Ergocalciferol 50,000 IU QTHURS 02/03 1000 AC 02/03 PO 1123 Insulin Aspart 0 TIDAC 02/03 1700 AC SC Loperamide HCl 2 MG Q6P PRN 02/03 1930 AC 02/04 PO 1029 Mirtazapine 7.5 MG AT BEDTIME 02/02 2230 AC 02/03 PO 2115 Multivitamins 1 TAB DAILY 02/01 1000 AC 02/04 PO 1029 Naloxone HCl 0.4 MG DAILY NEEDED PRN 02/01 0630 AC IV Sodium Chloride 1,000 ML Q8H 02/03 1915 AC 02/04 IV 1029 Results Last 48 Hrs of Labs/Mics: Laboratory Tests 02/04/17 1530: Cortisol PM Sample Cancelled 02/04/17 0643: Anion Gap 5, Estimated GFR > 60, BUN/Creatinine Ratio 12.0, Hemoglobin A1c 12.7 H, TSH 1.480, Free T4 1.26, Total Testosterone 654.0 H, Cortisol AM Sample 8.6, CBC w Diff NO MAN DIFF REQ, RBC 2.96 L, MCV 93.8, MCH 31.8 H, RDW 13.4, MPV 8.2, Gran % 62.2, Lymphocytes % 23.5, Monocytes % 8.3, Eosinophils % 5.4 H, Basophils % 0.6, Absolute Granulocytes 3.4, Absolute Lymphocytes 1.3, Absolute Monocytes 0.5, Absolute Eosinophils 0.3, Absolute Basophils 0, PUBS MCHC 33.9 02/04/17 0600: IgA Pending, Tiss Transglutamin IgG Pending, Tiss Transglutamin IgA Pending, Anti-Gliadin IgG Ab Pending, Anti-Gliadin IgA Ab Pending 02/03/17 0736: Anion Gap 6, Estimated GFR > 60, Glucose 93, Calcium 8.8, Phosphorus 3.3, Magnesium 1.6, Total Bilirubin 0.4, AST 50, ALT 79 H, Albumin 2.5 L, CBC w Diff NO MAN DIFF REQ, RBC 3.05 L, MCV 92.7, MCH 31.3 H, RDW 13.4, MPV 8.3, Gran % 53.7, Lymphocytes % 30.4, Monocytes % 9.3, Eosinophils % 5.9 H, Basophils % 0.7, Absolute Granulocytes 2.5, Absolute Lymphocytes 1.4, Absolute Monocytes 0.4, Absolute Eosinophils 0.3, Absolute Basophils 0, PUBS MCHC 33.8 02/03/17 0500: Ref Lab Test Result Pending Recent Imaging Studies: Telemetry tracings were personally reviewed and shows sinus rhythm Assessment/Plan Assessment/Plan 1. Diarrhea of unclear etiology 2. Diabetes mellitus 3. Unintentional weight loss 4. Hypotension of unclear etiology 5. History of alcohol abuse now in remission Patient continues to have the frequent bowel movements. No evidence of sepsis at this time. Results of ACTH stim test pending. Previous echocardiogram did show normal ejection fraction in September but given the persistent hypotension I would recommend obtaining a repeat echocardiogram to ensure there has been no major change. Autonomic dysfunction could be playing a role and if the blood pressure continues to be low with associated dizziness we could consider a trial of Florinef or midodrine. He has received fluid resuscitation. Yair Jo MD [facility] Continue telemetry? No
[2017-02-04 16:43] VITALS: BP 99/60
[2017-02-05 01:19] VITALS: BP 132/70
[2017-02-05 08:23] VITALS: BP 103/68
--- NOTE | 2017-02-05 08:38 | PN- Housestaff ---
MAU PEGUERO,KAYCEE 02/05/17 0838: Subjective Follow-up For: Fall Chronic diarrhea Tele-Events Since Last Visit: SR with HR 80-88 ST of 130s @ 0200 Subjective: Patient seen and examined at bedside. [facility] He continues to have explosive diarrhea, 3 episodes overnight. Reports a good appetite though. Continues to feel dizzy and ringing in the ears when he moves his head. Denies any dyspnea, chest pain, palpitations, lightheadedness, dizziness, abdominal pain, n/v. No acute events reported overnight. Review of Systems Constitutional: Reports: see HPI. Objective Last 24 Hrs of Vital Signs/I&O Vital Signs Date Time Temp Pulse Resp B/P B/P Pulse O2 O2 Flow FiO2 Mean Ox Delivery Rate 02/05 0823 98.1 82 16 103/68 99 Room Air 02/05 0119 97.8 83 18 132/70 99 Room Air 02/04 1643 98.6 79 16 99/60 95 02/04 1149 88/54 Intake & Output 02/05 1600 02/05 0800 02/05 0000 Intake Total 875 Output Total 900 Balance -25 Intake, IV 875 Number 3 1 Bowel Movements Output, Urine 900 Physical Exam General Appearance: Alert, Cooperative, No Acute Distress Other Physical Findings: Skin: No Significant Lesion Cardiovascular: Regular Rate, Normal S1, Normal S2, No Murmurs Lungs: Clear to Auscultation, Normal Air Movement Abdomen: Normal Bowel Sounds, Soft, No Tenderness Neurological: Normal Speech, Normal Tone, Sensation Intact, Cranial Nerves 3-12 NL, Reflexes 2+ Extremities: No Edema, No Tenderness/Swelling Vascular: Normal Pulses, Pulses Symmetrical Current Medications: Current Medications Sig/Fay Start time Last Medication Dose Route Stop Time Status Admin Cosyntropin 0.25 MG ONE ONE 02/04 1345 DC 02/04 IV 02/04 1346 1457 Enoxaparin Sodium 40 MG DAILY 01/31 1011 AC 02/04 SC 1028 Ergocalciferol 50,000 IU QTHURS 02/03 1000 AC 02/03 PO 1123 Insulin Aspart 0 TIDAC 02/03 1700 AC 02/05 SC 0804 Loperamide HCl 2 MG Q6P PRN 02/03 1930 AC 02/04 PO 2200 Mirtazapine 7.5 MG AT BEDTIME 02/02 2230 AC 02/04 PO 2159 Multivitamins 1 TAB DAILY 02/01 1000 AC 02/04 PO 1029 Naloxone HCl 0.4 MG DAILY NEEDED PRN 02/01 0630 AC IV Sodium Chloride 1,000 ML Q8H 02/03 191 AC 02/05 IV 0404 Last 24 Hrs of Lab/Brad Results Last 24 Hrs of Labs/Mics: Laboratory Tests 02/04/175: Stool Fat, Qual Pending 02/04/17 1600: Cortisol PM Sample 19.3 H 02/04/17 1600: Cortisol PM Sample Cancelled 02/04/17 1530: Cortisol PM Sample 15.8 H 02/04/17 1530: Cortisol PM Sample Cancelled Assessment/Plan Assessment: This is is a 51 YO male current active smoker, past alcoholism (quit in September 2016), no illicit drug abuse with past medical history of type 2 diabetes mellitus with peripheral neuropathy, chronic diarrhea, previous multiple falls with syncopal episodes, depression came in with chief complain of an 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 1.Hypotension Improving SBP averaging close to 100. Etiology is still unclear, differentials include autonomic dysfunction and adrenal insufficency. PM Cortisol level from last night noted to be elevated at 15.8 and 19.3. If okay with endo, we will consider midodrine or florinef (per cardiology reccomendations). Continue NS 125 ml/hr for now and oleg stockings. Begin Florinef 0.1 mg daily as per endo 2. Chronic diarrhea with significant weight loss Unclear etiology. Improvement in lose stool 2/2 to loperamide use. Due to previous hx of biopsy c.diff, Stool PCR reordered today (2 stool toxins negative ). With non elevated WBC count, absence of fevr/chills, C diff is less likely and negative on test. Stool ova and parasite, Yersinia, HIV, cryptosporidum all negative. Biopsy of small bowel unremarkable for malignancy. Celiac serology pending, Pancraetic elastase, carcinoid workup (5-HIAA and chromagin), fecal stool fat are all pending. Will continue to follow Gi reccomendation. 3. Malnutrition Severe protein calorie malnutrition as evidenced by a very low BMI of 14, and a weight loss of 50% of body weight with an albumin of 2.6. * Continue mirtazapine for appetite stimulation * Continue to encourse appropriate PO intake including Glucerna 3 times a day and monitor scale twice a week per nutrition recommendation (appreciated) * Follow up with GI in regards to chronic diarrhea workup 4. Diabetes mellitus Better glucose control with no noted hypoglycemic event o/n. Will continue customized low coverage SSC novolog and accucheck tid/hs with no bedtime coverage. Resume Levemir 5U QAM Problem List: 1. Syncope and collapse 2. Dehydration 3. Severe protein-calorie malnutrition 4. Hypotension 5. Hyponatremia 6. Hypokalemia Pain Ratin Pain Location: 0 Pain Goal: Remain pain free Pain Plan: Mild path Tomorrow's Labs & Rationales: BEP - diarrhea SEEMA PEGUERO,[facility] 02/05/17 1257: Attending MD Review Statement Attending Statement Attending MD Statement: examined this patient, discuss w/resident/PA/RIPRAP MAN, agreed w/resident/PA/RIPRAP MAN, reviewed EMR data (avail), discussed with nursing, reviewed images, amended to note Attending Assessment/Plan: Patient seen and examined, slightly better today. Blood sugars are now running in the high side. BP is better. Vital Signs Date Time Temp Pulse Resp B/P B/P Pulse O2 O2 Flow FiO2 Mean Ox Delivery Rate 02/05 0823 98.1 82 16 103/68 99 Room Air 02/05 0800 Room Air 02/05 0119 97.8 83 18 132/70 99 Room Air 02/04 1643 98.6 79 16 99/60 95 on exam; aox3, nad. cv; s1,s2, rrr resp; clear abd; soft, nt, bs+ ext; no edema. Laboratory Tests 02/04 02/04 02/04 02/04 02/04 2035 1600 1600 1530 1530 Chemistry Cortisol PM Sample (1.7 - 14.1) 19.3 H Cancelled 15.8 H Cancelled Other Body Source Stool Fat, Qual Pending A/P; 51-year-old male with past medical history significant for diabetes, chronic alcoholism, chronic diarrhea who was admitted with a syncopal episode, acute and chronic diarrhea. So far stool C. difficile result is negative. He has severe protein calorie malnutrition. Gastric and small biopsy results came back nonspecific and showed only chronic inflammation. Blood pressure slightly better and blood sugars are now running in the high range. Most likely his hypotension could be related to autonomic and peripheral neuropathy from diabetes and alcoholism. By endocrinology, will start him on Florinef. Stool C. difficile was negative but PCR pending. Celexa neurology's, chromogranin, stool elastase and stool fat are still pending. We are trying to look for other causes of his chronic diarrhea including carcinoid syndrome, possible amyloidosis, exocrine pancreatic insufficiency, Patient also has severe protein calorie malnutrition and ensure was recommended by nutrition. He is also started on Imodium when necessary for diarrhea. DVT px: Lovenox. If blood pressure improves after starting Florinef, and noted events, will consider discontinuing the telemetry in the next 24 hours.
--- NOTE | 2017-02-05 10:41 | PN- Diabetes ---
Assessment/Plan Assessment: 51 Y/O male with past hx of alcoholism (quit in September 2016), diabetes mellitus type 2 with peripheral neuropathy on metformin 1000 mg twice a day, chronic diarrhea with more than 100 pounds weight loss, multiple falls with syncopal episodes, was admitted to hospital after an episode of mechanical fall, feeling lightheaded and dizzy. He had an episode of hypoglycemia along with hypotension on 02/03/2017. The patients sugar is high this AM. He is on coverage before meals only. Cortrosyn stimulation test reveals cortisol one hour after stimulation of 19.3. A value above 18 is considered normal. The patient still gets dizzy when he stands up. As numbness and tingling of his fingers and toes. Plan: The patient is suffering from peripheral neuropathy and autonomic neuropathy with postural hypotension. The autonomic neuropathy may have also affected his bowel. Etiology of the neuropathy could be due to chronic alcoholism and also his diabetes. Suggest begin Florinef 0.1 mg daily to treat his autonomic neuropathy and postural hypotension. He should also wear elastic stockings and drink a lot of fluids. Because his blood sugars are high I would resume Levemir but at a dose of only 5 units each a.m. the first dose this morning. Continue NovoLog before meals. Continue to check his sugar 4 times a day before each meal and bedtime. Subjective Subjective: Feels about the same Review of Systems Constitutional: Denies: chills, fever. Cardiovascular: Denies: chest pain. Respiratory: Denies: short of breath. Gastrointestinal: Reports: diarrhea. Denies: abdominal pain. Skin: Reports: no symptoms. Objective Last 24 Hrs of Vital Signs/I&O Vital Signs Date Time Temp Pulse Resp B/P B/P Pulse O2 O2 Flow FiO2 Mean Ox Delivery Rate 02/05 0823 98.1 82 16 103/68 99 Room Air 02/05 0800 Room Air 02/05 0119 97.8 83 18 132/70 99 Room Air 02/04 1643 98.6 79 16 99/60 95 02/04 1149 88/54 Intake & Output 02/05 1600 02/05 0800 02/05 0000 Intake Total 875 Output Total 900 Balance -25 Intake, IV 875 Number 3 1 Bowel Movements Output, Urine 900 Physical Exam General Appearance: alert, awake, comfortable Head: normal appearance Neck: normal inspection Respiratory: normal breath sounds Cardiovascular: regular rate/rhythm Abdomen: normal bowel sounds, soft Extremities: no edema Current Medications: Current Medications Sig/Fay Start time Last Medication Dose Route Stop Time Status Admin Enoxaparin Sodium 40 MG DAILY 01/31 1011 AC 02/05 SC 1000 Ergocalciferol 50,000 IU QTHURS 02/03 1000 AC 02/03 PO 1123 Fludrocortisone 100 MCG DAILY 02/05 1236 AC 02/05 Acetate PO 1322 Insulin Aspart 0 TIDAC 02/03 1700 AC 02/05 SC 1254 Insulin Detemir 5 UNITS DAILY 02/05 1237 AC 02/05 SC 1255 Loperamide HCl 2 MG Q6P PRN 02/03 1930 AC 02/04 PO 2200 Mirtazapine 7.5 MG AT BEDTIME 02/02 2230 AC 02/04 PO 2159 Multivitamins 1 TAB DAILY 02/01 1000 AC 02/05 PO 1000 Naloxone HCl 0.4 MG DAILY NEEDED PRN 02/01 0630 AC IV Sodium Chloride 1,000 ML Q8H 02/03 1915 AC 02/05 IV 1200 Findings Pertinent Lab/Brad Results: Laboratory Tests 02/04 2035 Other Body Source Stool Fat, Qual Pending
--- NOTE | 2017-02-05 13:37 | PN- Gastroenterology ---
Assessment/Plan Assessment/Recommendations: Assessment: Mr. Sullivan is a 51 year old male with a history of etoh abuse and a recent hospitalization for c diff colitis who was re-admitted with hypothermia and hypotension and continued diarrhea with weight loss of uncertain etiology. He underwent an EGD 2 days ago which didn't show any obvious pathology, but path is still pending and that may give an answer (ie. will look for amyloid and whipples disease). If that is negative though further investigation should be sought in an effort to make a diagnosis which can explain his weight loss and diarrhea as his work up to date has been unrevealing. Recommendations: 1. Advance diet as tolerated 2. Use nutritional supplements and would obtain a nutritions consult 3. Celiac serology, pancraetic elastase, carcinoid workup (5-HIAA and chromagin ), fecal stool fat are all pending. I will continue to follow this patient and make further recommendations based on his clinical course and results of the biopsies Subjective Subjective: a Objective Vital Signs and I&Os Vital Signs Date Time Temp Pulse Resp B/P B/P Pulse O2 O2 Flow FiO2 Mean Ox Delivery Rate 02/05 0823 98.1 82 16 103/68 99 Room Air 02/05 0800 Room Air 02/05 0119 97.8 83 18 132/70 99 Room Air 02/04 1643 98.6 79 16 99/60 95 Intake & Output 02/05 0400 02/04 1600 02/04 0400 02/03 0400 Intake Total 875 2480 1475 3990 500 Output Total 900 1300 575 700 1 Balance -25 7523 319 3330 499 Intake, IV 875 2000 875 2525 300 Intake, Oral 943 466 2074 200 Number 3 1 3 2 2 Bowel Movements Output, Urine 900 1300 575 700 1 Results Pertinent Lab Results: Laboratory Tests 02/04 02/04 02/04 02/04 02/04 2035 1600 1600 1530 1530 Chemistry Cortisol PM Sample (1.7 - 14.1) 19.3 H Cancelled 15.8 H Cancelled Other Body Source Stool Fat, Qual Pending 02/04 02/04 02/03 0643 0600 2035 Chemistry Sodium (137 - 145 mmol/L) 136 L Potassium (3.5 - 5.1 mmol/L) 4.2 Chloride (98 - 107 mmol/L) 107 Carbon Dioxide (22 - 30 mmol/L) 24 Anion Gap (5 - 16) 5 BUN (9 - 20 mg/dL) 6 L Creatinine (0.7 - 1.2 mg/dL) 0.5 L Estimated GFR (>60 ml/min) > 60 BUN/Creatinine Ratio (7 - 25 %) 12.0 Hemoglobin A1c (4.2 - 5.8 %) 12.7 H TSH (0.270 - 4.200 uIU/mL) 1.480 Free T4 (0.64 - 1.79 ng/dL) 1.26 Total Testosterone (71.8 - 623 ng/dL) 654.0 H Cortisol AM Sample (4.46 - 22.7 ug/dL) 8.6 Hematology CBC w Diff NO MAN DIFF REQ WBC (4.8 - 10.8 /CUMM) 5.4 RBC (4.70 - 6.10 /CUMM) 2.96 L Hgb (14.0 - 18.0 G/DL) 9.4 L Hct (42 - 52 %) 27.8 L MCV (80.0 - 94.0 FL) 93.8 MCH (27.0 - 31.0 PG) 31.8 H RDW (11.5 - 14.5 %) 13.4 Plt Count (130 - 400 /CUMM) 307 MPV (7.4 - 10.4 FL) 8.2 Gran % (42.2 - 75.2 %) 62.2 Lymphocytes % (20.5 - 51.1 %) 23.5 Monocytes % (1.7 - 9.3 %) 8.3 Eosinophils % (0 - 5 %) 5.4 H Basophils % (0.0 - 2.0 %) 0.6 Absolute Granulocytes (1.4 - 6.5 /CUMM) 3.4 Absolute Lymphocytes (1.2 - 3.4 /CUMM) 1.3 Absolute Monocytes (0.10 - 0.60 /CUMM) 0.5 Absolute Eosinophils (0.0 - 0.7 /CUMM) 0.3 Absolute Basophils (0.0 - 0.2 /CUMM) 0 PUBS MCHC (33.0 - 37.0 G/DL) 33.9 Immunology IgA Pending Tiss Transglutamin IgG Pending Tiss Transglutamin IgA Pending Anti-Gliadin IgG Ab Pending Anti-Gliadin IgA Ab Pending Other Body Source Stl Pancreat Elastase 1 Pending Serology C. difficile Tox B Gene Pending 02/03 02/03 02/03 1700 0736 0500 Chemistry Sodium (137 - 145 mmol/L) 137 Potassium (3.5 - 5.1 mmol/L) 4.0 Chloride (98 - 107 mmol/L) 105 Carbon Dioxide (22 - 30 mmol/L) 26 Anion Gap (5 - 16) 6 BUN (9 - 20 mg/dL) 3 L Creatinine (0.7 - 1.2 mg/dL) 0.5 L Estimated GFR (>60 ml/min) > 60 Glucose (65 - 99 mg/dL) 93 Calcium (8.4 - 10.2 mg/dL) 8.8 Phosphorus (2.5 - 4.5 mg/dL) 3.3 Magnesium (1.6 - 2.3 mg/dL) 1.6 Total Bilirubin (0.2 - 1.3 mg/dL) 0.4 AST (17 - 59 U/L) 50 ALT (21 - 72 U/L) 79 H Albumin (3.5 - 5.0 g/dL) 2.5 L Hematology CBC w Diff NO MAN DIFF REQ WBC (4.8 - 10.8 /CUMM) 4.7 L RBC (4.70 - 6.10 /CUMM) 3.05 L Hgb (14.0 - 18.0 G/DL) 9.5 L Hct (42 - 52 %) 28.2 L MCV (80.0 - 94.0 FL) 92.7 MCH (27.0 - 31.0 PG) 31.3 H RDW (11.5 - 14.5 %) 13.4 Plt Count (130 - 400 /CUMM) 310 MPV (7.4 - 10.4 FL) 8.3 Gran % (42.2 - 75.2 %) 53.7 Lymphocytes % (20.5 - 51.1 %) 30.4 Monocytes % (1.7 - 9.3 %) 9.3 Eosinophils % (0 - 5 %) 5.9 H Basophils % (0.0 - 2.0 %) 0.7 Absolute Granulocytes (1.4 - 6.5 /CUMM) 2.5 Absolute Lymphocytes (1.2 - 3.4 /CUMM) 1.4 Absolute Monocytes (0.10 - 0.60 /CUMM) 0.4 Absolute Eosinophils (0.0 - 0.7 /CUMM) 0.3 Absolute Basophils (0.0 - 0.2 /CUMM) 0 PUBS MCHC (33.0 - 37.0 G/DL) 33.8 Miscellaneous Ref Lab Test Result Pending Urines Urine Total Volume Pending Urine 5-HIAA 24 Hour Pending
--- NOTE | 2017-02-05 14:43 | PN- Cardiology ---
Subjective Subjective: The patient is still complaining of dizziness. He is also still having diarrhea. His blood pressure is normal today. He has been started on Florinef. He is still on IV fluids. He is about 9 L positive on I's and O's. There have been no arrhythmias. Objective Vital Signs and I&Os Vital Signs Date Time Temp Pulse Resp B/P B/P Pulse O2 O2 Flow FiO2 Mean Ox Delivery Rate 02/05 823 98.1 82 16 103/68 99 Room Air 02/05 0800 Room Air 02/05 0119 97.8 83 18 132/70 99 Room Air 02/04 1643 98.6 79 16 99/60 95 Intake & Output 02/05 1600 02/05 0800 02/05 0000 02/04 1600 02/04 0800 02/04 0000 Intake Total 8553 113 7302 1480 1475 Output Total 1450 900 600 700 575 Balance 270 -25 400 780 900 Intake, IV 7491 458 1400 1000 875 Intake, Oral 720 480 600 Number 2 3 1 3 2 Bowel Movements Output, Urine 1450 900 600 700 575 Physical Exam: He is a thin middle-aged male in no distress HEENT exam is normal Chest is clear Heart reveals regular rhythm and no murmurs Extremities reveal no edema Current Medications: Current Medications Sig/Fay Start time Last Medication Dose Route Stop Time Status Admin Enoxaparin Sodium 40 MG DAILY 01/31 1011 AC 02/05 SC 1000 Ergocalciferol 50,000 IU QTHURS 02/03 1000 AC 02/03 PO 1123 Fludrocortisone 100 MCG DAILY 02/05 1236 AC 02/05 Acetate PO 1322 Insulin Aspart 0 TIDAC 02/03 1700 AC 02/05 SC 1254 Insulin Detemir 5 UNITS DAILY 02/05 1237 AC 02/05 SC 1255 Loperamide HCl 2 MG Q6P PRN 02/03 1930 AC 02/04 PO 2200 Mirtazapine 7.5 MG AT BEDTIME 02/02 2230 AC 02/04 PO 2159 Multivitamins 1 TAB DAILY 02/01 1000 AC 02/05 PO 1000 Naloxone HCl 0.4 MG DAILY NEEDED PRN 02/01 0630 AC IV Sodium Chloride 1,000 ML Q8H 02/03 1915 AC 02/05 IV 1200 Results Last 48 Hrs of Labs/Mics: Laboratory Tests 02/04/172034: Stool Fat, Qual Pending 02/04/17 1600: Cortisol PM Sample 19.3 H 02/04/17 1600: Cortisol PM Sample Cancelled 02/04/17 1530: Cortisol PM Sample 15.8 H 02/04/17 1530: Cortisol PM Sample Cancelled 02/04/17 0643: Anion Gap 5, Estimated GFR > 60, BUN/Creatinine Ratio 12.0, Hemoglobin A1c 12.7 H, TSH 1.480, Free T4 1.26, Total Testosterone 654.0 H, Cortisol AM Sample 8.6, CBC w Diff NO MAN DIFF REQ, RBC 2.96 L, MCV 93.8, MCH 31.8 H, RDW 13.4, MPV 8.2, Gran % 62.2, Lymphocytes % 23.5, Monocytes % 8.3, Eosinophils % 5.4 H, Basophils % 0.6, Absolute Granulocytes 3.4, Absolute Lymphocytes 1.3, Absolute Monocytes 0.5, Absolute Eosinophils 0.3, Absolute Basophils 0, PUBS MCHC 33.9 02/04/17 0600: IgA Pending, Tiss Transglutamin IgG Pending, Tiss Transglutamin IgA Pending, Anti-Gliadin IgG Ab Pending, Anti-Gliadin IgA Ab Pending 02/03/172034: Stl Pancreat Elastase 1 Pending, C. difficile Tox B Gene Pending 02/03/17 1700: Urine Total Volume Pending, Urine 5-HIAA 24 Hour Pending Assessment/Plan Assessment/Plan The patient's blood pressure is normal. He has been started on Florinef. He is still on IV fluids. There have been no cardiac events or arrhythmias. I recommend telemetry can be discontinued. I would consider discontinuing IV fluids to avoid fluid overload. Postural vital signs should be continued and monitored while on Florinef. Gastroenterology has recommendations regarding further treatment and evaluation which should be followed. Continue telemetry? No
[2017-02-05 16:05] VITALS: BP 100/64
[2017-02-05 22:43] VITALS: BP 98/60
[2017-02-06 08:02] LABS: ABSOLUTE BASOPHIL COUNT 0 /CUMM (0.0-0.2); ABSOLUTE EOSINOPHIL COUNT 0.3 /CUMM (0.0-0.7); ABSOLUTE GRANULOCYTE CT 2.8 /CUMM (1.4-6.5); ABSOLUTE LYMPH COUNT 1.5 /CUMM (1.2-3.4); ABSOLUTE MONOCYTE COUNT 0.3 /CUMM (0.10-0.60); BASOPHIL % 0.6 % (0.0-2.0); EOSINOPHIL % 6.6 % (0-5); GRANULOCYTE % 55.8 % (42.2-75.2); HEMATOCRIT 26.6 % (42-52); MEAN CORPUSCULAR HGB 31.4 PG (27.0-31.0); MEAN CORPUSCULAR HGB CONC 33.5 G/DL (33.0-37.0); MEAN CORPUSCULAR VOLUME 93.9 FL (80.0-94.0); PLATELET COUNT 324 /CUMM (130-400); RBC DISTRIBUTION WIDTH 13.8 % (11.5-14.5); RED BLOOD CELL CT 2.83 /CUMM (4.70-6.10); WHITE BLOOD CELL COUNT 5.1 /CUMM (4.8-10.8)
[2017-02-06 08:20] VITALS: BP 111/69
--- NOTE | 2017-02-06 09:14 | PN- Housestaff ---
CLEMENT [facility]GU[facility] 02/06/17 0914: Subjective Follow-up For: FALL DIARRHEA Subjective: Seen and examined at bedside. Still endorses >5 diarrhea episodes per day, denies any blood in stool. No fever/chills/nausea/vomiting/cp/sob/abdominal pain /dysuria. No acute o/n event reported. MAP reported to be >65. Review of Systems Constitutional: Reports: see HPI. Objective Last 24 Hrs of Vital Signs/I&O Vital Signs Date Time Temp Pulse Resp B/P B/P Pulse O2 O2 Flow FiO2 Mean Ox Delivery Rate 02/07 0041 98.4 79 16 98/64 100 Room Air 02/06 1557 98.7 90 16 91/61 99 Room Air 02/06 0820 97.9 83 15 111/69 98 Room Air Intake & Output 02/07 0800 02/07 0000 02/06 1600 Intake Total 620 1620 Output Total 400 800 Balance 220 820 Intake, IV 500 1000 Intake, Oral 120 620 Number 4 Bowel Movements Output, Urine 400 800 Physical Exam General Appearance: Alert, Oriented X3, Cooperative, cachetic Skin: stitches intact on right eye laceration (from 7 days ago on admission) Cardiovascular: Regular Rate, Normal S1, Normal S2, No Murmurs, Gallops, Rubs Lungs: Clear to Auscultation, Normal Air Movement Abdomen: Normal Bowel Sounds, Soft, No Tenderness Neurological: Normal Speech, Strength at 5/5 X4 Ext, Sensation Intact Assessment/Plan Assessment: This is is a 51 YO male current active smoker, past alcoholism (quit in September 2016), no illicit drug abuse with past medical history of type 2 diabetes mellitus with peripheral neuropathy, chronic diarrhea, previous multiple falls with syncopal episodes, depression came in with chief complain of an episode of mechanical fall test eng on the day of admission around 4:30 AM (01/31/2017 ), after feeling lightheaded and dizzy when he woke up to use the restroom, with chronic diarrhea. 1.Hypotension Improving SBP>90. Still profound orthostatic hypotension. Given patients type diabetes, and diarrhea with some numbness of feet and hand, this could be cardiovascular autonomic neuropathy as patient has severe drop in BP during postural changes. Currently on fludricortisone 100 mcgwith minimal effect, will consider raising fludricortisone dose to 200 mc (max 400mcg). 2. Chronic diarrhea with significant weight loss Unclear etiology. Mimimal Improvement in lose stool from loperamide use. PCR stool pending (first 2 stool toxin negative), Stool ova and parasite, Yersinia, HIV, cryptosporidum all negative, fecal stool fat is WNL. Biopsy of small bowel unremarkable for malignancy. Celiac serology pending, Pancraetic elastase, carcinoid workup (5-HIAA and chromagin), are all pending. Diabetic enteropathy is still very possible as patient also has profound orthostatic hypotension, and intermittent episodes of numbness and tingling of extremities. These findings can be suggestive of secondary autonomic dsyfunction from diabetes. Even though patient reports recent diagnosis of Type 2 diabetes (within 1 year), unlike type 1, Type 2 autonomic neuropathy can happen more acutely. Will continue to follow Gi reccomendation. 3. Malnutrition Severe protein calorie malnutrition as evidenced by a very low BMI of 14, and a weight loss of 50% of body weight with an albumin of 2.6. * Continue mirtazapine for appetite stimulation * Continue to encourse appropriate PO intake including Glucerna 3 times a day and monitor scale twice a week per nutrition recommendation (appreciated) * Follow up with GI in regards to chronic diarrhea workup 4. Diabetes mellitus Better glucose control with no noted hypoglycemic event o/n. Will continue customized low coverage SSC novolog and accucheck tid/hs with no bedtime coverage. Resumed Levemir 5U QAM Problem List: 1. Uncontrolled diabetes mellitus 2. Weight loss, unintentional 3. Severe protein-calorie malnutrition Pain Ratin Pain Location: none Pain Goal: Remain pain free Pain Plan: per pain pathwy Tomorrow's Labs & Rationales: CBC bep HELEN STEPHENSON MD 02/06/17 1239: Attending MD Review Statement Attending Statement Attending MD Statement: examined this patient, discuss w/resident/PA/WRAP TURNER, agreed w/resident/PA/WRAP TURNER, reviewed EMR data (avail), discussed with nursing, reviewed images, amended to note Attending Assessment/Plan: Patient seen and examined, still claims that he feels dizzy whenever he gets up. Dad is still going on. Blood sugars are running high therefore Levemir dose was suggested to be increased by endocrinology. Patient was started on fludrocortisone yesterday. We'll check orthostatics. I checked with his nurse, unfortunately secondary to having small size lower extremities, TEDS stockings have been ordered because we do not have that small tight TEDS available. Can try Colace timing as recommended by endocrinology for diarrhea. Continue Imodium. Likely need to stop the IV fluids as it has been outlined the patient is getting IV fluids. Blood pressure now improved. DVT px: Lovenox.
--- NOTE | 2017-02-06 09:47 | PN- Diabetes ---
Assessment/Plan Assessment: 51 Y/O male with past hx of alcoholism (quit in September 2016), diabetes mellitus type 2 with peripheral neuropathy on metformin 1000 mg twice a day, chronic diarrhea with more than 100 pounds weight loss, multiple falls with syncopal episodes, was admitted to hospital after an episode of mechanical fall, feeling lightheaded and dizzy. He had an episode of hypoglycemia along with hypotension on 02/03/2017. Cortrosyn stimulation test reveals cortisol one hour after stimulation of 19.3. A value above 18 is considered normal. Today we begin the patient on Florinef 0.1 mg daily for postural hypotension. The patient was also begun on 5 units of Levemir daily. He is on sliding scale NovoLog but it does not begin until a sugar above 200. . Plan: Suggest that we checked the patient's postural blood pressures today which will be the second day on Florinef. Continue Florinef. In addition we should adjust his sliding scale NovoLog before meals. Sliding- scale NovoLog before meals should be less than 125 give no insulin, 126-200 give 2 units NovoLog, 201-250 give 3 units NovoLog, 251 300 give 4 units NovoLog, 301 -350 give 5 units NovoLog, 351-400 give 6 units NovoLog. We can increase the Levemir to 8 units each a.m. Continue to monitor his sugars 4 times a day. With regard to the patient's diarrhea which may also be on the basis of autonomic neuropathy, I would begin the patient on cholestyramine 1 scoop full daily. Subjective Subjective: Feels about the same Review of Systems Constitutional: Denies: chills, fever. Cardiovascular: Denies: chest pain. Respiratory: Denies: short of breath. Gastrointestinal: Denies: abdominal pain. Skin: Reports: no symptoms. Objective Last 24 Hrs of Vital Signs/I&O Vital Signs Date Time Temp Pulse Resp B/P B/P Pulse O2 O2 Flow FiO2 Mean Ox Delivery Rate 02/06 0820 97.9 83 15 111/69 98 Room Air 02/05 2243 98.3 95 18 98/60 99 Room Air 02/05 1605 98.1 74 16 100/64 99 Room Air Intake & Output 02/06 1600 02/06 0800 02/06 0000 Intake Total 1240 1260 Output Total 700 1350 Balance 540 -90 Intake, IV 1000 300 Intake, Oral 240 960 Number 2 2 Bowel Movements Output, Urine 700 1350 Vital Signs Date Time Temp Pulse Resp B/P B/P Pulse O2 O2 Flow FiO2 Mean Ox Delivery Rate 02/06 0820 97.9 83 15 111/69 98 Room Air 02/05 2243 98.3 95 18 98/60 99 Room Air 02/05 1605 98.1 74 16 100/64 99 Room Air Intake & Output 02/06 1600 02/06 0800 02/06 0000 Intake Total 1240 1260 Output Total 700 1350 Balance 540 -90 Intake, IV 1000 300 Intake, Oral 240 960 Number 2 2 Bowel Movements Output, Urine 700 1350 Physical Exam General Appearance: alert, awake, comfortable Neck: normal inspection Respiratory: normal breath sounds, no respiratory distress Cardiovascular: regular rate/rhythm Abdomen: normal bowel sounds, soft Extremities: normal inspection Current Medications: Current Medications Sig/Fay Start time Last Medication Dose Route Stop Time Status Admin Enoxaparin Sodium 40 MG DAILY 01/31 1011 AC 02/06 SC 0857 Ergocalciferol 50,000 IU QTHURS 02/03 1000 AC 02/03 PO 1123 Fludrocortisone 100 MCG DAILY 02/05 1236 AC 02/06 Acetate PO 0858 Insulin Aspart 0 TIDAC 02/03 1700 AC 02/06 SC 0857 Insulin Detemir 5 UNITS DAILY 02/05 1237 AC 02/06 SC 0858 Loperamide HCl 2 MG Q6P PRN 02/03 1930 AC 02/06 PO 0857 Mirtazapine 7.5 MG AT BEDTIME 02/02 2230 AC 02/05 PO 205 Multivitamins 1 TAB DAILY 02/01 1000 AC 02/06 PO 0857 Naloxone HCl 0.4 MG DAILY NEEDED PRN 02/01 0630 AC IV Sodium Chloride 1,000 ML Q8H 02/03 1915 AC 02/06 IV 0444 Findings Pertinent Lab/Brad Results: Laboratory Tests 02/06 06 Chemistry Sodium (137 - 145 mmol/L) 134 L Potassium (3.5 - 5.1 mmol/L) 4.1 Chloride (98 - 107 mmol/L) 105 Carbon Dioxide (22 - 30 mmol/L) 24 Anion Gap (5 - 16) 5 BUN (9 - 20 mg/dL) 12 Creatinine (0.7 - 1.2 mg/dL) 0.5 L Estimated GFR (>60 ml/min) > 60 BUN/Creatinine Ratio (7 - 25 %) 24.0 Hematology CBC w Diff NO MAN DIFF REQ WBC (4.8 - 10.8 /CUMM) 5.1 RBC (4.70 - 6.10 /CUMM) 2.83 L Hgb (14.0 - 18.0 G/DL) 8.9 L Hct (42 - 52 %) 26.6 L MCV (80.0 - 94.0 FL) 93.9 MCH (27.0 - 31.0 PG) 31.4 H RDW (11.5 - 14.5 %) 13.8 Plt Count (130 - 400 /CUMM) 324 MPV (7.4 - 10.4 FL) 8.0 Gran % (42.2 - 75.2 %) 55.8 Lymphocytes % (20.5 - 51.1 %) 30.4 Monocytes % (1.7 - 9.3 %) 6.6 Eosinophils % (0 - 5 %) 6.6 H Basophils % (0.0 - 2.0 %) 0.6 Absolute Granulocytes (1.4 - 6.5 /CUMM) 2.8 Absolute Lymphocytes (1.2 - 3.4 /CUMM) 1.5 Absolute Monocytes (0.10 - 0.60 /CUMM) 0.3 Absolute Eosinophils (0.0 - 0.7 /CUMM) 0.3 Absolute Basophils (0.0 - 0.2 /CUMM) 0 PUBS MCHC (33.0 - 37.0 G/DL) 33.5
--- NOTE | 2017-02-06 14:51 | PN- Gastroenterology ---
Assessment/Plan Assessment/Recommendations: Assessment: Mr. Sullivan is a 51 year old male with a history of etoh abuse and a recent hospitalization for c diff colitis who was re-admitted with hypothermia and hypotension and continued diarrhea with weight loss of uncertain etiology. He underwent an EGD 2 days ago which didn't show any obvious pathology, but path is still pending and that may give an answer (ie. will look for amyloid and whipples disease). If that is negative further investigation should be sought in an effort to make a diagnosis which can explain his weight loss and diarrhea as his work up to date has been unrevealing. 8 BMs yesterday, 2 BMs today [3 PM]. Recommendations: 1. Advance diet as tolerated 2. Use nutritional supplements and would obtain a nutritions consult 3. Celiac serology, pancraetic elastase, carcinoid workup (5-HIAA and chromagin ), fecal stool fat are all pending. I will continue to follow this patient and make further recommendations based on his clinical course and results of the biopsies Subjective Subjective: z Objective Vital Signs and I&Os Vital Signs Date Time Temp Pulse Resp B/P B/P Pulse O2 O2 Flow FiO2 Mean Ox Delivery Rate 02/07 820 97.9 83 15 111/69 98 Room Air 02/05 2243 98.3 95 18 98/60 99 Room Air 02/05 1605 98.1 74 16 100/64 99 Room Air Intake & Output 02/06 0400 02/05 0400 02/04 1600 02/04 0400 Intake Total 1240 1260 2595 2480 1475 Output Total 700 1350 2350 1300 575 Balance 540 -90 245 1180 900 Intake, IV 6167 278 6889 2000 875 Intake, Oral 240 960 720 480 600 Number 2 2 5 1 3 2 Bowel Movements Output, Urine 700 1350 2350 1300 575 Results Pertinent Lab Results: Laboratory Tests 02/06 02/04 02/04 0610 2034 1600 Chemistry Sodium (137 - 145 mmol/L) 134 L Potassium (3.5 - 5.1 mmol/L) 4.1 Chloride (98 - 107 mmol/L) 105 Carbon Dioxide (22 - 30 mmol/L) 24 Anion Gap (5 - 16) 5 BUN (9 - 20 mg/dL) 12 Creatinine (0.7 - 1.2 mg/dL) 0.5 L Estimated GFR (>60 ml/min) > 60 BUN/Creatinine Ratio (7 - 25 %) 24.0 Cortisol PM Sample (1.7 - 14.1) 19.3 H Hematology CBC w Diff NO MAN DIFF REQ WBC (4.8 - 10.8 /CUMM) 5.1 RBC (4.70 - 6.10 /CUMM) 2.83 L Hgb (14.0 - 18.0 G/DL) 8.9 L Hct (42 - 52 %) 26.6 L MCV (80.0 - 94.0 FL) 93.9 MCH (27.0 - 31.0 PG) 31.4 H RDW (11.5 - 14.5 %) 13.8 Plt Count (130 - 400 /CUMM) 324 MPV (7.4 - 10.4 FL) 8.0 Gran % (42.2 - 75.2 %) 55.8 Lymphocytes % (20.5 - 51.1 %) 30.4 Monocytes % (1.7 - 9.3 %) 6.6 Eosinophils % (0 - 5 %) 6.6 H Basophils % (0.0 - 2.0 %) 0.6 Absolute Granulocytes (1.4 - 6.5 /CUMM) 2.8 Absolute Lymphocytes (1.2 - 3.4 /CUMM) 1.5 Absolute Monocytes (0.10 - 0.60 /CUMM) 0.3 Absolute Eosinophils (0.0 - 0.7 /CUMM) 0.3 Absolute Basophils (0.0 - 0.2 /CUMM) 0 PUBS MCHC (33.0 - 37.0 G/DL) 33.5 Other Body Source Stool Fat, Qual NORMAL 02/04 02/04 02/04 1600 1530 1530 Chemistry Cortisol PM Sample (1.7 - 14.1) Cancelled 15.8 H Cancelled 02/04 02/04 02/03 0643 0600 2035 Chemistry Sodium (137 - 145 mmol/L) 136 L Potassium (3.5 - 5.1 mmol/L) 4.2 Chloride (98 - 107 mmol/L) 107 Carbon Dioxide (22 - 30 mmol/L) 24 Anion Gap (5 - 16) 5 BUN (9 - 20 mg/dL) 6 L Creatinine (0.7 - 1.2 mg/dL) 0.5 L Estimated GFR (>60 ml/min) > 60 BUN/Creatinine Ratio (7 - 25 %) 12.0 Hemoglobin A1c (4.2 - 5.8 %) 12.7 H TSH (0.270 - 4.200 uIU/mL) 1.480 Free T4 (0.64 - 1.79 ng/dL) 1.26 Total Testosterone (71.8 - 623 ng/dL) 654.0 H Cortisol AM Sample (4.46 - 22.7 ug/dL) 8.6 Hematology CBC w Diff NO MAN DIFF REQ WBC (4.8 - 10.8 /CUMM) 5.4 RBC (4.70 - 6.10 /CUMM) 2.96 L Hgb (14.0 - 18.0 G/DL) 9.4 L Hct (42 - 52 %) 27.8 L MCV (80.0 - 94.0 FL) 93.8 MCH (27.0 - 31.0 PG) 31.8 H RDW (11.5 - 14.5 %) 13.4 Plt Count (130 - 400 /CUMM) 307 MPV (7.4 - 10.4 FL) 8.2 Gran % (42.2 - 75.2 %) 62.2 Lymphocytes % (20.5 - 51.1 %) 23.5 Monocytes % (1.7 - 9.3 %) 8.3 Eosinophils % (0 - 5 %) 5.4 H Basophils % (0.0 - 2.0 %) 0.6 Absolute Granulocytes (1.4 - 6.5 /CUMM) 3.4 Absolute Lymphocytes (1.2 - 3.4 /CUMM) 1.3 Absolute Monocytes (0.10 - 0.60 /CUMM) 0.5 Absolute Eosinophils (0.0 - 0.7 /CUMM) 0.3 Absolute Basophils (0.0 - 0.2 /CUMM) 0 PUBS MCHC (33.0 - 37.0 G/DL) 33.9 Immunology IgA Pending Tiss Transglutamin IgG Pending Tiss Transglutamin IgA Pending Anti-Gliadin IgG Ab Pending Anti-Gliadin IgA Ab Pending Other Body Source Stl Pancreat Elastase 1 Pending Serology C. difficile Tox B Gene Pending 02/03 1700 Urines Urine Total Volume Pending Urine 5-HIAA 24 Hour Pending
[2017-02-06 15:57] VITALS: BP 91/61
--- NOTE | 2017-02-06 21:15 | ECHOCARDIOGRAM REPORT ---
DL NGUYỄN Age: 51 : 1965 Gender: M Exam Date: 02/06/2017 11:26 Exam Location: [facility] Ht (in): 69 Wt (lb): 96 BSA: 1.43 BP: 98 / 60 Ordering Physician: KRUNAL VAUGHAN MD Referring Physician: Aston Jo M.D. Technologist: Ese Baeza RDCS Room Number: [id number] Indications: HYPOTENSION Rhythm: Sinus Technical Quality: Fair FINDINGS Left Ventricle Normal global left ventricular size, wall thickness, systolic function with no obvious regional wall motion abnormalities. Normal left ventricular ejection fraction estimated at 60-65%. Right Ventricle Normal right ventricular size and function. Right Atrium Normal right atrial size. Left Atrium Normal left atrial size. Mitral Valve Mitral valve normal in structure and function. Mild mitral regurgitation. Aortic Valve Aortic valve is normal in structure and function. Trace aortic regurgitation. Tricuspid Valve Tricuspid valve is normal in structure and function. Mild tricuspid regurgitation. Right ventricular systolic pressure estimated to be within the normal range at 28 mmHg. Pulmonic Valve Pulmonic valve not well visualized, grossly normal. Pericardium No pericardial effusion. Great Vessels Normal size aortic root. CONCLUSIONS Normal left and right ventricular systolic function. No significant valvular abnormalities noted. Twin Wiley M.D. (Electronically Signed) Final Date: 06 Feb 2017 21:14 MEASUREMENTS (Male / Female) Normal Values 2D ECHO LV Diastolic Diameter PLAX 4.1 cm 4.2 - 5.9 / 3.9 - 5.3 cm LV Systolic Diameter PLAX 2.5 cm 2.1 - 4.0 cm LV Fractional Shortening PLAX 39.0 % 25 - 46 % LV Ejection Fraction 2D Teich 69.9 % IVS Diastolic Thickness 1.0 cm LVPW Diastolic Thickness 1.1 cm LV Relative Wall Thickness 0.5 RV Internal Dim ED PLAX 3.1 cm 1.9 - 3.8 cm LVOT Diameter 2.3 cm Aortic Root Diameter 3.5 cm LA Systolic Diameter LX 3.3 cm 3.0 - 4.0 / 2.7 - 3.8 cm LA Volume 33.0 cm 18 - 58 / 22 - 52 cm Ascending Aorta Diameter 3.2 cm DOPPLER AV Peak Velocity 100.0 cm/s AV Peak Gradient 4.0 mmHg AV Mean Velocity 69.1 cm/s AV Mean Gradient 2.0 mmHg AV Velocity Time Integral 19.2 cm LVOT Peak Velocity 81.2 cm/s LVOT Peak Gradient 2.6 mmHg LVOT Mean Velocity 52.0 cm/s LVOT Mean Gradient 1.0 mmHg LVOT Velocity Time Integral 17.8 cm LVOT Stroke Volume 74.0 cm AV Area Cont Eq vti 3.9 cm AV Area Cont Eq pk 3.4 cm MV Peak Velocity 82.8 cm/s MV Peak Gradient 2.7 mmHg MV Mean Velocity 55.1 cm/s MV Mean Gradient 1.0 mmHg Mitral E Point Velocity 75.0 cm/s Mitral A Point Velocity 53.8 cm/s Mitral E to A Ratio 1.4 MV PHT Velocity 84.5 cm/s MV Deceleration [place] 405.0 cm/s MV Pressure Half Time 62.6 ms MV Area PHT 3.5 cm MV Deceleration Time 211.0 ms TR Peak Velocity 243.0 cm/s TR Peak Gradient 23.6 mmHg Right Atrial Pressure 5.0 mmHg Pulmonary Artery Systolic Pressu 28.6 mmHg Right Ventricular Systolic Press 28.6 mmHg PV Peak Velocity 96.5 cm/s PV Peak Gradient 3.7 mmHg PV Mean Velocity 69.9 cm/s PV Mean Gradient 2.0 mmHg PV Velocity Time Integral 20.1 cm LV E' Lateral Velocity 16.4 cm/s Mitral E to LV E' Lateral Ratio 4.6 LV E' Septal Velocity 8.0 cm/s Mitral E to LV E' Septal Ratio 9.4
[2017-02-07 00:41] VITALS: BP 98/64
[2017-02-07 07:53] VITALS: BP 110/60
--- NOTE | 2017-02-07 08:05 | PN- Housestaff ---
CLEMENT PEGUERO,KRUNAL 02/07/17 0805: Subjective Follow-up For: fall Subjective: Seen and examined at bedside. Still endorsing persitent diarrhea despite adding choleystaramine and loperamide. Denies CP,pallpitation,sob,fever/chills,nausea, vomiting,abdominal pain. O/N BP still to be stabilized. No other acute overnight event reported by nursing staff. Review of Systems Constitutional: Reports: see HPI. Objective Last 24 Hrs of Vital Signs/I&O Vital Signs Date Time Temp Pulse Resp B/P B/P Pulse O2 O2 Flow FiO2 Mean Ox Delivery Rate 02/07 1659 98.9 86 20 88/50 99 Room Air 02/07 1553 Room Air Room Air 02/07 0800 Room Air 02/07 0753 99.0 85 18 110/60 98 Room Air 02/07 0041 98.4 79 16 98/64 100 Room Air Intake & Output 02/07 1600 02/07 0800 02/07 0000 Intake Total 1720 1000 620 Output Total 1100 1000 400 Balance 620 0 220 Intake, IV 1000 1000 500 Intake, Oral 720 120 Number 3 4 Bowel Movements Output, Urine 1100 1000 400 Physical Exam General Appearance: Alert, Oriented X3, Cooperative Other Physical Findings: Skin: stitches intact on right eye laceration (from 8 days ago on admission) Cardiovascular: Regular Rate, Normal S1, Normal S2, No Murmurs, Gallops, Rubs Lungs: Clear to Auscultation, Normal Air Movement Abdomen: Normal Bowel Sounds, Soft, No Tenderness Neurological: Normal Speech, Strength at 5/5 X4 Ext, Sensation Intact Current Medications: Current Medications Sig/Fay Start time Last Medication Dose Route Stop Time Status Admin Cholestyramine Resin 1 PAC DAILY 02/06 1801 AC 02/07 PO 0909 Diphenoxylate HCl/ 2.5 MG TID 02/07 1000 AC 02/07 Atropine PO 1750 Enoxaparin Sodium 40 MG DAILY 01/31 1011 AC 02/07 SC 0909 Ergocalciferol 50,000 IU QTHURS 02/03 1000 AC 02/03 PO 1123 Fludrocortisone 100 MCG DAILY 02/05 1236 AC 02/07 Acetate PO 0909 Insulin Aspart 0 TIDAC 02/03 1700 AC 02/07 SC 1750 Insulin Detemir 8 UNITS DAILY 02/07 1000 DC SC Insulin Detemir 10 UNITS DAILY 02/07 1000 AC 02/07 SC 0908 Loperamide HCl 2 MG Q6P PRN 02/03 1930 AC 02/06 PO 2240 Melatonin 5 MG AT BEDTIME 02/06 2200 AC 02/06 PO 2211 Mirtazapine 7.5 MG AT BEDTIME 02/02 2230 AC 02/06 PO 2211 Multivitamins 1 TAB DAILY 02/01 1000 AC 02/07 PO 0909 Naloxone HCl 0.4 MG DAILY NEEDED PRN 02/01 0630 AC IV Sodium Bicarbonate 1,000 MG BID 02/07 1000 CAN PO Sodium Chloride 1,000 ML Q8H 02/07 1615 AC IV Sodium Chloride 1,000 MG BID 02/07 1000 AC 02/07 PO 1119 Sodium Chloride 1,000 ML Q8H 02/03 1915 DC 02/07 IV 1247 Last 24 Hrs of Lab/Brad Results Last 24 Hrs of Labs/Mics: Laboratory Tests 02/07/17 0630: Anion Gap 6, Estimated GFR > 60, BUN/Creatinine Ratio 20.0, Magnesium 1.8, CBC w Diff NO MAN DIFF REQ, RBC 2.86 L, MCV 93.1, MCH 31.4 H, RDW 13.3, MPV 7.9, Gran % 56.4, Lymphocytes % 29.0, Monocytes % 7.3, Eosinophils % 6.6 H, Basophils % 0.7, Absolute Granulocytes 2.7, Absolute Lymphocytes 1.4, Absolute Monocytes 0.3, Absolute Eosinophils 0.3, Absolute Basophils 0, PUBS MCHC 33.7 Assessment/Plan Assessment: This is is a 51 YO male current active smoker, past alcoholism (quit in September 2016), no illicit drug abuse with past medical history of type 2 diabetes mellitus with peripheral neuropathy, chronic diarrhea, previous multiple falls with syncopal episodes, depression came in with chief complain of an 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 1.Hypotension Improving SBP>90. Still profound orthostatic hypotension. Given patients type 2 diabetes, and diarrhea with some numbness of feet and hand, this could be cardiovascular autonomic neuropathy as patient has severe drop in BP during postural changes. Will add sodium tabs in addition to fludricortisone 100 mcgwith minimal effect, will consider raising fludricortisone dose to 200 mc ( max 400mcg). 2. Chronic diarrhea with significant weight loss Unclear etiology. Mimimal Improvement in lose stool from loperamide use. PCR stool pending (first 2 stool toxin negative), Stool ova and parasite, Yersinia, HIV, cryptosporidum all negative, fecal stool fat is WNL. Biopsy of small bowel unremarkable for malignancy. Celiac serology pending, Pancraetic elastase, carcinoid workup (5-HIAA and chromagin), are all pending. Diabetic enteropathy is still very possible as patient also has profound orthostatic hypotension, and intermittent episodes of numbness and tingling of extremities. These findings can be suggestive of secondary autonomic dsyfunction from diabetes. Even though patient reports recent diagnosis of Type 2 diabetes (within 1 year), unlike type 1, Type 2 autonomic neuropathy can happen more acutely. Will continue to follow Gi reccomendation. 3. Malnutrition Severe protein calorie malnutrition as evidenced by a very low BMI of 14, and a weight loss of 50% of body weight with an albumin of 2.6. * Continue mirtazapine for appetite stimulation * Continue to encourse appropriate PO intake including Glucerna 3 times a day and monitor scale twice a week per nutrition recommendation (appreciated) * Follow up with GI in regards to chronic diarrhea workup 4. Diabetes mellitus Better glucose control with no noted hypoglycemic event o/n. Will continue customized low coverage SSC novolog and accucheck tid/hs with no bedtime coverage. Resumed Levemir 5U QAM Problem List: 1. Severe protein-calorie malnutrition 2. Orthostatic hypertension Pain Ratin Pain Location: none Pain Goal: Remain pain free Pain Plan: per pain pathway Tomorrow's Labs & Rationales: BEP-STARTED ON SALT TABS SEEMA PEGUERO,HELEN 02/07/17 1218: Attending MD Review Statement Attending Statement Attending MD Statement: examined this patient, discuss w/resident/PA/BODY WIRER, agreed w/resident/PA/BODY WIRER, reviewed EMR data (avail), discussed with nursing, discussed with case mgmt, amended to note Attending Assessment/Plan: Patient seen and examined, blood pressure was slightly better over the weekend but this morning it was again in 90s. Patient still feels dizzy when he gets up. Unfortunately TEDS stockings were never ordered. I then to the rn unit manager personally myself and I made sure that the order was put in as he needs really small TEDS 2/2 to having very thin legs. Stool Elastase, Cdiff PCR, Celiac w/u is still pending. Vital Signs Date Time Temp Pulse Resp B/P B/P Pulse O2 O2 Flow FiO2 Mean Ox Delivery Rate 02/07 0800 Room Air 02/07 0753 99.0 85 18 110/60 98 Room Air 02/07 0041 98.4 79 16 98/64 100 Room Air 02/06 1557 98.7 90 16 91/61 99 Room Air on exam; aox3 nad. cv; s1,s2, rrr resp; clear abd; soft, nt, bs+ ext; no edema. Laboratory Tests 02/07 0630 Chemistry Sodium (137 - 145 mmol/L) 135 L Potassium (3.5 - 5.1 mmol/L) 4.2 Chloride (98 - 107 mmol/L) 105 Carbon Dioxide (22 - 30 mmol/L) 24 Anion Gap (5 - 16) 6 BUN (9 - 20 mg/dL) 10 Creatinine (0.7 - 1.2 mg/dL) 0.5 L Estimated GFR (>60 ml/min) > 60 BUN/Creatinine Ratio (7 - 25 %) 20.0 Magnesium (1.6 - 2.3 mg/dL) 1.8 Hematology CBC w Diff NO MAN DIFF REQ WBC (4.8 - 10.8 /CUMM) 4.7 L RBC (4.70 - 6.10 /CUMM) 2.86 L Hgb (14.0 - 18.0 G/DL) 9.0 L Hct (42 - 52 %) 26.6 L MCV (80.0 - 94.0 FL) 93.1 MCH (27.0 - 31.0 PG) 31.4 H RDW (11.5 - 14.5 %) 13.3 Plt Count (130 - 400 /CUMM) 349 MPV (7.4 - 10.4 FL) 7.9 Gran % (42.2 - 75.2 %) 56.4 Lymphocytes % (20.5 - 51.1 %) 29.0 Monocytes % (1.7 - 9.3 %) 7.3 Eosinophils % (0 - 5 %) 6.6 H Basophils % (0.0 - 2.0 %) 0.7 Absolute Granulocytes (1.4 - 6.5 /CUMM) 2.7 Absolute Lymphocytes (1.2 - 3.4 /CUMM) 1.4 Absolute Monocytes (0.10 - 0.60 /CUMM) 0.3 Absolute Eosinophils (0.0 - 0.7 /CUMM) 0.3 Absolute Basophils (0.0 - 0.2 /CUMM) 0 PUBS MCHC (33.0 - 37.0 G/DL) 33.7 A/P; 52-year-old male with history of alcohol use, diabetes who was originally admitted with hypotension, had been having episodes of hypoglycemia and hypotension with orthostasis. Hypoglycemia is improved and outpatient hyperglycemic. Has been started on insulin and dose has been adjusted by endocrinology. Patient also has this chronic diarrhea with C. difficile negative 2, PCR pending. Workup for diarrhea is in progress. Celiac serologies, carcinoid syndrome workup is still pending. Stool fat normal but last days is pending and this was ordered to rule out any endocrine pancreatic insufficiency. 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 We have started him on fludrocortisone, we have also added some salt tabs this morning. Even encourage patient to drink plenty of fluids as his blood pressure was still low this morning. We have also started the patient on Imodium and Cholestyramine but continued to have diarrhea. We have added Lomotil this morning. Patient continues to feel dizzy when he stands up and he needs tight TEDS stockings. Those are ordered. In the meantime he can try using some tight Edy wrap. Once that is applied, I would encourage patient to get up and try to walk physical therapy. Can DC telemetry. Continue the rest of the medications. Follow-up on the workup. DVT Px; Lovenox.
[2017-02-07 08:48] LABS: ABSOLUTE BASOPHIL COUNT 0 /CUMM (0.0-0.2); ABSOLUTE EOSINOPHIL COUNT 0.3 /CUMM (0.0-0.7); ABSOLUTE GRANULOCYTE CT 2.7 /CUMM (1.4-6.5); ABSOLUTE LYMPH COUNT 1.4 /CUMM (1.2-3.4); ABSOLUTE MONOCYTE COUNT 0.3 /CUMM (0.10-0.60); BASOPHIL % 0.7 % (0.0-2.0); EOSINOPHIL % 6.6 % (0-5); GRANULOCYTE % 56.4 % (42.2-75.2); HEMATOCRIT 26.6 % (42-52); MEAN CORPUSCULAR HGB 31.4 PG (27.0-31.0); MEAN CORPUSCULAR HGB CONC 33.7 G/DL (33.0-37.0); MEAN CORPUSCULAR VOLUME 93.1 FL (80.0-94.0); MEAN PLATELET VOLUME 7.9 FL (7.4-10.4); PLATELET COUNT 349 /CUMM (130-400); RBC DISTRIBUTION WIDTH 13.3 % (11.5-14.5); RED BLOOD CELL CT 2.86 /CUMM (4.70-6.10); WHITE BLOOD CELL COUNT 4.7 /CUMM (4.8-10.8)
--- NOTE | 2017-02-07 10:08 | PN- Cardiology ---
Subjective Subjective: The patient is awake, alert States continued lightheadedness, especially with movement and standing The events of the last 24 hours as well as telemetry were reviewed. Review of Systems: The review of systems is negative for chest pains, palpitations. The remainder of the 14 point review of systems is noncontributory with the exception of above. Objective Vital Signs and I&Os Vital Signs Date Time Temp Pulse Resp B/P B/P Pulse O2 O2 Flow FiO2 Mean Ox Delivery Rate 02/07 0800 Room Air 02/07 0753 99.0 85 18 110/60 98 Room Air 02/07 0041 98.4 79 16 98/64 100 Room Air 02/06 1557 98.7 90 16 91/61 99 Room Air Intake & Output 02/07 1600 02/07 0800 02/07 0000 02/06 1600 02/06 0800 02/06 0000 Intake Total 3505 437 6389 1240 1260 Output Total 1000 400 918 672 6846 Balance 0 220 820 540 -90 Intake, IV 5704 277 4278 1000 300 Intake, Oral 120 620 240 960 Number 3 4 2 2 Bowel Movements Output, Urine 1000 400 312 668 7867 Physical Exam: General: Nontoxic, no apparent distress. HEENT: Sclera and conjunctiva within normal limits, without xanthelasmas. Neck: Carotids 2+ without bruits. Respiratory: Clear to auscultation, air movement is good, without accessory respiratory muscle use. Heart: Regular rate and rhythm, without murmurs, without JVD. Abdomen: Soft, nontender, no masses, normoactive bowel sounds. Extremities: Without clubbing, cyanosis, without edema. Neuro: Nonfocal exam, strength, 5 out of 5 Skin: Within normal limits without lesions. Psych: Mood and affect: Normal Current Medications: Current Medications Sig/Fay Start time Last Medication Dose Route Stop Time Status Admin Cholestyramine Resin 1 PAC DAILY 02/06 1838 CAN PO Cholestyramine Resin 1 PAC DAILY 02/06 1801 AC 02/07 PO 0909 Diphenoxylate HCl/ 2.5 MG TID 02/07 1000 AC Atropine PO Enoxaparin Sodium 40 MG DAILY 01/31 1011 AC 02/07 SC 0909 Ergocalciferol 50,000 IU QTHURS 02/03 1000 AC 02/03 PO 1123 Fludrocortisone 100 MCG DAILY 02/05 1236 AC 02/07 Acetate PO 0909 Insulin Aspart 0 TIDAC 02/03 1700 AC 02/07 SC 0908 Insulin Detemir 8 UNITS DAILY 02/07 1000 DC SC Insulin Detemir 10 UNITS DAILY 02/07 1000 AC 02/07 SC 0908 Insulin Detemir 5 UNITS DAILY 02/05 1237 DC 02/06 SC 0858 Loperamide HCl 2 MG Q6P PRN 02/03 1930 AC 02/06 PO 2240 Melatonin 5 MG AT BEDTIME 02/06 2200 AC 02/06 PO 2211 Mirtazapine 7.5 MG AT BEDTIME 02/02 2230 AC 02/06 PO 2211 Multivitamins 1 TAB DAILY 02/01 1000 AC 02/07 PO 0909 Naloxone HCl 0.4 MG DAILY NEEDED PRN 02/01 0630 AC IV Sodium Bicarbonate 1,000 MG BID 02/07 1000 CAN PO Sodium Chloride 1,000 MG BID 02/07 1000 AC PO Sodium Chloride 1,000 ML Q8H 02/03 1915 AC 02/07 IV 0451 Results Last 48 Hrs of Labs/Mics: Laboratory Tests 02/07/17 0630: Anion Gap 6, Estimated GFR > 60, BUN/Creatinine Ratio 20.0, Magnesium 1.8, CBC w Diff NO MAN DIFF REQ, RBC 2.86 L, MCV 93.1, MCH 31.4 H, RDW 13.3, MPV 7.9, Gran % 56.4, Lymphocytes % 29.0, Monocytes % 7.3, Eosinophils % 6.6 H, Basophils % 0.7, Absolute Granulocytes 2.7, Absolute Lymphocytes 1.4, Absolute Monocytes 0.3, Absolute Eosinophils 0.3, Absolute Basophils 0, PUBS MCHC 33.7 02/06/17 0610: Anion Gap 5, Estimated GFR > 60, BUN/Creatinine Ratio 24.0, Magnesium 1.9, CBC w Diff NO MAN DIFF REQ, RBC 2.83 L, MCV 93.9, MCH 31.4 H, RDW 13.8, MPV 8.0, Gran % 55.8, Lymphocytes % 30.4, Monocytes % 6.6, Eosinophils % 6.6 H, Basophils % 0.6, Absolute Granulocytes 2.8, Absolute Lymphocytes 1.5, Absolute Monocytes 0.3, Absolute Eosinophils 0.3, Absolute Basophils 0, PUBS MCHC 33.5 Assessment/Plan Assessment/Plan The patient presents with chronic diarrhea, weight loss as well as hypotension and a fall. The etiology of his weight loss and chronic diarrhea is unclear, and results of testing are pending. Hypotension: The patient has been initiated on Florinef and has had a significant fluid positive balance since admission. I would continue checking orthostatic blood pressure changes. The dose of fludrocortisone may be increased if needed as well as addition of midodine. A review of the echocardiogram does not suggest a primary cardiac etiology to his symptoms. Continue telemetry? No
--- NOTE | 2017-02-07 10:15 | PN- Infect Dx ---
Subjective Subjective: Afebrile without complaints. He continues to report diarrhea which has not changed, with 6 bowel movements reported yesterday and 3 overnight. His blood pressure has improved with Florinef. Objective Last 24 Hrs of Vital Signs/I&O Vital Signs Date Time Temp Pulse Resp B/P B/P Pulse O2 O2 Flow FiO2 Mean Ox Delivery Rate 02/07 0800 Room Air 02/07 0753 99.0 85 18 110/60 98 Room Air 02/07 0041 98.4 79 16 98/64 100 Room Air 02/06 1557 98.7 90 16 91/61 99 Room Air Intake & Output 02/07 1600 02/07 0800 02/07 0000 Intake Total 1000 620 Output Total 1000 400 Balance 0 220 Intake, IV 1000 500 Intake, Oral 120 Number 3 4 Bowel Movements Output, Urine 1000 400 Physical Exam Other Physical Findings: He appears comfortable in no acute distress. Blood pressure 110/60 Lungs are clear Heart regular rhythm with no murmur Abdomen is soft, nontender with positive bowel sounds Results Last 24 Hours of Lab Results: Laboratory Tests 02/07 0630 Chemistry Sodium (137 - 145 mmol/L) 135 L Potassium (3.5 - 5.1 mmol/L) 4.2 Chloride (98 - 107 mmol/L) 105 Carbon Dioxide (22 - 30 mmol/L) 24 Anion Gap (5 - 16) 6 BUN (9 - 20 mg/dL) 10 Creatinine (0.7 - 1.2 mg/dL) 0.5 L Estimated GFR (>60 ml/min) > 60 BUN/Creatinine Ratio (7 - 25 %) 20.0 Magnesium (1.6 - 2.3 mg/dL) 1.8 Hematology CBC w Diff NO MAN DIFF REQ WBC (4.8 - 10.8 /CUMM) 4.7 L RBC (4.70 - 6.10 /CUMM) 2.86 L Hgb (14.0 - 18.0 G/DL) 9.0 L Hct (42 - 52 %) 26.6 L MCV (80.0 - 94.0 FL) 93.1 MCH (27.0 - 31.0 PG) 31.4 H RDW (11.5 - 14.5 %) 13.3 Plt Count (130 - 400 /CUMM) 349 MPV (7.4 - 10.4 FL) 7.9 Gran % (42.2 - 75.2 %) 56.4 Lymphocytes % (20.5 - 51.1 %) 29.0 Monocytes % (1.7 - 9.3 %) 7.3 Eosinophils % (0 - 5 %) 6.6 H Basophils % (0.0 - 2.0 %) 0.7 Absolute Granulocytes (1.4 - 6.5 /CUMM) 2.7 Absolute Lymphocytes (1.2 - 3.4 /CUMM) 1.4 Absolute Monocytes (0.10 - 0.60 /CUMM) 0.3 Absolute Eosinophils (0.0 - 0.7 /CUMM) 0.3 Absolute Basophils (0.0 - 0.2 /CUMM) 0 PUBS MCHC (33.0 - 37.0 G/DL) 33.7 Last 24 Hours of Brad Results: Stool C. difficile PCR negative Assessment/Plan Impression: Stable off antibiotics with temperatures and white blood cell count remaining normal. He continues to have diarrhea, with the second C. difficile negative and with PCR also negative. He underwent upper endoscopy 5 days ago with findings of atrophic gastritis on examination, but with biopsies essentially negative. Further evaluation, including serologies for celiac, are pending. His blood pressure has improved on Florinef. Suggestion: 1. Further evaluation of his diarrhea/weight loss per GI 2. Continue to follow off antibiotics Will no longer follow at this time, but please call with any questions
--- NOTE | 2017-02-07 11:09 | PN- Diabetes ---
Assessment/Plan Assessment: 51 Y/O male with past hx of alcoholism (quit in September 2016), diabetes mellitus type 2 with peripheral neuropathy on metformin 1000 mg twice a day, chronic diarrhea with more than 100 pounds weight loss, multiple falls with syncopal episodes, was admitted to hospital after an episode of mechanical fall, feeling lightheaded and dizzy. He had an episode of hypoglycemia along with hypotension on 02/03/2017. Cortrosyn stimulation test reveals cortisol one hour after stimulation of 19.3. A value above 18 is considered normal. Patient was put on Florinef 0.1 mg daily for postural hypotension. The patient was also put on 8 units of Levemir daily. He is on sliding scale NovoLog before meals. His FSGs were 271, 262, 136, 350, 379. Plan: 1. continue Florinef; 2. increase Levemir to 10 units daily; 3. adjust Novolog coverage before meals-- detail see the inpatient DM order; 4. monitor FSGS. will follow. Inpatient Diabetes Orders Before Each Meal: Bolus Insulin: Novolog < 80 mg/dl: no coverage 80-100 mg/dl: no coverage 101-120 mg/dl: no coverage 121-150 mg/dl: 3 units 151-200 mg/dl: 3 units 201-250 mg/dl: 4 units 251-300 mg/dl: 5 units 301-350 mg/dl: 6 units 351-400 mg/dl: 7 units > 400 mg/dl: 8 units Subjective Subjective: He still has diarrhea. Objective Last 24 Hrs of Vital Signs/I&O Vital Signs Date Time Temp Pulse Resp B/P B/P Pulse O2 O2 Flow FiO2 Mean Ox Delivery Rate 02/07 08 Room Air 02/07 0753 99.0 85 18 110/60 98 Room Air 02/07 0041 98.4 79 16 98/64 100 Room Air 02/06 1557 98.7 90 16 91/61 99 Room Air Intake & Output 02/07 1600 02/07 0800 02/07 0000 Intake Total 1000 620 Output Total 1000 400 Balance 0 220 Intake, IV 1000 500 Intake, Oral 120 Number 3 4 Bowel Movements Output, Urine 1000 400 Findings Pertinent Lab/Brad Results: Laboratory Tests 02/07 0630 Chemistry Sodium (137 - 145 mmol/L) 135 L Potassium (3.5 - 5.1 mmol/L) 4.2 Chloride (98 - 107 mmol/L) 105 Carbon Dioxide (22 - 30 mmol/L) 24 Anion Gap (5 - 16) 6 BUN (9 - 20 mg/dL) 10 Creatinine (0.7 - 1.2 mg/dL) 0.5 L Estimated GFR (>60 ml/min) > 60 BUN/Creatinine Ratio (7 - 25 %) 20.0 Magnesium (1.6 - 2.3 mg/dL) 1.8 Hematology CBC w Diff NO MAN DIFF REQ WBC (4.8 - 10.8 /CUMM) 4.7 L RBC (4.70 - 6.10 /CUMM) 2.86 L Hgb (14.0 - 18.0 G/DL) 9.0 L Hct (42 - 52 %) 26.6 L MCV (80.0 - 94.0 FL) 93.1 MCH (27.0 - 31.0 PG) 31.4 H RDW (11.5 - 14.5 %) 13.3 Plt Count (130 - 400 /CUMM) 349 MPV (7.4 - 10.4 FL) 7.9 Gran % (42.2 - 75.2 %) 56.4 Lymphocytes % (20.5 - 51.1 %) 29.0 Monocytes % (1.7 - 9.3 %) 7.3 Eosinophils % (0 - 5 %) 6.6 H Basophils % (0.0 - 2.0 %) 0.7 Absolute Granulocytes (1.4 - 6.5 /CUMM) 2.7 Absolute Lymphocytes (1.2 - 3.4 /CUMM) 1.4 Absolute Monocytes (0.10 - 0.60 /CUMM) 0.3 Absolute Eosinophils (0.0 - 0.7 /CUMM) 0.3 Absolute Basophils (0.0 - 0.2 /CUMM) 0 PUBS MCHC (33.0 - 37.0 G/DL) 33.7
--- NOTE | 2017-02-07 16:08 | Discharge Summary ---
See Addendum Visit Information Visit Dates Admission Date: 01/31/17 Discharge Date: 02/10/2017 Hospital Course Course Attending Physician: HELEN STEPHENSON MD Primary Care Physician: LALA TAPIA MD Consulting Request: Consulting Specialty: Gastroenterology Hospital Course: Mr. 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 Vitals on presentation temperature of 98.1, pulse of 70, respiratory rate of 20, blood pressure of 98/60, he was saturating 97% on room air. Relevant labs, no white count, H/H stable, platelets of 191 and (baseline). Sodium low at 127, corrected sodium for hyperglycemia noted to be 135. BUN and creatinine 9/0.6. AST 58, ALT 116, alkaline phosphatase 146, mildly elevated, initial serum troponin negative less than 0.01. Total protein of 6.1 and albumin of 3.4. EKG showed normal sinus rhythm, mild diffuse ST elevation. patient initial low blood pressure improved after 2 L of normal saline bolus at the emergency department. He was sutured at the ER on the right eyebrow laceration after the fall. Urine toxicology essentially negative, serum alcohol less than 10.0. CT of the head and maxillofacial area revealed right periorbital soft tissue swelling. Chest x-ray negative. He was admitted on general medicine floor for following problems. 1. Syncopal episode/history of recurrent falls/postural hypotension For his syncopal episode and history of recurrent falls he was seen by a neurologist. It was thought that syncopal episodes likely related to hypotension and his diffuse weakness is secondary to underlying systemic disease. He was orthostatics positive. Multiple rapid responses were called because of hypotension. He was also seen by manager small business. He thought that it does not appear to be any significant cardiac etiology. The patient had a normal resting electrocardiogram, no evidence of arrhythmia on telemetry and echo showed normal left ventricular and right ventricle systolic function with no valvular abnormalities. Autonomic neuropathy was a possibility and compression stockings were suggested. He was continuously on IV fluids. He was encouraged to increase his by mouth intake. He was also started on salt tablets. Ward Supervisor was on board and it was recommended to check his cortisol levels to rule out Valentín's disease. His a.m. cortisol was in the low -normal range. ACTH stimulation test was also done that revealed cortisol one hour after stimulation was 19.3 (A value above 18 is considered normal). He was also started on fludrocortisone. His blood pressure was still on lower side and later on fludrocortisone dose was increased. Midodrine was also added in his regimen. His systolic blood pressure sustained in the range of 90-100. Because of persistent hypertension his midodrine dose was increased from 2.5-5 mg and sodium chloride tablets were discontinued. He was also seen by neurologist, Dr. sullivan for persistent hypotension who recommended to continue same treatment and if fails to work would recommend Northera (Droxydopa). He also recommeneded outpatient EMG to rule out other potential neuromuscular disease. His blood pressure was stable on discharge and he also walked with PT without signs of Orthostatic hypotension. 2. Chronic diarrhea/significant weight loss and evidence of malnutrition For his diarrhea it was presumed that he might have relapse of C. difficile and he was begun on by mouth vancomycin. Infectious disease specialist, Dr. Martinez was on board. CT abdomen and pelvis with IV contrast was done that showed nonspecific mild fluid distention of the colon is seen without abnormal bowel wall thickening or hyperenhancement seen. No evidence of bowel obstruction or perforation. Gastroenterology was also on board. They recommended to do stool studies and EGD/enteroscopy with biopsies, including for Congo Red stain. Later on his C. difficile was negative 2 and the empiric treatment with Vancomycin was discontinued. Stool was sent for C. difficile PCR. Stool studies were negative for Giardia, cryptosporidium, Shigella and yersinia. 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 EGD w/biopsy was done on 02/02/17. Impression: 1. Atrophic gastritis and suggestion of gastroparesis status post gastric biopsies. 2. Grossly normal small bowel folds status post random biopsies. It was also requested to admit Congo red stain to gastric and intestinal biopsies to rule out amyloidosis. There was also a thought of pancreatic insufficiency in the setting of alcohol abuse and diabetes. He was also deficient in vitamin D although coags were normal. Other workup including celiac antibody panel, stool fat, pancreatic elastase was ordered. Patient was found to be HIV negative. He was still having diarrhea and started on Imodium and Lomotil. Later on his celiac antibody panel, chromogranin A and tests for amyloidosis were negative. C. difficile PCR was also negative. He was also started on Cholestyramine but consistently having diarrhea. Pancreatic Elastase was still pending. Patient had really good appetite. He was also seen by mailing manager and was started on Glucerna. 3. Diabetes mellitus Patient had multiple rapid responses because of hypoglycemia requiring IV Dextrose. Endocrinology was on board. His insulin regimen was adjusted accordingly. His home medication metformin was discontinued and he was discharged on insulin. Hemoglobin A1c in hospital was 12.7. 4. Lactic acidosis On admission his lactic acid was 3.5 and repeat lactic acid was found to be 2.1. Complications: Hypotension Hypothermia Hypoglycemia Allergies: Coded Allergies: No Known Allergies (01/31/17) Significant Procedures: EGD with biopsy Disposition Summary Disposition Principal Diagnosis: Chronic diarrhea most likely secondary to malabsorption and alcoholic/diabetic peripheral and autonomic neuropathy Additional Diagnosis: none Discharge Disposition: STR Discharge Instructions General Discharge Information Code Status: Full Code Patient's Diet: Diabetic diet, High salt diet Patient's Activity: With assistance Follow-Up Instructions/Appts: 1. Please follow up with her primary care provider next week after discharge 2. Please follow-up with mash processing operator, Dr. Granados next week after discharge 3. Please follow-up with tuyere fitter, after discharge Medications at Discharge Discharge Medications: Stop taking the following medications: Metformin HCl (Glucophage) 1,000 MG TABLET ORAL TWICE DAILY Days = 30 Continue taking these medications: Multivitamin (Multi-Day Vitamins) 1 EACH TABLET 1 Tablet ORAL DAILY Days = 90 Comments: Last Taken: 02/15/17 Time: 9AM Gabapentin (Gabapentin) 100 MG CAPSULE 100 Milligram ORAL EVERY 8 HOURS Days = 30 Comments: NOT GIVEN IN HOSPITAL Mirtazapine (Remeron) 15 MG TABLET 7.5 Milligram ORAL AT BEDTIME Days = 30 Comments: Last Taken: 02/14/17 Time: 2130PM 10PM Cholestyramine/Aspartame (Cholestyramine Light Packet) 4 GRAM POWD.PACK 1 Packet ORAL DAILY Qty = 30 Comments: Last Taken: 02/15/17 Time: 9AM This prescription has been renewed Start taking the following new medications: Insulin Aspart (Novolog) 100 UNIT/ML VIAL 0 Units Inject into fatty tissue 3 TIMES DAILY BEFORE MEALS Qty = 30 No Refills Instructions: Less than 80 mg/dl ---- Initiate hypoglycemia protocol Less than 150 mg/dl---- 0 units 151-200 mg/dl 2 units 201-250 mg/dl 3 units 251-300 mg/dl 4 units 301-350 mg/dl 5 units 351-400 mg/dl 6 unit More than 400 mg/dl-------- 7 units Comments: Last Taken: 02/15/17 Time: 12:30PM Cholestyramine/Aspartame (Cholestyramine Light Packet) 4 GRAM POWD.PACK 1 Packet ORAL DAILY as needed for DIARRHEA Days = 30 No Refills Ergocalciferol (Vitamin D2) (Vitamin D2) 50,000 UNIT CAPSULE 50,000 International Unit ORAL EVERY TUESDAY Qty = 4 No Refills Comments: NOT GIVEN IN HOSPITAL Melatonin (Melatonin) 5 MG TABLET 5 Milligram ORAL AT BEDTIME Qty = 30 No Refills Comments: Last Taken: 02/14/17 Time: 10PM Diphenoxylate HCl/Atropine (Diphenoxylate-Atrop 2.5-0.025) 2.5 MG-0.025 MG TABLET 2.5 Milligram ORAL THREE TIMES DAILY as needed for DIARRHEA Qty = 90 No Refills Loperamide HCl (Loperamide) 2 MG CAPSULE 2 Milligram ORAL EVERY SIX HOURS Qty = 120 No Refills Instructions: scheduled, not prn Midodrine HCl (Midodrine HCl) 2.5 MG TABLET 10 Milligram ORAL 0800,1200,1600 Qty = 360 No Refills Comments: Last Taken: 02/15/17 Time: 12PM Fludrocortisone Acetate (Fludrocortisone Acetate) 0.1 MG TABLET 100 Microgram ORAL DAILY Qty = 30 No Refills Comments: Last Taken: 02/15/17 Time: 9AM Insulin Detemir (Levemir) 100 UNIT/ML VIAL 6 Units Inject into fatty tissue DAILY Qty = 10 No Refills Comments: Last Taken: 02/15/17 Time: 9AM Hydrocortisone Sod Succinate (Solu-Cortef) 100 MG VIAL 25 Milligram INTRAVEN TWICE DAILY Qty = 30 No Refills Copies To: REGINA PEGUERO,LALA; TYRA PEGUERO,BAILEY; MONTEZ PEGUERO,SIGRID Attending MD Review Statement Other Findings: Accepting physician at [facility] is Dr. Franklyn Jacques.
[2017-02-07 16:59] VITALS: BP 88/50
[2017-02-07 23:54] VITALS: BP 94/60
--- NOTE | 2017-02-08 07:54 | PN- Housestaff ---
CLEMENT PEGUERO,KRUNAL 02/08/17 0753: Subjective Follow-up For: Fall/dizziness Chronic Diarrhea Subjective: Pt seen and examined at bedside. Does not endorse any complaints. No acute o/n event reported by nursing staff. BP still bordeline low. Lunchtime Accu-Chek reading was remarkable for hypoglycemia with a glucose levels of low 50s, patient was examined during this period he was alert oriented and stated that he feels funny. Patient sugars were able to normalize after orange juice and dextrose amp. Review of Systems Constitutional: Reports: no symptoms. Objective Last 24 Hrs of Vital Signs/I&O Vital Signs Date Time Temp Pulse Resp B/P B/P Pulse O2 O2 Flow FiO2 Mean Ox Delivery Rate 02/08 1615 96.7 87 18 98/60 99 02/08 1200 20 90/52 02/08 0812 98.9 89 20 108/58 97 Room Air 02/08 0800 Room Air 02/07 2354 98.7 90 20 94/60 98 Room Air Intake & Output 02/08 1600 02/08 0800 02/08 0000 Intake Total 2115 1480 2400 Output Total 1280 450 350 Balance 835 1030 2050 Intake, IV 1035 1000 1500 Intake, Oral 1080 480 900 Number 2 0 Bowel Movements Output, Urine 1280 450 350 Physical Exam General Appearance: Alert, Oriented X3, Cooperative, CACHETIC Cardiovascular: Regular Rate, Normal S1, Normal S2, No Murmurs, Gallops, Rubs Lungs: Clear to Auscultation, Normal Air Movement Abdomen: Normal Bowel Sounds, Soft, No Tenderness Neurological: sensation intact b/l in U/LE Extremities: No Clubbing, No Cyanosis Vascular: Normal Pulses, Pulses Symmetrical Assessment/Plan Assessment: This is is a 51 YO male current active smoker, past alcoholism (quit in September 2016), no illicit drug abuse with past medical history of type 2 diabetes mellitus with peripheral neuropathy, chronic diarrhea, previous multiple falls with syncopal episodes, depression came in with chief complain of an 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 1. Hypoglycemic event Patient had an hypoglycemic event of sugars around 53 stated that he feels funny. Given the multiple episodes of hypoglycemic events since admission requiring tapering off his insulin regimen, patient will require close monitoring of Accu-Cheks and his oral intake to avoid any further hypoglycemia events. He seems to have profound episodes with altered mental status. Therefore, he is not stable for short-term rehabilitation discharged today. We' ll closely monitor Accu-Cheks and reassess tomorrow morning. 1.Hypotension Still profound orthostatic hypotension. Given patients type 2 diabetes, and diarrhea with some numbness of feet and hand, this could be cardiovascular autonomic neuropathy as patient has severe drop in BP during postural changes. Added midodrine and increased fludrocortisone dose to 200 g in addition to the sodium tablet. SHAYY stockings utilization has been complicated by the cachectic presentation of the patient was his lower extremities are too small for even the smallest standardize stockings. For now we'll continue with edy wraps. 2. Chronic diarrhea with significant weight loss Unclear etiology. Mimimal Improvement in lose stool from loperamide use. PCR stool pending (first 2 stool toxin negative), Stool ova and parasite, Yersinia, HIV, cryptosporidum all negative, fecal stool fat is WNL. Biopsy of small bowel unremarkable for malignancy. Celiac serology pending, Pancraetic elastase, carcinoid workup (5-HIAA and chromagin), are all pending. Diabetic enteropathy is still very possible as patient also has profound orthostatic hypotension, and intermittent episodes of numbness and tingling of extremities. These findings can be suggestive of secondary autonomic dsyfunction from diabetes. Even though patient reports recent diagnosis of Type 2 diabetes (within 1 year), unlike type 1, Type 2 autonomic neuropathy can happen more acutely. Will continue to follow Gi reccomendation. 3. Malnutrition Severe protein calorie malnutrition as evidenced by a very low BMI of 14, and a weight loss of 50% of body weight with an albumin of 2.6. * Continue mirtazapine for appetite stimulation * Continue to encourse appropriate PO intake including Glucerna 3 times a day and monitor scale twice a week per nutrition recommendation (appreciated) * Follow up with GI in regards to chronic diarrhea workup Problem List: 1. Orthostatic hypertension 2. Severe protein-calorie malnutrition Pain Ratin Pain Location: NONE Pain Goal: Remain pain free Pain Plan: PER PAIN PATHWAY Tomorrow's Labs & Rationales: NONE-DISCHARGE Consulting Request: Consulting Specialty: Gastroenterology SEEMAHELEN TIPTON MD 02/08/17 1236: Attending MD Review Statement Attending Statement Attending MD Statement: examined this patient, discuss w/resident/PA/HUMAN RESOURCES REPRESENTATIVE, agreed w/resident/PA/HUMAN RESOURCES REPRESENTATIVE, reviewed EMR data (avail), discussed with nursing, discussed with case mgmt, amended to note Attending Assessment/Plan: Patient seen and examined, this morning he was doing okay but now his blood sugars are now again going down. He has received Levemir 10 units this morning. Vital Signs Date Time Temp Pulse Resp B/P B/P Pulse O2 O2 Flow FiO2 Mean Ox Delivery Rate 02/08 1200 20 90/52 02/08 0812 98.9 89 20 108/58 97 Room Air 02/08 0800 Room Air 02/07 2354 98.7 90 20 94/60 98 Room Air 02/07 1659 98.9 86 20 88/50 99 Room Air 02/07 1553 Room Air Room Air on exam; aox3, nad. cv; s1,s2, rrr resp; clear abd; soft, nt, bs+ ext; no edema. Laboratory Tests 02/08 0607 Chemistry Sodium (137 - 145 mmol/L) 135 L Potassium (3.5 - 5.1 mmol/L) 3.8 Chloride (98 - 107 mmol/L) 106 Carbon Dioxide (22 - 30 mmol/L) 25 Anion Gap (5 - 16) 4 L BUN (9 - 20 mg/dL) 7 L Creatinine (0.7 - 1.2 mg/dL) 0.5 L Estimated GFR (>60 ml/min) > 60 BUN/Creatinine Ratio (7 - 25 %) 14.0 A/P; 51-year-old male with history significant for diabetes, alcohol use who was originally admitted with acute on chronic diarrhea, hypertension. Patient has severe peripheral/autonomic neuropathy from diabetes as well as from medical use. He consistently has diarrhea, hypo-and hyperglycemic episodes, hypotension. We have been adjusting his insulin dose. Patient was started on fludrocortisone and we have applied tight Edy wrap around his lower extremities secondary to not able to find a right size teds stockings. Patient has been kept on IV fluids. We have also added sodium tabs. We will add midodrine today. He was started on Imodium, cholestyramine but consistently having diarrhea. We have also added Lomotil. So far his celiac workup is negative, C. difficile negative. Stool fat normal and awaiting stool elastase as well as Congo red stain on the intestinal biopsy. DVT prophylaxis: Lovenox. Patient although initially thought to be discharged today, with this new episode of hypoglycemia and hypotension, not stable for discharge yet. stain on the intestinal biopsy. DVT prophylaxis: Lovenox. Patient although initially thought to be discharged today, with this new episode of hypoglycemia and hypotension, not stable for discharge yet.
[2017-02-08 08:12] VITALS: BP 108/58
--- NOTE | 2017-02-08 08:22 | PN- Diabetes ---
Assessment/Plan Assessment: 51 Y/O male with past hx of alcoholism (quit in September 2016), diabetes mellitus type 2 with peripheral neuropathy on metformin 1000 mg twice a day, chronic diarrhea with more than 100 pounds weight loss, multiple falls with syncopal episodes, was admitted to hospital after an episode of mechanical fall, feeling lightheaded and dizzy. He had an episode of hypoglycemia along with hypotension on 02/03/2017. Cortrosyn stimulation test reveals cortisol one hour after stimulation of 19.3. A value above 18 is considered normal. Patient was put on Florinef 0.1 mg daily for postural hypotension. Levemir was increased to 10 units daily. NovoLog coverage before meals was adjusted on 02/07/2017 He is still on NS at 125 ml/hour. His FSGs were 379, 168, 172, 82 and 221, Plan: continue the current insulin regimen foir now; monitor FSGs; will follow. Subjective Subjective: He still has diarrhea x 3 times overnight. Objective Last 24 Hrs of Vital Signs/I&O Vital Signs Date Time Temp Pulse Resp B/P B/P Pulse O2 O2 Flow FiO2 Mean Ox Delivery Rate 02/08 0812 98.9 89 20 108/58 97 Room Air 02/08 0800 Room Air 02/07 2354 98.7 90 20 94/60 98 Room Air 02/07 1659 98.9 86 20 88/50 99 Room Air 02/07 1553 Room Air Room Air Intake & Output 02/08 1600 02/08 0800 02/08 0000 Intake Total 1480 2400 Output Total 450 350 Balance 1030 2050 Intake, IV 1000 1500 Intake, Oral 480 900 Number 2 0 Bowel Movements Output, Urine 450 350 Findings Pertinent Lab/Brad Results: Laboratory Tests 02/08 0607 Chemistry Sodium (137 - 145 mmol/L) 135 L Potassium (3.5 - 5.1 mmol/L) 3.8 Chloride (98 - 107 mmol/L) 106 Carbon Dioxide (22 - 30 mmol/L) 25 Anion Gap (5 - 16) 4 L BUN (9 - 20 mg/dL) 7 L Creatinine (0.7 - 1.2 mg/dL) 0.5 L Estimated GFR (>60 ml/min) > 60 BUN/Creatinine Ratio (7 - 25 %) 14.0
[2017-02-08] MEDS ORDERED: CHOLESTYRAMINE L4 GM PO ×2 (08:25→09:43)
[2017-02-08] MEDS ORDERED: NOVOLOG100 UNIT/2 SC (08:25)
--- NOTE | 2017-02-08 10:34 | PN- Cardiology ---
Subjective Subjective: Patient states he feels a little bit better today. He still complains of dizziness but the diarrhea has lessened. Review of Systems: Eyes no blurred or double vision Ears no deafness or ringing Nose and throat no recurrent sinusitis Lungs per history of present illness Heart per history of present illness Abdomen no nausea vomiting he does continue to have diarrhea Musculoskeletal occasional muscle and joint pains Psych no anxiety or depression Neuro without recurrent headache or seizures Endocrine no heat or cold intolerance Objective Vital Signs and I&Os Vital Signs Date Time Temp Pulse Resp B/P B/P Pulse O2 O2 Flow FiO2 Mean Ox Delivery Rate 02/08 08 98.9 89 20 108/58 97 Room Air 02/08 0800 Room Air 02/07 2354 98.7 90 20 94/60 98 Room Air 02/07 1659 98.9 86 20 88/50 99 Room Air 02/07 1553 Room Air Room Air Intake & Output 02/08 1600 02/08 0800 02/08 0000 02/07 1600 02/07 0800 02/07 0000 Intake Total 1480 2400 1720 1000 620 Output Total 072 970 5888 1000 400 Balance 1030 2050 620 0 220 Intake, IV 1000 1500 1000 1000 500 Intake, Oral 480 900 720 120 Number 2 0 3 4 Bowel Movements Output, Urine 875 081 1109 1000 400 Physical Exam: Patient is a well-developed cachectic male appearing in no acute distress HEENT is unremarkable Neck is supple there is no JVD Lungs are clear Heart regular rhythm S1 and S2 are normal no gallops or rubs 106 systolic ejection murmur at the left sternal border Abdomen bowel sounds positive Extremities without edema Current Medications: Current Medications Sig/Fay Start time Last Medication Dose Route Stop Time Status Admin Cholestyramine Resin 1 PAC DAILY 02/06 1801 AC 02/08 PO 0900 Diphenoxylate HCl/ 2.5 MG TID 02/07 1000 AC 02/08 Atropine PO 0900 Enoxaparin Sodium 40 MG DAILY 01/31 1011 AC 02/08 SC 0900 Ergocalciferol 50,000 IU QTHURS 02/03 1000 AC 02/03 PO 1123 Fludrocortisone 200 MCG DAILY 02/08 1000 AC Acetate PO Fludrocortisone 100 MCG DAILY 02/05 1236 DC 02/08 Acetate PO 0900 Insulin Aspart 0 TIDAC 02/03 1700 AC 02/08 SC 0853 Insulin Detemir 10 UNITS DAILY 02/07 1000 AC 02/08 SC 0900 Loperamide HCl 2 MG Q6P PRN 02/03 1930 AC 02/07 PO 2231 Melatonin 5 MG AT BEDTIME 02/06 2200 AC 02/07 PO 223 Midodrine 2.5 MG 0800,1200,1600 02/08 1200 AC PO Mirtazapine 7.5 MG AT BEDTIME 02/02 2230 AC 02/07 PO 223 Multivitamins 1 TAB DAILY 02/01 1000 AC 02/08 PO 0900 Naloxone HCl 0.4 MG DAILY NEEDED PRN 02/01 0630 AC IV Sodium Chloride 1,000 ML Q8H 02/07 1615 AC 02/07 IV 2000 Sodium Chloride 1,000 MG BID 02/07 1000 AC 02/08 PO 0900 Sodium Chloride 1,000 ML Q8H 02/03 1915 DC 02/07 IV 1247 Results Last 48 Hrs of Labs/Mics: Laboratory Tests 02/08/17 0607: Anion Gap 4 L, Estimated GFR > 60, BUN/Creatinine Ratio 14.0 02/07/17 0630: Anion Gap 6, Estimated GFR > 60, BUN/Creatinine Ratio 20.0, Magnesium 1.8, CBC w Diff NO MAN DIFF REQ, RBC 2.86 L, MCV 93.1, MCH 31.4 H, RDW 13.3, MPV 7.9, Gran % 56.4, Lymphocytes % 29.0, Monocytes % 7.3, Eosinophils % 6.6 H, Basophils % 0.7, Absolute Granulocytes 2.7, Absolute Lymphocytes 1.4, Absolute Monocytes 0.3, Absolute Eosinophils 0.3, Absolute Basophils 0, PUBS MCHC 33.7 Stool ova and parasite, Yersinia, HIV, cryptosporidum all negative, fecal stool fat is WNL. Assessment/Plan Assessment/Plan The patient presents with chronic diarrhea, weight loss as well as hypotension and a fall. The etiology of his weight loss and chronic diarrhea is unclear, and results of testing are pending. This may be due to autonomic dysfunction secondary to diabetes. Hypotension: The patient has been initiated on Florinef and has had a significant fluid positive balance since admission. I would continue checking orthostatic blood pressure changes. The dose of fludrocortisone may be increased if needed as well as addition of midodine. A review of the echocardiogram does not suggest a primary cardiac etiology to his symptoms. Continue telemetry? No
[2017-02-08 12:00] VITALS: BP 90/52
--- NOTE | 2017-02-08 12:15 | NUR ---
1200 PT BLOOD SUGAR IS 52. PT C/O FEELING LIGHTHEADDED AND DIZZY AND STATES THE TV IS FUZZY. PT BP 90/52 SITTING. PT GIVEN 2 GLASSES OF OJ TO DRINK. 1205 WAITER KRUNAL PAGED 1203 KRUNAL CALLED BACK AND CAME TO ASSESS PT. PER KRUNAL TO GIVE PT MORE OJ AND HAVE PT EAT LUNCH AND RECHECK BLOOD SUGAR IN 15 MIN. WILL CONTINUE TO MONITOR PT.
[2017-02-08 16:15] VITALS: BP 98/60
[2017-02-09 01:03] VITALS: BP 98/56
--- NOTE | 2017-02-09 07:29 | PN- Housestaff ---
CLEMENT PEGUERO,KRUNAL 02/09/17 0729: Subjective Follow-up For: Falls Diarrhea Tele-Events Since Last Visit: Off telemetry Subjective: Patient is seen and examined at bedside. His BP is still borderline low with persistent orthostatic hypotension. No acute overnight event of hypoglycemia is noted. She does not endorse any acute complaints including shortness of breath, any new focal neurological deficit, chest pain, palpitation, abdominal pain, fever, chills, nausea, vomiting or dysuria. Review of Systems Constitutional: Reports: no symptoms. Objective Last 24 Hrs of Vital Signs/I&O Vital Signs Date Time Temp Pulse Resp B/P B/P Pulse O2 O2 Flow FiO2 Mean Ox Delivery Rate 02/09 1035 84 90/54 02/09 0800 98.1 89 18 100/60 98 Room Air 02/09 0103 99.9 96 18 98/56 96 Room Air 02/08 1615 96.7 87 18 98/60 99 02/08 1200 20 90/52 Intake & Output 02/09 1600 02/09 0800 02/09 0000 Intake Total 920 Output Total 850 Balance -850 920 Intake, IV 500 Intake, Oral 420 Number 1 Bowel Movements Output, Urine 850 Physical Exam General Appearance: Alert, Oriented X3, Cooperative Assessment/Plan Assessment: This is is a 51 YO male current active smoker, past alcoholism (quit in September 2016), no illicit drug abuse with past medical history of type 2 diabetes mellitus with peripheral neuropathy, chronic diarrhea, previous multiple falls with syncopal episodes, depression came in with chief complain of an 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 1. Hypoglycemic event Patient had an hypoglycemic event of sugars around 53 stated that he feels funny. Given the multiple episodes of hypoglycemic events since admission requiring tapering off his insulin regimen, patient will require close monitoring of Accu-Cheks and his oral intake to avoid any further hypoglycemia events. He seems to have profound episodes with altered mental status. Therefore, he is not stable for short-term rehabilitation discharged today. We' ll closely monitor Accu-Cheks and reassess tomorrow morning. 1.Hypotension Still profound orthostatic hypotension. Given patients type 2 diabetes, and diarrhea with some numbness of feet and hand, this could be cardiovascular autonomic neuropathy as patient has severe drop in BP during postural changes. Added midodrine and increased fludrocortisone dose to 200 g in addition to the sodium tablet. HSAYY stockings utilization has been complicated by the cachectic presentation of the patient was his lower extremities are too small for even the smallest standardize stockings. For now we'll continue with edy wraps. 2. Chronic diarrhea with significant weight loss Unclear etiology. Mimimal Improvement in lose stool from loperamide use. PCR stool pending (first 2 stool toxin negative), Stool ova and parasite, Yersinia, HIV, cryptosporidum all negative, fecal stool fat is WNL. Biopsy of small bowel unremarkable for malignancy. Celiac serology pending, Pancraetic elastase, carcinoid workup (5-HIAA and chromagin), are all pending. Diabetic enteropathy is still very possible as patient also has profound orthostatic hypotension, and intermittent episodes of numbness and tingling of extremities. These findings can be suggestive of secondary autonomic dsyfunction from diabetes. Even though patient reports recent diagnosis of Type 2 diabetes (within 1 year), unlike type 1, Type 2 autonomic neuropathy can happen more acutely. Will continue to follow Gi reccomendation. 3. Malnutrition Severe protein calorie malnutrition as evidenced by a very low BMI of 14, and a weight loss of 50% of body weight with an albumin of 2.6. * Continue mirtazapine for appetite stimulation * Continue to encourse appropriate PO intake including Glucerna 3 times a day and monitor scale twice a week per nutrition recommendation (appreciated) * Follow up with GI in regards to chronic diarrhea workup Problem List: 1. Orthostatic hypertension Pain Ratin Pain Location: none Pain Goal: Remain pain free Pain Plan: per pain pathway Tomorrow's Labs & Rationales: BEP-Diarrhea and on fludrocortisone, and Sodium tabs Consulting Request: Consulting Specialty: Gastroenterology HELEN STEPHENSON MD 02/09/17 1205: Attending MD Review Statement Attending Statement Attending MD Statement: examined this patient, discuss w/resident/PA/SHALE MINER BLASTING, agreed w/resident/PA/SHALE MINER BLASTING, reviewed EMR data (avail), discussed with nursing, discussed with case mgmt, reviewed images, amended to note Attending Assessment/Plan: Patient seen and examined, he was doing well this morning. There was a plan for him to be discharged to rehabilitation today but just a few minutes ago he again dropped his blood sugars to 50s. He was also symptomatic. His blood pressure also dropped to 90s. Vital Signs Date Time Temp Pulse Resp B/P B/P Pulse O2 O2 Flow FiO2 Mean Ox Delivery Rate 02/09 1035 84 90/54 02/09 0800 98.1 89 18 100/60 98 Room Air 02/09 0103 99.9 96 18 98/56 96 Room Air 02/08 1615 96.7 87 18 98/60 99 on exam; aox3, nad. cv; s1,s2, rrr resp; clear abd; soft, nt, bs+ ext; no edema. skin; stiches removed from right eyebrow no labs today. A/P; 51-year-old male with history significant for diabetes, alcohol use who was originally admitted with acute on chronic diarrhea, hypertension. Patient has severe peripheral/autonomic neuropathy from diabetes as well as from medical use. He consistently has diarrhea, hypo-and hyperglycemic episodes, hypotension. We have been adjusting his insulin dose. For orthostatic hypotension he has been kept on IV fluids since his admission, we also added Salt Tabs, we added fludrocortisone with increasing dose as well as added Midodrine with increasing dose. He also has tight Edy wrap around his calfs as smaller TEDS stockings could not be found. Please consult with endocrinology for further insulin adjustment. We will consult neurology for consistent orthostasis. So far all the diarrhea workup has been negative. Patient is started on Imodium , Lomotil as well as cholestyramine for diarrhea. DVt px; lovenox.
[2017-02-09 08:00] VITALS: BP 100/60
--- NOTE | 2017-02-09 10:29 | NUR ---
Physical Therapy - Attempted PT intervention, pt c/o dizziness upon entering room, BP 78/48 in supine. Nsg notified and PT deferred. Will f/u later as appropriate.
[2017-02-09 10:35] VITALS: BP 90/54
--- NOTE | 2017-02-09 15:38 | PN- Diabetes ---
Assessment/Plan Assessment: 51 Y/O male with past hx of alcoholism (quit in September 2016), diabetes mellitus type 2 with peripheral neuropathy on metformin 1000 mg twice a day, chronic diarrhea with more than 100 pounds weight loss, multiple falls with syncopal episodes, was admitted to hospital after an episode of mechanical fall, feeling lightheaded and dizzy. He had an episode of hypoglycemia along with hypotension on 02/03/2017. Cortrosyn stimulation test reveals cortisol one hour after stimulation of 19.3. A value above 18 is considered normal. Patient was put on Florinef 0.1 mg daily and midodrine 5 mg x 3 times a day for postural hypotension. Levemir was increased to 10 units daily. NovoLog coverage before meals was adjusted on 02/07/2017. His FSGs were 52, 58, 119, 85, 80, 97, 177 and 180. He had another episode of hypoglycemia today. His HbA1c is 12.7%. Plan: 1. decrease Levemir to 8 units daily; 2. decrease Novolog coverage before meals--detail see the inpatient DM order; 3. His HbA1c is 12.7% and he has been sensitive to insulin treatment. I will recommend checking C-peptide and DEJUAN 65 antibody to rule out DM type 1. 4. monitor FSGs. will follow. Inpatient Diabetes Orders Before Each Meal: Bolus Insulin: Novolog < 80 mg/dl: no coverage 80-100 mg/dl: no coverage 101-120 mg/dl: no coverage 121-150 mg/dl: no coverage 151-200 mg/dl: 2 units 201-250 mg/dl: 3 units 251-300 mg/dl: 4 units 301-350 mg/dl: 5 units 351-400 mg/dl: 6 units > 400 mg/dl: 7 units Subjective Subjective: He still has diarrhea and he has had multiple episodes of hypoglycemia. Objective Last 24 Hrs of Vital Signs/I&O Vital Signs Date Time Temp Pulse Resp B/P B/P Pulse O2 O2 Flow FiO2 Mean Ox Delivery Rate 02/09 1221 Room Air Room Air 02/09 1035 84 90/54 02/09 0800 98.1 89 18 100/60 98 Room Air 02/09 0103 99.9 96 18 98/56 96 Room Air 02/08 1615 96.7 87 18 98/60 99 Intake & Output 02/09 1600 02/09 0800 02/09 0000 Intake Total 920 Output Total 125 850 Balance -125 -850 920 Intake, IV 500 Intake, Oral 420 Number 1 Bowel Movements Output, Urine 125 850
[2017-02-09 16:15] VITALS: BP 100/58
--- NOTE | 2017-02-09 16:48 | Cons- Neurology ---
General Information and HPI Consulting Request Date of Consult: 02/09/17 Requested By: HELEN STEPHENSON MD Reason for Consult: orthostatic hypotension Source of Information: patient Exam Limitations: no limitations History of Present Illness: Is a pleasant 51-year-old man who over the last 7-8 months has suffered from chronic idiopathic diarrhea and in that has lost sick and body mass especially muscle mass. He has also suffered from severe lightheadedness that has culminated in multiple syncopal episodes. This occurs mainly on standing up from laying or from sitting. He admits to long standing alcoholism and diabetes. He also admits to ongoing and worsening pathic pain in his legs and arms, muscle wasting or fasciculations. He denies any swallowing or voice problems. He endorses balance problems. Were asked to see him for his orthostatic hypotension. Despite using Imodium and getting volume repletion he continues to have low blood pressure and orthostatic hypotension. He was also started on Florinef and midodrine has not yet responded. When I see him the nurses note that he's been hypoglycemic throughout the day his current sugar being 65. This of GI workup for malignancy have yielded nothing. Allergies/Medications Allergies: Coded Allergies: No Known Allergies (01/31/17) Home Med List: Cholestyramine/Aspartame (Cholestyramine Light Packet) 4 GRAM POWD.PACK 1 PAC PO DAILY PRN DIARRHEA Gabapentin 100 MG CAPSULE 100 MG PO Q8 mood disorder Insulin Aspart (Novolog) 100 UNIT/ML VIAL 0 UNITS SC TIDAC diabetes Less than 80 mg/dl ---- Initiate hypoglycemia protocol Less than 120 mg/dl---- 0 units 121-200 mg/dl 3 units 201-250 mg/dl 4 units 251-300 mg/dl 5 units 301-350 mg/dl 6 units 351-400 mg/dl 7 units More than 400 mg/dl-------- 8 units Metformin HCl (Glucophage) 1,000 MG TABLET 1 TAB PO BID DIABETES (Reported) Mirtazapine (Remeron) 15 MG TABLET 7.5 MG PO AT BEDTIME mood disorder Multivitamin (Multi-Day Vitamins) 1 EACH TABLET 1 TAB PO DAILY SUPPLEMENT ( Reported) Current Medications: Current Medications Sig/Fay Start time Last Medication Dose Route Stop Time Status Admin Cholestyramine Resin 1 PAC DAILY 02/06 1801 AC 02/09 PO 1049 Diphenoxylate HCl/ 2.5 MG TID 02/07 1000 AC 02/09 Atropine PO 1048 Enoxaparin Sodium 40 MG DAILY 01/31 1011 AC 02/09 SC 1046 Ergocalciferol 50,000 IU QTHURS 02/03 1000 AC 02/03 PO 1123 Fludrocortisone 200 MCG DAILY 02/08 1000 AC 02/09 Acetate PO 1047 Insulin Aspart 0 TIDAC 02/03 1700 AC 02/09 SC 0831 Insulin Detemir 8 UNITS DAILY 02/09 1000 AC 02/09 SC 1046 Insulin Detemir 10 UNITS DAILY 02/07 1000 DC 02/08 SC 0900 Loperamide HCl 2 MG Q6P PRN 02/03 1930 AC 02/08 PO 2200 Melatonin 5 MG AT BEDTIME 02/06 2200 AC 02/08 PO 2200 Midodrine 5 MG 0800,1200,1600 02/09 1200 AC 02/09 PO 1430 Midodrine 2.5 MG 0800,1200,1600 02/08 1200 DC 02/09 PO 0831 Mirtazapine 7.5 MG AT BEDTIME 02/02 2230 AC 02/08 PO 2200 Multivitamins 1 TAB DAILY 02/01 1000 AC 02/09 PO 1048 Naloxone HCl 0.4 MG DAILY NEEDED PRN 02/01 0630 AC IV Sodium Chloride 1,000 ML Q8H 02/07 1615 AC 02/09 IV 0836 Sodium Chloride 1,000 MG BID 02/07 1000 DC 02/08 PO 2201 Review of Systems Review of Systems: Her was negative to a 10 point complete review of system. 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 Home Who Do You Live With? sister Services at Home: None Primary Language: Guinean Smoking Status: Current Everyday Smoker ETOH Use: heavy use quit in sep 2016 Illicit Drug Use: denies illicit drug use Living Will? no Power of Supervisory Air Intercept Controller/HCP? no Functional Ability ADLs Independent: dressing, eating, toileting, bathing. Ambulation: cane, walker IADLs Independent: shopping, housework, finances, food prep, telephone, transportation , medication admin. 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 ECHO Results (as available) EF% 55 Exam & Diagnostic Data Vital Signs and I&O Vital Signs Date Time Temp Pulse Resp B/P B/P Pulse O2 O2 Flow FiO2 Mean Ox Delivery Rate 02/09 1615 85 14 100/58 100 Room Air 02/09 1221 Room Air Room Air 02/09 1035 84 90/54 02/09 0800 98.1 89 18 100/60 98 Room Air 02/09 0103 99.9 96 18 98/56 96 Room Air Intake & Output 02/09 1600 02/09 0800 02/09 0000 Intake Total 920 Output Total 125 850 Balance -125 -850 920 Intake, IV 500 Intake, Oral 420 Number 1 Bowel Movements Output, Urine 125 850 Physical Exam: General: The patient is in no distress. Pleasant and cooperative. MSK: Diffuse wasting most notable in the hands or fasciculations. Atrophy is symmetrical. MSE: Alert and oriented 3. Good attention and concentration. Good short-term memory and fund of knowledge reflected through our conversation. Language is fluent with good comprehension and repetition. Cardiovascular: S1 and S2 are normal, regular rate and rhythm, and normal pedal pulses. Vision: Visual guzman are intact. Neurological: Extra ocular movements intact, ALESHIA, face is symmetric, tongue midline, uvula raises equally in the midline, V1-V3 sensation to touch is intact and equal bilaterallty, sternocleidomastoid and trapezius are strong on both sides, muscles of mastication are strong. No dysarthria noted. Tongue fasciculations. Motor exam reveals no abnormality of strength. Power is 4/5 throughout the distribution distally and proximally. Sensory exam revealed deficits to touch, temperature, vibration and proprioception in the feet and hands. Reflexes are symmetric bilaterally. Cerebellar exam does not reveal any dysmetria. Gait not tested. 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 Worsening the situation is the fact that he has had chronic diarrhea and has for developed malnutrition muscle wasting and likely poor vitamin deficiencies that worsen his neuropathy. Autonomic dysfunction is most likely secondary to this neuropathy. Recommendations: 1. Ask my his doses of Florinef and midodrine. And can be given 3 times a day at higher doses. 2. If fails to work would recommend Northera (Droxydopa). 3. Recommend nutrition consult to suggest foods that slow down peristalsis and find a way to increase caloric intake and improve nutritional status.. 4. Consider hypoglycemia as contribute a factor II lightheadedness and passing out. Also be investigated dependently although is most likely due to malnutrition. 5. Recommend EMG as an outpatient to rule out other potential neuromuscular disease. YC Consult Acknowledgment - Thank you for your consult request.
--- NOTE | 2017-02-09 19:35 | NUR ---
HYPOGLYCEMIA LATE ENTRY: 11:27 AM NOTIFIED BY [facility] BLOOD GLUCOSE <50. DR VAUGHAN MADE AWARE AT THAT TIME. 18 OZ OF ORANGE JUICE GIVEN PER DR VAUGHAN. PT C/O DIZZINESS BLURRED VISION, NUMB/TINGLY SENSATION TO BLE & R HAND. UPON REASSESSMENT AT 11:50 AM ACCUCHECK WAS 61. ANOTHER 18 OZ OF ORANGE JUICE GIVEN AT THIS TIME PER DR VAUGHAN. DR VAUGHAN REFUSED PERIPHERAL BLOOD DRAW AT THIS TIME. UPON REASSESSMENT AT 12:13 PM BLOOD GLUCOSE LEVEL WAS 85. PT STATES SYMPTOMS SUBSIDED. WILL CONTINUE TO MONITOR.
--- NOTE | 2017-02-09 19:39 | NUR ---
HYPOGLYCEMIA LATE ENTRY 16:22 PM NOTIFIED BY [facility] BLOOD GLUCOSE LEVEL WAS 65. DR VAUGHAN MADE AWARE. DR CORRAL AT BEDSIDE AT THIS TIME FOR NEURO CONSULT. 18 OZ OF ORANGE JUICE GIVEN PER DR VAUGHAN AT THIS TIME. PT C/O BLURRY VISION & DIZZINESS, "SIMILAR TO PREVIOUS EPISODE." UPON REASSESSMENT ACCUCHECK WAS 68 AT 16:50 PM. 18 OZ OF ORANGE JUICE GIVEN AT THIS TIME PER DR VAUGHAN WHO DID NOT WANT PERIPHERAL LABS SENT. DINNER TRAY RECEIVED AT THIS TIME. UPON REASSESSMENT AT 17:41 PM BLO0OD GLUCOSE LEVEL WAS 180 & ALL SYMPTOMS HAD SUBSIDED. DR VAUGHAN MADE AWARE.
[2017-02-10 00:12] VITALS: BP 108/56
[2017-02-10 08:13] VITALS: BP 114/62
--- NOTE | 2017-02-10 08:27 | PN- Diabetes ---
Assessment/Plan Assessment: 51 Y/O male with past hx of alcoholism (quit in September 2016), diabetes mellitus type 2 with peripheral neuropathy on metformin 1000 mg twice a day, chronic diarrhea with more than 100 pounds weight loss, multiple falls with syncopal episodes, was admitted to hospital after an episode of mechanical fall, feeling lightheaded and dizzy. He had an episode of hypoglycemia along with hypotension on 02/03/2017. Cortrosyn stimulation test reveals cortisol one hour after stimulation of 19.3. A value above 18 is considered normal. Patient was put on Florinef 0.1 mg daily and midodrine 5 mg x 3 times a day for postural hypotension. His HbA1c is 12.7%. Patient had two episodes of hypoglycemia on 02/09/2017. Levemir was decreased to 8 units daily and Novolog coverage before meals was adjusted ( the coverage starts when his FSG is > 150). His FSGs were 68, 65, 180. 221 and 176. Plan: 1. continue the current insulin regimen--- Levemir 8 units daily and Novolog coverage before meals; 2. monitor FSGs; 3. recommend checking DEJUAN 65 antibody and C-peptide to r/o DM type 1. will follow. Subjective Subjective: His glucose levels were stable overnight. Objective Last 24 Hrs of Vital Signs/I&O Vital Signs Date Time Temp Pulse Resp B/P B/P Pulse O2 O2 Flow FiO2 Mean Ox Delivery Rate 02/10 0813 99.3 91 16 114/62 98 Room Air 02/10 0012 99.7 89 14 108/56 98 Room Air 02/09 1615 85 14 100/58 100 Room Air 02/09 1221 Room Air Room Air 02/09 1035 84 90/54 Intake & Output 02/10 1600 02/10 0800 02/10 0000 Intake Total 1240 1480 Output Total 450 Balance 790 1480 Intake, IV 1000 1000 Intake, Oral 240 480 Number 1 3 Bowel Movements Output, Urine 450 Findings Pertinent Lab/Brad Results: Laboratory Tests 02/10 0600 Chemistry Sodium Pending Potassium Pending Chloride Pending Carbon Dioxide Pending Anion Gap Pending BUN Pending Creatinine Pending BUN/Creatinine Ratio Pending
--- NOTE | 2017-02-10 08:31 | PN- Housestaff ---
See Addendum Subjective Follow-up For: Falls Orthostatic hypotension Subjective: He is seen and examined at bedside. He still endorses diarrhea. He denies any chest pain, palpitation, increased dizziness, increased shortness of breath, fever, chills, nausea, vomiting, abdominal pain or dysuria. Overnight event of hypoglycemic episodes noted. Review of Systems Constitutional: Reports: no symptoms. Objective Last 24 Hrs of Vital Signs/I&O Vital Signs Date Time Temp Pulse Resp B/P B/P Pulse O2 O2 Flow FiO2 Mean Ox Delivery Rate 02/10 1414 Room Air Room Air 02/10 0813 99.3 91 16 114/62 98 Room Air 02/10 0012 99.7 89 14 108/56 98 Room Air 02/09 1615 85 14 100/58 100 Room Air Intake & Output 02/10 1600 02/10 0800 02/10 0000 Intake Total 1105 1240 1480 Output Total 400 450 Balance 163 603 1254 Intake, IV 625 1000 1000 Intake, Oral 480 240 480 Number 2 1 3 Bowel Movements Output, Urine 400 450 Physical Exam General Appearance: Alert, Oriented X3, Cooperative, cachetic Other Physical Findings: Cardiovascular: Regular Rate, Normal S1, Normal S2, No Murmurs, Gallops, Rubs Lungs: Clear to Auscultation, Normal Air Movement Abdomen: Normal Bowel Sounds, Soft, No Tenderness Neurological: sensation intact b/l in U/LE Extremities: No Clubbing, No Cyanosis Vascular: Normal Pulses, Pulses Symmetrical Current Medications: Current Medications Sig/Fay Start time Last Medication Dose Route Stop Time Status Admin Cholestyramine Resin 1 PAC DAILY 02/06 1801 AC 02/10 PO 0934 Diphenoxylate HCl/ 2.5 MG TID 02/07 1000 AC 02/10 Atropine PO 1107 Droxidopa 100 MG TID 02/10 1600 AC PO Enoxaparin Sodium 40 MG DAILY 01/31 1011 AC 02/10 SC 0934 Ergocalciferol 50,000 IU QTHURS 02/03 1000 AC 02/10 PO 0936 Fludrocortisone 200 MCG DAILY 02/08 1000 AC 02/10 Acetate PO 0936 Insulin Aspart 0 TIDAC 02/03 1700 AC 02/10 SC 1325 Insulin Detemir 8 UNITS DAILY 02/09 1000 AC 02/10 SC 0935 Loperamide HCl 2 MG Q6P PRN 02/03 1930 AC 02/10 PO 1108 Melatonin 5 MG AT BEDTIME 02/06 2200 AC 02/09 PO 2230 Midodrine 5 MG 0800,1200,1600 02/09 1200 AC 02/10 PO 1108 Mirtazapine 7.5 MG AT BEDTIME 02/02 2230 AC 02/09 PO 2230 Multivitamins 1 TAB DAILY 02/01 1000 AC 02/10 PO 0935 Naloxone HCl 0.4 MG DAILY NEEDED PRN 02/01 0630 AC IV Patient Medication 1 ED .STK-MED ONE 02/10 1430 [place] Teaching ED 02/10 1431 Sodium Chloride 1,000 ML Q8H 02/07 1615 DC 02/10 IV 0936 Assessment/Plan Assessment: This is is a 51 YO male current active smoker, past alcoholism (quit in September 2016), no illicit drug abuse with past medical history of type 2 diabetes mellitus with peripheral neuropathy, chronic diarrhea, previous multiple falls with syncopal episodes, depression came in with chief complain of 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 1. Hypoglycemic event No hypoglycemic event today in the morning. NovoLog sliding scale was changed to a less intense one compared to yesterday. Orthostatic Hypotension Still profound orthostatic hypotension. Patient was not able to do physical therapy session because when he stool up his BP was measured to be 70/38 while standing up and he was 98/52 when he was seated. He also complained of dizziness and was tachycardic. His blood pressure had improved yesterday and today's findings are a setback will therefore add Droxiadopa try to optimize him on his orthostatic hypotension medical regimen. He is clearly not stable for discharge today. 2. Chronic diarrhea with significant weight loss Unclear etiology. Mimimal Improvement in lose stool from loperamide use. PCR stool pending (first 2 stool toxin negative), Stool ova and parasite, Yersinia, HIV, cryptosporidum all negative, fecal stool fat is WNL. Biopsy of small bowel unremarkable for malignancy. Celiac serology pending, Pancraetic elastase, carcinoid workup (5-HIAA and chromagin), are all pending. Diabetic enteropathy is still very possible as patient also has profound orthostatic hypotension, and intermittent episodes of numbness and tingling of extremities. These findings can be suggestive of secondary autonomic dsyfunction from diabetes. Even though patient reports recent diagnosis of Type 2 diabetes (within 1 year), unlike type 1, Type 2 autonomic neuropathy can happen more acutely. Will continue to follow Gi reccomendation. 3. Malnutrition Severe protein calorie malnutrition as evidenced by a very low BMI of 14, and a weight loss of 50% of body weight with an albumin of 2.6. * Continue mirtazapine for appetite stimulation * Continue to encourse appropriate PO intake including Glucerna 3 times a day and monitor scale twice a week per nutrition recommendation (appreciated) * Follow up with GI in regards to chronic diarrhea workup Problem List: 1. Orthostatic hypertension Pain Ratin Pain Location: none Pain Goal: Remain pain free Pain Plan: per pain pathway Tomorrow's Labs & Rationales: cbc bep Consulting Request: Consulting Specialty: Gastroenterology
[2017-02-10] MEDS ORDERED: DIPHENOXYLATE-1 EACH PO (10:12)
[2017-02-10] MEDS ORDERED: NOVOLOG100 UNIT/2 SC (10:13)
--- NOTE | 2017-02-10 10:15 | Patient Discharge Instructions ---
Discharge Instructions General Discharge Information You were seen/treated for: FALL AND DIZZINESS CHRONIC DIARRHEA HYPOTENSION Special Instructions: PLEASE FOLLOW UP WITH YOUR PRIMARY CARE WITHIN 1 WEEK PLEASE BE CAREFUL WHEN GETTING UP FROM A SUPINE POSITION PLEASE SEEK MEDICAL ATTENTION IF YOU DEVELOP FEVERS, BLOOD IN STOOL, OR IF YOUR DIARRHEA WORSENS Diet Recommended Diet: Diabetic Acute Coronary Syndrome Inclusion Criteria At DC or during hospital stay patient has or had the following: ACS DIAGNOSIS No Discharge Core Measures Meds if any: Prescribed or Continued at Discharge Meds if any: NOT Prescribed or Continued at Discharge Congestive Heart Failure Inclusion Criteria At DC or during hospital stay patient has or had the following: CHF DIAGNOSIS No Discharge Core Measures Meds if any: Prescribed or Continued at Discharge Meds if any: NOT Prescribed or Continued at Discharge Cerebrovascular accident Inclusion Criteria At DC or during hospital stay patient has or had the following: CVA/TIA Diagnosis No Discharge Core Measures Meds if any: Prescribed or Continued at Discharge Meds if any: NOT Prescribed or Continued at Discharge Venous thromboembolism Inclusion Criteria VTE Diagnosis No VTE Type NONE VTE Confirmed by (Test) NONE Discharge Core Measures - Per Current guidelines, there needs to be overlap - treatment for the first 5 days of Warfarin therapy. - If discharged on Warfarin prior to 5 days of - overlap therapy, the patient will need to be - assessed for post discharge needs including - *Post discharge parental anticoagulation - *Warfarin and/or parental anticoagulation education - *Follow up date to check INR post discharge At least 5 days overlap therapy as Inpatient No Meds if any: Prescribed or Continued at Discharge Note: Overlap Therapy is Warfarin and Anticoagulant Meds if any: NOT Prescribed or Continued at Discharge
--- NOTE | 2017-02-10 13:53 | NUR ---
PT'S BP LYING IS 114/62 HEART RATE 91; SITTING ON THE EDGE OF THE BED BP IS 98/52 HEART RATE 103 AND STANDING BP IS 70/38 AND HEART RATE 113. PT WALKED TO BATHROOM WITH THIS RN AND PHYSICAL THERAPY AND COMPLAINED OF DIZZINESS WHILE USING THE TOLIET. WILL LESLY TO MONITOR.
[2017-02-10 16:23] VITALS: BP 80/50
[2017-02-10 19:40] VITALS: BP 90/62
[2017-02-11 00:10] LABS: C.DIFFICILE TOXIN B QL PCR NOT DETECTED (NOT DETECTED)
[2017-02-11 00:20] VITALS: BP 102/60
[2017-02-11 08:03] VITALS: BP 102/60
--- NOTE | 2017-02-11 08:10 | PN- Diabetes ---
Assessment/Plan Assessment: 51 Y/O male with past hx of alcoholism (quit in September 2016), diabetes mellitus type 2 with peripheral neuropathy on metformin 1000 mg twice a day, chronic diarrhea with more than 100 pounds weight loss, multiple falls with syncopal episodes, was admitted to hospital after an episode of mechanical fall, feeling lightheaded and dizzy. He had an episode of hypoglycemia along with hypotension on 02/03/2017. Cortrosyn stimulation test reveals cortisol one hour after stimulation of 19.3. A value above 18 is considered normal. Patient was put on Florinef 0.2 mg daily and midodrine 5 mg x 3 times a day and Northera for postural hypotension. He still feels dizzy when he gets up. He was put back on IVF. His HbA1c is 12.7%. Patient had two episodes of hypoglycemia on 02/09/2017. Levemir was decreased to 8 units daily and Novolog coverage before meals was adjusted ( the coverage starts when his FSG is > 150). His FSGs were 176, 201, 109, 173 and 201. DEJUAN 65 antibody and C-peptide level are pending. Plan: continue the current insulin regimen for now; monitor FSGs will follow. Subjective Subjective: He still has diarrhea. Objective Last 24 Hrs of Vital Signs/I&O Vital Signs Date Time Temp Pulse Resp B/P B/P Pulse O2 O2 Flow FiO2 Mean Ox Delivery Rate 02/11 0803 98.4 90 18 102/60 99 Room Air 02/11 0020 99.1 98 20 102/60 98 Room Air 02/10 1940 90/62 02/10 1623 97.6 79 20 80/50 99 Room Air 02/10 1414 Room Air Room Air 02/10 0813 99.3 91 16 114/62 98 Room Air Intake & Output 02/11 1600 02/11 0800 02/11 0000 Intake Total 875 600 Output Total 400 102 Balance 475 498 Intake, IV 875 Intake, Oral 600 Number 2 2 Bowel Movements Output, Other 2 Output, Urine 400 100
--- NOTE | 2017-02-11 08:38 | PN- Housestaff ---
See Addendum Subjective Follow-up For: Fall /dizziness Subjective: Seen and examined while seated on the recliner. He still endorses episodes of diarrhea and dizziness when standing up. No hypoglycemic events was noted overnight or any other acute events. He does deny any shortness of breath, fever, chills, cough, chest pain, palpitation, any new focal neurological deficit, abdominal pain, or dysuria. Review of Systems Constitutional: Reports: see HPI. Objective Last 24 Hrs of Vital Signs/I&O Vital Signs Date Time Temp Pulse Resp B/P B/P Pulse O2 O2 Flow FiO2 Mean Ox Delivery Rate 02/11 0803 98.4 90 18 102/60 99 Room Air 02/11 0020 99.1 98 20 102/60 98 Room Air 02/10 1940 90/62 02/10 1623 97.6 79 20 80/50 99 Room Air 02/10 1414 Room Air Room Air Intake & Output 02/11 1600 02/11 0800 02/11 0000 Intake Total 875 600 Output Total 400 102 Balance 475 498 Intake, IV 875 Intake, Oral 600 Number 2 2 Bowel Movements Output, Other 2 Output, Urine 400 100 Physical Exam General Appearance: Alert, Oriented X3, Cooperative, cachetic Other Physical Findings: Cardiovascular: Regular Rate, Normal S1, Normal S2, No Murmurs, Gallops, Rubs Lungs: Clear to Auscultation, Normal Air Movement Abdomen: Normal Bowel Sounds, Soft, No Tenderness Neurological: sensation intact b/l in U/LE Extremities: No Clubbing, No Cyanosis Vascular: Normal Pulses, Pulses Symmetrical Current Medications: Current Medications Sig/Fay Start time Last Medication Dose Route Stop Time Status Admin Cholestyramine Resin 1 PAC DAILY 02/06 1801 AC 02/11 PO 0949 Diphenoxylate HCl/ 2.5 MG TID 02/07 1000 AC 02/11 Atropine PO 0950 Droxidopa 100 MG TID 02/10 1600 DC 02/11 PO 0949 Enoxaparin Sodium 40 MG DAILY 01/31 1011 AC 02/11 SC 0950 Ergocalciferol 50,000 IU QTHURS 02/03 1000 AC 02/10 PO 0936 Fludrocortisone 200 MCG DAILY 02/08 1000 AC 02/11 Acetate PO 0949 Insulin Aspart 0 TIDAC 02/03 1700 AC 05/19 SC 0808 Insulin Detemir 8 UNITS DAILY 02/09 1000 AC 02/11 SC 0950 Loperamide HCl 2 MG Q6P PRN 02/03 1930 AC 02/10 PO 2122 Melatonin 5 MG AT BEDTIME 02/06 2200 AC 02/10 PO 2122 Midodrine 10 MG 0800,1200,1600 02/11 1200 AC PO Midodrine 5 MG 0800,1200,1600 02/09 1200 DC 02/11 PO 0809 Mirtazapine 7.5 MG AT BEDTIME 02/02 2230 AC 02/10 PO 2122 Multivitamins 1 TAB DAILY 02/01 1000 AC 02/11 PO 0950 Naloxone HCl 0.4 MG DAILY NEEDED PRN 02/01 0630 AC IV Patient Medication 1 ED .STK-MED ONE 02/10 1430 [place] Teaching ED 02/10 1431 Sodium Chloride 1,000 ML Q8H 02/10 1615 AC 02/11 IV 0948 Assessment/Plan Assessment: This is is a 51 YO male current active smoker, past alcoholism (quit in September 2016), no illicit drug abuse with past medical history of type 2 diabetes mellitus with peripheral neuropathy, chronic diarrhea, previous multiple falls with syncopal episodes, depression came in with chief complain of 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 Orthostatic Hypotension 1. Still persistent orthostatic hypotension. Midodrine will be increased from 5 -10 mg 3 times a day in addition to the fludrocortisone 200 g, will DC the [facility]. Unstable for discharge to [facility]. 2. Chronic diarrhea with significant weight loss Unclear etiology. Mimimal Improvement in lose stool from loperamide use. PCR stool pending (first 2 stool toxin negative), Stool ova and parasite, Yersinia, HIV, cryptosporidum all negative, fecal stool fat is WNL. Biopsy of small bowel unremarkable for malignancy. Celiac serology pending, Pancraetic elastase, carcinoid workup (5-HIAA and chromagin), are all pending. Diabetic enteropathy is still very possible as patient also has profound orthostatic hypotension, and intermittent episodes of numbness and tingling of extremities. These findings can be suggestive of secondary autonomic dsyfunction from diabetes. Even though patient reports recent diagnosis of Type 2 diabetes (within 1 year), unlike type 1, Type 2 autonomic neuropathy can happen more acutely. Will continue to follow Gi reccomendation. 3. Malnutrition Severe protein calorie malnutrition as evidenced by a very low BMI of 14, and a weight loss of 50% of body weight with an albumin of 2.6. * Continue mirtazapine for appetite stimulation * Continue to encourse appropriate PO intake including Glucerna 3 times a day and monitor scale twice a week per nutrition recommendation (appreciated) * Follow up with GI in regards to chronic diarrhea workup Problem List: 1. Orthostatic hypertension Pain Ratin Pain Location: none Pain Goal: Remain pain free Pain Plan: per pathway Tomorrow's Labs & Rationales: CBC 'BEP Consulting Request: Consulting Specialty: Gastroenterology
[2017-02-11] MEDS ORDERED: NOVOLOG100 UNIT/2 SC (16:06)
[2017-02-11] MEDS ORDERED: LOPERAMIDE2 M2 PO (16:07)
[2017-02-11 16:12] VITALS: BP 108/58
--- NOTE | 2017-02-11 20:32 | NUR ---
PATIENT BLOOD SUAGR AT THIS TIME IS 64. 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 ORANGE JUICE GIVEN. WILL RECHECK BLOODSUAGR IN 30 MINS.
[2017-02-11 23:41] VITALS: BP 84/42
--- NOTE | 2017-02-12 08:26 | PN- Housestaff ---
CLEMENT PEGUERO,KRUNAL 02/12/17 0826: Subjective Follow-up For: falls/dizziness Subjective: Seen and examined at bedside. o/n event of hypoglycemia noted. He still reports diarrhea (about 2 episodes since yesterday and also reports dizziness. Denies any sob,cp/palpitation,abdominal pain,fever/chills,nausea/vomiting,any new focal eficits, or dysuria. Review of Systems Constitutional: Reports: see HPI. Objective Last 24 Hrs of Vital Signs/I&O Vital Signs Date Time Temp Pulse Resp B/P B/P Pulse O2 O2 Flow FiO2 Mean Ox Delivery Rate 02/13 0614 99.1 02/12 2309 100.5 96 12 94/52 98 Room Air 02/12 1548 98.7 83 16 100/60 98 Room Air 02/12 1133 100.7 95 16 96/50 97 Room Air Intake & Output 02/13 0800 02/13 0000 02/12 1600 Intake Total 1480 1480 1600 Output Total 734 439 9709 Balance 780 1030 225 Intake, IV 1000 1000 1000 Intake, Oral 480 480 600 Number 1 1 2 Bowel Movements Output, Urine 242 973 8935 Physical Exam General Appearance: Alert, Oriented X3, Cooperative, cachetic Skin: No Significant Lesion Lymphatic: Cervical nl Cardiovascular: Regular Rate, Normal S1, Normal S2 Lungs: Clear to Auscultation, Normal Air Movement Abdomen: Normal Bowel Sounds, Soft, No Tenderness Extremities: edy wraps intact b/l Assessment/Plan Assessment: This is is a 51 YO male current active smoker, past alcoholism (quit in September 2016), no illicit drug abuse with past medical history of type 2 diabetes mellitus with peripheral neuropathy, chronic diarrhea, previous multiple falls with syncopal episodes, depression came in with chief complain of an 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 Orthostatic Hypotension 1. Still persistent orthostatic hypotension. on Midrodrine 10 mg 3 times a day in addition to the fludrocortisone 200 g, in addition to NS 125 MLS/HR. Still Unstable for discharge to [facility]. #Hypoglycemic events Patinet had multiple episodes today with BG below 50 requirng dextrose amp. Endocrine reccomended to decrease Levemir was followed. Will closely monitor accuuchecks. 2. Chronic diarrhea with significant weight loss Unclear etiology. Mimimal Improvement in lose stool from loperamide use. PCR stool pending (first 2 stool toxin negative), Stool ova and parasite, Yersinia, HIV, cryptosporidum all negative, fecal stool fat is WNL. Biopsy of small bowel unremarkable for malignancy. Celiac serology pending, Pancraetic elastase, carcinoid workup (5-HIAA and chromagin), are all pending. Diabetic enteropathy is still very possible as patient also has profound orthostatic hypotension, and intermittent episodes of numbness and tingling of extremities. These findings can be suggestive of secondary autonomic dsyfunction from diabetes. Even though patient reports recent diagnosis of Type 2 diabetes (within 1 year), unlike type 1, Type 2 autonomic neuropathy can happen more acutely. Will continue to follow Gi reccomendation. 3. Malnutrition Severe protein calorie malnutrition as evidenced by a very low BMI of 14, and a weight loss of 50% of body weight with an albumin of 2.6. * Continue mirtazapine for appetite stimulation * Continue to encourse appropriate PO intake including Glucerna 3 times a day and monitor scale twice a week per nutrition recommendation (appreciated) * Follow up with GI in regards to chronic diarrhea workup Problem List: 1. Orthostatic hypertension Pain Ratin Pain Location: none Pain Goal: Remain pain free Pain Plan: per pain pathway Tomorrow's Labs & Rationales: CBC BEP Consulting Request: Consulting Specialty: Gastroenterology [place] PEGUERO,[facility] 02/12/17 1251: Attending MD Review Statement Attending Statement Attending MD Statement: examined this patient, discuss w/resident/PA/NEWS BROADCASTER, agreed w/resident/PA/NEWS BROADCASTER, reviewed EMR data (avail), discussed with nursing, discussed with case mgmt, reviewed images, amended to note Attending Assessment/Plan: 51-year-old male, active smoker, with past medical history significant for alcohol abuse, type 2 diabetes mellitus with peripheral neuropathy, chronic diarrhea, history of syncope, depression has been admitted on the floor for an episode of mechanical fall. GI has worked up for diarrhea which was negative. Patient has been on multiple antidiarrheal treatments with no significant improvement. Currently patient is on IV fluids for true cortisone and midodrine. He was also tried with tight Edy wrappings around his legs for his orthostatics. A new drug called hydroxy lucie has also been tried with no success. Patient was seen and examined on the bedside this morning and he continues to be complaining of diarrhea as well as weakness in his lower legs and syncope on getting up from the bed. Driller Hand has been helping control his blood sugars. We'll continue him on IV fluids and will continue to closely monitor him for the weekend
--- NOTE | 2017-02-12 08:56 | PN- Diabetes ---
Assessment/Plan Assessment: 51 Y/O male with past hx of alcoholism (quit in September 2016), diabetes mellitus type 2 with peripheral neuropathy on metformin 1000 mg twice a day, chronic diarrhea with more than 100 pounds weight loss, multiple falls with syncopal episodes, was admitted to hospital after an episode of mechanical fall, feeling lightheaded and dizzy. He had an episode of hypoglycemia along with hypotension on 02/03/2017. Cortrosyn stimulation test reveals cortisol one hour after stimulation of 19.3. A value above 18 is considered normal. Patient was put on Florinef 0.2 mg daily and midodrine 5 mg x 3 times a day and Northera for postural hypotension. He still feels dizzy when he gets up. He was put back on IVF. The patient had episode of hypoglycemia yesterday. He is on 8 units of Levemir once a day and sliding-scale NovoLog starting with the sugar above 150. Yesterday in the morning his sugar was 201 and he got 3 units NovoLog and 8 units of Levemir as prescribed. At lunchtime his sugar was 79 and then at dinner 111. At bedtime it was 64. Since the only NovoLog the patient got was with breakfast, it would appear that the dose of Levemir is too high. Plan: Suggest reduce Levemir to 6 units once a day. Continue present sliding-scale NovoLog. Suggest recheck the patient's a.m. cortisol tomorrow morning along with an ACTH level. Subjective Subjective: Still gets dizzy when he stands up Review of Systems Constitutional: Denies: chills, fever. Cardiovascular: Denies: chest pain. Respiratory: Denies: short of breath. Gastrointestinal: Reports: diarrhea. Skin: Reports: no symptoms. Objective Last 24 Hrs of Vital Signs/I&O Vital Signs Date Time Temp Pulse Resp B/P B/P Pulse O2 O2 Flow FiO2 Mean Ox Delivery Rate 02/11 2341 99.4 101 12 84/42 98 Room Air 02/11 1612 98.8 89 20 108/58 99 Room Air 02/11 1211 Room Air Room Air Intake & Output 02/12 1600 02/12 0800 02/12 0000 Intake Total 1600 Output Total 3 Balance 1597 Intake, IV 1000 Intake, Oral 600 Number 1 Bowel Movements Output, Other 3 Physical Exam General Appearance: alert, awake, thin Neck: normal inspection Cardiovascular: regular rate/rhythm Abdomen: normal bowel sounds, soft
[2017-02-12 11:33] VITALS: BP 96/50
[2017-02-12 15:48] VITALS: BP 100/60
--- NOTE | 2017-02-12 20:43 | NUR ---
SHIFT NOTE: PATIENT HAD A BLOOD GLUCOSE LEVEL OF <[address] HECTOR NOTIFIED AND PATIENT GIVEN I AMP OF D50. PT WAS ALSO GIVEN A 2 GLASSES OF JUICE. PER PROTOCOL BLOOD WAS DRAWN. ACCUCHECKS ARE FOLLOWS. 1600 <50, 1645 281,1715 109, 1807 118, 2027 118. WILL CONTINUE TO MONITOR.
[2017-02-12 23:09] VITALS: BP 94/52
[2017-02-13 07:59] VITALS: BP 106/60
--- NOTE | 2017-02-13 09:50 | PN- Diabetes ---
Assessment/Plan Assessment: 51 Y/O male with past hx of alcoholism (quit in September 2016), diabetes mellitus type 2 with peripheral neuropathy on metformin 1000 mg twice a day, chronic diarrhea with more than 100 pounds weight loss, multiple falls with syncopal episodes, was admitted to hospital after an episode of mechanical fall, feeling lightheaded and dizzy. He had an episode of hypoglycemia along with hypotension on 02/03/2017. Cortrosyn stimulation test reveals cortisol one hour after stimulation of 19.3. A value above 18 is considered normal. Patient was put on Florinef 0.2 mg daily and midodrine 5 mg x 3 times a day and Northera for postural hypotension. He still feels dizzy when he gets up. He was put back on IVF. The patient had episode of hypoglycemia yesterday. We reduce his Levemir to 6 units once a day. . He is on 6 units of Levemir once a day and sliding-scale NovoLog starting with the sugar above 150. Today we repeated the patient's a.m. serum cortisol was only 5.4. ACTH level was drawn but this will not be back for several days. Plan: Suggest continue the present insulin. Patient has a cortisol this morning of 5.4 ages at the lower end of the normal range. We should repeat the patient's Cortrosyn stimulation test as his last one was borderline. May want to consider giving the patient a trial of steroid hormone replacement depending on the results of the repeat Cortrosyn test. Patient did have an HIV test that was negative in the past. Subjective Subjective: Feels tired Review of Systems Constitutional: Reports: malaise. Denies: chills, fever. Cardiovascular: Denies: chest pain. Respiratory: Denies: cough, short of breath. Gastrointestinal: Reports: diarrhea. Skin: Reports: no symptoms. Neurological/Psychological: Reports: other (dizziness on standing). Objective Last 24 Hrs of Vital Signs/I&O Vital Signs Date Time Temp Pulse Resp B/P B/P Pulse O2 O2 Flow FiO2 Mean Ox Delivery Rate 02/13 0759 98.2 89 18 106/60 96 Room Air 02/13 0614 99.1 02/12 2309 100.5 96 12 94/52 98 Room Air 02/12 1548 98.7 83 16 100/60 98 Room Air 02/12 1133 100.7 95 16 96/50 97 Room Air Intake & Output 02/13 1600 02/13 0800 02/13 0000 Intake Total 1480 1480 Output Total 700 450 Balance 780 1030 Intake, IV 1000 1000 Intake, Oral 480 480 Number 1 1 Bowel Movements Output, Urine 700 450 Vital Signs Date Time Temp Pulse Resp B/P B/P Pulse O2 O2 Flow FiO2 Mean Ox Delivery Rate 02/13 0759 98.2 89 18 106/60 96 Room Air 02/13 0614 99.1 02/12 2309 100.5 96 12 94/52 98 Room Air 02/12 1548 98.7 83 16 100/60 98 Room Air 02/12 1133 100.7 95 16 96/50 97 Room Air Intake & Output 02/13 1600 02/13 0800 02/13 0000 Intake Total 1480 1480 Output Total 700 450 Balance 780 1030 Intake, IV 1000 1000 Intake, Oral 480 480 Number 1 1 Bowel Movements Output, Urine 700 450 Physical Exam General Appearance: alert, awake, thin Head: normal appearance Neck: normal inspection Cardiovascular: regular rate/rhythm Abdomen: normal bowel sounds Extremities: normal inspection Current Medications: Current Medications Sig/Fay Start time Last Medication Dose Route Stop Time Status Admin Acetaminophen 650 MG Q4P PRN 02/13 0345 AC PO Cholestyramine Resin 1 PAC DAILY 02/06 1801 AC 02/13 PO 0906 Dextrose 25 GM ONCE ONE 02/12 2030 DC 02/12 IV 02/12 Diphenoxylate HCl/ 2.5 MG TID 02/07 1000 AC 02/13 Atropine PO 0908 Enoxaparin Sodium 40 MG DAILY 01/31 1011 AC 02/13 SC 0905 Ergocalciferol 50,000 IU QTHURS 02/03 1000 AC 02/10 PO 0936 Fludrocortisone 200 MCG DAILY 02/08 1000 AC 02/13 Acetate PO 0907 Insulin Aspart 0 TIDAC 02/03 1700 AC 02/11 SC 0808 Insulin Detemir 6 UNITS DAILY 02/13 1000 AC 02/13 SC 0905 Insulin Detemir 8 UNITS DAILY 02/09 1000 DC 02/12 SC 0940 Loperamide HCl 2 MG TIDAC 02/11 1700 AC 02/13 PO 0906 Melatonin 5 MG AT BEDTIME 02/06 2200 AC 02/12 PO 2211 Midodrine 10 MG 0800,1200,1600 02/11 1200 AC 02/13 PO 09 Mirtazapine 7.5 MG AT BEDTIME 02/02 2230 AC 02/12 PO 221 Multivitamins 1 TAB DAILY 02/01 1000 AC 02/13 PO 09 Naloxone HCl 0.4 MG DAILY NEEDED PRN 02/01 0630 AC IV Potassium Chloride 40 MEQ BID 02/13 1000 AC PO 02/13 220 Sodium Chloride 1,000 ML Q8H 02/10 1615 AC 02/13 IV 0352 Findings Pertinent Lab/Brad Results: Laboratory Tests 02/13 02/13 02/12 02/12 0830 0627 1645 1645 Chemistry Sodium (137 - 145 mmol/L) 132 L Potassium (3.5 - 5.1 mmol/L) 3.5 Chloride (98 - 107 mmol/L) 101 Carbon Dioxide (22 - 30 mmol/L) 27 Anion Gap (5 - 16) 4 L BUN (9 - 20 mg/dL) 7 L Creatinine (0.7 - 1.2 mg/dL) 0.5 L Estimated GFR (>60 ml/min) > 60 BUN/Creatinine Ratio (7 - 25 %) 14.0 Glucose (65 - 99 mg/dL) Cancelled 47 *L Cortisol AM Sample (4.46 - 22.7 ug/dL) 5.4 ACTH Stimulation Pending
--- NOTE | 2017-02-13 10:03 | PN- Housestaff ---
TRISH CRAIG 02/13/17 1002: Subjective Follow-up For: falls/dizziness Complaints: TIREDNESS Subjective: Patient was seen and examined this morning. He was lying comfortably in bed but complaining of feeling tired and weak. He was able to had his breakfast this morning without any difficulty. Remained afebrile overnight with blood pressure 106/60 and he saturating 96% on room air. Review of Systems Constitutional: Denies: chills, diaphoresis. EENTM: Denies: double vision, visual changes. Cardiovascular: Denies: chest pain, orthopena. Respiratory: Denies: cough, hemoptysis. Gastrointestinal: Denies: constipation. Genitourinary: Denies: dysuria. Objective Last 24 Hrs of Vital Signs/I&O Vital Signs Date Time Temp Pulse Resp B/P B/P Pulse O2 O2 Flow FiO2 Mean Ox Delivery Rate 02/13 0759 98.2 89 18 106/60 96 Room Air 02/13 0614 99.1 02/12 2309 100.5 96 12 94/52 98 Room Air 02/12 1548 98.7 83 16 100/60 98 Room Air Intake & Output 02/13 1600 02/13 0800 02/13 0000 Intake Total 1480 1480 Output Total 300 700 450 Balance -372 068 3958 Intake, IV 1000 1000 Intake, Oral 480 480 Number 1 1 Bowel Movements Output, Urine 300 700 450 Physical Exam General Appearance: Alert, Oriented X3, No Acute Distress Cardiovascular: Normal S1, Normal S2 Lungs: Normal Air Movement Abdomen: Soft Current Medications: Current Medications Sig/Fay Start time Last Medication Dose Route Stop Time Status Admin Acetaminophen 650 MG Q4P PRN 02/13 0345 AC PO Cholestyramine Resin 1 PAC DAILY 02/06 1801 AC 02/13 PO 0906 Dextrose 25 GM ONCE ONE 02/12 2030 DC 02/12 IV 02/12 Diphenoxylate HCl/ 2.5 MG TID 02/07 1000 AC 02/13 Atropine PO 0908 Enoxaparin Sodium 40 MG DAILY 01/31 1011 AC 02/13 SC 0905 Ergocalciferol 50,000 IU QTHURS 02/03 1000 AC 02/10 PO 0936 Fludrocortisone 200 MCG DAILY 02/08 1000 AC 02/13 Acetate PO 0907 Insulin Aspart 0 TIDAC 02/03 1700 AC 02/11 SC 0808 Insulin Detemir 6 UNITS DAILY 02/13 1000 AC 02/13 SC 0905 Insulin Detemir 8 UNITS DAILY 02/09 1000 DC 02/12 SC 0940 Loperamide HCl 2 MG TIDAC 02/11 1700 AC 02/13 PO 0906 Melatonin 5 MG AT BEDTIME 02/06 2200 AC 02/12 PO 2211 Midodrine 10 MG 0800,1200,1600 02/11 1200 AC 02/13 PO 0906 Mirtazapine 7.5 MG AT BEDTIME 02/02 2230 AC 02/12 PO 2211 Multivitamins 1 TAB DAILY 02/01 1000 AC 02/13 PO 0906 Naloxone HCl 0.4 MG DAILY NEEDED PRN 02/01 0630 AC IV Potassium Chloride 40 MEQ BID 02/13 1000 AC PO 02/13 220 Sodium Chloride 1,000 ML Q8H 02/10 1615 AC 02/13 IV 0352 Last 24 Hrs of Lab/Brad Results Last 24 Hrs of Labs/Mics: Laboratory Tests 02/13/17 0830: ACTH Stimulation Pending 02/13/17 0627: Cortisol AM Sample 5.4 02/12/17 1645: Glucose Cancelled 02/12/17 1645: Anion Gap 4 L, Estimated GFR > 60, BUN/Creatinine Ratio 14.0, Glucose 47 *L Assessment/Plan Assessment: This is is a 51 YO male current active smoker, past alcoholism (quit in September 2016), no illicit drug abuse with past medical history of type 2 diabetes mellitus with peripheral neuropathy, chronic diarrhea, previous multiple falls with syncopal episodes, depression came in with chief complain of 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 Orthostatic Hypotension 1. Still persistent orthostatic hypotension. on Midrodrine 10 mg 3 times a day in addition to the fludrocortisone 200 g, in addition to NS 125 MLS/HR. Still Unstable for discharge to STR. Anshul Gary MD is recommending cosyntropin stimulation test as his cortisol level was 5.4 which is low normal. We will do cosyntropin stimulation test by giving cosyntropin as bolus and will draw blood for cortisol levels after an hour and we will decide later to start patient on steroids. #Hypoglycemic events No hypoglycemic events overnight or today. 2. Chronic diarrhea with significant weight loss Unclear etiology. Mimimal Improvement in lose stool from loperamide use. PCR stool pending (first 2 stool toxin negative), Stool ova and parasite, Yersinia, HIV, cryptosporidum all negative, fecal stool fat is WNL. Biopsy of small bowel unremarkable for malignancy. Celiac serology pending, Pancraetic elastase, carcinoid workup (5-HIAA and chromagin), are all pending. Diabetic enteropathy is still very possible as patient also has profound orthostatic hypotension, and intermittent episodes of numbness and tingling of extremities. These findings can be suggestive of secondary autonomic dsyfunction from diabetes. Even though patient reports recent diagnosis of Type 2 diabetes (within 1 year), unlike type 1, Type 2 autonomic neuropathy can happen more acutely. Will continue to follow Gi reccomendation. 3. Malnutrition Severe protein calorie malnutrition as evidenced by a very low BMI of 14, and a weight loss of 50% of body weight with an albumin of 2.6. * Continue mirtazapine for appetite stimulation * Continue to encourse appropriate PO intake including Glucerna 3 times a day and monitor scale twice a week per nutrition recommendation (appreciated) * Follow up with GI in regards to chronic diarrhea workup Problem List: 1. Hypotension Pain Ratin Pain Location: Not applicable Pain Goal: Remain pain free Pain Plan: Tylenol Tomorrow's Labs & Rationales: CBC and basic electrolyte panel Consulting Request: Consulting Specialty: Gastroenterology [facility] 02/13/17 6974: Attending MD Review Statement Attending Statement Attending MD Statement: examined this patient, agreed w/resident/PA/RIG HAND, reviewed EMR data (avail), discussed with nursing, discussed with case mgmt, reviewed images, amended to note Attending Assessment/Plan: 51-year-old male, active smoker, with past medical history significant for alcohol abuse, type 2 diabetes mellitus with peripheral neuropathy, chronic diarrhea, history of syncope, depression has been admitted on the floor for an episode of mechanical fall. GI has worked up for diarrhea which was negative. Patient has been on multiple antidiarrheal treatments with no significant improvement. Currently patient is on IV fluids for true cortisone and midodrine. He was also tried with tight Edy wrappings around his legs for his orthostatics. A new drug called hydroxy lucie has also been tried with no success. Patient was seen and examined on the bedside this morning and he continues to have diarrhea as well as weakness in his lower legs and syncope on getting up from the bed. Software Specialist on board. Patient insulin dose was reduced to 6 units due to episode of hypoglycemia. Endocrinology on board and considering a trial of steroids if his repeat Cortosyn stimulation test is positive as his previous Cortosyn stimulation test was borderline.
[2017-02-13 16:20] VITALS: BP 112/60
[2017-02-14 00:12] VITALS: BP 110/52
--- NOTE | 2017-02-14 07:17 | PN- Housestaff ---
See Addendum Subjective Follow-up For: Fall /dizziness Subjective: Seen and examined while laying in bed. He still endorses episodes of diarrhea about 3-5 per day, however he reports his dizziness has improved. Still not able to ambulate with PT due to persistent orthostatic hypotension. No acute overnight event reported including no hypoglycemic events. They felt cosyntropin test is noted. He also does not endorse any new complaints including chest pain, palpitation, increased shortness of breath, fever, chills, abdominal pain, nausea, vomiting, new focal neurological deficit, or dysuria. Review of Systems Constitutional: Reports: see HPI. Objective Last 24 Hrs of Vital Signs/I&O Vital Signs Date Time Temp Pulse Resp B/P B/P Pulse O2 O2 Flow FiO2 Mean Ox Delivery Rate 02/14 0853 99.3 89 17 92/52 97 Trach Mask 02/14 0012 98.4 87 18 110/52 99 Room Air 02/13 1620 98.9 90 18 112/60 99 Room Air 02/13 1600 Room Air Intake & Output 02/14 1600 02/14 0800 02/14 0000 Intake Total 720 Output Total 650 550 Balance -650 170 Intake, Oral 720 Number 3 Bowel Movements Output, Urine 650 550 Physical Exam General Appearance: Alert, Oriented X3, Cooperative, cahetic Assessment/Plan Assessment: This is is a 51 YO male current active smoker, past alcoholism (quit in September 2016), no illicit drug abuse with past medical history of type 2 diabetes mellitus with peripheral neuropathy, chronic diarrhea, previous multiple falls with syncopal episodes, depression came in with chief complain of 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 Orthostatic Hypotension 1. Still persistent orthostatic hypotension. on Midrodrine 10 mg 3 times a day in addition to the fludrocortisone 200 g, in addition to NS 125 MLS/HR. patient had a repeat calcium troponin test yesterday which this time was suggestive of adrenal insufficiency . Patient is started on hydrocortisone 20 mg twice a day for today and most likely will be switched to 50 mg oral in the morning and 5 mg in the evening starting tomorrow . In light of starting hydrocortisone will decrease fludrocortisone dose to 100 g. 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 Will continue to follow endocrine and cardiology recommendation. Still Unstable for discharge to STR. 2. Hypoglycemia No hypoglycemic events overnight or today. Levemir has been adjusted and low NovoLog sliding scale.. Results of DEJUAN antibody proves the patient actually has type 1 diabetes and not type II as previously thought and managed by primary care physician. 2. Chronic diarrhea with significant weight loss Unclear etiology. Mimimal Improvement in lose stool from loperamide use. PCR stool pending (first 2 stool toxin negative), Stool ova and parasite, Yersinia, HIV, cryptosporidum all negative, fecal stool fat is WNL. Biopsy of small bowel unremarkable for malignancy. Celiac serology pending, Pancraetic elastase, carcinoid workup (5-HIAA and chromagin), are all pending. Diabetic enteropathy is still very possible as patient also has profound orthostatic hypotension, and intermittent episodes of numbness and tingling of extremities. These findings can be suggestive of secondary autonomic dsyfunction from diabetes. Even though patient reports recent diagnosis of Type 2 diabetes (within 1 year), unlike type 1, Type 2 autonomic neuropathy can happen more acutely. Will continue to follow Gi reccomendation. 3. Malnutrition Severe protein calorie malnutrition as evidenced by a very low BMI of 14, and a weight loss of 50% of body weight with an albumin of 2.6. * Continue mirtazapine for appetite stimulation * Continue to encourse appropriate PO intake including Glucerna 3 times a day and monitor scale twice a week per nutrition recommendation (appreciated) * Follow up with GI in regards to chronic diarrhea workup Problem List: 1. Orthostatic hypertension Pain Ratin Pain Location: none Pain Goal: Remain pain free Pain Plan: Pain pathway Tomorrow's Labs & Rationales: BEP Consulting Request: Consulting Specialty: Gastroenterology
--- NOTE | 2017-02-14 08:04 | NUR ---
PATIENT'S BP WAS MONITORED THROUGH OUT THE NIGHT AND IS FOLLOW. 0100 BC 213 0400 BC 198, 0630 187. PATIENT BP AT 0000 110/52. AT 0700 84/40. PATIENT DENIED HEADACHE, LIGHTHEADEDNESS OR ANTY DISCOMFORT, NO DISTRESS NOTED. MD HECTOR AWARE. THE INCOMING NURSE AWARE WELL.
--- NOTE | 2017-02-14 08:21 | PN- Diabetes ---
Assessment/Plan Assessment: 51 Y/O male with past hx of alcoholism (quit in September 2016), diabetes mellitus type 2 with peripheral neuropathy on metformin 1000 mg twice a day, chronic diarrhea with more than 100 pounds weight loss, multiple falls with syncopal episodes, was admitted to hospital after an episode of mechanical fall, feeling lightheaded and dizzy. He had an episode of hypoglycemia along with hypotension on 02/03/2017. Cortrosyn stimulation test reveals cortisol one hour after stimulation of 19.3. A value above 18 is considered normal. On 02/13/2017, repeat patient's a.m. serum cortisol again and it was only 5.4. ACTH level was drawn but this will not be back for several days. Repeat ACTH stimulation test showed cortisol of 17.5 which is suboptimal. Patient was put on Florinef 0.1 mg daily and midodrine 10 mg x 3 times a day for postural hypotension. His BP is still borderline. The patient had episode of hypoglycemia yesterday. We reduce his Levemir to 6 units once a day. . He is sliding-scale NovoLog starting with the sugar above 150 before meals. his FSGs were 163, 157, 150, 201 and 187. DEJUAN 65 antibody is 54 and C-peptide is 0.12 which are consistent with DM type 1. Plan: 1. DM type 1: ---continue the current insulion regimen for now-- Levemir 6 units daily, Novolog coverage before meals; ---monitor FSGs; 2. orthostatic hypotension despite patient has been on Florinef 100 mcg daily, Midodrine 10 mg x 3 times a day and NS at 125 mg/dl; suboptimal am cortisol and cortisol level after ACTH stimulation. ---ACTH level is still pending; patient's am testosterone and TFT were in the normal range; ---recommend checking 21-hydroxylase antibody and thyroid antibody panel to r/o polyglandular autoimmune syndrome. --- recommend starting patient on hydrocortisone 25 mg iv twice a day today; ---monitor FSGs, BP and electrolytes. will follow. The above plan has been discussed with team and patient. Subjective Subjective: He still has diarrhea and his BP is still borderline low. Objective Last 24 Hrs of Vital Signs/I&O Vital Signs Date Time Temp Pulse Resp B/P B/P Pulse O2 O2 Flow FiO2 Mean Ox Delivery Rate 02/14 0012 98.4 87 18 110/52 99 Room Air 02/13 1620 98.9 90 18 112/60 99 Room Air 02/13 1600 Room Air Intake & Output 02/14 1600 02/14 0800 02/14 0000 Intake Total 720 Output Total 650 550 Balance -650 170 Intake, Oral 720 Number 3 Bowel Movements Output, Urine 650 550 Findings Pertinent Lab/Brad Results: Laboratory Tests 02/14 02/13 02/13 0610 1420 0830 Chemistry Sodium (137 - 145 mmol/L) 139 Potassium (3.5 - 5.1 mmol/L) 3.7 Chloride (98 - 107 mmol/L) 103 Carbon Dioxide (22 - 30 mmol/L) 30 Anion Gap (5 - 16) 5 BUN (9 - 20 mg/dL) 10 Creatinine (0.7 - 1.2 mg/dL) 0.5 L Estimated GFR (>60 ml/min) > 60 BUN/Creatinine Ratio (7 - 25 %) 20.0 Cortisol PM Sample (1.7 - 14.1) 17.5 H ACTH Stimulation Pending
[2017-02-14 08:53] VITALS: BP 92/52
--- NOTE | 2017-02-14 15:37 | NUR ---
PHYSICAL THERAPY: ATTEMPTED TO SEE Pt THIS P.M. Pt RECIEVED IN BED, LIGHTS OFF, DOOR CLOSED, WITH BLANKET OVER HEAD. C/O DIZZINESS. REFUSING TO GET OOB OR COMPLETE THEREX AT THIS TIME. RECENT BP 92/52 PER MEDICAL RECORD; RN NOTIFIED.
[2017-02-14 16:07] VITALS: BP 96/50
[2017-02-15 00:31] VITALS: BP 124/70
--- NOTE | 2017-02-15 06:59 | PN- Housestaff ---
CLEMENT PEGUERO,KRUNAL 02/15/17 0655: Subjective Follow-up For: Falls/dizziness Subjective: Seen and examined at bedside. Still endorse diarrhea, reports relief in dizziness. No hypoglycemic o/n event noted, Review of Systems Constitutional: Reports: see HPI. Objective Last 24 Hrs of Vital Signs/I&O Vital Signs Date Time Temp Pulse Resp B/P B/P Pulse O2 O2 Flow FiO2 Mean Ox Delivery Rate 02/15 0031 98.6 87 18 124/70 98 Room Air 02/14 1607 98.9 89 17 96/50 97 Room Air 02/14 0853 99.3 89 17 92/52 97 Trach Mask Intake & Output 02/15 0800 02/15 0000 02/14 1600 Intake Total 8300 978 3004 Output Total 2050 600 400 Balance -015 381 7267 Intake, IV 9003 249 5070 Intake, Oral 120 240 600 Number 1 7 1 Bowel Movements Output, Urine 2049 600 400 Patient 58.287 kg 65.544 kg Weight Weight Chair scale Chair scale Measurement Method Physical Exam General Appearance: Alert, Oriented X3, Cooperative, CACHETIC Skin: No Significant Lesion HEENT: Atraumatic, PERRLA, EOMI, Mucous Membr. moist/pink Neck: Supple, No JVD, No thryomegaly Lymphatic: Cervical nl Cardiovascular: Regular Rate, Normal S1, Normal S2 Lungs: Clear to Auscultation, Normal Air Movement Abdomen: Normal Bowel Sounds, Soft, No Tenderness, No Hepatospenomegaly Neurological: Normal Gait, Normal Speech, Strength at 5/5 X4 Ext, Normal Tone, Sensation Intact, Cranial Nerves 3-12 NL Extremities: No Clubbing, No Cyanosis, No Edema, Normal Pulses Vascular: Pulses Symmetrical Current Medications: Current Medications Sig/Fay Start time Last Medication Dose Route Stop Time Status Admin Acetaminophen 650 MG Q4P PRN 02/13 0345 DCD PO Cholestyramine Resin 1 PAC DAILY 02/06 1801 DCD 02/15 PO 0910 Enoxaparin Sodium 40 MG DAILY 01/31 1011 DCD 02/15 SC 0910 Ergocalciferol 50,000 IU QTHURS 02/03 1000 DCD 02/10 PO 0936 Fludrocortisone 100 MCG DAILY 02/14 1000 DCD 02/15 Acetate PO 0910 Hydrocortisone 10 MG 1600 02/15 1600 DCD PO Hydrocortisone 20 MG 0800 02/15 0800 DC PO Hydrocortisone 25 MG ONCE ONE 02/15 1100 DC 02/15 Sodium Succinate IV 02/15 1101 1105 Hydrocortisone 25 MG BID 02/14 1000 DC 02/14 Sodium Succinate IV 02/14 2201 2212 Insulin Aspart 0 TIDAC 02/03 1700 DCD 02/15 SC 1236 Insulin Detemir 6 UNITS DAILY 02/13 1000 DCD 02/15 SC 0911 Loperamide HCl 2 MG TIDAC 02/11 1700 DCD 02/15 PO 1220 Melatonin 5 MG AT BEDTIME 02/06 2200 DCD 02/14 PO 2155 Midodrine 10 MG 0800,1200,1600 02/11 1200 DCD 02/15 PO 1220 Mirtazapine 7.5 MG AT BEDTIME 02/02 2230 DCD 02/14 PO 2155 Multivitamins 1 TAB DAILY 02/01 1000 DCD 02/15 PO 0910 Naloxone HCl 0.4 MG DAILY NEEDED PRN 02/01 0630 DCD IV Patient Medication 1 ED .STK-MED ONE 02/15 1411 [place] Teaching ED 02/15 1412 Sodium Chloride 1,000 ML Q8H 02/10 1615 DC 02/15 IV 0549 Last 24 Hrs of Lab/Brad Results Last 24 Hrs of Labs/Mics: Laboratory Tests 02/15/17 0636: Anion Gap 6, Estimated GFR > 60, BUN/Creatinine Ratio 30.0 H Assessment/Plan Assessment: This is is a 51 YO male current active smoker, past alcoholism (quit in September 2016), no illicit drug abuse with past medical history of type 2 diabetes mellitus with peripheral neuropathy, chronic diarrhea, previous multiple falls with syncopal episodes, depression came in with chief complain of an 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 Orthostatic Hypotension 1. Still persistent orthostatic hypotension. on Midrodrine 10 mg 3 times a day in addition to the fludrocortisone 200 g, in addition to NS 125 MLS/HR. patient had a repeat calcium troponin test yesterday which this time was suggestive of adrenal insufficiency . Patient will be continued with solumedrol 25 mg IV BID. In light of continuing hydrocortisone will conitnue with fludrocortisone dose of 100 g. 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 Will continue to follow endocrine and cardiology recommendation. Still Unstable for discharge to [facility]. 2. Hypoglycemia No hypoglycemic events overnight or today. Levemir has been adjusted and low NovoLog sliding scale.. Results of DEJUAN antibody proves the patient actually has type 1 diabetes and not type II as previously thought and managed by primary care physician. 2. Chronic diarrhea with significant weight loss Unclear etiology. Mimimal Improvement in lose stool from loperamide use. PCR stool pending (first 2 stool toxin negative), Stool ova and parasite, Yersinia, HIV, cryptosporidum all negative, fecal stool fat is WNL. Biopsy of small bowel unremarkable for malignancy. Celiac serology pending, Pancraetic elastase, carcinoid workup (5-HIAA and chromagin), are all pending. Diabetic enteropathy is still very possible as patient also has profound orthostatic hypotension, and intermittent episodes of numbness and tingling of extremities. These findings can be suggestive of secondary autonomic dsyfunction from diabetes. Even though patient reports recent diagnosis of Type 2 diabetes (within 1 year), unlike type 1, Type 2 autonomic neuropathy can happen more acutely. Will continue to follow Gi reccomendation. 3. Malnutrition Severe protein calorie malnutrition as evidenced by a very low BMI of 14, and a weight loss of 50% of body weight with an albumin of 2.6. * Continue mirtazapine for appetite stimulation * Continue to encourse appropriate PO intake including Glucerna 3 times a day and monitor scale twice a week per nutrition recommendation (appreciated) * Follow up with GI in regards to chronic diarrhea workup Problem List: 1. Orthostatic hypertension Pain Ratin Pain Location: none Pain Goal: Remain pain free Pain Plan: per pain pathway Tomorrow's Labs & Rationales: none-possible discharge/transfer Consulting Request: Consulting Specialty: Gastroenterology HELEN STEPHENSON MD 02/15/17 1131: Attending MD Review Statement Attending Statement Attending MD Statement: examined this patient, discuss w/resident/PA/ENERGY EFFICIENT SITE MANAGER, agreed w/resident/PA/ENERGY EFFICIENT SITE MANAGER, reviewed EMR data (avail), discussed with nursing, discussed with case mgmt, reviewed images, amended to note Attending Assessment/Plan: Patient seen and examined, continued to have orthostasis. This morning his blood pressure was checked and he dropped to 50s after he stood up. Patient was symptomatic. 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 This morning he was going to be started on oral hydrocortisone. He had not received oral hydrocortisone this morning but then after he dropped his blood pressure so much despite being on Midrin as well as fludrocortisone, I spoke to Dr. Villalta and she recommended putting the patient again on IV Solu- Cortef. Patient will be given. At this point we have almost exhausted all of her options. Patient has been treated maximally with maximum treatment but still remains orthostatic and remain subdivided. Patient will be transferred to [facility] today I have called [place] by [facility] transfer line and I have spoken to Dr. Franklyn Jacques who will be the accepting physician for this patient.
[2017-02-15 08:09] VITALS: BP 104/74
--- NOTE | 2017-02-15 08:12 | PN- Diabetes ---
Assessment/Plan Assessment: 51 Y/O male with past hx of alcoholism (quit in September 2016), diabetes mellitus type 2 with peripheral neuropathy on metformin 1000 mg twice a day, chronic diarrhea with more than 100 pounds weight loss, multiple falls with syncopal episodes, was admitted to hospital after an episode of mechanical fall, feeling lightheaded and dizzy. He had an episode of hypoglycemia along with hypotension on 02/03/2017. Cortrosyn stimulation test reveals cortisol one hour after stimulation of 19.3. A value above 18 is considered normal. On 02/13/2017, repeat patient's a.m. serum cortisol again and it was only 5.4. ACTH level was drawn but this will not be back for several days. Repeat ACTH stimulation test showed cortisol of 17.5 which is suboptimal. His thyroid function and testosterone level were in the normal range; his thyroid antibody panel was negative. Patient was put on Florinef 0.1 mg daily and midodrine 10 mg x 3 times a day for postural hypotension. He was put on Hydrocortisone 25 mg iv twice a day on 02/14/2017. He felt less dizzy and orthostatic BP was improving as well. 21- hydroxylase antibody and ACTH are still pending. DEJUAN 65 antibody is 54 and C-peptide is 0.12 which are consistent with DM type 1. He is on Levemir 6 units once a day, sliding-scale NovoLog starting with the sugar above 150 before meals. his FSGs were 207, 186, 150, 369 and 390. Plan: 1. adrenal insufficiency (? partial) ----start hydrocortisone 20 mg daily at 8 am ----start hydrocortisone 10 mg daily at 4 pm ----consider cutting back on NS ----continue midodrine ( 10 mg tid )and florinef ( 0.1 mg daily) for now. ----continue monitoring orthostatic BP. 2. DM type 1--- glucose levels were elevated ? due to steroid. ----as hydrocortisone has been decreased, he will continue the current insulin regimen for now; ----monitor FSGs; will follow. Subjective Subjective: He still had diarrhea 6-7 times over 24 hours; but he felt less dizzy when he got up. Objective Last 24 Hrs of Vital Signs/I&O Vital Signs Date Time Temp Pulse Resp B/P B/P Pulse O2 O2 Flow FiO2 Mean Ox Delivery Rate 05/23 0809 98.8 85 18 104/74 99 Room Air 02/15 0031 98.6 87 18 124/70 98 Room Air 02/14 1607 98.9 89 17 96/50 97 Room Air 02/14 0853 99.3 89 17 92/52 97 Trach Mask Intake & Output 02/15 1600 02/15 0800 02/15 0000 Intake Total 1120 840 Output Total 2050 600 Balance -930 240 Intake, IV 1000 600 Intake, Oral 120 240 Number 1 7 Bowel Movements Output, Urine 0 600 Patient 129 lb Weight Weight Chair scale Measurement Method Findings Pertinent Lab/Brad Results: Laboratory Tests 02/15 0636 Chemistry Sodium Pending Potassium Pending Chloride Pending Carbon Dioxide Pending Anion Gap Pending BUN Pending Creatinine Pending BUN/Creatinine Ratio Pending
[2017-02-15] MEDS ORDERED: SOLU-CORTEF100 MG IV (12:11)
[2017-02-15] MEDS ORDERED: MELATONIN5 M7 PO (12:34)
[2017-02-15] MEDS ORDERED: LEVEMIR100 UNIT/1 SC (12:34)
[2017-02-15] MEDS ORDERED: VITAMIN D250000 UNIT PO (12:34)
[2017-02-15] MEDS ORDERED: FLUDROCORTISON0.1 M1 PO (12:34)
[2017-02-15] MEDS ORDERED: MIDODRINE HCL2.5 M1 PO (12:35)
== END 2017-02-15 15:27 | disposition short-term general hospital (02) | DRG 48 ==
LOC: DELPENDDIS → ERH 06:04 → ERHI 09:05 → CRI 09:05 → 1NO 09:05 → ENRESERV 11:22 → 1NO 12:29 → CRI 12:29 → 1NO 15:47 → CRI 02-01 08:47 → 1NO 02-02 17:29 → ENPENDDIS 02-09 10:02 → 1NO 02-14 22:00 → ENPENDDIS 02-15 13:40 → 1NO 02-15 15:27
PROVIDERS: Hospitalist; Internal Medicine; Pediatrics; Student in an Organized Health Care Education/Training Program; ADMIT Internal Medicine
PROC: 0DB68ZX Excision of Stomach, Via Natural or Artificial Opening Endoscopic, Diagnostic (ICD-10-PCS; principal; 2017-02-02)
PROC: 0DB88ZX Excision of Small Intestine, Via Natural or Artificial Opening Endoscopic, Diagnostic (ICD-10-PCS; principal; 2017-02-02)
DX: E11.43 Type 2 diabetes mellitus with diabetic autonomic (poly)neuropathy (principal); E43 Unspecified severe protein-calorie malnutrition; I95.9 Hypotension, unspecified; E11.65 Type 2 diabetes mellitus with hyperglycemia; R64 Cachexia; E11.649 Type 2 diabetes mellitus with hypoglycemia without coma; G65.2 Sequelae of toxic polyneuropathy; K52.9 Noninfective gastroenteritis and colitis, unspecified; R55 Syncope and collapse; Z68.1 Body mass index [BMI] 19.9 or less, adult; E11.42 Type 2 diabetes mellitus with diabetic polyneuropathy; Z79.4 Long term (current) use of insulin; G62.1 Alcoholic polyneuropathy; Z91.81 History of falling; F10.21 Alcohol dependence, in remission; F17.200 Nicotine dependence, unspecified, uncomplicated; K29.70 Gastritis, unspecified, without bleeding
CPT/HCPCS: 1NP; 83497; 83516; 83519; 84133; 84300; 86316; 87493; CCU; 36415; 74177; 80307; 81003; 82436; 82570; 82784; 84403; 86376; 86800; 87040; 87045; 87086; 87328; 87329; 87389; 88305; 88312; 88313; 93005; 93010; 93306; 94799; 96360; 96361; 97110-GO; 97116-GO; 97161-GP; 97530-GO; G0480; J0834; J1650; J1720; J2310; J7040; J7042